=== PATIENT | female | born 1945 | race Caucasian/White ===

== ENCOUNTER → 2016-11-02 | Outpatient (CLI) | payer OTHER, BC ==
[~2016-11-02] MED LIST: APR50 PO; ASPEC81 PO; ATOR-26 PO; Amoxicillin/Clavulanate Potas PO; CHOL100010 PO; CRG125 PO; GABA-113 PO; INSDGI SC; INSUINJ14 SC; ISOS-11 PO; LSX20 PO; NTRGSL4 SL; PLV75 PO; POTA10CA28 PO
[2016-11-02 11:06] LABS: CHOLESTEROL/HDL RATIO 2.3
[2016-11-02 12:09] LABS: ESTIMATED AVERAGE GLUCOSE 117 mg/dl; HA1C FLAG Normal (Normal)
== END | disposition home or self-care (01) ==
LOC: C.LAB1850 09:45
PROVIDERS: ATTEND Nurse Practitioner Family
DX: E11.9 Type 2 diabetes mellitus without complications (principal); E78.5 Hyperlipidemia, unspecified; I10 Essential (primary) hypertension

== ENCOUNTER → 2017-01-10 | Outpatient (CLI) | payer OTHER, BC ==
[2017-01-10 14:59] LABS: HEMATOCRIT 35.8 % (37-47); MEAN CELL VOLUME 86.9 fL (80-100); MEAN CORPUSCULAR HEMOGLOBIN 28.6 pg (25-34); MEAN PLATELET VOLUME 10.9 fL (7.4-10.4); PLATELET COUNT 237 K/uL (130-400); RED BLOOD COUNT 4.12 M/uL (4.2-5.4)
[2017-01-10 15:03] LABS: BLOOD UREA NITROGEN 34 mg/dl (7-18); BUN/CREATININE RATIO 21.2 (10-20); CALCIUM 9.7 mg/dl (8.5-10.1); CARBON DIOXIDE 26 mmol/L (21-32); CHLORIDE 107 mmol/L (98-107); GLUCOSE 142 mg/dl (70-99); POTASSIUM 3.7 mmol/L (3.5-5.1); SODIUM 142 mmol/L (136-145)
[2017-01-10 15:04] LABS: PHOSPHORUS 3.1 mg/dl (2.5-4.9)
[2017-01-10 15:07] LABS: URINE PROTIEN/CREAT RATIO 0.2 (0-0.2); URINE TOTAL PROTEIN 5.3 mg/dl (0-11.9)
[2017-01-10 15:08] LABS: URINE APPEARANCE CLEAR (CLEAR); URINE BILIRUBIN NEG (NEG); URINE COLOR YELLOW; URINE NITRITE NEG (NEG); URINE PH 5.5 (4.5-7.5); UROBILINOGEN NEG (NEG)
[2017-01-10 15:23] LABS: MANUAL MICROSCOPIC REQUIRED? NO; REVIEW REQ? NO
== END | disposition home or self-care (01) ==
LOC: C.LAB1850 13:05
PROVIDERS: ATTEND Internal Medicine Nephrology
DX: I12.9 Hypertensive chronic kidney disease with stage 1 through stage 4 chronic kidney disease, or unspecified chronic kidney disease (principal); N18.3 Chronic kidney disease, stage 3 (moderate); D64.9 Anemia, unspecified; E55.9 Vitamin D deficiency, unspecified; R60.9 Edema, unspecified

== ENCOUNTER → 2017-04-11 | Outpatient (CLI) | payer OTHER, BC ==
[2017-04-11 13:03] LABS: HEMATOCRIT 35.3 % (37-47); MEAN CORPUSCULAR HEMOGLOBIN 28.2 pg (25-34); MEAN PLATELET VOLUME 10.6 fL (7.4-10.4); PLATELET COUNT 304 K/uL (130-400); RED BLOOD COUNT 4.01 M/uL (4.2-5.4); WHITE BLOOD COUNT 8.71 K/uL (4.8-10.8)
[2017-04-11 13:19] LABS: ESTIMATED AVERAGE GLUCOSE 128 mg/dl; HA1C FLAG Normal (Normal)
[2017-04-11 13:32] LABS: BLOOD UREA NITROGEN 39 mg/dl (7-18); BUN/CREATININE RATIO 25.9 (10-20); CALCIUM 10.2 mg/dl (8.5-10.1); CARBON DIOXIDE 25 mmol/L (21-32); CHLORIDE 107 mmol/L (98-107); GLUCOSE 123 mg/dl (70-99); PHOSPHORUS 3.2 mg/dl (2.5-4.9); POTASSIUM 4.4 mmol/L (3.5-5.1); SODIUM 141 mmol/L (136-145)
== END | disposition home or self-care (01) ==
LOC: C.LAB1850 11:53
PROVIDERS: ATTEND Internal Medicine Nephrology
DX: E11.49 Type 2 diabetes mellitus with other diabetic neurological complication (principal); I12.9 Hypertensive chronic kidney disease with stage 1 through stage 4 chronic kidney disease, or unspecified chronic kidney disease; N18.3 Chronic kidney disease, stage 3 (moderate); D64.9 Anemia, unspecified; E55.9 Vitamin D deficiency, unspecified; R60.9 Edema, unspecified

== ENCOUNTER → 2017-10-12 | Outpatient (CLI) | payer OTHER, BC ==
[2017-10-12 13:27] LABS: HEMATOCRIT 32.8 % (37-47); HEMOGLOBIN 10.5 g/dL (12.0-16.0); MEAN CELL VOLUME 89.1 fL (80-100); MEAN CORPUSCULAR HEMOGLOBIN 28.5 pg (25-34); MEAN PLATELET VOLUME 11.1 fL (7.4-10.4); PLATELET COUNT 239 K/uL (130-400); RED CELL DISTRIBUTION WIDTH CV 15.4 % (11.5-14.5); RED CELL DISTRIBUTION WIDTH SD 50.3 fL (36.4-46.3); WHITE BLOOD COUNT 7.67 K/uL (4.8-10.8)
[2017-10-12 14:29] LABS: ALBUMIN 3.1 gm/dl (3.4-5.0); BLOOD UREA NITROGEN 31 mg/dl (7-18); CALCIUM 9.5 mg/dl (8.5-10.1); CARBON DIOXIDE 27 mmol/L (21-32); CREATININE 1.52 mg/dl (0.60-1.20); GLUCOSE 124 mg/dl (70-99); PHOSPHORUS 2.8 mg/dl (2.5-4.9); POTASSIUM 4.3 mmol/L (3.5-5.1); SODIUM 142 mmol/L (136-145)
== END | disposition home or self-care (01) ==
LOC: C.LAB 12:09
PROVIDERS: ATTEND Internal Medicine Nephrology
DX: E21.3 Hyperparathyroidism, unspecified (principal); N18.3 Chronic kidney disease, stage 3 (moderate); D64.9 Anemia, unspecified; R60.9 Edema, unspecified; E55.9 Vitamin D deficiency, unspecified

== ENCOUNTER 2017-11-24 02:39 | Inpatient (IN) | payer OTHER, BC ==
[2017-11-24] VITALS (30 sets, daily range): BP systolic 127–180; BP diastolic 46–85; PULSE 56–75; TEMP 36.5–36.7; O2SAT 91–100; Ht 157.5 cm; Wt 107.2 kg
[~2017-11-24] VITALS: Ht 157.5 cm; Wt 107.2 kg
[2017-11-24] MEDS ORDERED: SODIUM CHLORIDE 0.9% 1000ML 1,000 ML IV SCH ×2 (05:15→09:00)
[2017-11-24] MEDS ORDERED: NITROGLYCERIN 0.4 MG SL PER TAB CHARGE SL PRN (05:15)
[2017-11-24] MEDS ORDERED: METOPROLOL TARTRATE 25 MG TAB PO ONE (05:30)
[2017-11-24] MEDS ORDERED: NITROGLYCERIN/D5W 100 MCG/ML 250 ML IV PRN (05:30)
--- NOTE | 2017-11-24 06:01 | History and Physical ---
History & Physical Date & Time of Service: Nov 24, 2017 at 05:42 Chief Complaint: Ms,Chest Pain,Unstable Angina Primary Care Physician: No Doctor, Assigned History of Present Illness Source: patient, partner Patient is a 72 year old female with a past medical history of MS (primary progressive), CO in 2013 with stenting, HTN, HLD, DM on insulin, stroke, and CKD stage 3 that presents as a direct from [place] with chest pain. The chest pain began at approximately 1 am this evening when the patient was awaiting discharge from the ED. The patient was initially seen for abdominal pain, nausea , and vomiting that started Sunday afternoon. The patient was evaluated in the ED and was being prepared for discharge home with antibiotics for suspected diverticulitis when she began to suddenly complain of chest pain. The discomfort was over her left scapula, radiating across her chest, pressure like discomfort, that progressed to radiate to her back. The patient states that this pain was similar but worse than her previous heart attack. The pain subsequently resolved after 2 nitro tabs and nitro paste. The patient was initially reported as Q waves in v1-v4 and T wave inversions in the inferior leads. The patient was placed on a heparin drip, given 4 doses of aspirin, nitro paste, and transported to [facility]. Upon arrival to the ICU the EKG from [place] appeared to have ST Elevations in the anteroseptal leads. The patient at this time denies any chest pain, shortness of breath, abdominal pain, fevers, chills, back pain, or any other acute complaints at this time. Family History Noncontributory Social History Smoking Status: Never Smoker Smokeless Tobacco Use: No Alcohol Use: none Drug Use: none Marital Status: Housing status: lives with family Occupational Status: disabled Immunizations History of Influenza Vaccine: Unknown History of Tetanus Vaccine?: Unknown History of Pneumococcal: Unknown Multi-Drug Resistant Organisms History of MDRO: No Allergies Coded Allergies: No Known Allergies (Unverified , 12/14/11) Home Medications Scheduled Aspirin (Aspir-Low), 81 MG PO QAM Atorvastatin (Lipitor), 80 MG PO DAILY Carvedilol (Coreg *), 12.5 MG PO BID Cholecalciferol (Vitamin D), 2,000 INTER.UNIT PO HS Clopidogrel Bisulfate (Clopidogrel), 75 MG PO QAM Furosemide (Furosemide), 20 MG PO QAM Gabapentin (Neurontin), 600 MG PO TID Hydralazine HCl (Hydralazine HCl), 50 MG PO TID Insulin Aspart Penfill (Novolog Penfill), 0 SC TID UD Insulin Glargine (Lantus), 25 UNITS SC QPM Isosorbide Mononitrate (Isosorbide Mononitrate ER), 30 MG PO QAM Potassium Chloride (Micro-K Ext Rel), 10 MEQ PO DAILY [Amoxicillin/Clavulanate Potas], 500 MG PO BIDM Scheduled PRN Nitroglycerin (Nitrostat), 0.4 MG SL UD PRN for Chest Pain Review of Systems Constitutional: No fever, No chills, No fatigue Respiratory: No cough, No shortness of breath Cardiovascular: No chest pain, No palpitations Abdomen: No pain, No nausea, No vomiting, No diarrhea, No constipation Genitourinary - Female: No dysuria Endocrine: No fatigue Physical Exam General Appearance: WD/WN, no apparent distress, + obese Head: normocephalic, atraumatic Neck: supple, no carotid bruits Respiratory/Chest: chest non-tender, lungs clear, normal breath sounds Cardiovascular: regular rate, rhythm, no edema, no gallop Abdomen/GI: normal bowel sounds, non tender, soft Neurologic/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 Bhakta and Heart Alert Called - Troponin 12.4 - Heparin Drip - Metoprolol 25mg PO - Normal Saline 100 mls/hr - Received 325mg Aspirin PO at [place] --> Resume home Aspirin 325mg PO QAM - Chest X-Ray - Continue home Atorvastatin 80mg - Continue home Carvedilol 12.5 mg QAM Diverticulitis - CT Abdomen: Mild inflammatory change of right sigmoid colon, may represent diverticulosis - Received dose of Cipro in [place] - Begin course of Cipro and Flagyl for presumed diverticulitis - No abdominal pain at this time Urinary Tract Infection - UA from [place]: 1+ Leuk Est, Trace Blood, Moderate WBC - Unclear if Urine Culture ordered - Repeat UA and Urine Culture (already received dose of Cipro at [place]) - Cipro in conjunction with Diverticulosis treatment Hypertension - Resume home Hydralazine and Isosorbide Mononitrate Diabetes Mellitus - ISS + AC/HS Glucose checks - NPO at this time - Resume home Lantus 28 units QPM when resuming diet Multiple Sclerosis - Resume home Gabapentin 600mg TID Urinary Retention - Resume home Flomax - Pierre cath DVT - Heparin Drip Code Status - Full Resuscitation Attending addendum: I have physically seen this patient, have supervised the medical residents activities, and agree with the H&P unless as otherwise noted. Assessment and Plan: NSTEMI/heart alert-- Patient was initially accepted in transfer from [facility] as a non-STEMI with a normal troponin and EKG description suggesting ischemia. Recommendation at that time was to start heparin drip, place the patient on Nitropaste and transfer the patient urgently to [facility]. Upon arrival, review of EKGs revealed a STEMI in leads II, III and aVF, with some improvement on new EKG performed here. Case was discussed with drafter directional survey Dr. Bhkata, additional laboratories were performed, and heart alert was called. Additional management as per Dr. Bhakta, and the compressor mechanic/ICU team Level of Care Critical Care Advanced Directives Existing Advance Directive: No Existing Living Will: No Existing Power of Document Specialist: No Resuscitation Status FULL RESUSCITATION VTE Prophylaxis VTE Risk Assessment Done? Y/N: Yes Risk Level: Moderate Given or contraindicated: Unfractionated heparin SQ Social Service Consult None Apply Resident Tracking Resident Involvement: Resident Care Provided Care Provided: Adult Hospital Medicine
[2017-11-24] MEDS ORDERED: ICU PROTOCOL FOR HYPERGLYCEMIA PRN ×2 (06:15→06:30)
[2017-11-24] MEDS ORDERED: HEPARIN 25,000 UNIT/500ML D5W 500 ML IV PRN (06:15)
[2017-11-24] MEDS ORDERED: ACETAMINOPHEN 325 MG TAB PO PRN (06:15)
[2017-11-24 06:19] LABS: BASO % 0.5 %; BASO ABS # 0.05 K/uL (0-0.2); EOS % 0.8 %; EOS ABS # 0.08 K/uL (0-0.5); HEMATOCRIT 35.9 % (37-47); HEMOGLOBIN 11.7 g/dL (12.0-16.0); IG# 0.03 K/uL (0.00-0.02); LYMPH % 15.5 %; LYMPH ABS # 1.55 K/uL (1.2-3.4); MEAN CELL VOLUME 86.9 fL (80-100); MEAN CORPUSCULAR HEMOGLOBIN 28.3 pg (25-34); MEAN PLATELET VOLUME 10.5 fL (7.4-10.4); MONO % 9.2 %; MONO ABS # 0.92 K/uL (0.11-0.59); NEUT % 73.7 %; NEUT ABS # 7.37 K/uL (1.4-6.5); PLATELET COUNT 240 K/uL (130-400); RED CELL DISTRIBUTION WIDTH CV 15.4 % (11.5-14.5); RED CELL DISTRIBUTION WIDTH SD 49.3 fL (36.4-46.3)
[2017-11-24 06:26] LABS: MEAN CORPUSCULAR HGB CONC 32.6 g/dl (32-36)
[2017-11-24] MEDS ORDERED: GLUCOSE 40% GEL 15 GM TUBE PO PRN (06:30)
[2017-11-24] MEDS ORDERED: ONDANSETRON INJ 2 MG/ML 2 ML VIAL IV PRN (06:30)
[2017-11-24] MEDS ORDERED: DEXTROSE 50% 50 ML SYR IV PRN (06:30)
[2017-11-24] MEDS ORDERED: MoRPHine SULFATE 2 MG/ML CARP IV PRN (06:30)
[2017-11-24] MEDS ORDERED: GLUCAGON FOR INJ 1 MG VIAL SQ PRN (06:30)
[2017-11-24] MEDS ORDERED: GLUCOSE 10 TABS/TUBE PO PRN (06:30)
[2017-11-24 06:36] LABS: INR 1.1 (0.9-1.1)
[2017-11-24 06:43] LABS: BLOOD UREA NITROGEN 38 mg/dl (7-18); CREATININE 1.52 mg/dl (0.60-1.20); GLUCOSE 179 mg/dl (70-99)
[2017-11-24 06:44] LABS: ALBUMIN 3.4 gm/dl (3.4-5.0); ALT/SGPT 27 U/L (12-78); AST/SGOT 82 U/L (15-37); CALCIUM 9.8 mg/dl (8.5-10.1); CARBON DIOXIDE 23 mmol/L (21-32); POTASSIUM 4.3 mmol/L (3.5-5.1); SODIUM 138 mmol/L (136-145)
[2017-11-24 06:49] LABS: ALKALINE PHOSPHATASE 85 U/L (45-117); TOTAL PROTEIN 7.3 gm/dl (6.4-8.2)
[2017-11-24 06:53] LABS: PTT PATIENT 52.7 SECONDS (21.0-31.0)
[2017-11-24] MEDS ORDERED: MIDAZOLAM HCL 1 MG/ML 2ML VIAL ONE (07:20)
[2017-11-24] MEDS ORDERED: FENTANYL CITRATE INJ 50 MCG/1 ML 2 ML VIAL ONE (07:20)
[2017-11-24] MEDS ORDERED: NiCARDipine HCL INJ 2.5 MG/ML 10 ML AMP ONE (07:20)
[2017-11-24] MEDS ORDERED: HEPARIN SOD (PORCINE) 1000 UNIT/ML 10 ML VIAL ONE (07:20)
--- NOTE | 2017-11-24 07:22 | Critical Care Consultation ---
Critical Care Consultation Date of Consultation: Nov 24, 2017. Attending Physician: Mateus Almeida M.D. Reason for Consultation: Patient is a 72-year-old female accepted in transfer from [place] emergency department for concerns for ST changes on EKG with a history of coronary artery disease and stenting in 2013. History of Present Illness Patient is a 72-year-old female with significant past medical history of coronary artery disease, hypertension, hyperlipidemia, chronic kidney disease, diabetes, and MS who was accepted in transfer to this facility from [place] emergency department for further evaluation and management of acute onset of LEFT-sided upper chest pain with radiation to her back with pain that responded to sublingual nitroglycerin. Yesterday afternoon, the patient was experiencing some abdominal discomfort after having a bowel movement. She received a suppository from her . Shortly after, she developed increasing abdominal pain with associated diarrhea and vomiting. Her symptoms persisted throughout the evening which prompted visit to the [facility] emergency department. While in the emergency department, her symptoms did resolve with treatment. She had a CT scan without contrast performed of her abdomen and pelvis which was concerning for sigmoid inflammation concerns for early diverticulitis. She was treated with 1 dose of Cipro orally. Around the time of discharge, approximately 12:30 AM, the patient complained of LEFT-sided upper chest pain with radiation to her scapula. During this time, she had an EKG performed. She received nitroglycerin and morphine. She received a second nitroglycerin with complete resolve of her symptoms. EKG was concerning for, what was described from the [place] emergency physician, Q's in V1 through V4 and ST/T- wave inversions in 3/aVL. She had previous PTCA with ALEXANDER to the PLB. Most recently, the patient had been on aspirin therapy alone after having been on Brilinta. Upon evaluation in the ICU, the patient is awake, alert, and oriented. She denies any chest pain currently. The patient reports that she had been feeling well up until earlier today. She describes the pain to the LEFT-sided chest more as "pressure." She does report that this pain was worse than she remembered from her previous UT. She denies any headaches, dizziness, lightheadedness, chest pain, palpitations, shortness of breath, pleuritic pain, nausea, vomiting, or abdominal discomfort. Patient lives at home with family. She denies any tobacco use or alcohol consumption. Past Medical/Surgical History Medical Problems: (1) Chest pain (2) DM (diabetes mellitus) (3) HTN (hypertension) (4) MS (multiple sclerosis) Family History noncontributory Social History Smoking Status: Never Smoker Smokeless Tobacco Use: No Alcohol Use: none Drug Use: none Marital Status: Housing Status: lives with family Occupation Status: disabled Allergies Coded Allergies: No Known Allergies (Unverified , 12/14/11) Home Medications Scheduled Aspirin (Aspir-Low), 81 MG PO QAM Atorvastatin (Lipitor), 80 MG PO DAILY Carvedilol (Coreg *), 12.5 MG PO BID Cholecalciferol (Vitamin D), 2,000 INTER.UNIT PO HS Clopidogrel Bisulfate (Clopidogrel), 75 MG PO QAM Furosemide (Furosemide), 20 MG PO QAM Gabapentin (Neurontin), 600 MG PO TID Hydralazine HCl (Hydralazine HCl), 50 MG PO TID Insulin Aspart Penfill (Novolog Penfill), 0 SC TID UD Insulin Glargine (Lantus), 25 UNITS SC QPM Isosorbide Mononitrate (Isosorbide Mononitrate ER), 30 MG PO QAM Potassium Chloride (Micro-K Ext Rel), 10 MEQ PO DAILY [Amoxicillin/Clavulanate Potas], 500 MG PO BIDM Scheduled PRN Nitroglycerin (Nitrostat), 0.4 MG SL UD PRN for Chest Pain Current Inpatient Medications Current Inpatient Medications Medications (Trade) Dose Ordered Sig/Lisa Route Start Time Stop Time Status Last Admin Dose Admin Nitroglycerin (Nitrostat Tab) 0.4 mg Q5M PRN SL 11/24/17 05:15 12/24/17 05:14 Sodium Chloride 1,000 ml @ 100 mls/hr Q10H IV 11/24/17 05:15 12/24/17 05:14 11/24/17 06:11 100 MLS/HR Nitroglycerin/ Dextrose 250 ml @ 0 mls/hr Q0M PRN IV 11/24/17 05:30 12/24/17 05:29 11/24/17 06:14 5 MLS/HR Heparin Sodium/ Dextrose 500 ml @ 26 mls/hr [id number] PRN IV 11/24/17 06:15 12/24/17 06:14 Insulin Aspart (novoLOG ASPART) SLIDING SCALE G... ACHS SC 11/24/17 06:45 12/24/17 06:44 UNV Acetaminophen (Tylenol Tab) 650 mg Q4H PRN PO 11/24/17 06:15 12/24/17 06:14 UNV Miscellaneous Information (Icu Protocol For Hyperglycemia) 1 ea PRN PRN N/A 11/24/17 06:15 11/26/17 06:14 UNV Ondansetron HCl (Zofran Inj) 4 mg Q6H PRN IV 11/24/17 06:30 12/24/17 06:29 UNV Pantoprazole Sodium 40 mg/ Syringe 10 ml @ 5 mls/min DAILY IV 11/24/17 09:00 12/24/17 08:59 UNV Morphine Sulfate (MoRPHine SULFATE INJ) 2 mg Q2H PRN IV 11/24/17 06:30 12/08/17 06:29 UNV Miscellaneous Information (Icu Protocol For Hyperglycemia) 1 ea PRN PRN N/A 11/24/17 06:30 11/26/17 06:29 UNV Review of Systems A complete 10-point Review of Systems was discussed with the patient, with pertinent positives and negatives listed in the History of Present Illness. All remaining Review of Systems questions can be considered negative unless otherwise specified. Physical Exam Date Time Temp Pulse Resp B/P (MAP) Pulse Ox O2 Delivery O2 Flow Rate FiO2 11/24/17 05:00 36.7 70 20 154/56 99 Nasal Cannula 3.0 VITAL SIGNS - Vital signs and nursing notes were reviewed. GENERAL - 72-year-old female appearing her stated age who is in no acute distress. Communicates well with provider and answers questions appropriately. HEAD - NC/AT. EYES - PERRL with EOMI bilaterally. Sclera anicteric. EARS - No deformities of external structures noted on gross examination bilaterally. NOSE - Midline and without cyanosis. No epistaxis or purulent drainage noted. Septum midline without deviation or septal hematoma noted. MOUTH/OROPHARYNX - Without perioral cyanosis. Buccal mucosa pink and moist and without leukoplakia. Tongue midline with equal elevation of palate bilaterally. No tonsillar hypertrophy, erythema, or exudates noted. NECK - Neck with FROM. Supple to palpation. LUNGS - Chest wall symmetric without accessory muscle use, intercostals retractions, or central cyanosis. Normal vesicular breath sounds CTA B/L. No wheezes, rales, or rhonchi appreciated. CARDIAC - Distant heart sounds w/ RRR with S1/S2. No murmur, rubs, or gallops appreciated. No reproducible tenderness to palpation appreciated over the anterior chest wall. ABDOMEN - Abdominal contour obese and without pulsations or visible masses. BS normoactive all four quadrants. No tenderness, palpable masses, hepatosplenomegaly, or ascites noted. EXTREMITIES - No clubbing or peripheral cyanosis. Moderate pretibial edema present bilaterally. +3/5 radial and dorsalis pedis pulses palpated throughout. LEFT sided upper/lower deficits noted on exam. NEUROLOGIC - Cranial nerves II through XII grossly intact. LEFT sided Deficits as above. PSYCH - A&Ox3 and cooperates fully with examiner. Pt is very pleasant and interacts well with examiner. Laboratory Results Last 24 Hours Test 11/24/17 05:07 11/24/17 06:09 11/24/17 06:13 Creatine Kinase MB Ratio White Blood Count 10.00 K/uL Red Blood Count 4.13 M/uL Hemoglobin 11.7 g/dL Hematocrit 35.9 % Mean Corpuscular Volume 86.9 fL Mean Corpuscular Hemoglobin 28.3 pg Mean Corpuscular Hemoglobin Concent 32.6 g/dl Platelet Count 240 K/uL Mean Platelet Volume 10.5 fL Neutrophils (%) (Auto) 73.7 % Lymphocytes (%) (Auto) 15.5 % Monocytes (%) (Auto) 9.2 % Eosinophils (%) (Auto) 0.8 % Basophils (%) (Auto) 0.5 % Neutrophils # (Auto) 7.37 K/uL Lymphocytes # (Auto) 1.55 K/uL Monocytes # (Auto) 0.92 K/uL Eosinophils # (Auto) 0.08 K/uL Basophils # (Auto) 0.05 K/uL RDW Standard Deviation 49.3 fL RDW Coefficient of Variation 15.4 % Immature Granulocyte % (Auto) 0.3 % Immature Granulocyte # (Auto) 0.03 K/uL Diagnostic Results Radiological imaging and reports were reviewed by myself. Assessment & Plan Reason Critically Ill: Patient is a 72-year-old female accepted in transfer from [place] emergency department for concerns for ST changes on EKG with a history of coronary artery disease and stenting in 2013. Neuro - * CAM ICU: NEGATIVE * MS: * No current treatment at home. * h/o CVA in 1995 and 2013. * Neuro exams. Cardiac - * Acute STEMI: * Initially with ST elevations at ~0030 while at outside facility. Responded to Nitro/morphine. Heparin gtt. Pain free on arrival * EKG at this facility: NSR 70bpm w/ slight ST elevations in III/aVL., QTc 397. * Spoke with Dr. Bhakta initially. Recommends waiting on troponin while patient is chest free. * Provided 25 mg metoprolol orally. * Started on Heparin/Nitro gtts. * Patient's troponin returned at 12.4. Spoke with Dr. Bhakta a second time. HEART ALERT called. * Will monitor the patient upon return from clinical laboratory medical director. Respiratory - * No history of pulmonary disease. * Supplemental O2 as needed. GI - * Possible early diverticulitis on CT scan with associated diarrheal stools: * Received initial dose of Cipro. * Cipro Flagyl per admitting service. * N.p.o. at this point. RENAL/LYTES - * Chronic kidney disease: * No acute electrolyte derrangement at this time. * Will monitor closely for contrast induced nephropathy s/p cath. - * Will add Pierre as patient poorly ambulates and will need so s/p cath. * Will repeat UA s/p cath. ENDO - * DM: * ISS * No h/y Thyroid Dz. HEME - * Stable H&H: * Will trend s/p Cath ID - * Early Diverticulitis: * Cipro/Flagyl * Consider stool cultures if persistent diarrhea. LINES/IV ACCESS - * PIVs intact. * Pierre Catheter. DVT PROPHYLAXIS - * Heparin gtt I have personally spent 45 minutes of critical care time in the direct management of this patient. This is a life/limb threatening event. This includes time spent evaluating patient, direct bedside care, chart review, placing orders, interpretation of diagnostic studies, discussion with consultants, patient, and family members, as well as other required patient management activities. This time is exclusive of all separately billable procedures, and teaching time and separate from and in addition to any other critical care service time. Thank you for this consultation allow us to be part of this patient's care. Please refer to my attending physician's documentation for any further recommendations. Attending addendum, The patient was seen, examined independently, assessment and plan per my colleague Peterson Manzo. The patient physical exam revealed elderly female, does not appear to be in any distress, just had PCI which showed another branch of the RCA requiring ballooning. Appreciate Dr. Bhakta input in that regard. The patient currently is on heparin drip, she was started on antiplatelet therapy, and she appeared to be chest pain-free. Her physical exam revealed S1-S2 regular rate and rhythm , lungs are clear, abdomen is benign minimal tenderness in the pelvic area, trace edema in the periphery. Her labs were reviewed which showed elevated troponin due to ST elevation UT. We'll continue to monitor the patient ICU, plan per postcardiac cath day 1. CCT including discussion with the staff was 35 minutes.
--- NOTE | 2017-11-24 07:30 | DIAGNOSTIC IMAGING REPORT ---
CHEST ONE VIEW PORTABLE CLINICAL HISTORY: Chest pain. COMPARISON STUDY: Chest radiograph April 14, 2014. FINDINGS: There is no pneumothorax or pleural effusion. There is mild cardiomegaly. There is no consolidation to suggest pneumonia. Mild interstitial thickening is noted. IMPRESSION: 1. Mild interstitial thickening which could reflect pulmonary vascular congestion/mild interstitial pulmonary edema or interstitial lung disease. 2. No consolidation identified. 3. Mild cardiomegaly. Electronically signed by: Feliciano Rowland M.D. 11/24/2017 7:29 AM Dictated Date/Time: 11/24/2017 7:27 AM
--- NOTE | 2017-11-24 07:37 | Pre Sedation Assessment ---
Pre Sedation Assessment General Date of Sedation: Nov 24, 2017. Vital Signs Past 12 Hours Date Time Temp Pulse Resp B/P (MAP) Pulse Ox O2 Delivery O2 Flow Rate FiO2 11/24/17 07:15 64 16 98 11/24/17 07:01 71 20 139/54 (82) 98 11/24/17 07:00 75 16 99 11/24/17 06:53 71 17 148/61 (90) 100 11/24/17 06:45 70 20 99 11/24/17 06:41 72 23 180/64 (102) 11/24/17 06:30 72 17 175/70 (105) 96 11/24/17 06:15 69 20 98 11/24/17 06:00 71 18 99 11/24/17 05:36 154/56 (88) 11/24/17 05:00 36.7 70 20 154/56 99 Nasal Cannula 3.0 Review Cardiovascular: regular rate, rhythm, no edema Lungs: chest non-tender, lungs clear Pre-Sedation Airway Assessment Smoking Status: Never Smoker Hx of Sleep Apnea: No Hx of difficult intubation: No Short Thick Neck: No Thyro-mental Distance: > 3 Finger Breadths Oral Cavity: WNL Mallampati Classification: Class III ASA Classification: Class IV Procedure Planning Contraindications for Sedation: None Current Medications Reviewed: Yes Notes The planned sedation has been discussed with the patient. Informed Consent was obtained. I have identified the patient, determined the appropriateness of sedation and have assessed the patient immediately prior to the procedure. All medicine(s) and interventions are by my order.
[2017-11-24] MEDS: INSULIN ASPART 100 UNITS/ML 3 ML PEN SC SCH ×4 (07:50→21:13)
[2017-11-24] MEDS ORDERED: TICAGRELOR 90 MG TAB PO ONE (08:20)
--- NOTE | 2017-11-24 08:52 | Cardiac Catheterization ---
Procedure Note Procedure Date Nov 24, 2017. Pre-Procedure Diagnosis Non STEMI AUC Score 8 Post-Procedure Diagnosis Severe CAD, Successful PCI, Elevated Intracardiac Pressures Procedure(s) Performed Coronary Angiography, Left Heart Cath, PTCA Parts Identifier anastacia Machine Clerical Verifier(s) jovan Estimated Blood Loss 20 Medication(s) Fentanyl, Heparin, Nicardipine, Nitroglycerin, Versed, Lidocaine 1% Ticagrelor Summary of Findings Indication: High-risk NSTEMI 72 F h/o prior NV 2013 treated with PCI and ALEXANDER (2.25 x 15 Xience) to distal R- PLB. Transferred from [facility] after presenting with abdominal pain, subsequent chest pain with transient inferior ST elevations and troponin on arrival of 12. Access: 6Fr Right ulnar artery - ultrasound guided access Catheters: [place]; JR4 guide Findings: LM - Luminal irregularities LAD - Moderate caliber, 20-30% mid segment disease, distal luminal irregularities as tapers to apex Circumflex - Small caliber vessel, 40% mid segment focal disease; distal vessel very small with diffuse disease. RCA - Large, dominant vessel with minimal luminal irregularities. Large R-PLB with widely patent distal stent. Moderate caliber right acute marginal branch with 100% acute distal occlusion. LVEDP - 19 -- PCI -- Antithrombotic therapy: Heparin, Ticagrelor Procedure: RCA cannulated with JR4 guide BMW wire passed across lesion into distal acute marginal Occlusion ballooned with 2.0 compliant balloon with re-established flow. IC vasodilators administered Post procedure SHLAINI 2-3 flow in small distal vessel. No apparent coronary complications. Patient chest pain free and hemodynamically/electrically stable. Arterial Closure: TR Band Summary: 1. Acutely occluded distal right acute marginal branch 2. Mild non-obstructive residual coronary artery disease - Widely patent R-PLB distal stent 3. Mildly elevated intracardiac filling pressure 4. Successful PTCA of distal right acute marginal branch Recommendations: Return to ICU for continued monitoring Patient with minimal disease throughout RCA and is now post 2 distal branch vessel acute occlusions ( and 2013). Concern for possible coronary embolism. Loaded with ticagrelor 180mg in cath lab nurse Continue DAPT at least for 1 year for NV Trend troponins until peak Check Echo, telemetry and consider additional outpatient ambulatory monitoring to evaluate for AF Uptitrate beta-radha/PAT as BP allows High-dose statin Consult cardiac Rehab Hemodynamics Rest Ao: 132/45/80 Final Ao: 140/54/87 LV: 152/19 Recommendations PCI without planned CABG Specimens None Radiation Exposure (mGy) 2158 Contrast (mls) 110 Visi Fluids (cc crystalloids) 100 Drains None Anesthesia Moderate Procedural Complication(s) None Disposition ICU ACC Data Cardiac Status Clinical evaluation leading to the procedure CAD Presntation: Non STEMI Anginal Classification: CCS IV Heart Failure: No, NYHA Class: CCS I Cardiogenic Shock w/in 24Hrs: No Cardiac Arrest w/in 24Hrs: No Imaging studies past 6 months: No Stress studies past 6 months: No Closure Device Percutaneous Entry Location: Ulnar Closure Device: Radial Band Recommendations: PCI without planned CABG PCI Indication: PCI for high risk Non-STEMI Lesion Segment Name: Distal right acute marginal Culprit Artery: Yes Stenosis Prior to Rx (%): 100 Chronic Total Occlusion: No IVUS: No FFR: No Pre-Procedure SHALINI Flow: 0 Previously Treated Lesion: No Lesion Complexity: Non-High/Non-C Lesion Length (mm): 10 Thrombus Present: Yes Bifurcation Lesion: No Guidewire Across Lesion: Yes Guidewire: Stenosis Post-Procedure (%): 10 Post-Procedure SHALINI Flow: 3 Device(s) Deployed: No Intraprocedure Events Significant Dissection: No Perforation: No
[2017-11-24] MEDS ORDERED: ISOSORBIDE MONONITRATE 20 MG TAB PO SCH (09:00)
--- NOTE | 2017-11-24 09:54 | Family Medicine Progress Note ---
Progress Note Date of Service Nov 24, 2017. Subjective Pt evaluation today including: conversation w/ patient, physical exam, chart review, lab review, review of studies, review of inpatient medication list Pain: Patient denies pain at this time Voiding: no voiding problems Patient had recently returned from cardiac cath at time of our visit. She denies chest pain or abdominal pain at this time Constitutional: + fatigue Cardiovascular: + edema, No chest pain Abdomen: No pain Neurologic: + problem reported (10 yr hx of worsening primary progressive MS , WC bound) All Other Systems: Reviewed and Negative Medications Current Inpatient Medications Medications (Trade) Dose Ordered Sig/Lisa Route Start Time Stop Time Status Last Admin Dose Admin Nitroglycerin (Nitrostat Tab) 0.4 mg Q5M PRN SL 11/24/17 05:15 12/24/17 05:14 Heparin Sodium/ Dextrose 500 ml @ 26 mls/hr [id number] PRN IV 11/24/17 06:15 12/24/17 06:14 11/24/17 13:58 26 MLS/HR Insulin Aspart (novoLOG ASPART) SLIDING SCALE G... ACHS SC 11/24/17 06:45 12/24/17 06:44 11/24/17 21:13 2 UNITS Acetaminophen (Tylenol Tab) 650 mg Q4H PRN PO 11/24/17 06:15 12/24/17 06:14 Miscellaneous Information (Icu Protocol For Hyperglycemia) 1 ea PRN PRN N/A 11/24/17 06:15 11/26/17 06:14 Ondansetron HCl (Zofran Inj) 4 mg Q6H PRN IV 11/24/17 06:30 12/24/17 06:29 Pantoprazole Sodium 40 mg/ Syringe 10 ml @ 5 mls/min DAILY IV 11/24/17 09:00 12/24/17 08:59 11/24/17 10:31 5 MLS/MIN Morphine Sulfate (MoRPHine SULFATE INJ) 2 mg Q2H PRN IV 11/24/17 06:30 12/08/17 06:29 Glucose (Glucose 40% Gel) 15-30 GRAMS 15 GRAMS... UD PRN PO 11/24/17 06:30 12/24/17 06:29 Glucose (Glucose Chew Tab) 4-8 Tablets 4 Tabl... UD PRN PO 11/24/17 06:30 12/24/17 06:29 Dextrose (Dextrose 50% 50ML Syringe) 25-50ML OF 50% DW IV FOR... UD PRN IV 11/24/17 06:30 12/24/17 06:29 Glucagon (Glucagon Inj) 1 mg UD PRN SQ 11/24/17 06:30 12/24/17 06:29 Atorvastatin Calcium (Lipitor Tab) 80 mg QAM PO 11/24/17 09:00 12/24/17 08:59 11/24/17 10:31 80 MG Carvedilol (Coreg Tab) 12.5 mg BID PO 11/24/17 09:00 12/24/17 08:59 11/24/17 21:10 12.5 MG Tamsulosin HCl (Flomax Cap) 0.4 mg QAM PO 11/24/17 09:00 12/24/17 08:59 11/24/17 10:31 0.4 MG Furosemide (Lasix Tab) 40 mg QAM PO 11/24/17 09:00 12/24/17 08:59 11/24/17 10:31 40 MG Gabapentin (Neurontin Tab) 600 mg BID PO 11/24/17 09:00 12/24/17 08:59 11/24/17 21:09 600 MG Hydralazine HCl (Apresoline Tab) 50 mg TID PO 11/24/17 09:00 12/24/17 08:59 11/24/17 21:08 50 MG Potassium Chloride (Klor-Con M10) 10 meq QAM PO 11/24/17 09:00 12/24/17 08:59 11/24/17 10:32 10 MEQ Isosorbide Mononitrate (Imdur Ext Rel Tab) 30 mg QAM PO 11/24/17 09:00 12/24/17 08:59 11/24/17 10:31 30 MG Ticagrelor (Brilinta Tab) 90 mg BID PO 11/24/17 09:00 12/24/17 08:59 11/24/17 21:08 90 MG Aspirin (Ecotrin Tab) 81 mg QAM PO 11/24/17 09:00 12/24/17 08:59 11/24/17 10:32 81 MG Ciprofloxacin (Cipro Tab) 500 mg BID PO 11/24/17 21:00 12/04/17 20:59 11/24/17 21:09 500 MG Objective Vital Signs Date Time Temp Pulse Resp B/P (MAP) Pulse Ox O2 Delivery O2 Flow Rate FiO2 11/24/17 22:00 63 20 127/46 (73) 93 Room Air 11/24/17 20:00 36.5 66 17 157/57 (90) 94 Room Air 11/24/17 20:00 94 Room Air 11/24/17 18:23 36.7 62 16 137/48 (77) 94 Room Air 11/24/17 16:12 61 16 147/54 (85) 94 Nasal Cannula 2.0 11/24/17 16:00 Nasal Cannula 2.0 11/24/17 14:45 62 16 139/57 (84) 94 Nasal Cannula 2.0 11/24/17 14:07 64 18 161/53 (89) 95 Nasal Cannula 2.0 11/24/17 13:45 63 18 139/85 (103) 93 Nasal Cannula 2.0 11/24/17 12:45 63 14 176/66 (102) 96 Nasal Cannula 2.0 11/24/17 12:00 Nasal Cannula 2.0 11/24/17 12:00 63 16 161/72 (101) 96 Nasal Cannula 2.0 11/24/17 11:45 63 16 162/69 (100) 96 Nasal Cannula 2.0 11/24/17 10:46 56 16 154/67 (96) 96 Nasal Cannula 2.0 11/24/17 10:16 64 16 158/74 (102) 95 Nasal Cannula 2.0 11/24/17 10:00 63 16 158/68 (98) 95 Nasal Cannula 2.0 11/24/17 10:00 63 16 158/68 (98) 95 Nasal Cannula 2.0 11/24/17 09:45 63 16 160/61 (94) 94 Nasal Cannula 2.0 11/24/17 09:30 66 16 151/58 (89) 92 Nasal Cannula 2.0 11/24/17 09:15 63 16 166/55 (92) 91 Nasal Cannula 2.0 11/24/17 09:00 36.7 64 16 156/65 (95) 92 Nasal Cannula 2.0 11/24/17 08:45 36.7 66 16 152/69 (96) 98 Nasal Cannula 2.0 11/24/17 08:21 60 137/80 (99) 98 11/24/17 08:00 Nasal Cannula 2.0 11/24/17 07:15 64 16 98 11/24/17 07:01 71 20 139/54 (82) 98 11/24/17 07:00 75 16 99 11/24/17 06:53 71 17 148/61 (90) 100 11/24/17 06:45 70 20 99 11/24/17 06:41 72 23 180/64 (102) 11/24/17 06:30 72 17 175/70 (105) 96 11/24/17 06:15 69 20 98 11/24/17 06:00 71 18 99 11/24/17 05:36 154/56 (88) 11/24/17 05:00 36.7 70 20 154/56 99 Nasal Cannula 3.0 Physical Exam General Appearance: WD/WN, no apparent distress Eyes: normal inspection, PERRL, EOMI ENT: hearing grossly normal Neck: supple Respiratory/Chest: chest non-tender, lungs clear, normal breath sounds, no respiratory distress, no accessory muscle use Cardiovascular: regular rate, rhythm, no JVD, no murmur, + pertinent finding Abdomen: normal bowel sounds, non tender, soft Extremities: no pedal edema, no calf tenderness Neurologic/Psychiatric: alert, normal mood/affect, oriented x 3 Skin: warm/dry Laboratory Results Last Resulted 11/24/17 06:13 Red Blood Count 4.13, Mean Corpuscular Volume 86.9, Mean Corpuscular Hemoglobin 28.3, Mean Corpuscular Hemoglobin Concent 32.6, Mean Platelet Volume 10.5, Neutrophils (%) (Auto) 73.7, Lymphocytes (%) (Auto) 15.5, Monocytes (%) (Auto) 9.2, Eosinophils (%) (Auto) 0.8, Basophils (%) (Auto) 0.5, Neutrophils # (Auto) 7.37, Lymphocytes # (Auto) 1.55, Monocytes # (Auto) 0.92, Eosinophils # (Auto) 0.08, Basophils # (Auto) 0.05 Last Resulted 11/24/17 06:13 Past 24 Hours Test 11/24/17 05:07 11/24/17 06:13 11/24/17 15:41 2/24/18 21:05 Range/Units Creatine Kinase MB Ratio 7.8 H 6.3 H 0-3.0 Creatine Kinase MB 34.0 H 59.6 H 43.2 H 0.5-3.6 ng/ml Prothromb Time International Ratio 1.1 0.9-1.1 Prothrombin Time 11.6 9.0-12.0 SECONDS Troponin I 12.400 *H 45.400 *H 37.000 *H 0-0.045 ng/ml Total Creatine Kinase 764 H 686 H 26-192 U/L Assessment and Plan Patient is a 72 year old female with a past medical history of recent CVA (aug 2017), MS (primary progressive), IL in 2013 with stenting, HTN, HLD, DM on insulin, stroke, and CKD stage 3 that presents as a direct admit from [facility] with chest pain STEMI - EKG from [facility] showed STEMI in Anteroseptal leads, Troponin 12.4 - Discussed case with Dr. Bhakta and Heart Alert Called at 0650 11/24 1. Acutely occluded distal right acute marginal branch 2. Mild non-obstructive residual coronary artery disease - Widely patent R-PLB branch distal stent 3. Mildly elevated intracardiac filling pressure 4. Successful PTCA of distal right acute marginal branch Recommendations: Patient with minimal disease throughout RCA and is now post 2 distal branch vessel acute occlusions ( and 2013). Concern for possible coronary embolism. Loaded with ticagrelor 180mg in laboratory engineer--Continue DAPT at least for 1 year for IL Trend troponins until peak Check Echo, telemetry and consider additional outpatient ambulatory monitoring to evaluate for AF Uptitrate beta-radha/PAT as BP allows Consult cardiac Rehab - Heparin Drip - Normal Saline 100 mls/hr - Resume home Aspirin 325mg PO QAM - Continue home Atorvastatin 80mg - Continue home Carvedilol 12.5 mg QAM after 6.25mg today Diverticulitis - CT Abdomen: Mild inflammatory change of right sigmoid colon, may represent diverticulosis - Received dose of Cipro in [facility] - Begin course of Cipro 500 BID for presumed diverticulitis, day 1 - No abdominal pain at this time Urinary Tract Infection - UA from [facility]: 1+ Leuk Est, Trace Blood, Moderate WBC - Unclear if Urine Culture ordered - Repeat UA and Urine Culture (already received dose of Cipro at [facility]) - Cipro in conjunction with Diverticulosis treatment Hypertension - Resume home Hydralazine and Isosorbide Mononitrate Diabetes Mellitus - ISS + AC/HS Glucose checks - Resume home Lantus 28 units QPM when resuming diet Multiple Sclerosis - Resume home Gabapentin 600mg TID Urinary Retention - Resume home Flomax - [facility] cath DVTP: Heparin Drip Code Status; Full Resuscitation Dispo: ICU, further transfer to [facility] when stable Resident Physician Supervision Note: I interviewed and examined the patient. Discussed with Dr. Kingston and agree with findings and plan as documented in the note. Any exceptions or clarifications are listed here: None Documented By: David Bryant feeling better than earlier no abdominal pain either vitals noted nad breathing unlabored abd soft nd nt STEMI - post cath, med management recent diverticulitis - resume abx otherwise as above Resident Tracking Resident Involvement: Resident Care Provided Care Provided: Adult Hospital Medicine
[2017-11-24] MEDS: FUROSEMIDE 40 MG TAB PO SCH (10:31)
[2017-11-24] MEDS: ISOSORBIDE MONONITRATE 30 MG TABCR PO SCH (10:31)
[2017-11-24] MEDS: PANTOprazole INJ 40 MG in SYRINGE 0 ML IV SCH (10:31)
[2017-11-24] MEDS: TAMSULOSIN HCL 0.4 MG CAP PO SCH (10:31)
[2017-11-24] MEDS: ATORVASTATIN 40 MG TAB PO SCH (10:31)
[2017-11-24] MEDS: GABAPENTIN 600 MG TAB PO SCH ×2 (10:31→21:09)
[2017-11-24] MEDS: POTASSIUM CHLORIDE 10 MEQ TABCR PO SCH (10:32)
[2017-11-24] MEDS: CARVEDILOL 12.5 MG TAB PO SCH ×2 (10:32→21:10)
[2017-11-24] MEDS: ASPIRIN 81 MG ECTAB PO SCH (10:32)
[2017-11-24] MEDS: TICAGRELOR 90 MG TAB PO SCH ×2 (10:32→21:08)
[2017-11-24] MEDS ORDERED: CARVEDILOL 6.25 MG TAB PO ONE (10:45)
--- NOTE | 2017-11-24 12:36 | CARDIOLOGY CONSULTATION ---
DATE OF CONSULTATION: 11/24/2017 CONSULTATION REQUESTED BY: Peterson Manzo and Mateus Almeida MD. REASON FOR CONSULTATION: Acute coronary syndrome. HISTORY OF PRESENT ILLNESS: Mrs. Bowman is a 72-year-old woman with a history of coronary artery disease status post prior MN in 2013, treated with PCI with drug-eluting stent to a distal right PLB, who was transferred from [facility] in the setting of an acute coronary syndrome. Interventional Cardiology was consulted/heart alert activated in the setting of transient ST elevation. The patient is followed by Dr. Palomo from [facility] as an outpatient for her cardiovascular care. Last seen by him in July. Recently, the patient had been doing reasonably well. She had a questionable CVA in August, which was treated at [facility]. Details of that hospitalization and management not noted at this time. She was in her usual state until yesterday at approximately 1:00 p.m. when she started to develop abdominal pain. This was associated with nausea and vomiting, which prompted her to go to [facility] around 6:00 p.m. There, was initially evaluated and diagnosed with possible early diverticulitis. Her abdominal pain had improved and was to be discharged when developed chest pain radiating to her back. There was an initial EKG, which showed inferior ST elevations, although not thought to meet STEMI criteria at outside hospital. She was transferred overnight to the [facility] ICU for further management. Upon arrival, she was chest pain free and states that she had maybe 2 or 3 hours of chest pain in total. She was continued on heparin infusion, nitrate infusion and initial troponin came back at greater than 12. In the setting of transient ST elevations and elevated troponin, a heart alert was activated and the patient was taken emergently to cardiac catheterization lab. In the phlebotomy lab assistant, found to have mild nonobstructive disease on the left system and a dominant RCA which was large without significant disease. Her stent in her prior PLB was widely patent. She had a moderate caliber acute marginal branch, which showed a distal acute occlusion. Marginal branch was ballooned with a 2-0 balloon and flow reestablished. The patient remained chest pain free and hemodynamically and electrically stable. PAST MEDICAL HISTORY: 1. Coronary artery disease with prior MN in 2013, treated with 2.25 x 12 Resolute drug-eluting stent. 2. Prior CVA. 3. Questionable MS. 4. Stage III chronic kidney disease. 5. Type 2 diabetes, on insulin. 6. Hyperlipidemia. 7. Hypertension. 8. Morbid obesity. 9. Questionable peripheral vascular disease. 10. Mild aortic stenosis. 11. Anemia. 12. Multinodular goiter. FAMILY HISTORY: Mother had aortic valve replacement, but no history of premature coronary artery disease or any other . SOCIAL HISTORY: She is a lifelong never smoker. Denies any alcohol or illicit drugs. She lives with her . HOME MEDICATIONS: Include tamsulosin, vitamin D, atorvastatin 80, hydralazine 50 three times a day, NovoLog insulin, furosemide 40 mg daily, aspirin 81, carvedilol 25 mg b.i.d., isosorbide mononitrate 30 mg daily, Neurontin, and Lantus insulin. ALLERGIES: SHE IS ALLERGIC TO PLAVIX. REVIEW OF SYSTEMS: A 10-point review of systems completed and otherwise negative unless mentioned in the HPI. PHYSICAL EXAMINATION: VITAL SIGNS: Temperature 36.7, pulse 64, blood pressure 139/54, and she is satting 98% on room air. GENERAL: The patient appears comfortable, in no acute distress. HEENT: Sclerae are anicteric. Oropharynx is clear. Mucous membranes are moist. NECK: Supple with no lymphadenopathy. LUNGS: Clear to auscultation bilaterally. CARDIAC: She had a 2/6 systolic ejection murmur heard best at the upper sternal border. ABDOMEN: Soft, nontender. EXTREMITIES: Warm. She had diminished right radial pulses bilaterally, palpable ulnar pulse. SKIN: Shows no rashes or lesions. PSYCHIATRIC: She was alert and appropriate. LABORATORY DATA: White blood cell count 10, hemoglobin of 11.7, platelets of 240. Sodium 138, potassium of 4.3, BUN of 38, creatinine of 1.5. Initial troponin of 12.4. IMAGING STUDIES: Chest x-ray showed no acute cardiopulmonary process. IMPRESSION AND PLAN: 1. Acute coronary syndrome. 2. Occluded acute marginal branch, status post percutaneous transluminal coronary angioplasty. 3. Mild nonobstructive residual coronary disease. 4. Prior cerebrovascular accident. 5. Chronic kidney disease. 6. Hypertension. 7. Dyslipidemia. 8. Mild aortic stenosis. 9. Questionable diverticulitis. Mrs. Bowman is here after developed chest pain at [facility] and was found to have dynamic EKG changes and an elevated troponin. Coronary angiography revealed an occluded distal right acute marginal branch, which was treated with angioplasty. Interestingly, the patient now has had 2 MIs both with distal acute occlusions of branches of her RCA. She has minimal disease on review of angiograms from both catheterizations raising concern for possible coronary embolus. Going forward, I recommend return to ICU for continued monitor. She was loaded with ticagrelor in the phlebotomy lab assistant. The patient had previously been on until stopped back in July. Recommend trending troponins until peak. Recommend echocardiogram with DEFINITY contrast to evaluate for sources of potential emboli. Long-term, we may need additional ambulatory monitoring to evaluate for possible atrial fibrillation. We will continue on her ASCVD secondary prevention meds including carvedilol and high intensity statin. Would continue heparin infusion for 24 hours once TR band is removed. Thank you for allowing us to participate in the care of this patient. MEÑO
[2017-11-24] MEDS ORDERED: NURSING VERBAL MED ORDER ONE (13:15)
[2017-11-24 16:45] LABS: CKMB 59.6 ng/ml (0.5-3.6)
--- NOTE | 2017-11-24 17:20 | ECHOCARDIOGRAM REPORT ---
*NOTICE TO RECEIVING CONSTITUTION PARTY AGENCY This information is strictly Confidential and protected under [place] law. [place] law prohibits you from making any further disclosure of this information unless further disclosure is expressly permitted by the written consent of the person to whom it pertains or is authorized by law. A general authorization for the release of medical or other information is not sufficient for this purpose. Hospital accepts no responsibility if the information is made available to any other person, INCLUDING THE PATIENT. Interpretation Summary * Name: ADELAIDA GRIMES Study Date: 11/24/2017 10:12 AM BP: 137/80 mmHg * Patient Location: .MSICU\S\E106\S\1 HR: 63 * : 1945 (M/d/yyy) Gender: Female Height: 62 in * Age: 72 yrs Ethnicity: CA Weight: 239 lb * Ordering Physician: Sergey Bhakta * Referring Physician: UNKNOWN * Performed By: Freddie Yu RDCS * * Reason For Study: AMI * BSA: 2.1 m2 * -- Conclusions -- * 1. Normal left ventricular size and systolic function. EF 55-60%. Distal inferolateral wall may have a small area of severe hypokinesis. Otherwise, no definite wall motion abnormalities visualized. No left ventricular hypertrophy. Type 2 diastolic dysfunction. No apical thrombus visualized. * 2. Moderate aortic stenosis based on transvalvular velocity and gradient. (Taking into account dimensionless index and valve area, aortic stenosis may be moderate to severe.) * 3. Mild aortic regurgitation. * 4. There is mild mitral regurgitation. There is moderate mitral annular calcification. * 5. Technically difficult study, enhanced with IV Definity. * 6. Compared to prior study on 04/08/2014, aortic transvalvular velocities and gradients are similar. Procedure Details * A complete two-dimensional transthoracic echocardiogram was performed (2D, M-mode, Doppler and color flow Doppler). * The study was technically difficult, but visualization was adequate with the administration of Definity ultrasound contrast. * There were technical limitations due to patient'spoor positioning * A contrast injection of Definity was performed to improve assessment of LV function. * Contrast was injected into an intravenous site in the left arm. * One vial of Definity ultrasound contrast was diluted in normal saline to a total volume of 10 ml. A total of '3' ml of solution was administered during imaging. * Lot # [id number] of Definity utilized for procedure. * Expiration date . * The attending nurse who injected the contrast agent was GUILLAUME Maki. * A saline contrast injection was performed to assess for cardiac shunting. * The injection was performed through an intravenous line in the left arm. * The attending nurse who injected the saline contrast was GUILLAUME Maki. * A total of 10 cc of agitated saline was given. Left Ventricle * Normal left ventricular size and systolic function. EF 55-60%. Distal inferolateral wall may have a small area of severe hypokinesis. Otherwise, no definite wall motion abnormalities visualized. No left ventricular hypertrophy. Type 2 diastolic dysfunction. Right Ventricle * The right ventricle is normal in size and function. * The right ventricular systolic function is normal as assessed by tricuspid annular plane systolic excursion (TAPSE) (normal >1.5 cm). Atria * Borderline left atrial enlargement. * Right atrial size is normal. * No obvious ASD or PFO. No visualized right to left inter atrial shunt following agitated saline injection. Mitral Valve * There is moderate mitral annular calcification. * There is no mitral valve stenosis. * There is mild mitral regurgitation. Tricuspid Valve * The tricuspid valve is not well visualized. * There is no tricuspid stenosis. * Significant tricuspid regurgitation is absent. Aortic Valve * The aortic valve is not well visualized. * Moderate aortic stenosis based on transvalvular velocity and gradient. (Taking into account dimensionless index and valve area, aortic stenosis may be moderate to severe.) * Dimensionless index 0.22. * Mild aortic regurgitation. Pulmonic Valve * The pulmonic valve is not well visualized. Great Vessels * The aortic root is normal size. * Ascending aorta of normal dimension Pericardium/Pleural * There is no pericardial effusion. Great Vessels * Top normal IVC size with reduced inspiratory collapse. MMode 2D Measurements and Calculations EPSS 0.82 cm Ao root diam 3.2 cm Ao root area 8.2 cm\S\2 ACS 1.0 cm LA dimension 3.9 cm asc Aorta Diam 2.9 cm LA/Ao 1.2 LVOT diam 2.3 cm LVOT area 4.1 cm\S\2 LVAd ap4 29.3 cm\S\2 LVLd ap4 7.4 cm EDV(MOD-sp4) 90.7 ml EDV(sp4-el) 98.1 ml LVAs ap4 18.4 cm\S\2 LVLs ap4 6.8 cm ESV(MOD-sp4) 39.8 ml ESV(sp4-el) 42.1 ml EF(MOD-sp4) 56.1 % EF(sp4-el) 57.1 % LVAd ap2 35.8 cm\S\2 LVLd ap2 9.3 cm EDV(MOD-sp2) 111.4 ml EDV(sp2-el) 116.8 ml LVAs ap2 21.2 cm\S\2 LVLs ap2 7.6 cm ESV(MOD-sp2) 48.1 ml ESV(sp2-el) 50.1 ml EF(MOD-sp2) 56.8 % EF(sp2-el) 57.1 % LVLd %diff 20.1 % EDV(MOD-bp) 111.6 ml LVLs %diff 10.6 % ESV(MOD-bp) 45.6 ml EF(MOD-bp) 59.1 % SV(MOD-sp4) 50.9 ml SI(MOD-sp4) 24.7 ml/m\S\2 SV(MOD-sp2) 63.2 ml SI(MOD-sp2) 30.7 ml/m\S\2 SV(MOD-bp) 66.0 ml SI(MOD-bp) 32.0 ml/m\S\2 SV(sp4-el) 56.1 ml SI(sp4-el) 27.2 ml/m\S\2 SV(sp2-el) 66.7 ml SI(sp2-el) 32.4 ml/m\S\2 Doppler Measurements and Calculations MV E max melyssa 126.2 cm/sec MV A max melyssa 60.3 cm/sec MV E/A 2.1 MV V2 max 139.8 cm/sec MV max PG 7.8 mmHg MV V2 mean 62.5 cm/sec MV mean PG 1.9 mmHg MV V2 VTI 32.1 cm MVA(VTI) 2.6 cm\S\2 MV dec time 0.14 sec Ao V2 max 317.6 cm/sec Ao max PG 40.5 mmHg Ao max PG (full) 38.6 mmHg Ao V2 mean 222.3 cm/sec Ao mean PG 22.6 mmHg Ao mean PG (full) 21.4 mmHg Ao V2 VTI 80.9 cm LUIS(I,A) 1.0 cm\S\2 LUIS(I,D) 1.0 cm\S\2 LUIS(V,A) 0.88 cm\S\2 LUIS(V,D) 0.88 cm\S\2 AI max melyssa 381.8 cm/sec AI max PG 58.3 mmHg AI dec slope 191.9 cm/sec\S\2 AI P1/2t 582.6 msec LV V1 max PG 1.9 mmHg LV V1 mean PG 1.2 mmHg LV V1 max 68.6 cm/sec LV V1 mean 50.3 cm/sec LV V1 VTI 20.7 cm SV(Ao) 666.3 ml SI(Ao) 323.1 ml/m\S\2 SV(LVOT) 84.9 ml SI(LVOT) 41.2 ml/m\S\2 PA V2 max 81.1 cm/sec PA max PG 2.6 mmHg PA acc slope 479.9 cm/sec\S\2 PA acc time 0.12 sec RAP systole 8.0 mmHg PA pr(Accel) 26.9 mmHg
[2017-11-24] MEDS: CIPROFLOXACIN 500 MG TAB PO SCH (21:09)
[2017-11-24 21:36] LABS: PTT PATIENT 43.1 SECONDS (21.0-31.0)
[2017-11-24 21:52] LABS: CKMB 43.2 ng/ml (0.5-3.6)
[2017-11-24] MEDS ORDERED: HEPARIN IV BOLUS 3,000 UNIT in SYRINGE 0 ML IV ONE (22:15)
[2017-11-25] VITALS (12 sets, daily range): BP systolic 121–165; BP diastolic 46–66; PULSE 59–83; TEMP 36.9–37.2; O2SAT 64–95
[2017-11-25 05:13] LABS: BASO % 0.3 %; BASO ABS # 0.03 K/uL (0-0.2); EOS % 1.7 %; HEMATOCRIT 30.9 % (37-47); HEMOGLOBIN 10.2 g/dL (12.0-16.0); IG# 0.04 K/uL (0.00-0.02); LYMPH % 16.2 %; MEAN CELL VOLUME 85.8 fL (80-100); MEAN CORPUSCULAR HEMOGLOBIN 28.3 pg (25-34); MEAN PLATELET VOLUME 10.2 fL (7.4-10.4); MONO % 8.9 %; MONO ABS # 1.05 K/uL (0.11-0.59); NEUT % 72.6 %; NEUT ABS # 8.53 K/uL (1.4-6.5); PLATELET COUNT 207 K/uL (130-400); RED CELL DISTRIBUTION WIDTH CV 15.4 % (11.5-14.5); RED CELL DISTRIBUTION WIDTH SD 48.1 fL (36.4-46.3); WHITE BLOOD COUNT 11.75 K/uL (4.8-10.8)
[2017-11-25 05:41] LABS: INR 1.2 (0.9-1.1)
[2017-11-25 05:47] LABS: ALBUMIN 2.9 gm/dl (3.4-5.0); CALCIUM 9.3 mg/dl (8.5-10.1); CREATININE 1.54 mg/dl (0.60-1.20); POTASSIUM 3.6 mmol/L (3.5-5.1); TOTAL PROTEIN 6.3 gm/dl (6.4-8.2)
[2017-11-25 05:50] LABS: PTT PATIENT 127.3 SECONDS (21.0-31.0)
--- NOTE | 2017-11-25 07:22 | DIAGNOSTIC IMAGING REPORT ---
CHEST ONE VIEW PORTABLE CLINICAL HISTORY: Myocardial infarction COMPARISON STUDY: January 22, 2018 FINDINGS: The heart remains enlarged. There is stable mild interstitial thickening/edema. There is no focal pulmonary consolidation. There are no pleural effusions.[ IMPRESSION: Stable cardiomegaly and mild interstitial thickening/edema. No evidence of focal pulmonary consolidation Electronically signed by: Gino Simms M.D. 11/25/2017 7:21 AM Dictated Date/Time: 11/25/2017 7:20 AM
[2017-11-25] MEDS: ATORVASTATIN 40 MG TAB PO SCH (07:34)
[2017-11-25] MEDS: CARVEDILOL 12.5 MG TAB PO SCH (07:34)
[2017-11-25] MEDS: FUROSEMIDE 40 MG TAB PO SCH (07:34)
[2017-11-25] MEDS: GABAPENTIN 600 MG TAB PO SCH ×2 (07:34→20:42)
[2017-11-25] MEDS: ISOSORBIDE MONONITRATE 30 MG TABCR PO SCH (07:34)
[2017-11-25] MEDS: POTASSIUM CHLORIDE 10 MEQ TABCR PO SCH (07:35)
[2017-11-25] MEDS: TICAGRELOR 90 MG TAB PO SCH ×2 (07:35→20:42)
[2017-11-25] MEDS: TAMSULOSIN HCL 0.4 MG CAP PO SCH (07:35)
[2017-11-25] MEDS: ASPIRIN 81 MG ECTAB PO SCH (07:35)
[2017-11-25] MEDS: CIPROFLOXACIN 500 MG TAB PO SCH ×2 (07:35→20:42)
[2017-11-25] MEDS: INSULIN ASPART 100 UNITS/ML 3 ML PEN SC SCH ×4 (07:38→20:52)
[2017-11-25] MEDS: PANTOprazole INJ 40 MG in SYRINGE 0 ML IV SCH (07:40)
[2017-11-25] MEDS ORDERED: ASPIRIN 325 MG ECTAB PO SCH (09:00)
--- NOTE | 2017-11-25 10:25 | Family Medicine Progress Note ---
Progress Note Date of Service Nov 25, 2017. Subjective Pt evaluation today including: conversation w/ patient, conversation w/ family , physical exam, chart review, lab review, review of inpatient medication list Pain: Patient denies pain PO Intake: Tolerating well Voiding: no voiding problems Patient feels well today, no chest pain, no abdominal pain. States she is tired after her long day yesterday Constitutional: + fatigue Respiratory: No cough, No sputum, No wheezing, No shortness of breath, No dyspnea on exertion, No dyspnea at rest, No hemoptysis, No problem reported Cardiovascular: + edema, No chest pain, No orthopnea, No PND, No claudication, No palpitations, No problem reported Abdomen: No pain, No nausea, No vomiting, No diarrhea, No constipation, No GI bleeding, No problem reported Neurologic: + problem reported (wheelchair bound 2/2 multiple sclerosis) All Other Systems: Reviewed and Negative Medications Current Inpatient Medications Medications (Trade) Dose Ordered Sig/Lisa Route Start Time Stop Time Status Last Admin Dose Admin Nitroglycerin (Nitrostat Tab) 0.4 mg Q5M PRN SL 11/24/17 05:15 12/24/17 05:14 Insulin Aspart (novoLOG ASPART) SLIDING SCALE G... ACHS SC 11/24/17 06:45 12/24/17 06:44 11/25/17 20:52 2 UNITS Acetaminophen (Tylenol Tab) 650 mg Q4H PRN PO 11/24/17 06:15 12/24/17 06:14 Miscellaneous Information ([facility] Protocol For Hyperglycemia) 1 ea PRN PRN N/A 11/24/17 06:15 11/26/17 06:14 Ondansetron HCl (Zofran Inj) 4 mg Q6H PRN IV 11/24/17 06:30 12/24/17 06:29 Pantoprazole Sodium 40 mg/ Syringe 10 ml @ 5 mls/min DAILY IV 11/24/17 09:00 12/24/17 08:59 11/25/17 07:40 5 MLS/MIN Morphine Sulfate (MoRPHine SULFATE INJ) 2 mg Q2H PRN IV 11/24/17 06:30 12/08/17 06:29 Glucose (Glucose 40% Gel) 15-30 GRAMS 15 GRAMS... UD PRN PO 11/24/17 06:30 12/24/17 06:29 Glucose (Glucose Chew Tab) 4-8 Tablets 4 Tabl... UD PRN PO 11/24/17 06:30 12/24/17 06:29 Dextrose (Dextrose 50% 50ML Syringe) 25-50ML OF 50% DW IV FOR... UD PRN IV 11/24/17 06:30 12/24/17 06:29 Glucagon (Glucagon Inj) 1 mg UD PRN SQ 11/24/17 06:30 12/24/17 06:29 Atorvastatin Calcium (Lipitor Tab) 80 mg QAM PO 11/24/17 09:00 12/24/17 08:59 11/25/17 07:34 80 MG Tamsulosin HCl (Flomax Cap) 0.4 mg QAM PO 11/24/17 09:00 12/24/17 08:59 11/25/17 07:35 0.4 MG Furosemide (Lasix Tab) 40 mg QAM PO 11/24/17 09:00 12/24/17 08:59 11/25/17 07:34 40 MG Gabapentin (Neurontin Tab) 600 mg BID PO 11/24/17 09:00 12/24/17 08:59 11/25/17 20:42 600 MG Hydralazine HCl (Apresoline Tab) 50 mg TID PO 11/24/17 09:00 12/24/17 08:59 11/25/17 20:43 50 MG Potassium Chloride (Klor-Con M10) 10 meq QAM PO 11/24/17 09:00 12/24/17 08:59 11/25/17 07:35 10 MEQ Isosorbide Mononitrate (Imdur Ext Rel Tab) 30 mg QAM PO 11/24/17 09:00 12/24/17 08:59 11/25/17 07:34 30 MG Ticagrelor (Brilinta Tab) 90 mg BID PO 11/24/17 09:00 12/24/17 08:59 11/25/17 20:42 90 MG Aspirin (Ecotrin Tab) 81 mg QAM PO 11/24/17 09:00 12/24/17 08:59 11/25/17 07:35 81 MG Ciprofloxacin (Cipro Tab) 500 mg BID PO 11/24/17 21:00 12/04/17 20:59 11/25/17 20:42 500 MG Insulin Glargine (Lantus Solostar Pen) 25 units QPM SC 11/25/17 21:00 12/25/17 20:59 11/25/17 20:53 25 UNITS Lisinopril (Zestril Tab) 2.5 mg QAM PO 11/26/17 09:00 12/26/17 08:59 Metronidazole (Flagyl Tab) 500 mg Q8H PO 11/25/17 12:00 12/05/17 09:59 11/25/17 20:43 500 MG Carvedilol (Coreg Tab) 18.75 mg BID PO 11/25/17 21:00 12/24/17 08:59 11/25/17 20:43 18.75 MG Objective Vital Signs Date Time Temp Pulse Resp B/P (MAP) Pulse Ox O2 Delivery O2 Flow Rate FiO2 11/25/17 20:40 64 140/62 (88) 11/25/17 18:44 37.2 59 20 124/47 (72) 95 Room Air 11/25/17 16:00 Room Air 11/25/17 15:01 37.0 63 22 121/59 (79) 94 Room Air 11/25/17 12:00 36.9 60 20 124/66 (85) 95 11/25/17 11:42 37.2 83 16 64 11/25/17 08:00 Room Air 11/25/17 08:00 83 16 161/60 (93) 64 Room Air 11/25/17 06:00 69 15 165/64 (97) 93 Room Air 11/25/17 04:00 92 Room Air 11/25/17 04:00 37.2 68 22 145/57 (86) 93 Room Air 11/25/17 02:00 60 20 125/46 (72) 91 Room Air 11/25/17 00:01 37.2 66 21 139/49 (79) 92 Room Air 11/24/17 23:59 92 Room Air 11/24/17 22:00 63 20 127/46 (73) 93 Room Air Physical Exam General Appearance: WD/WN, no apparent distress Eyes: normal inspection, PERRL, EOMI, sclerae normal ENT: hearing grossly normal, pharynx normal Neck: supple, no JVD, no carotid bruits, trachea midline Respiratory/Chest: chest non-tender, lungs clear, normal breath sounds, no respiratory distress, no accessory muscle use Cardiovascular: regular rate, rhythm, no gallop, no JVD, no murmur Abdomen: normal bowel sounds, non tender, soft, no organomegaly, no pulsatile mass Extremities: no calf tenderness, + swelling Neurologic/Psychiatric: alert, normal mood/affect, oriented x 3 Skin: normal color, warm/dry Laboratory Results Last Resulted 11/25/17 04:55 Red Blood Count 3.60, Mean Corpuscular Volume 85.8, Mean Corpuscular Hemoglobin 28.3, Mean Corpuscular Hemoglobin Concent 33.0, Mean Platelet Volume 10.2, Neutrophils (%) (Auto) 72.6, Lymphocytes (%) (Auto) 16.2, Monocytes (%) (Auto) 8.9, Eosinophils (%) (Auto) 1.7, Basophils (%) (Auto) 0.3, Neutrophils # (Auto) 8.53, Lymphocytes # (Auto) 1.90, Monocytes # (Auto) 1.05, Eosinophils # (Auto) 0.20, Basophils # (Auto) 0.03 Last Resulted 11/25/17 04:55 Past 24 Hours Test 11/25/17 04:55 Range/Units Prothromb Time International Ratio 1.2 H 0.9-1.1 Prothrombin Time 12.5 H 9.0-12.0 SECONDS Assessment and Plan Patient is a 72 year old female with a past medical history of recent CVA (aug 2017), MS (primary progressive), GA in 2013 with stenting, HTN, HLD, DM on insulin, stroke, and CKD stage 3 that presents as a direct admit from [facility] with chest pain STEMI - EKG from [facility] showed STEMI in Anteroseptal leads, Troponin 12.4 - Discussed case with Dr. Bhakta and Heart Alert Called at 0650 11/24 1. Acutely occluded distal right acute marginal branch 2. Mild non-obstructive residual coronary artery disease - Widely patent R-PLB branch distal stent 3. Mildly elevated intracardiac filling pressure 4. Successful PTCA of distal right acute marginal branch Recommendations: Patient with minimal disease throughout RCA and is now post 2 distal branch vessel acute occlusions ( and 2013). Concern for possible coronary embolism. Loaded with ticagrelor 180mg in lab head--Continue DAPT at least for 1 year for GA Trend troponins until peak Check Echo, telemetry and consider additional outpatient ambulatory monitoring to evaluate for AF Uptitrate beta-radha/PAT as BP allows Consult cardiac Rehab - Heparin Drip discontinued - Normal Saline 100 mls/hr - Resume home Aspirin 325mg PO QAM - Continue home Atorvastatin 80mg - Continue home Carvedilol 12.5 mg QAM - Start on lisinopril 2.5; monitor BMP (recheck BMP in one week after discharge) Diverticulitis - CT Abdomen: Mild inflammatory change of right sigmoid colon, may represent diverticulosis - Received dose of Cipro in [facility] - Begin course of Cipro 500 BID for presumed diverticulitis, day 2 - No abdominal pain at this time Urinary Tract Infection - UA from [facility]: 1+ Leuk Est, Trace Blood, Moderate WBC - Unclear if Urine Culture ordered - Repeat UA and Urine Culture (already received dose of Cipro at [facility]) - Cipro in conjunction with Diverticulosis treatment CKD III -BMP has been stable, at her baseline -Patient reports she was put on lasix "for her kidneys" and has never been told she has heart failure. -Would suggest trying to slowly wean lasix after totally stable post GA. Edema likely related to venous stasis. Hypertension - Resume home Hydralazine and Isosorbide Mononitrate Diabetes Mellitus - ISS + AC/HS Glucose checks - Resume home Lantus Multiple Sclerosis - Resume home Gabapentin 600mg TID Urinary Retention - Resume home Flomax - Pierre cath DVTP: Heparin Drip Code Status; Full Resuscitation Dispo: ICU, further transfer to [facility] when stable Resident Physician Supervision Note: I interviewed and examined the patient. Discussed with Dr. Kingston and agree with findings and plan as documented in the note. Any exceptions or clarifications are listed here: None Documented By: David Bryant feeling better no new complaints no chest pain vitals noted nad breathing unlabored no pallor or icterus STEMI / CKD / peripheral edema -continue med management, post cath day 1. appreciate cardiology input -discussed careful initiation of ACEi for afterload reduction and risks/ benefits particularly as it pertains to renal function - she understands rationale and agrees with trial - BMP tomorrow - if tolerating well, BMP by the end of the week if discharged tomorrow -discussed she doesnt' show a chronic hx c/w CHF - peripheral edema may all be venous stasis. right now would not be the right time, but after totally stable post GA would strongly consider slowly weaning lasix with close clinical f/u and close f/u of BMP Resident Tracking Resident Involvement: Resident Care Provided Care Provided: Adult Hospital Medicine
[2017-11-25] MEDS ORDERED: LISINOPRIL 2.5 MG TAB PO ONE (10:30)
[2017-11-25] MEDS ORDERED: INSULIN GLARGINE SOLOSTAR 100 UNITS/ML 3 ML PEN SC ONE (10:30)
[2017-11-25] MEDS: METRONIDAZOLE 500 MG TAB PO SCH ×2 (11:19→20:43)
[2017-11-25] MEDS ORDERED: NURSING VERBAL MED ORDER ONE (11:30)
--- NOTE | 2017-11-25 11:38 | CARDIOLOGY PROGRESS NOTE ---
DATE: 11/25/2017 TIME: 10:44 a.m. SUBJECTIVE: She denies chest pain, shortness of breath, syncope, near syncope, or palpitations. She denies bleeding. Her right ulnar artery cath site has not caused any issues for her. She states that she has chronic lower extremity lymphedema and it is unchanged. OBJECTIVE: VITAL SIGNS: Temperature 37.2 degrees, heart rate 83 beats per minute, but mostly otherwise in the 60s, respiratory rate is 16, and blood pressure 161/60 mmHg and she has mostly been hypertensive throughout her hospital stay. Oxygen saturation 93% on room air. I's and O's positive 268 mL. Weight 107.2 kg. GENERAL: No acute distress. She is alert. NECK: Thick. CARDIAC EXAM: No ventricular heave. Regular. 2/6 mid peaking systolic ejection murmur best heard at the right upper sternal border. No rubs or gallops. LUNGS: Clear to auscultation bilaterally without wheezes, rales, or rhonchi, but otherwise decreased breath sounds. ABDOMEN: Obese, soft, nontender, and nondistended. Normoactive bowel sounds. EXTREMITIES: There is bilateral lower extremity lymphedema with trace to 1+ pitting edema. No cyanosis. Her right ulnar artery cath site is clean, dry and intact without erythema or discharge. There is a 2+ ulnar pulse. PSYCHIATRIC: Affect appears appropriate. MEDICATIONS: Include aspirin 81 mg daily, ticagrelor 90 mg p.o. b.i.d., atorvastatin 80 mg daily, carvedilol has been increased this morning to 18.75 mg p.o. b.i.d., lisinopril 2.5 mg daily initiated today, isosorbide mononitrate 30 mg daily, Lantus 25 units subQ q.p.m., hydralazine 50 mg p.o. t.i.d., heparin drip as per protocol, Flagyl 500 mg p.o. q. 8 hours, Protonix 40 mg IV daily, and potassium chloride 10 mEq daily. LABORATORY DATA: White blood cell count is 11.75, hemoglobin 10.2, and platelets 207. Sodium 137, potassium 3.6, BUN 35, and creatinine 1.54. Peak troponin was 45.4. Albumin 2.9. PTT 127.3. Echocardiogram performed yesterday reviewed: Normal LV size and systolic function. EF 55%-60%. Distal inferolateral wall appears to have a small area of severe hypokinesis, otherwise no definite wall motion abnormalities. Type 2 diastolic dysfunction. No apical thrombus visualized. Moderate aortic stenosis with mild regurgitation. Mild MR. Chest x-ray, mild interstitial thickening as per radiology. Chest x-ray image personally reviewed. No infiltrate noted. Cardiac catheterization performed yesterday by Dr. Bhakta: Mid LAD 20%-30%. Mid circumflex 40%. Large RCA PL branch with widely patent distal stent. Moderate caliber right acute marginal branch with 100% acute distal occlusion, status post balloon angioplasty. LVEDP 19. ECG this morning personally reviewed. Sinus rhythm at 74 beats per minute. Inferior infarct. Lateral ST/T wave abnormality. IMPRESSION: 1. Acute myocardial infarction: She had mild ST elevations upon presentation with occluded distal acute marginal branch. She has undergone balloon angioplasty by Dr. Bhakta on 11/24/2017. No further angina. Continue dual antiplatelet therapy for at least a year. Continue aspirin 81 mg daily indefinitely. Continue high intensity statin therapy and beta radha. Dr. Bhakta has raised concern that she has had 2 distal acute occlusions of the RCA branches and there is concern for possible coronary emboli as a cause. He has recommended continuous telemetry for now and heparin drip to be discontinued after 24 hours, which will be later this afternoon. Further evaluation will be left to her primary keyboard instrument tuner, Dr. Palomo when he returns tomorrow. 2. Aortic stenosis: Appears moderate on echocardiogram. This can be followed as an outpatient. 3. Hypertension: She remains hypertensive. Primary service has increased the carvedilol and also started low dose lisinopril. Further adjustments can be made as appropriate. 4. Chronic kidney disease: Creatinine is at her baseline. 5. Edema: She has chronic lymphedema. Her LVEDP was elevated. She was given Lasix this morning p.o. If she does not have a net negative fluid balance, would recommend redosing Lasix later this afternoon or give intravenous Lasix tomorrow if appropriate at that time. 6. Disposition: Dr. Palomo, her primary keyboard instrument tuner, will be available tomorrow to resume her cardiology care. It is okay for her to be transferred from the ICU to telemetry. Heparin drip can be discontinued later this afternoon and this was discussed with nursing staff. As per Dr. Bhakta' order, can to be discontinued 24 hours after reinitiation. The patient's care has been discussed with Dr. Kim. Sincerely,
--- NOTE | 2017-11-25 11:53 | Critical Care Progress Note ---
Critical Care Progress Note Date of Service Nov 25, 2017. Attending Dr. Kim Subjective The patient is stable, asymptomatic overnight, no events occurred. No chest pain was reported. No EKG changes. Objective Physical exam on 11/25/2017, the patient is laying in bed, denies any pain, even the abdominal pain has subsided, no nausea or vomiting, no chest pain and no new syncopal episode. Assessment & Plan #1 ST elevation LA. Resolved. #2 hypertension. #3 history of MS. #4 history of diverticulitis, resolved. Plan: #1 continue with her current regimen including antiplatelets and heparin until stated otherwise by Dr. Bhakta. Appreciate his input. #2 patient is asymptomatic and tolerating oral intake. #3 patient can be transferred to telemetry floor. #4 no further recommendations from critical care standpoint, will follow as needed. Thank you Data Medications: Current Inpatient Medications Medications (Trade) Dose Ordered Sig/Lisa Route Start Time Stop Time Status Last Admin Dose Admin Nitroglycerin (Nitrostat Tab) 0.4 mg Q5M PRN SL 11/24/17 05:15 12/24/17 05:14 Heparin Sodium/ Dextrose 500 ml @ 25 mls/hr Q20H PRN IV 11/24/17 06:15 11/25/17 14:00 11/24/17 13:58 26 MLS/HR Insulin Aspart (novoLOG ASPART) SLIDING SCALE G... ACHS SC 11/24/17 06:45 12/24/17 06:44 11/25/17 07:38 5 UNITS Acetaminophen (Tylenol Tab) 650 mg Q4H PRN PO 11/24/17 06:15 12/24/17 06:14 Miscellaneous Information (Icu Protocol For Hyperglycemia) 1 ea PRN PRN N/A 11/24/17 06:15 11/26/17 06:14 Ondansetron HCl (Zofran Inj) 4 mg Q6H PRN IV 11/24/17 06:30 12/24/17 06:29 Pantoprazole Sodium 40 mg/ Syringe 10 ml @ 5 mls/min DAILY IV 11/24/17 09:00 12/24/17 08:59 11/25/17 07:40 5 MLS/MIN Morphine Sulfate (MoRPHine SULFATE INJ) 2 mg Q2H PRN IV 11/24/17 06:30 3/10/18 06:29 Glucose (Glucose 40% Gel) 15-30 GRAMS 15 GRAMS... UD PRN PO 11/24/17 06:30 12/24/17 06:29 Glucose (Glucose Chew Tab) 4-8 Tablets 4 Tabl... UD PRN PO 11/24/17 06:30 12/24/17 06:29 Dextrose (Dextrose 50% 50ML Syringe) 25-50ML OF 50% DW IV FOR... UD PRN IV 11/24/17 06:30 12/24/17 06:29 Glucagon (Glucagon Inj) 1 mg UD PRN SQ 11/24/17 06:30 12/24/17 06:29 Atorvastatin Calcium (Lipitor Tab) 80 mg QAM PO 11/24/17 09:00 12/24/17 08:59 11/25/17 07:34 80 MG Tamsulosin HCl (Flomax Cap) 0.4 mg QAM PO 11/24/17 09:00 12/24/17 08:59 11/25/17 07:35 0.4 MG Furosemide (Lasix Tab) 40 mg QAM PO 11/24/17 09:00 12/24/17 08:59 11/25/17 07:34 40 MG Gabapentin (Neurontin Tab) 600 mg BID PO 11/24/17 09:00 12/24/17 08:59 11/25/17 07:34 600 MG Hydralazine HCl (Apresoline Tab) 50 mg TID PO 11/24/17 09:00 12/24/17 08:59 11/25/17 07:35 50 MG Potassium Chloride (Klor-Con M10) 10 meq QAM PO 11/24/17 09:00 12/24/17 08:59 11/25/17 07:35 10 MEQ Isosorbide Mononitrate (Imdur Ext Rel Tab) 30 mg QAM PO 11/24/17 09:00 12/24/17 08:59 11/25/17 07:34 30 MG Ticagrelor (Brilinta Tab) 90 mg BID PO 11/24/17 09:00 12/24/17 08:59 11/25/17 07:35 90 MG Aspirin (Ecotrin Tab) 81 mg QAM PO 11/24/17 09:00 12/24/17 08:59 11/25/17 07:35 81 MG Ciprofloxacin (Cipro Tab) 500 mg BID PO 11/24/17 21:00 12/04/17 20:59 11/25/17 07:35 500 MG Insulin Glargine (Lantus Solostar Pen) 25 units QPM SC 11/25/17 21:00 12/25/17 20:59 Lisinopril (Zestril Tab) 2.5 mg QAM PO 11/26/17 09:00 12/26/17 08:59 Metronidazole (Flagyl Tab) 500 mg Q8H PO 11/25/17 12:00 12/05/17 09:59 11/25/17 11:19 500 MG Carvedilol (Coreg Tab) 18.75 mg BID PO 11/25/17 21:00 12/24/17 08:59 Miscellaneous (Stop Order) 1 ea 1400 ONCE N/A 11/25/17 14:00 11/25/17 14:01 Vital Signs: Date Time Temp Pulse Resp B/P (MAP) Pulse Ox O2 Delivery O2 Flow Rate FiO2 11/25/17 11:42 37.2 83 16 64 11/25/17 08:00 Room Air 11/25/17 08:00 83 16 161/60 (93) 64 Room Air 11/25/17 06:00 69 15 165/64 (97) 93 Room Air 11/25/17 04:00 92 Room Air 11/25/17 04:00 37.2 68 22 145/57 (86) 93 Room Air 11/25/17 02:00 60 20 125/46 (72) 91 Room Air 11/25/17 00:01 37.2 66 21 139/49 (79) 92 Room Air 11/24/17 23:59 92 Room Air 11/24/17 22:00 63 20 127/46 (73) 93 Room Air 11/24/17 20:00 36.5 66 17 157/57 (90) 94 Room Air 11/24/17 20:00 94 Room Air 11/24/17 18:23 36.7 62 16 137/48 (77) 94 Room Air 11/24/17 16:12 61 16 147/54 (85) 94 Nasal Cannula 2.0 11/24/17 16:00 Nasal Cannula 2.0 11/24/17 14:45 62 16 139/57 (84) 94 Nasal Cannula 2.0 11/24/17 14:07 64 18 161/53 (89) 95 Nasal Cannula 2.0 11/24/17 13:45 63 18 139/85 (103) 93 Nasal Cannula 2.0 11/24/17 12:45 63 14 176/66 (102) 96 Nasal Cannula 2.0 11/24/17 12:00 Nasal Cannula 2.0 11/24/17 12:00 63 16 161/72 (101) 96 Nasal Cannula 2.0 Laboratory Results: Last 24 Hours Test 11/24/17 15:25 11/24/17 15:41 11/24/17 20:57 11/24/17 21:05 Bedside Glucose 193 mg/dl 194 mg/dl Total Creatine Kinase 764 U/L 686 U/L Creatine Kinase MB 59.6 ng/ml 43.2 ng/ml Creatine Kinase MB Ratio 7.8 6.3 Troponin I 45.400 ng/ml 37.000 ng/ml Activated Partial Thromboplast Time 43.1 SECONDS Partial Thromboplastin Ratio 1.7 Test 11/25/17 04:55 11/25/17 07:17 11/25/17 11:15 White Blood Count 11.75 K/uL Red Blood Count 3.60 M/uL Hemoglobin 10.2 g/dL Hematocrit 30.9 % Mean Corpuscular Volume 85.8 fL Mean Corpuscular Hemoglobin 28.3 pg Mean Corpuscular Hemoglobin Concent 33.0 g/dl Platelet Count 207 K/uL Mean Platelet Volume 10.2 fL Neutrophils (%) (Auto) 72.6 % Lymphocytes (%) (Auto) 16.2 % Monocytes (%) (Auto) 8.9 % Eosinophils (%) (Auto) 1.7 % Basophils (%) (Auto) 0.3 % Neutrophils # (Auto) 8.53 K/uL Lymphocytes # (Auto) 1.90 K/uL Monocytes # (Auto) 1.05 K/uL Eosinophils # (Auto) 0.20 K/uL Basophils # (Auto) 0.03 K/uL RDW Standard Deviation 48.1 fL RDW Coefficient of Variation 15.4 % Immature Granulocyte % (Auto) 0.3 % Immature Granulocyte # (Auto) 0.04 K/uL Prothrombin Time 12.5 SECONDS Prothromb Time International Ratio 1.2 Activated Partial Thromboplast Time 127.3 SECONDS Partial Thromboplastin Ratio 4.9 Sodium Level 137 mmol/L Potassium Level 3.6 mmol/L Chloride Level 105 mmol/L Carbon Dioxide Level 24 mmol/L Anion Gap 8.0 mmol/L Blood Urea Nitrogen 35 mg/dl Creatinine 1.54 mg/dl Est Creatinine Clear Calc Drug Dose 38.9 ml/min Estimated GFR () 38.9 Estimated GFR (Non- 33.6 BUN/Creatinine Ratio 22.9 Random Glucose 173 mg/dl Calcium Level 9.3 mg/dl Total Bilirubin 1.2 mg/dl Direct Bilirubin 0.2 mg/dl Aspartate Amino Transf (AST/SGOT) 100 U/L Alanine Aminotransferase (ALT/SGPT) 25 U/L Alkaline Phosphatase 71 U/L Total Protein 6.3 gm/dl Albumin 2.9 gm/dl Bedside Glucose 171 mg/dl 216 mg/dl
[2017-11-25 13:58] LABS: PTT PATIENT 63.4 SECONDS (21.0-31.0)
[2017-11-25] MEDS ORDERED: [UNRECOGNIZED DRUG - REMARK] ONE (14:00)
[2017-11-25] MEDS: CARVEDILOL 6.25 MG TAB PO SCH (20:43)
[2017-11-25] MEDS ORDERED: INSULIN GLARGINE SOLOSTAR 100 UNITS/ML 3 ML PEN SC SCH (21:00)
[2017-11-26] VITALS (8 sets, daily range): BP systolic 108–140; BP diastolic 49–57; PULSE 58–65; TEMP 37.2; O2SAT 94–96
[2017-11-26] MEDS: METRONIDAZOLE 500 MG TAB PO SCH ×2 (03:54→12:00)
[2017-11-26 06:43] LABS: BASO % 0.3 %; BASO ABS # 0.03 K/uL (0-0.2); EOS % 2.8 %; EOS ABS # 0.31 K/uL (0-0.5); HEMATOCRIT 31.2 % (37-47); HEMOGLOBIN 10.1 g/dL (12.0-16.0); IG# 0.02 K/uL (0.00-0.02); LYMPH % 13.7 %; MEAN CELL VOLUME 86.9 fL (80-100); MEAN CORPUSCULAR HEMOGLOBIN 28.1 pg (25-34); MEAN CORPUSCULAR HGB CONC 32.4 g/dl (32-36); MEAN PLATELET VOLUME 10.4 fL (7.4-10.4); MONO % 9.4 %; MONO ABS # 1.03 K/uL (0.11-0.59); NEUT % 73.6 %; NEUT ABS # 8.04 K/uL (1.4-6.5); PLATELET COUNT 199 K/uL (130-400); RED CELL DISTRIBUTION WIDTH CV 15.4 % (11.5-14.5); RED CELL DISTRIBUTION WIDTH SD 49.8 fL (36.4-46.3); WHITE BLOOD COUNT 10.93 K/uL (4.8-10.8)
[2017-11-26 07:05] LABS: INR 1.1 (0.9-1.1); PTT PATIENT 24.7 SECONDS (21.0-31.0)
[2017-11-26 07:19] LABS: ALBUMIN 2.7 gm/dl (3.4-5.0); CALCIUM 9.1 mg/dl (8.5-10.1); CREATININE 1.68 mg/dl (0.60-1.20); POTASSIUM 3.3 mmol/L (3.5-5.1)
--- NOTE | 2017-11-26 07:19 | DIAGNOSTIC IMAGING REPORT ---
CHEST ONE VIEW PORTABLE CLINICAL HISTORY: 72 years-old Female presenting with mi. TECHNIQUE: Portable upright AP view of the chest was obtained. COMPARISON: 11/25/2017. FINDINGS: Atherosclerosis of aortic arch. Cardiac silhouette enlarged. Mildly low lung volumes. Slight decrease in pulmonary vascular prominence. No new focal infiltrate. No large effusion or pneumothorax. Osseous structures normal. Upper abdomen normal. IMPRESSION: 1. Cardiomegaly with slight decreased pulmonary vascular prominence suggesting decreased volume overload. No jesus manuel pulmonary edema. 2. Mildly low lung volumes, unchanged. Electronically signed by: Dung Alcantara M.D. 11/26/2017 7:17 AM Dictated Date/Time: 11/26/2017 7:16 AM
[2017-11-26] MEDS ORDERED: NURSING VERBAL MED ORDER ONE (07:45)
[2017-11-26] MEDS: PANTOprazole INJ 40 MG in SYRINGE 0 ML IV SCH (07:59)
[2017-11-26] MEDS: CARVEDILOL 6.25 MG TAB PO SCH (07:59)
[2017-11-26] MEDS: ATORVASTATIN 40 MG TAB PO SCH (08:00)
[2017-11-26] MEDS ORDERED: DOCUSATE SODIUM 100 MG CAP PO ONE (08:00)
[2017-11-26] MEDS: ISOSORBIDE MONONITRATE 30 MG TABCR PO SCH (08:01)
[2017-11-26] MEDS: TAMSULOSIN HCL 0.4 MG CAP PO SCH (08:03)
[2017-11-26] MEDS: GABAPENTIN 600 MG TAB PO SCH (08:03)
[2017-11-26] MEDS: FUROSEMIDE 40 MG TAB PO SCH (08:04)
[2017-11-26] MEDS: POTASSIUM CHLORIDE 10 MEQ TABCR PO SCH (08:05)
[2017-11-26] MEDS: CIPROFLOXACIN 500 MG TAB PO SCH (08:05)
[2017-11-26] MEDS: ASPIRIN 81 MG ECTAB PO SCH (08:05)
[2017-11-26] MEDS: TICAGRELOR 90 MG TAB PO SCH (08:06)
[2017-11-26] MEDS: INSULIN ASPART 100 UNITS/ML 3 ML PEN SC SCH ×2 (08:10→11:00)
[2017-11-26] MEDS ORDERED: LISINOPRIL 2.5 MG TAB PO SCH (09:00)
[2017-11-26] MEDS ORDERED: POTASSIUM CHLORIDE 20 MEQ TABCR PO STA (10:19)
[2017-11-26] MEDS ORDERED: BRL90 PO (10:38)
[2017-11-26] MEDS ORDERED: LSN25 PO (10:38)
[2017-11-26] MEDS ORDERED: CPR500 PO (10:38)
[2017-11-26] MEDS ORDERED: FLM4 PO (10:57)
--- NOTE | 2017-11-26 13:07 | Discharge Instructions ---
Discharge Instructions Date of Service Nov 26, 2017. Admission Reason for Admission: Ms,Chest Pain,Unstable Angina Discharge Discharge Diagnosis / Problem: STEMI Discharge Goals Goal(s): Increase independence, Improve disease control, Diagnostic testing, Therapeutic intervention Activity Recommendations Activity Limitations: as noted below Lifting Limitations: gradually increase as tolerated Exercise/Sports Limitations: gradually increase as tolerated May Resume Sexual Activity: after follow-up appointment Shower/Bathe: no limitations . Instructions / Follow-Up Instructions / Follow-Up You were admitted and treated for a heart attack. You were treated with cardiac stents in your vessels in order to keep them open and able to continue blood flow to your heart muscles. You are to continue the Brillinta medication for a full year. This is very important in order to prevent complications from a heart attack, and to protect your heart from further damage. Continue baby aspirin daily indefinitely. Continue your other medications as directed. We have stopped your plavix since your are allergic to that medication. Follow up with your primary care physician this week. Follow up with your heart doctor, Dr. Palomo, as scheduled in about 1-2 weeks. Please complete blood work as scheduled to check your kidney function this Sunday11/30/17. A blue script has been provided for this purpose. Please finish your antibiotic as prescribed - this was for your diverticulitis flare. Also, please remember: Call 911, immediately, if you experience any of the following: Warning Signs and Symptoms of a Heart Attack: * Chest pain that is not relieved by medication * Shortness of breath Otherwise, call your doctor immediately if you have: * Lightheadedness, dizziness, or fainting * Feeling of irregular heartbeat or fast pulse Home Care: * Take your medications exactly as directed. Don't skip doses. * Remember that recovery after a heart attack takes time. Plan to rest for at lease 4-8 weeks while you recover. Then return to normal activity when your doctor says it's okay. * Ask your doctor about joining a heart rehabilitation program. * Tell your doctor if you are feeling depressed. Feelings of sadness are common after a heart attack, but it is important that you speak to someone if you are feeling overwhelmed by these feelings. * If you are having chest pain, call 911 for an ambulance. Do NOT drive yourself to the hospital. * Ask your family members to learn CPR. * Learn to take your own blood pressure and pulse. Keep a record of your results. Ask your doctor when you should seek emergency medical attention. He or she will tell you which blood pressure reading is dangerous. Lifestyle Changes: * Maintain a healthy weight. Get help to lose any extra pounds. * Cut back on salt. 1. Limit canned, dried, packaged, and fast foods. 2. Don't add salt to your food. 3. Season foods with herbs instead of salt when you cook. * Break the smoking habit. Enroll in a stop-smoking program to improve your chances of success. * Limit fatty foods. * Check your lipid levels regularly. (Your doctor can show you how to do this. ) * Build up your activity according to your doctor's recommendation. * Ask your doctor when it's okay to resume sexual activity. * Tell your doctor about any erectile dysfunction (ED) medication you are taking. Some ED medications are not safe if you take certain heart medications. * Try to manage stress. Follow Up: It is important for you to keep your follow up appointments with your medical provider. Current Hospital Diet Patient's current hospital diet: AHA Diet (Heart Healthy), Diabetes Type 2 Diet Discharge Diet Recommended Diet: AHA Diet (Heart Healthy), Diabetes Type 2 Diet Fluid Restriction: None Procedures Procedures Performed: Cardiac catheterization performed by Dr. Bhakta: Mid LAD 20%-30%. Mid circumflex 40%. Large RCA PL branch with widely patent distal stent. Moderate caliber right acute marginal branch with 100% acute distal occlusion, status post balloon angioplasty. LVEDP 19. Pending Studies Studies pending at discharge: no Medical Emergencies . Who to Call and When: Medical Emergencies: If at any time you feel your situation is an emergency, please call 911 immediately. . Non-Emergent Contact Non-Emergency issues call your: Primary Care Provider . . "Provider Documentation" section prepared by Kary Paredes. . VTE Core Measure Inpt VTE Proph given/why not?: Unfractionated heparin SQ
--- NOTE | 2017-11-26 14:33 | Cardiology Follow-Up ---
Subjective Date of Service: Nov 26, 2017. Pt evaluation today including: conversation w/ patient, conversation w/ family , physical exam, chart review, lab review, review of studies, review of inpatient medication list, conversation w/ attending History of Present Illness This morning the patient claims to be feeling well. She denies any recurrent symptoms of chest discomfort. She states that her breathing is normal. She is not having pain at any other sites. She is anxious to to be discharged. Social History Smoking Status: Never Smoker History of Alcohol Use: No Review of Systems Respiratory: No cough, No sputum, No wheezing, No shortness of breath, No dyspnea on exertion, No dyspnea at rest, No hemoptysis, No problem reported Cardiac: + edema, No chest pain, No orthopnea, No PND, No claudication, No palpitations, No problem reported Objective Vital Signs Past 12 Hours Date Time Temp Pulse Resp B/P (MAP) Pulse Ox O2 Delivery O2 Flow Rate FiO2 11/26/17 14:09 123/49 (73) 11/26/17 12:18 37.2 58 20 128/52 (77) 96 Room Air 11/26/17 12:00 95 Room Air 11/26/17 08:01 37.2 65 16 140/50 (80) 94 Room Air 11/26/17 08:00 94 Room Air 11/26/17 04:00 37.2 94 108/57 (74) 94 Room Air 11/26/17 04:00 94 Room Air Last Recorded Weight-Kilograms: 107.200 Intake & Output 8-Hour Column 11/26/17 11/27/17 11/27/17 16:00 00:00 08:00 Intake Total 400 ml Output Total 400 ml Balance 0 ml 24-Hour Column 11/27/17 08:00 Intake Total 400 ml Output Total 400 ml Balance 0 ml Physical Exam She is alert and oriented x3. Mood affect appear normal. She answered all questions appropriately. HEENT: Sclerae are anicteric. Pupils are equal and reactive to light and accommodation. Extraocular movements were intact. Neuro: Cranial nerves intact Lungs: Lungs are clear to auscultation bilaterally. There are no rales wheezes or rhonchi. She has normal respiratory effort without use of accessory muscles. There is normal pulmonary excursion. Cardiac: The rhythm was regular. S1 and S2 were normal. Crescendo systolic murmur. The PMI was not markedly displaced on palpation. Data Laboratory Results: Last 24 Hours Test 11/25/17 15:46 11/25/17 20:11 11/26/17 00:54 11/26/17 06:23 Bedside Glucose 193 mg/dl 182 mg/dl 151 mg/dl White Blood Count 10.93 K/uL Red Blood Count 3.59 M/uL Hemoglobin 10.1 g/dL Hematocrit 31.2 % Mean Corpuscular Volume 86.9 fL Mean Corpuscular Hemoglobin 28.1 pg Mean Corpuscular Hemoglobin Concent 32.4 g/dl Platelet Count 199 K/uL Mean Platelet Volume 10.4 fL Neutrophils (%) (Auto) 73.6 % Lymphocytes (%) (Auto) 13.7 % Monocytes (%) (Auto) 9.4 % Eosinophils (%) (Auto) 2.8 % Basophils (%) (Auto) 0.3 % Neutrophils # (Auto) 8.04 K/uL Lymphocytes # (Auto) 1.50 K/uL Monocytes # (Auto) 1.03 K/uL Eosinophils # (Auto) 0.31 K/uL Basophils # (Auto) 0.03 K/uL RDW Standard Deviation 49.8 fL RDW Coefficient of Variation 15.4 % Immature Granulocyte % (Auto) 0.2 % Immature Granulocyte # (Auto) 0.02 K/uL Prothrombin Time 11.9 SECONDS Prothromb Time International Ratio 1.1 Activated Partial Thromboplast Time 24.7 SECONDS Partial Thromboplastin Ratio 1.0 Sodium Level 140 mmol/L Potassium Level 3.3 mmol/L Chloride Level 104 mmol/L Carbon Dioxide Level 30 mmol/L Anion Gap 6.0 mmol/L Blood Urea Nitrogen 31 mg/dl Creatinine 1.68 mg/dl Est Creatinine Clear Calc Drug Dose 35.4 ml/min Estimated GFR () 35.1 Estimated GFR (Non- 30.2 BUN/Creatinine Ratio 18.3 Random Glucose 97 mg/dl Calcium Level 9.1 mg/dl Total Bilirubin 0.9 mg/dl Direct Bilirubin 0.2 mg/dl Aspartate Amino Transf (AST/SGOT) 50 U/L Alanine Aminotransferase (ALT/SGPT) 21 U/L Alkaline Phosphatase 67 U/L Total Protein 6.0 gm/dl Albumin 2.7 gm/dl Test 11/26/17 06:56 11/26/17 10:51 Bedside Glucose 103 mg/dl 97 mg/dl Telemetry reviewed: Normal sinus rhythm. No atrial fibrillation or other arrhythmia Assessment and Plan 1. Inferior myocardial infarction: Patient be doing quite well without recurrent symptoms angina or chest pain. She has no symptoms consistent with heart failure. Examination is unremarkable. No arrhythmias identified. Patient will be continued on dual anti-platelet therapy with low-dose aspirin and Brilinta 90 mg twice daily. It is unclear if she had an embolic phenomenon resulting in her recent infarct. We can continue to monitor her as an outpatient in this can be addressed in that setting. 2. Aortic stenosis: Moderate. Will follow over time 3. Edema: Most likely lymphedema. Possibly an element of venous insufficiency. Patient can be maintained on her current dose of diuretic and we can reassess this in the outpatient setting.
--- NOTE | 2017-11-26 22:18 | Discharge Summary ---
Discharge Summary Date of Service Nov 26, 2017. Discharge Summary Admission Date: Nov 24, 2017 at 05:12 Discharge Date: Nov 26, 2017 Discharge Disposition: Home Principal Diagnosis: STEMI Problems/Secondary Diagnoses: (1) DM (diabetes mellitus) Status: Chronic (2) HTN (hypertension) Status: Chronic (3) MS (multiple sclerosis) Status: Chronic Immunizations: Have You Had Influenza Vaccine: Unknown History of Tetanus Vaccine?: Unknown History of Pneumococcal: Unknown Procedures: Indication: High-risk NSTEMI 72 F h/o prior MT 2013 treated with PCI and ALEXANDER (2.25 x 15 Xience) to distal R- PLB. Transferred from [facility] after presenting with abdominal pain, subsequent chest pain with transient inferior ST elevations and troponin on arrival of 12. Access: 6Fr Right ulnar artery - ultrasound guided access Catheters: [place]; JR4 guide Findings: LM - Luminal irregularities LAD - Moderate caliber, 20-30% mid segment disease, distal luminal irregularities as tapers to apex Circumflex - Small caliber vessel, 40% mid segment focal disease; distal vessel very small with diffuse disease. RCA - Large, dominant vessel with minimal luminal irregularities. Large R-PLB with widely patent distal stent. Moderate caliber right acute marginal branch with 100% acute distal occlusion. LVEDP - 19 -- PCI -- Antithrombotic therapy: Heparin, Ticagrelor Procedure: RCA cannulated with JR4 guide BMW wire passed across lesion into distal acute marginal Occlusion ballooned with 2.0 compliant balloon with re-established flow. IC vasodilators administered Post procedure SHALINI 2-3 flow in small distal vessel. No apparent coronary complications. Patient chest pain free and hemodynamically/electrically stable. Arterial Closure: TR Band Summary: 1. Acutely occluded distal right acute marginal branch 2. Mild non-obstructive residual coronary artery disease - Widely patent R-PLB distal stent 3. Mildly elevated intracardiac filling pressure 4. Successful PTCA of distal right acute marginal branch Recommendations: Return to ICU for continued monitoring Patient with minimal disease throughout RCA and is now post 2 distal branch vessel acute occlusions ( and 2013). Concern for possible coronary embolism. 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 Continue DAPT at least for 1 year for MT Trend troponins until peak Check Echo, telemetry and consider additional outpatient ambulatory monitoring to evaluate for AF Uptitrate beta-radha/PAT as BP allows High-dose statin Consult cardiac Rehab Medication Reconciliation New Medications: Ciprofloxacin (Ciprofloxacin HCl) 500 Mg Tab 500 MG PO BID for 2 Days, #4 TAB Lisinopril (Lisinopril) 2.5 Mg Tab 2.5 MG PO QAM for 30 Days, #30 TAB Tamsulosin HCl (Tamsulosin HCl) 0.4 Mg Cap 0.4 MG PO QAM for 30 Days, #30 CAP Ticagrelor (Brilinta) 90 Mg Tab 90 MG PO BID for 30 Days, #60 TAB Continued Medications: Aspirin (Aspir-Low) 81 Mg Ectab 81 MG PO QAM for 365 Days in addition to aggrenox Atorvastatin (Lipitor) 80 Mg Tab 80 MG PO DAILY, #30 Carvedilol (Coreg *) 12.5 Mg Tab 12.5 MG PO BID, 0 Refills Cholecalciferol (Vitamin D) 1,000 Inter.unit Tab 2000 INTER.UNIT PO HS, 0 Refills Furosemide (Furosemide) 20 Mg Tab 20 MG PO QAM for 30 Days, TAB 3 Refills Gabapentin (Neurontin) 300 Mg Cap 600 MG PO TID, 0 Refills Hydralazine HCl (Hydralazine HCl) 50 Mg Tab 50 MG PO TID for 30 Days, TAB 3 Refills Insulin Aspart Penfill (Novolog Penfill) Inj 0 SC TID UD, BTL TOTAL OF 50-55 UNITS DAILY, per sliding scale and carb count. Insulin Glargine (Lantus) Vial 25 UNITS SC QPM, VIAL Isosorbide Mononitrate (Isosorbide Mononitrate ER) 30 Mg Tabcr 30 MG PO QAM for 30 Days, 3 Refills Nitroglycerin (Nitrostat) 0.4 Mg/1 Tab Subl 0.4 MG SL UD PRN for Chest Pain, #25 4 Refills Potassium Chloride (Micro-K Ext Rel) 10 Meq Capcr 10 MEQ PO DAILY, 0 Refills Discontinued Medications: Clopidogrel Bisulfate (Clopidogrel) 75 Mg Tab 75 MG PO QAM for 90 Days, TAB 4 Refills [Amoxicillin/Clavulanate Potas] () 500 MG TAB 500 MG PO BIDM for 5 Days, TAB Discharge Exam Subjective Pt sitting up comfortably in bed on morning of discharge, salvador shows clear yellow urine. Eating and drinking well, voiding well, denies any chest pain, shortness of breath, headaches or abdominal pain or diarrhea. ROS See HPI for pertinent positives and negatives. PE Afebrile, vital signs stable GENERAL: Awake, alert, well-appearing, in no distress HENT: Normocephalic, atraumatic. EYES: Normal conjunctiva. Sclera non-icteric. RESPIRATORY: Clear to auscultation. CARDIAC: Regular rate, normal rhythm. +Systolic murmur. Extremities warm and well perfused. Pulses equal. ABDOMEN: Soft, non-distended. No tenderness to palpation. No rebound or guarding. No masses. LOWER EXTREMITIES: Calves are equal size bilaterally and non-tender. 3+ edema. No discoloration. NEURO: No motor deficits noted. SKIN: No rash or jaundice noted. Hospital Course Patient is a 72 year old female with a past medical history of recent CVA (Aug 2017), MS (primary progressive), MT in 2013 with stenting, HTN, HLD, DM on insulin, stroke, and CKD stage 3, who presented as a direct admit from [place] with diverticulitis and chest pain. STEMI - EKG from [place] showed STEMI in Anteroseptal leads, Troponin 12.4 - Discussed case with Dr. Bhakta and Heart Alert Called at 0650 11/24 1. Acutely occluded distal right acute marginal branch 2. Mild non-obstructive residual coronary artery disease - Widely patent R-PLB branch distal stent 3. Mildly elevated intracardiac filling pressure 4. Successful PTCA of distal right acute marginal branch Recommendations: Patient with minimal disease throughout RCA and is now post 2 distal branch vessel acute occlusions ( and 2013). Concern for possible coronary embolism. 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--Continue DAPT at least for 1 year for MT Trend troponins until peak Check Echo, telemetry and consider additional outpatient ambulatory monitoring to evaluate for AF Up titrate beta-radha/PAT as BP allows Consult cardiac Rehab - Heparin Drip discontinued - Normal Saline 100 mls/hr - Resume home Aspirin 325mg PO QAM - Continue home Atorvastatin 80mg - Continue home Carvedilol 12.5 mg QAM - Start on lisinopril 2.5 mg daily; monitor BMP (recheck BMP in one week after discharge) Diverticulitis - CT Abdomen: Mild inflammatory change of right sigmoid colon, may represent diverticulosis - Received dose of Cipro in [place] - Begin course of Cipro 500 BID for presumed diverticulitis, continue on discharge as above. - No abdominal pain on day of discharge. CKD III - BMP has been stable, at her baseline - Patient reports she was put on lasix "for her kidneys" and has never been told she has heart failure. - Would suggest trying to slowly wean lasix after totally stable post MT. Edema likely related to venous stasis. Hypertension - Resume home Hydralazine and Isosorbide Mononitrate - careful initiation of ACEi for afterload reduction and risks/benefits particularly as it pertains to renal function - she understands rationale and agrees with trial. Diabetes Mellitus - Sugars well controlled on day of discharge (90s) - Continue home Novolog, and Lantus Multiple Sclerosis - Continue home Gabapentin 600mg TID Urinary Retention - Able to urinate on day of discharge after salvador catheter removed. - Continue home Flomax DVTP: given Heparin Drip Code Status: Full Resuscitation, per patient. Thank you for allowing us to participate in your care. Resident Physician Supervision Note: I was present with the resident physician during the history and exam. I discussed the case with the resident and agree with the findings and plan as documented in the note. I also discussed the case with security consultant. Documented By: Bradley Cerda Total Time Spent: Greater than 30 minutes This includes examination of the patient, discharge planning, medication reconciliation, and communication with other providers. Discharge Instructions Please refer to the electronic Patient Visit Report (Discharge Instructions) for additional information. Additional Copies To Sergey Palomo MD; Francois Nova II MD
== END 2017-11-26 16:11 | disposition home health service (06) | DRG 251 ==
LOC: C.MSICU 05:12 → C.2E 11-25 09:53 → ENRESERV 11-25 11:05
PROVIDERS: ADMIT Hospitalist; ATTEND Family Medicine
PROC: B2100ZZ Fluoroscopy of Single Coronary Artery using High Osmolar Contrast (ICD-10-PCS; principal; 2017-11-24 07:26)
PROC: 02703ZZ Dilation of Coronary Artery, One Artery, Percutaneous Approach (ICD-10-PCS; principal; 2017-11-24 07:26)
PROC: 4A023N7 Measurement of Cardiac Sampling and Pressure, Left Heart, Percutaneous Approach (ICD-10-PCS; principal; 2017-11-24 07:26)
DX: I21.3 ST elevation (STEMI) myocardial infarction of unspecified site (principal); K57.92 Diverticulitis of intestine, part unspecified, without perforation or abscess without bleeding; N39.0 Urinary tract infection, site not specified; Z68.41 Body mass index [BMI] 40.0-44.9, adult; G35 Multiple sclerosis; I25.2 Old myocardial infarction; Z95.5 Presence of coronary angioplasty implant and graft; I10 Essential (primary) hypertension; E78.5 Hyperlipidemia, unspecified; Z86.73 Personal history of transient ischemic attack (TIA), and cerebral infarction without residual deficits; N18.3 Chronic kidney disease, stage 3 (moderate); E11.22 Type 2 diabetes mellitus with diabetic chronic kidney disease; Z79.82 Long term (current) use of aspirin; Z79.4 Long term (current) use of insulin; R33.9 Retention of urine, unspecified; E66.01 Morbid (severe) obesity due to excess calories

== ENCOUNTER 2018-04-23 21:47 | Inpatient (IN) | payer OTHER, BC ==
[~2018-04-23] VITALS: Ht 154.9 cm; Wt 105.7 kg
[~2018-04-23 21:47] MED LIST changes: -APR50 PO; -ASPEC81 PO; +ASPI1TAB48 PO; -Amoxicillin/Clavulanate Potas PO; +BRL90 PO; -CHOL100010 PO; +CYAN30003 SQ; +CZR25 PO; +ERGO1TAB10 PO; +FRS/40 PO; +HYDR-4717 PO; -ISOS-11 PO; +ISOS30TA3 PO; -LSX20 PO; +LVQ750 PO; +NTRGSL/4 UT; -NTRGSL4 SL; -PLV75 PO; +TAMS0.4C38 PO
--- NOTE | 2018-04-23 21:56 | EMERGENCY ROOM VISIT NOTE ---
History Report prepared by Francis: Pierce Olivo Under the Supervision of: Dr. Tato Jackson D.O. First contact with patient: 21:50 Stated Complaint: AMS, FEVER History of Present Illness The patient is a 73 year old female who presents to the Emergency Room with complaints of constant AMS beginning today. Per , the patient has a history of MS, hypertension, and diabetes. He states that the patient has been fairly unresponsive today and has been sleeping for a majority of the day. He notes that the patient has been alert enough today to refuse to come to the emergency department. He reports that the patient also has a fever and has urinary incontinence. He states that the patient's urinary incontinence is due to her MS. He notes that the patient did not drink much today. The patient denies any nausea, vomiting, diarrhea, and cough. She reports that she cannot move her legs or left arm because of her MS. The patient states that she also has a history of pneumonia and a heart attack in 2013. She notes that she takes a baby aspirin daily. Source of History: patient Onset: today Position: head Quality: other (AMS) Timing: constant Associated Symptoms: + fevers, No cough, No nausea, No vomiting, No diarrhea Note: Per , the patient has been fairly unresponsive today and has urinary incontinence. Review of Systems See HPI for pertinent positives and negatives. A total of ten systems were reviewed and were otherwise negative. Past Medical & Surgical Medical Problems: (1) EMMETT (acute kidney injury) (2) DM (diabetes mellitus) (3) Elevated serum creatinine (4) Elevated troponin (5) Heart attack (6) History of CVA (cerebrovascular accident) (7) HTN (hypertension) (8) Lethargy (9) MS (multiple sclerosis) (10) Pneumonia (11) URI (upper respiratory infection) Family History Cancer Diabetes mellitus Heart disease Hypertension Social History Smoking Status: Never Smoker Alcohol Use: none Drug Use: none Marital Status: Housing Status: lives with family Occupation Status: disabled Current/Historical Medications Scheduled Aspirin (Aspirin Low Dose), 81 MG PO QAM Atorvastatin (Lipitor), 80 MG PO QPM Carvedilol (Carvedilol), 25 MG PO AMHS Cyanocobalamin (Cyanocobalamin), 1,000 MCG INJ MONTHLY Ergocalciferol (Vitamin D2), 12.5 MG PO MONTHLY Furosemide (Lasix), 80 MG PO QAM Gabapentin (Gabapentin), 600 MG PO TID Hydralazine Hcl (Apresoline), 50 MG PO TID Insulin Aspart (Novolog), Unknown Dose SC TIDM Insulin Glargine (Lantus), 28 UNITS SC HS Isosorbide Mononitrate Ext Rel (Imdur Ext Rel), 30 MG PO QAM Potassium Chloride (Micro-K Ext Rel), 10 MEQ PO QAM Tamsulosin Hcl (Flomax), 0.4 MG PO QAM Ticagrelor (Brilinta), 90 MG PO AMHS Scheduled PRN Nitroglycerin (Nitrostat), 0.4 MG UT PRN PRN for CHEST PAIN Allergies Coded Allergies: Clopidogrel (Verified Allergy, Intermediate, RASH, 04/24/18) Sulfa Antibiotics (Verified Allergy, Intermediate, RASH, 04/24/18) Physical Exam Vital Signs Date Time Temp Pulse Resp B/P (MAP) Pulse Ox O2 Delivery O2 Flow Rate FiO2 04/24/18 01:33 75 18 110/43 100 Room Air 2.0 04/24/18 00:09 37.5 75 14 105/55 93 Room Air 04/23/18 22:12 38.2 87 16 173/73 94 Room Air 04/23/18 22:12 94 Room Air 04/23/18 22:04 86 Physical Exam GENERAL: Awake, alert, fatigued, uncomfortable, and ill appearing, in no distress HENT: Normocephalic, atraumatic. Oropharynx unremarkable. Mucous membranes are dry. EYES: Normal conjunctiva. Sclera non-icteric. NECK: Supple. No nuchal rigidity. FROM. No JVD. RESPIRATORY: Diminished breath sounds at bases with scant isolated wheezes. CARDIAC: Regular rate, normal rhythm. Extremities warm and well perfused. Pulses equal. ABDOMEN: Soft, non-distended. No tenderness to palpation. No rebound or guarding. No masses. RECTAL: Deferred. MUSCULOSKELETAL: Chest examination reveals no tenderness. The back is symmetrical on inspection without obvious abnormality. There is no CVA tenderness to palpation. No joint edema. UPPER EXTREMITIES: Left upper extremity paralysis at baseline. RUQ with 4/5 strength at patient's baseline. LOWER EXTREMITIES: Calves are equal size bilaterally and non-tender. 1+ BLE edema. No discoloration. Bilateral lower extremity paralysis at baseline. NEURO: Normal sensorium. No sensory or motor deficits noted. SKIN: No rash or jaundice noted. Medical Decision & Procedures ER Provider Diagnostic Interpretation: Radiology results as stated below per my review and interpretation: CHEST X-RAY: Right middle lobe opacities. Cardiomegaly. Laboratory Results Test 04/23/18 22:36 04/23/18 22:38 04/23/18 23:55 Red Blood Cell Morphology Unremarkable Prothrombin Time 10.9 SECONDS (9.0-12.0) Prothromb Time International Ratio 1.0 (0.9-1.1) Magnesium Level 2.3 mg/dl (1.8-2.4) Total Bilirubin 1.1 mg/dl (0.2-1) Direct Bilirubin 0.2 mg/dl (0-0.2) Aspartate Amino Transf (AST/SGOT) 18 U/L (15-37) Alanine Aminotransferase (ALT/SGPT) 21 U/L (12-78) Alkaline Phosphatase 84 U/L (45-117) Pro-B-Type Natriuretic Peptide 3345 pg/ml (0-900) Total Protein 7.6 gm/dl (6.4-8.2) Albumin 3.4 gm/dl (3.4-5.0) Lipase 148 U/L (73-393) Venous Blood pH 7.41 (7.36-7.41) Venous Blood Partial Pressure CO2 48 mmHg (38.0-50.0) Venous Blood Partial Pressure O2 29 mmHg Venous Blood HCO3 30 mmol/L Venous Blood Oxygen Saturation < 60.0 % Venous Blood Base Excess 4.2 mEq/L Urine Color YELLOW Urine Appearance CLOUDY (CLEAR) Urine pH 5.0 (4.5-7.5) Urine Specific [place] 1.015 (1.000-1.030) Urine Protein NEG (NEG) Urine Glucose (UA) NEG (NEG) Urine Ketones NEG (NEG) Urine Occult Blood NEG (NEG) Urine Nitrite POS (NEG) Urine Bilirubin NEG (NEG) Urine Urobilinogen NEG (NEG) Urine Leukocyte Esterase LARGE (NEG) Urine WBC (Auto) >30 /hpf (0-5) Urine RBC (Auto) 0-4 /hpf (0-4) Urine Hyaline Casts (Auto) 0 /lpf (0-5) Urine Epithelial Cells (Auto) 0-5 /lpf (0-5) Urine Bacteria (Auto) 1+ (NEG) Laboratory results reviewed by me Medications Administered Medications (Trade) Dose Ordered Sig/Lisa Route Start Time Stop Time Status Last Admin Dose Admin Acetaminophen 100 ml @ 400 mls/hr NOW STAT IV 04/23/18 22:42 04/23/18 22:56 DC 04/23/18 23:12 400 MLS/HR Piperacillin Sod/ Tazobactam Sod (Zosyn Iv) 4.5 gm NOW STAT IV 04/23/18 23:20 04/23/18 23:22 DC 04/23/18 23:40 4.5 GM Vancomycin HCl 2000 mg/Sodium Chloride 540 ml @ 200 mls/hr ONE STAT IV 04/23/18 23:20 04/24/18 02:01 DC 04/24/18 00:37 200 MLS/HR Sodium Chloride 500 ml @ 999 mls/hr Q31M STAT IV 04/24/18 00:21 04/24/18 00:51 DC 04/24/18 00:34 999 MLS/HR Sodium Chloride 1,000 ml @ 80 mls/hr [id number] IV 04/24/18 01:15 05/24/18 01:14 04/24/18 14:21 80 MLS/HR ECG Per My Interpretation Indication: altered mental status Rate (beats per minute): 88 Rhythm: normal sinus Findings: no acute ischemic change, other (left axis deviation) ED Course 0: The patient was evaluated in room A12. A complete history and physical exam was performed. 0051: Upon reexamination, the patient was stable. I discussed the test results and treatment plan with him. Discussed the patient's case with Dr. Almeida - Hospitalist, [facility]. The patient will be evaluated for further management. Medical Decision I reviewed the patient's past medical history, medications, and the nursing notes as described above. Differential diagnosis: Etiologies such as viral syndrome, otitis, pharyngitis, pneumonia, influenza, meningitis, urinary tract infection, sepsis, bacteremia, as well as others were entertained. The patient is a 73-year-old woman with a past medical history of multiple sclerosis with baseline paresis of left upper extremity and bilateral lower extremities who presents emergency department with generalized weakness and drowsiness over the past several days per hpi. On arrival the patient is uncomfortable and ill-appearing but no acute distress, febrile to 38.2 vital signs otherwise stable. Labs notable for leukocytosis to 25. Lactate 2.1. Otherwise, creatinine 2 and troponin 0.06 which are consistent with the patient 's baseline. BNP improved from previous in setting of h/o diastolic heart failure. Straight cath clean-catch urine with positive nitrites and large leuk esterase with > 30 WBCs and 1+ bacteria consistent with urinary infection. Chest x-ray with right middle lobe opacities suspicious for pneumonia. The patient's presentation and workup is concerning for sepsis so patient was treated empirically with vancomycin and Zosyn. Upon reevaluation patient is feeling improved and more alert. Case was discussed with Dr. Almeida [facility] hospitalist, who will evaluate the patient for admission. Medication Reconcilliation Current Medication List: was personally reviewed by me Blood Pressure Screening Patient's blood pressure: Normal blood pressure Blood pressure disposition: Did not require urgent referral Consults Time Called: 0037 Consulting Physician: Dr. Almeida - Zeke [facility] Returned Call: 0051 I discussed the patient with Dr. Almeida. He will evaluate the patient for further treatment. Impression Primary Impression: Sepsis Additional Impressions: Pneumonia UTI (urinary tract infection) Critical Care I have personally spent greater than 35 minutes of critical care time in the direct management of this patient. This includes bedside care, interpretation of diagnostic studies, and testing, discussion with consultants, patient, and family members, and other required patient management activities. This 35 minutes is in excess of all separately billable procedures. Scribe Attestation The scribe's documentation has been prepared under my direction and personally reviewed by me in its entirety. I confirm that the note above accurately reflects all work, treatment, procedures, and medical decision making performed by me. Departure Information Dispostion Being Evaluated By Hospitalist Referrals Francois Nova II MD (PCP) Problem Qualifiers
[2018-04-23] MEDS ORDERED: ACETAMINOPHEN IV 100 ML IV STA (22:42)
[2018-04-23 22:54] LABS: HEMATOCRIT 33.9 % (37-47); HEMOGLOBIN 10.8 g/dL (12.0-16.0); MEAN CELL VOLUME 88.7 fL (80-100); MEAN CORPUSCULAR HEMOGLOBIN 28.3 pg (25-34); MEAN CORPUSCULAR HGB CONC 31.9 g/dl (32-36); MEAN PLATELET VOLUME 10.9 fL (7.4-10.4); PLATELET COUNT 269 K/uL (130-400); RED CELL DISTRIBUTION WIDTH SD 51.4 fL (36.4-46.3); WHITE BLOOD COUNT 25.08 K/uL (4.8-10.8)
[2018-04-23] MEDS ORDERED: PIPERACILLIN/TAZOBACTAM 4.5 GM/100ML D5W IV STA (23:20)
[2018-04-23] MEDS ORDERED: VANCOMYCIN IV 2,000 MG in SODIUM CHLORIDE 0.9% 500ML 500 ML IV STA (23:20)
[2018-04-23 23:26] LABS: ALBUMIN 3.4 gm/dl (3.4-5.0); CALCIUM 10.1 mg/dl (8.5-10.1); CREATININE 2.04 mg/dl (0.60-1.20); POTASSIUM 3.7 mmol/L (3.5-5.1); TOTAL PROTEIN 7.6 gm/dl (6.4-8.2)
[2018-04-23] MEDS ORDERED: VANCOMYCIN CONSULT ACTIVE PRN (23:30)
[2018-04-23 23:34] LABS: BASO % 0.1 %; BASO ABS # 0.02 K/uL (0-0.2); EOS ABS # 0.01 K/uL (0-0.5); IG# 0.11 K/uL (0.00-0.02); LYMPH % 1.9 %; LYMPH ABS # 0.47 K/uL (1.2-3.4); MONO % 2.8 %; MONO ABS # 0.71 K/uL (0.11-0.59); NEUT % 94.8 %; NEUT ABS # 23.76 K/uL (1.4-6.5)
[2018-04-24] VITALS (9 sets, daily range): BP systolic 113–148; BP diastolic 56–67; PULSE 65–78; TEMP 36.4–37.6; O2SAT 92–100; Ht 154.9 cm; Wt 105.7 kg
[2018-04-24] MEDS ORDERED: SODIUM CHLORIDE 0.9% 500ML 500 ML IV STA (00:21)
[2018-04-24] MEDS ORDERED: NVLG SC (00:35)
[2018-04-24] MEDS ORDERED: FRS/80 PO (00:35)
[2018-04-24] MEDS ORDERED: CRG25 PO (00:35)
[2018-04-24] MEDS ORDERED: NRN600 PO (00:35)
[2018-04-24] MEDS ORDERED: INSDGI SC (00:35)
[2018-04-24] MEDS ORDERED: CYNI1000 INJ (00:35)
[2018-04-24] MEDS ORDERED: TICA1TAB PO (00:37)
--- NOTE | 2018-04-24 01:13 | History and Physical ---
History & Physical Date & Time of Service: Apr 24, 2018 at 01:12 Chief Complaint: Ams, Fever Primary Care Physician: No Doctor, Assigned History of Present Illness Source: patient, family, hospital records 73F with a past medical history of CVA (Aug 2017), MS (primary progressive), MA ( 2013 ,2017), HTN, HLD, DM on insulin and CKD stage 3 presenting with worsening lethargy, weakness.Per family, around 5 pm, patient became more lethargic, week, not as responsive. She also reports chills, bilateral leg restlessness. She also reports nausea without vomiting. She denies diarrhea. She normally ambulates with power chair. Due to MS, she has minimal strength on left arm and bilateral legs. In the ED, she was found to be febrile at 38.2 maintaining saturation on rm air 93-94%. She had a leukocytosis at 25.08, mild anemia 10.8/33.9, Acute on Chronic Kidney injury with Cr 2.04 baseline 1.5-1.8., UA positive for UTI, possible PNA. She received Vanc, Zosyn, 500 cc bolus NS Past Medical/Surgical History Medical Problems: (1) Acute myocardial infarction (2) Acute renal insufficiency (3) EMMETT (acute kidney injury) (4) Chest pain (5) Diverticulitis (6) DM (diabetes mellitus) (7) Elevated serum creatinine (8) Elevated troponin (9) Heart attack (10) History of CVA (cerebrovascular accident) (11) HTN (hypertension) (12) Hypoglycemia (13) MS (multiple sclerosis) (14) Pneumonia (15) URI (upper respiratory infection) Family History Cancer Diabetes mellitus Heart disease Hypertension Social History Smoking Status: Never Smoker Smokeless Tobacco Use: No Alcohol Use: none Drug Use: none Marital Status: Housing status: lives with family Occupational Status: disabled Immunizations History of Influenza Vaccine: Unknown History of Tetanus Vaccine?: Unknown History of Pneumococcal: Unknown History of Hepatitis B Vaccine: Unknown Allergies Coded Allergies: Clopidogrel (Verified Allergy, Intermediate, RASH, 04/24/18) Sulfa Antibiotics (Verified Allergy, Intermediate, RASH, 04/24/18) Home Medications Scheduled Aspirin (Aspirin Low Dose), 81 MG PO QAM Atorvastatin (Lipitor), 80 MG PO QPM Carvedilol (Carvedilol), 25 MG PO AMHS Cefdinir (Omnicef), 300 MG PO DAILY Cyanocobalamin (Cyanocobalamin), 1,000 MCG INJ MONTHLY Ergocalciferol (Vitamin D2), 12.5 MG PO MONTHLY Furosemide (Lasix), 80 MG PO QAM Gabapentin (Neurontin), 3 TAB PO TID Hydralazine Hcl (Apresoline), 50 MG PO TID Insulin Aspart (Novolog), Unknown Dose SC TIDM Insulin Glargine (Lantus), 28 UNITS SC HS Isosorbide Mononitrate Ext Rel (Imdur Ext Rel), 30 MG PO QAM Potassium Chloride (Micro-K Ext Rel), 10 MEQ PO QAM Tamsulosin Hcl (Flomax), 0.4 MG PO QAM Ticagrelor (Brilinta), 90 MG PO AMHS Scheduled PRN Nitroglycerin (Nitrostat), 0.4 MG UT PRN PRN for CHEST PAIN Review of Systems Constitutional: + fever, + chills, + weakness, + fatigue Respiratory: No cough, No sputum, No shortness of breath Cardiovascular: No chest pain, No edema, No palpitations Abdomen: + vomiting, No pain, No nausea, No diarrhea Genitourinary - Female: No dysuria, No urinary frequency, No urinary urgency Neurologic: + paralysis (at baseline ( due to MS)), + weakness, No numbness/ tingling Integumentary: No rash, No itch Physical Exam Vital Signs Date Time Temp Pulse Resp B/P (MAP) Pulse Ox O2 Delivery O2 Flow Rate FiO2 04/24/18 00:09 37.5 75 14 105/55 93 Room Air 04/23/18 22:12 38.2 87 16 173/73 94 Room Air 04/23/18 22:12 94 Room Air 04/23/18 22:04 86 GENERAL: alert, obese, no distress, non-toxic EYE EXAM: normal conjunctiva, PERRL and EOM's grossly intact OROPHARYNX: no exudate, no erythema, lips, buccal mucosa, and tongue normal and mucous membranes are moist NECK: supple, no adenopathy, LUNGS: Clear to auscultation. Normal chest wall mechanics HEART:Systolic murmur, S1 normal and S2 normal ABDOMEN: abdomen soft, non-tender, normo-active bowel sounds, no masses, no rebound or guarding. BACK: Back is symmetrical on inspection and there is no deformity SKIN: no rashes and no bruising UPPER EXTREMITIES: upper extremities are grossly normal. LOWER EXTREMITIES: No pitting edema. NEURO EXAM: AOx3, cranial nerves II-XII ntact, normal speech, Left arm 2/5 strength, sensation intact, Rigth arm 4/5 strength, sensation intact, ( at baseline) Braxton LE paralysis at baseline Diagnostics Laboratory Results Results Past 24 Hours Test 04/23/18 22:36 04/23/18 22:38 04/23/18 23:55 Range/Units White Blood Count 25.08 4.8-10.8 K/uL Red Blood Count 3.82 4.2-5.4 M/uL Hemoglobin 10.8 12.0-16.0 g/dL Hematocrit 33.9 37-47 % Mean Corpuscular Volume 88.7 80-100 fL Mean Corpuscular Hemoglobin 28.3 25-34 pg Mean Corpuscular Hemoglobin Concent 31.9 32-36 g/dl Platelet Count 269 130-400 K/uL Mean Platelet Volume 10.9 7.4-10.4 fL Neutrophils (%) (Auto) 94.8 % Lymphocytes (%) (Auto) 1.9 % Monocytes (%) (Auto) 2.8 % Eosinophils (%) (Auto) 0.0 % Basophils (%) (Auto) 0.1 % Neutrophils # (Auto) 23.76 1.4-6.5 K/uL Lymphocytes # (Auto) 0.47 1.2-3.4 K/uL Monocytes # (Auto) 0.71 0.11-0.59 K/uL Eosinophils # (Auto) 0.01 0-0.5 K/uL Basophils # (Auto) 0.02 0-0.2 K/uL RDW Standard Deviation 51.4 36.4-46.3 fL RDW Coefficient of Variation 16.0 11.5-14.5 % Immature Granulocyte % (Auto) 0.4 % Immature Granulocyte # (Auto) 0.11 0.00-0.02 K/uL Red Blood Cell Morphology Unremarkable Prothrombin Time 10.9 9.0-12.0 SECONDS Prothromb Time International Ratio 1.0 0.9-1.1 Sodium Level 138 136-145 mmol/L Potassium Level 3.7 3.5-5.1 mmol/L Chloride Level 101 98-107 mmol/L Carbon Dioxide Level 28 21-32 mmol/L Anion Gap 9.0 3-11 mmol/L Blood Urea Nitrogen 44 7-18 mg/dl Creatinine 2.04 0.60-1.20 mg/dl Est Creatinine Clear Calc Drug Dose 29.1 ml/min Estimated GFR () 27.5 Estimated GFR (Non- 23.8 BUN/Creatinine Ratio 21.4 10-20 Random Glucose 158 70-99 mg/dl Lactic Acid Level 2.1 0.4-2.0 mmol/L Calcium Level 10.1 8.5-10.1 mg/dl Magnesium Level 2.3 1.8-2.4 mg/dl Total Bilirubin 1.1 0.2-1 mg/dl Direct Bilirubin 0.2 0-0.2 mg/dl Aspartate Amino Transf (AST/SGOT) 18 15-37 U/L Alanine Aminotransferase (ALT/SGPT) 21 12-78 U/L Alkaline Phosphatase 84 45-117 U/L Troponin I 0.062 0-0.045 ng/ml Pro-B-Type Natriuretic Peptide 3345 0-900 pg/ml Total Protein 7.6 6.4-8.2 gm/dl Albumin 3.4 3.4-5.0 gm/dl Lipase 148 73-393 U/L Venous Blood pH 7.41 7.36-7.41 Venous Blood Partial Pressure CO2 48 38.0-50.0 mmHg Venous Blood Partial Pressure O2 29 mmHg Venous Blood HCO3 30 mmol/L Venous Blood Oxygen Saturation < 60.0 % Venous Blood Base Excess 4.2 mEq/L Urine Color YELLOW Urine Appearance CLOUDY CLEAR Urine pH 5.0 4.5-7.5 Urine Specific [place] 1.015 1.000-1.030 Urine Protein NEG NEG Urine Glucose (UA) NEG NEG Urine Ketones NEG NEG Urine Occult Blood NEG NEG Urine Nitrite POS NEG Urine Bilirubin NEG NEG Urine Urobilinogen NEG NEG Urine Leukocyte Esterase LARGE NEG Urine WBC (Auto) >30 0-5 /hpf Urine RBC (Auto) 0-4 0-4 /hpf Urine Hyaline Casts (Auto) 0 0-5 /lpf Urine Epithelial Cells (Auto) 0-5 0-5 /lpf Urine Bacteria (Auto) 1+ NEG Microbiology Results 04/23/18 Blood Culture, Received Pending 04/23/18 Blood Culture, Received Pending 04/23/18 Urine Culture, Received Pending EKG NSR no acute ischemic changes Impression Assessment and Plan 73F with a past medical history of CVA (Aug 2017), MS (primary progressive), MA ( 2013 ,2017), HTN, HLD, DM on insulin and CKD stage 3 presenting with worsening lethargy, dec responsiveness found to have fever, leukocytosis in the setting of UTI. Fatigue, Lethargy Fever - likely secondary to UTI, dehydration also possible given elevated Cr from baseline - IV NS at 80mls/hr, Hold Lasix - Given Vancomycin Zosyn in ED for presumptive Pneumonia in addition to UTI -Switch to Ceftriaxone daily for UTI, F/u Cxr report Elevated Troponin - possibly secondary to CKD - appears to be chronically elevated - denies cardiac symptoms, no acute ischemic EKG changes - F/u Repeat Troponin Acute on CKD - Cr 2.04 Baseline 1.5-1.8 - Possible dehydration component - Gentle IV hydration at 80mls/hr - Recheck BMP in am MS - appears stable, not evidence of flare up - Braxton LE , RUE paralysis at baseline, remains unchanged - not on chronic medication at present - Continue to monitor CVA, CAD s/p PCI stent - asx - continue Coreg Brilinta, ASA, Lipitor HTN - continue Coreg , Tamsulosin, Held Furosemide HLD - Continue to Lipitor DM - ISS, BSG AC HS - Follow daily BMP Neuropathy - Continue Gabapentin DVT PPX: Hep Sq q8h Code status: FULL resuscitation Disposition: Admit to Tele Attending addendum: I have physically seen this patient, have supervised the medical residents activities, and agree with the H&P unless as otherwise noted. Assessment and Plan: UTI/AK I on CKD/dehydration/early sepsis with fatigue and lethargy-- One-time dose of vancomycin and Zosyn given in ED. Admit on ceftriaxone 1 g IV daily. Follow urine culture and sensitivity. NSS at 80 mils per hour. Hold furosemide. Serial BMP and magnesium levels. CAD/history of coronary stent/hypertension/chronically elevated troponin-- The patient will be admitted to telemetry for serial cardiac enzymes, serial EKG's, and cardiac rhythm monitoring. Continue Coreg, Brilinta, aspirin and isosorbide mononitrate. Diabetes mellitus-- Continue Lantus [address] on Accu-Cheks before meals and at bedtime with NovoLog coverage per scale. Check hemoglobin A1c. Remainder of orders and notations as above. Advanced Directives Existing Advance Directive: No Existing Living Will: No Existing Power of Cloth Spreader: No Resuscitation Status VTE Prophylaxis Will order VTE Prophylaxis: Yes Note Total Time: Critical Care 30 - 74 minutes Resident Tracking Resident Involvement: Resident Care Provided Care Provided: Adult Hospital Medicine
[2018-04-24] MEDS ORDERED: ALUMINUM/MAGNESIUM/SIMETH (MAALOX MAX) 30 ML UDC PO PRN (01:15)
[2018-04-24] MEDS ORDERED: ONDANSETRON INJ 2 MG/ML 2 ML VIAL IV PRN (01:15)
[2018-04-24] MEDS ORDERED: MoRPHine SULFATE 2 MG/ML CARP IV PRN (01:15)
[2018-04-24] MEDS ORDERED: GLUCOSE 10 TABS/TUBE PO PRN (01:15)
[2018-04-24] MEDS ORDERED: MAGNESIUM HYDROXIDE SUSP 30 ML UDC PO PRN (01:15)
[2018-04-24] MEDS ORDERED: CARBOHYDRATES FOR HYPOGLYCEMIA PO PRN (01:15)
[2018-04-24] MEDS ORDERED: GLUCOSE 40% GEL 15 GM TUBE PO PRN (01:15)
[2018-04-24] MEDS ORDERED: NITROGLYCERIN 0.4 MG SL PER TAB CHARGE SL PRN (01:15)
[2018-04-24] MEDS ORDERED: ACETAMINOPHEN 325 MG TAB PO PRN (01:15)
[2018-04-24] MEDS ORDERED: POLYETHYLENE (MIRALAX) 17 GM PACK PO PRN (01:15)
[2018-04-24] MEDS ORDERED: DEXTROSE 50% 50 ML SYR IV PRN (01:15)
[2018-04-24] MEDS ORDERED: GLUCAGON FOR INJ 1 MG VIAL SQ PRN (01:15)
[2018-04-24] MEDS: SODIUM CHLORIDE 0.9% 1000ML 1,000 ML IV SCH ×2 (02:45→14:21)
[2018-04-24] MEDS: NITROGLYCERIN 2% OINTMENT 30GM TUBE EXT SCH ×3 (04:07→16:53)
[2018-04-24] MEDS: CEFTRIAXONE SOD INJ 1 GM in DEXTROSE 5% ADD-VANTAGE 50ML 50 ML IV SCH (04:07)
[2018-04-24] MEDS: HEPARIN SOD 5000 UNIT/0.5 ML CARP SQ SCH ×3 (05:35→22:01)
--- NOTE | 2018-04-24 07:02 | DIAGNOSTIC IMAGING REPORT ---
CHEST ONE VIEW PORTABLE CLINICAL HISTORY: Fever. Sepsis. COMPARISON STUDY: Chest radiograph March 01, 2018. FINDINGS: The patient is rotated. There is no pneumothorax or pleural effusion. No consolidation is identified. Pulmonary vascular congestion is noted without overt pulmonary edema. Moderate cardiomegaly is unchanged. IMPRESSION: 1. Moderate cardiomegaly with pulmonary vascular congestion. No overt pulmonary edema. 2. Rotated study. 3. No lobar consolidation. Electronically signed by: Feliciano Rowland M.D. 04/24/2018 7:00 AM Dictated Date/Time: 04/24/2018 6:59 AM
[2018-04-24] MEDS: GABAPENTIN 600 MG TAB PO SCH ×3 (08:06→21:51)
[2018-04-24] MEDS: TICAGRELOR 90 MG TAB PO SCH ×2 (08:06→21:51)
[2018-04-24] MEDS: ASPIRIN 81 MG ECTAB PO SCH (08:06)
[2018-04-24 08:07] LABS: BASO % 0.1 %; BASO ABS # 0.03 K/uL (0-0.2); EOS ABS # 0.01 K/uL (0-0.5); HEMATOCRIT 27.7 % (37-47); HEMOGLOBIN 9.1 g/dL (12.0-16.0); LYMPH % 3.4 %; LYMPH ABS # 0.72 K/uL (1.2-3.4); MEAN CELL VOLUME 88.5 fL (80-100); MEAN CORPUSCULAR HEMOGLOBIN 29.1 pg (25-34); MEAN CORPUSCULAR HGB CONC 32.9 g/dl (32-36); MEAN PLATELET VOLUME 10.5 fL (7.4-10.4); MONO % 4.3 %; NEUT % 91.7 %; NEUT ABS # 19.24 K/uL (1.4-6.5); NUCLEATED RED BLOOD CELL ABS 0.02 K/uL (0-0); PLATELET COUNT 200 K/uL (130-400); RED CELL DISTRIBUTION WIDTH SD 51.7 fL (36.4-46.3)
[2018-04-24] MEDS: ISOSORBIDE MONONITRATE 30 MG TABCR PO SCH (08:07)
[2018-04-24] MEDS: TAMSULOSIN HCL 0.4 MG CAP PO SCH (08:07)
[2018-04-24] MEDS: CARVEDILOL 25 MG TAB PO SCH ×2 (08:07→21:53)
[2018-04-24] MEDS: INSULIN ASPART 100 UNITS/ML 3 ML PEN SC SCH ×4 (08:22→21:00)
[2018-04-24] MEDS: INSULIN GLARGINE SOLOSTAR 100 UNITS/ML 3 ML PEN SC SCH ×2 (08:23→21:59)
[2018-04-24 08:46] LABS: CALCIUM 8.9 mg/dl (8.5-10.1); CREATININE 1.92 mg/dl (0.60-1.20); POTASSIUM 3.7 mmol/L (3.5-5.1)
--- NOTE | 2018-04-24 13:50 | Family Medicine Progress Note ---
Progress Note Date of Service Apr 24, 2018. Subjective CORI overnight Mentally back to baseline today as evidenced by exam, pt's and son at bedside corroborate. Tolerating PO ROS See HPI for pertinent positives and negatives. Otherwise denies new headache, vision change, chest pain, dyspnea, abdominal pain, loose or bloody stools, dysuria, or numbness tingling in extremities. Medications Current Inpatient Medications Medications (Trade) Dose Ordered Sig/Lisa Route Start Time Stop Time Status Last Admin Dose Admin Heparin Sodium (Porcine) (Heparin Sq 5000 Unit/0.5ml) 5,000 unit Q8 SQ 04/24/18 06:00 05/24/18 05:59 04/24/18 05:35 5,000 UNIT Acetaminophen (Tylenol Tab) 650 mg Q4H PRN PO 04/24/18 01:15 05/24/18 01:14 Al Hydrox/Mg Hydrox/Simethicone (Maalox Max Susp) 15 ml Q4H PRN PO 04/24/18 01:15 05/24/18 01:14 Magnesium Hydroxide (Milk Of Magnesia Susp) 30 ml Q12H PRN PO 04/24/18 01:15 05/24/18 01:14 Ondansetron HCl (Zofran Inj) 4 mg Q6H PRN IV 04/24/18 01:15 05/24/18 01:14 Nitroglycerin (Nitrostat Tab) 0.4 mg UD PRN SL 04/24/18 01:15 05/24/18 01:14 Nitroglycerin (Nitroglycerin 2% Oint) 1 inch Q6H EXT 04/24/18 04:00 05/24/18 03:59 04/24/18 12:27 1 INCH Morphine Sulfate (MoRPHine SULFATE INJ) 2 mg Q30M PRN IV 04/24/18 01:15 05/08/18 01:14 Polyethylene (Miralax Powder Packet) 17 gm DAILY PRN PO 04/24/18 01:15 05/24/18 01:14 Insulin Glargine (Lantus Solostar Pen) 20 units Q12 SC 04/24/18 09:00 05/24/18 08:59 04/24/18 08:23 20 UNITS Insulin Aspart (novoLOG ASPART) SLIDING SCALE If C... ACHS SC 04/24/18 07:00 8/24/18 06:59 04/24/18 12:26 4 UNITS Glucose (Glucose 40% Gel) 15-30 GRAMS 15 GRAMS... UD PRN PO 04/24/18 01:15 05/24/18 01:14 Glucose (Glucose Chew Tab) 4-8 Tablets 4 Tabl... UD PRN PO 04/24/18 01:15 05/24/18 01:14 Dextrose (Dextrose 50% 50ML Syringe) 25-50ML 25ML FOR ... UD PRN IV 04/24/18 01:15 05/24/18 01:14 Glucagon (Glucagon Inj) 1 mg UD PRN SQ 04/24/18 01:15 05/24/18 01:14 Carbohydrates (Carbohydrates For Hypoglycemia) 15-30 GRAMS 15 grams if BSG 54-69... UD PRN PO 04/24/18 01:15 05/24/18 01:14 Sodium Chloride 1,000 ml @ 80 mls/hr [id number] IV 04/24/18 01:15 05/24/18 01:14 04/24/18 02:45 80 MLS/HR Ceftriaxone Sodium 1 gm/ Dextrose 50 ml @ 100 mls/hr Q24H IV 04/24/18 03:00 04/29/18 02:59 04/24/18 04:07 100 MLS/HR Aspirin (Ecotrin Tab) 81 mg QAM PO 04/24/18 09:00 05/24/18 08:59 04/24/18 08:06 81 MG Atorvastatin Calcium (Lipitor Tab) 80 mg QPM PO 04/24/18 21:00 05/24/18 20:59 Carvedilol (Coreg Tab) 25 mg AMHS PO 04/24/18 09:00 05/24/18 08:59 04/24/18 08:07 25 MG Gabapentin (Neurontin Tab) 600 mg TID PO 04/24/18 09:00 05/24/18 08:59 04/24/18 08:06 600 MG Hydralazine HCl (Apresoline Tab) 50 mg TID PO 04/24/18 09:00 05/24/18 08:59 04/24/18 08:07 50 MG Isosorbide Mononitrate (Imdur Ext Rel Tab) 30 mg QAM PO 04/24/18 09:00 05/24/18 08:59 04/24/18 08:07 30 MG Tamsulosin HCl (Flomax Cap) 0.4 mg QAM PO 04/24/18 09:00 05/24/18 08:59 04/24/18 08:07 0.4 MG Ticagrelor (Brilinta Tab) 90 mg AMHS PO 04/24/18 09:00 05/24/18 08:59 04/24/18 08:06 90 MG Objective Vital Signs Date Time Temp Pulse Resp B/P (MAP) Pulse Ox O2 Delivery O2 Flow Rate FiO2 04/24/18 11:58 36.8 65 20 131/63 (85) 92 04/24/18 08:00 Nasal Cannula 2.0 04/24/18 07:11 37.6 68 18 134/63 (86) 97 Nasal Cannula 2.0 04/24/18 04:00 Nasal Cannula 2.0 04/24/18 03:34 36.8 78 18 148/65 (92) 100 Nasal Cannula 2.0 04/24/18 02:28 37.2 75 16 120/67 (84) 99 Nasal Cannula 2.0 04/24/18 02:10 98 Nasal Cannula 2.0 04/24/18 01:33 75 18 110/43 100 Room Air 2.0 04/24/18 00:09 37.5 75 14 105/55 93 Room Air 04/23/18 22:12 38.2 87 16 173/73 94 Room Air 04/23/18 22:12 94 Room Air 04/23/18 22:04 86 Physical Exam Notes: GENERAL: Awake, alert, in no distress, obese. Pierre to gravity draining clear yellow urine HENT: Normocephalic, atraumatic. EYES: Normal conjunctiva. Sclera non-icteric. EOMI NECK: Supple. Full range of motion. no JVD RESPIRATORY: Clear to auscultation. CARDIAC: Regular rate, normal rhythm. Extremities warm and well perfused. Pulses equal. ABDOMEN: Soft, non-distended. No tenderness to palpation. No rebound or guarding. No masses. LOWER EXTREMITIES: Calves are equal size bilaterally and non-tender. 1+ edema. No discoloration. NEURO: + complete motor deficit in lower ext b/l and left upper extremity which is baseline for her. Sensation in tact. CN II-XII in tact. SKIN: No rash or jaundice noted. Laboratory Results 04/24/18 07:57 Red Blood Count 3.13, Mean Corpuscular Volume 88.5, Mean Corpuscular Hemoglobin 29.1, Mean Corpuscular Hemoglobin Concent 32.9, Mean Platelet Volume 10.5, Neutrophils (%) (Auto) 91.7, Lymphocytes (%) (Auto) 3.4, Monocytes (%) (Auto) 4.3, Eosinophils (%) (Auto) 0.0, Basophils (%) (Auto) 0.1, Neutrophils # (Auto) 19.24, Lymphocytes # (Auto) 0.72, Monocytes # (Auto) 0.90, Eosinophils # (Auto) 0.01, Basophils # (Auto) 0.03 04/24/18 07:57 Test 04/23/18 22:36 04/23/18 22:38 04/23/18 23:55 04/24/18 07:57 Red Blood Cell Morphology Unremarkable Prothrombin Time 10.9 SECONDS (9.0-12.0) Prothromb Time International Ratio 1.0 (0.9-1.1) Magnesium Level 2.3 mg/dl (1.8-2.4) Total Bilirubin 1.1 mg/dl (0.2-1) Direct Bilirubin 0.2 mg/dl (0-0.2) Aspartate Amino Transf (AST/SGOT) 18 U/L (15-37) Alanine Aminotransferase (ALT/SGPT) 21 U/L (12-78) Alkaline Phosphatase 84 U/L (45-117) Pro-B-Type Natriuretic Peptide 3345 pg/ml (0-900) Total Protein 7.6 gm/dl (6.4-8.2) Albumin 3.4 gm/dl (3.4-5.0) Lipase 148 U/L (73-393) Venous Blood pH 7.41 (7.36-7.41) Venous Blood Partial Pressure CO2 48 mmHg (38.0-50.0) Venous Blood Partial Pressure O2 29 mmHg Venous Blood HCO3 30 mmol/L Venous Blood Oxygen Saturation < 60.0 % Venous Blood Base Excess 4.2 mEq/L Urine Color YELLOW Urine Appearance CLOUDY (CLEAR) Urine pH 5.0 (4.5-7.5) Urine Specific [place] 1.015 (1.000-1.030) Urine Protein NEG (NEG) Urine Glucose (UA) NEG (NEG) Urine Ketones NEG (NEG) Urine Occult Blood NEG (NEG) Urine Nitrite POS (NEG) Urine Bilirubin NEG (NEG) Urine Urobilinogen NEG (NEG) Urine Leukocyte Esterase LARGE (NEG) Urine WBC (Auto) >30 /hpf (0-5) Urine RBC (Auto) 0-4 /hpf (0-4) Urine Hyaline Casts (Auto) 0 /lpf (0-5) Urine Epithelial Cells (Auto) 0-5 /lpf (0-5) Urine Bacteria (Auto) 1+ (NEG) White Blood Count 21.00 K/uL (4.8-10.8) Red Blood Count 3.13 M/uL (4.2-5.4) Hemoglobin 9.1 g/dL (12.0-16.0) Hematocrit 27.7 % (37-47) Mean Corpuscular Volume 88.5 fL (80-100) Mean Corpuscular Hemoglobin 29.1 pg (25-34) Mean Corpuscular Hemoglobin Concent 32.9 g/dl (32-36) Platelet Count 200 K/uL (130-400) Mean Platelet Volume 10.5 fL (7.4-10.4) Neutrophils (%) (Auto) 91.7 % Lymphocytes (%) (Auto) 3.4 % Monocytes (%) (Auto) 4.3 % Eosinophils (%) (Auto) 0.0 % Basophils (%) (Auto) 0.1 % Neutrophils # (Auto) 19.24 K/uL (1.4-6.5) Lymphocytes # (Auto) 0.72 K/uL (1.2-3.4) Monocytes # (Auto) 0.90 K/uL (0.11-0.59) Eosinophils # (Auto) 0.01 K/uL (0-0.5) Basophils # (Auto) 0.03 K/uL (0-0.2) RDW Standard Deviation 51.7 fL (36.4-46.3) RDW Coefficient of Variation 16.0 % (11.5-14.5) Immature Granulocyte % (Auto) 0.5 % Immature Granulocyte # (Auto) 0.10 K/uL (0.00-0.02) Nucleated RBC Absolute Count (auto) 0.02 K/uL (0-0) Nucleated Red Blood Cells % 0.1 % Anion Gap 9.0 mmol/L (3-11) Est Creatinine Clear Calc Drug Dose 29.4 ml/min Estimated GFR () 29.6 Estimated GFR (Non- 25.6 BUN/Creatinine Ratio 23.8 (10-20) Calcium Level 8.9 mg/dl (8.5-10.1) Troponin I 0.093 ng/ml (0-0.045) Test 04/24/18 07:58 04/24/18 11:24 Lactic Acid Level 1.5 mmol/L (0.4-2.0) Bedside Glucose 205 mg/dl (70-90) Assessment and Plan 73F admitted with altered mental status found to have fever, leukocytosis in the setting of UTI. PMHx of CVA (Aug 2017), MS (primary progressive), ID ( 2013 ,2017), HTN, HLD, DM on insulin and CKD stage 3 Acute Metabolic encephalopathy likely 2/2 infectious cause/metabolic - WBC on admission 25 - likely secondary to UTI, dehydration also possible given elevated Cr from baseline - IV NS at 80mls/hr, Hold Lasix - continue Ceftriaxone 1 gm q24h Acute on CKD - Cr 2.04 Baseline 1.5-1.8 - Possible dehydration component - continue Gentle IV hydration at 80mls/hr - follow BMP MS / Neuropathy - stable - Continue Gabapentin 600 TID CVA, CAD s/p PCI stent /HLD /HTN - asx - continue Coreg 25 qam, Ticagrelor 90mg am, ASA81, Lipitor 80 qpm - Tamsulosin 0.4 qam, Held Furosemide Elevated troponin - denies ischemic symptoms, EKG and hemodynamics stable - follow clinically, continue cardiac meds as above DM - ISS, BSG AC HS DVT PPX: Hep Sq q8h Code status: FULL resuscitation Disposition: Admit to Tele Resident Physician Supervision Note: I interviewed and examined the patient. Discussed with Dr. Paredes and agree with findings and plan as documented in the note. Any exceptions or clarifications are listed here: None Documented By: David Bryant sleeping but ntoes she's feeling better just very sleepy updated on working dx's and plans vitals noted nad breathing unlabored no focal neuro deficits AMS - likely metabolic encephalopathy from septic presentation most likely secondary to UTI -continue empiric abx, follow cultures, supportive care. appears improving Continued [facility] stay due to: multiple IV medications needed Resident Tracking Resident Involvement: Resident Care Provided Care Provided: Adult Hospital Medicine
[2018-04-24] MEDS ORDERED: ATORVASTATIN 40 MG TAB PO SCH (21:00)
[2018-04-25] MEDS: SODIUM CHLORIDE 0.9% 1000ML 1,000 ML IV SCH (02:18)
[2018-04-25] MEDS: CEFTRIAXONE SOD INJ 1 GM in DEXTROSE 5% ADD-VANTAGE 50ML 50 ML IV SCH (03:03)
[2018-04-25 03:22] VITALS: BP 139/63; PULSE 70; TEMP 37; O2SAT 94
[2018-04-25] MEDS: HEPARIN SOD 5000 UNIT/0.5 ML CARP SQ SCH (06:15)
[2018-04-25 07:38] LABS: BASO % 0.1 %; BASO ABS # 0.02 K/uL (0-0.2); EOS % 0.6 %; EOS ABS # 0.09 K/uL (0-0.5); HEMATOCRIT 27.7 % (37-47); HEMOGLOBIN 8.9 g/dL (12.0-16.0); IG# 0.04 K/uL (0.00-0.02); LYMPH % 6.7 %; LYMPH ABS # 0.97 K/uL (1.2-3.4); MEAN CELL VOLUME 90.2 fL (80-100); MEAN CORPUSCULAR HGB CONC 32.1 g/dl (32-36); MEAN PLATELET VOLUME 10.9 fL (7.4-10.4); MONO % 5.3 %; MONO ABS # 0.77 K/uL (0.11-0.59); NEUT ABS # 12.63 K/uL (1.4-6.5); PLATELET COUNT 196 K/uL (130-400); RED CELL DISTRIBUTION WIDTH CV 16.4 % (11.5-14.5); RED CELL DISTRIBUTION WIDTH SD 53.7 fL (36.4-46.3); WHITE BLOOD COUNT 14.52 K/uL (4.8-10.8)
[2018-04-25 07:56] VITALS: BP 140/67; PULSE 76; TEMP 37; O2SAT 95
[2018-04-25 08:21] LABS: CALCIUM 9.1 mg/dl (8.5-10.1); CREATININE 1.76 mg/dl (0.60-1.20); POTASSIUM 3.6 mmol/L (3.5-5.1)
--- NOTE | 2018-04-25 08:22 | Clinical Documentation Query ---
CLINICAL DOCUMENTATION QUERY 73-y/o female who presents with metabolic encephalopathy in setting of likely UTI. H&P and daily progress notes state "Acute on CKD." This terminology does not code to mean EMMETT on CKD. Query #1/2 In your clinical opinion is this patient being managed for: (x ) EMMETT on CKD stage III ( ) Not Agree ( ) Other explanation of clinical findings (No explanation is considered a No Response) ( ) Unable to determine ( ) Need to Discuss (Phone CDS or qliq) (No discussion is considered a No Response) The medical record reflects the following clinical findings, treatment, and risk factors. Clinical Indicators: Review of cumulative labs show Creatinine baseline 1.5-1.7 with GFR average of approximately 30. On presentation [id number], Creatinine 2.04, GFR 23.8. Treatment: IVF's, daily PRP's Risk Factors: Age, CKD, infection, home diuretic therapy. Query #2/2 In your clinical opinion is this patient being managed for: ( x ) Possible Sepsis in setting of UTI m/b fever, leukocytosis, +lactic acid, and AMS ( ) Not Agree ( ) Other explanation of clinical findings (No explanation is considered a No Response) ( ) Unable to determine ( ) Need to Discuss (Phone CDS or qliq) (No discussion is considered a No Response) The medical record reflects the following clinical findings, treatment, and risk factors. Clinical Indicators: Fever 38.2, Leukocytosis 25.08, Lactic acid 2.1, +Troponin's 0.062, 0.093, and AMS. Treatment: IVF bolus, telemetry, IV APAP, IV Vancomycin, IV Ceftriaxone, Risk Factors: Age, UTI, Please clarify and document your clinical opinion in the progress notes and discharge summary. Terms such as "probable", "suspected", "likely", "questionable", "possible", or "still to be ruled out" are acceptable. IF IN AGREEMENT, YOU MUST DOCUMENT ABOVE DIAGNOSTIC STATEMENT IN DAILY PROGRESS NOTES AND DISCHARGE SUMMARY. This document is not part of the patient's record. Thank You, Fam Warner, RN [phone] & via [email or web address]
[2018-04-25] MEDS: CARVEDILOL 25 MG TAB PO SCH (08:24)
[2018-04-25] MEDS: TICAGRELOR 90 MG TAB PO SCH (08:25)
[2018-04-25] MEDS: TAMSULOSIN HCL 0.4 MG CAP PO SCH (08:25)
[2018-04-25] MEDS: ASPIRIN 81 MG ECTAB PO SCH (08:26)
[2018-04-25] MEDS: ISOSORBIDE MONONITRATE 30 MG TABCR PO SCH (08:26)
[2018-04-25] MEDS: GABAPENTIN 600 MG TAB PO SCH (08:26)
[2018-04-25] MEDS: INSULIN ASPART 100 UNITS/ML 3 ML PEN SC SCH ×2 (08:27→12:08)
[2018-04-25] MEDS: INSULIN GLARGINE SOLOSTAR 100 UNITS/ML 3 ML PEN SC SCH (08:28)
[2018-04-25 08:30] VITALS: O2SAT 96
[2018-04-25] MEDS ORDERED: TAMS0.4C38 PO (12:06)
[2018-04-25] MEDS ORDERED: CEFD1CAP14 PO (12:06)
--- NOTE | 2018-04-25 12:06 | Discharge Instructions ---
Discharge Instructions Date of Service Apr 25, 2018. Admission Reason for Admission: Lethargy,Uti (Urinary Tract Infection) Discharge Discharge Diagnosis / Problem: Urinary tract infection, altered mental status Discharge Goals Goal(s): Decrease discomfort, Improve disease control, Learn about illness, Diagnostic testing, Therapeutic intervention Activity Recommendations Activity Limitations: per Instructions/Follow-up section . Instructions / Follow-Up Instructions / Follow-Up You were admitted due to altered mental status and urinary tract infection. With the administration of fluids and antibiotics you are back to your mental baseline. For your urinary tract infection please finish the antibiotics as written. Cefdinir 300 mg once a day. Take for a total of 5 days. We also discussed increased pain in your lower extremities. This may be due to your multiple sclerosis and neuropathy. In order to help with this we discussed increasing your gabapentin prescription. Right now you are currently on 600 mg 3 times a day. You can increase this to 900 mg 3 times a day. I have written a prescription for this and sent it to your pharmacy. We can discuss this further at your follow-up appointment with me in the clinic. I have also refilled your prescription for your Flomax and sent that to your pharmacy. Otherwise I have made no other changes to your chronic medications. Please continue those. I look forward to seeing you in the office. Please make sure this appointment is within 1-2 weeks from your discharge date thank you. Be well Kary Paredes MD Current Hospital Diet Patient's current hospital diet: Diabetes Type 2 Diet Discharge Diet Recommended Diet: Diabetes Type 2 Diet Pending Studies Studies pending at discharge: no Laboratory Results Hemoglobin A1c Test 02/26/18 07:04 Range/Units Estimated Average Glucose 134 mg/dl Hemoglobin A1c 6.3 H 4.5-5.6 % Medical Emergencies . Who to Call and When: Medical Emergencies: If at any time you feel your situation is an emergency, please call 911 immediately. . Non-Emergent Contact Non-Emergency issues call your: Primary Care Provider Call Non-Emergent contact if: you have a fever, temperature is above 101.5, your pain is concerning you, you have any medication questions . . "Provider Documentation" section prepared by Kary Paredes. .
[2018-04-25 12:12] VITALS: BP 139/72; PULSE 77; TEMP 36.9; O2SAT 94
[2018-04-25 12:52] VITALS: BP 139/72; PULSE 77; TEMP 36.9; O2SAT 94
[2018-04-25] MEDS ORDERED: GABA-113 PO (13:15)
--- NOTE | 2018-04-25 13:44 | Discharge Summary ---
Discharge Summary Date of Service Apr 25, 2018. Discharge Summary Admission Date: Apr 24, 2018 at 01:39 Discharge Date: Apr 25, 2018 Discharge Disposition: Home Principal Diagnosis: Urinary tract infection, altered mental status Problems/Secondary Diagnoses: PMHx of CVA (Aug 2017), MS (primary progressive), AL ( 2013), HTN, HLD, DM on insulin and CKD stage 3 Immunizations: Have You Had Influenza Vaccine: Unknown History of Tetanus Vaccine?: Unknown History of Pneumococcal: Unknown History of Hepatitis B Vaccine: Unknown Medication Reconciliation New Medications: Cefdinir (Omnicef) 300 Mg Cap 300 MG PO DAILY for 5 Days, #5 CAP Gabapentin (Neurontin) 300 Mg Cap 3 TAB PO TID for 30 Days, #270 CAP Continued Medications: Aspirin (Aspirin Low Dose) 81 Mg Tab 81 MG PO QAM Atorvastatin (Lipitor) 80 Mg Tab 80 MG PO QPM, #30 Carvedilol (Carvedilol) 25 Mg Tab 25 MG PO AMHS Cyanocobalamin (Cyanocobalamin) 1,000 Mcg/Ml Inj 1000 MCG INJ MONTHLY Ergocalciferol (Vitamin D2) Unknown Strength Tab 12.5 MG PO MONTHLY Furosemide (Lasix) 80 Mg Tab 80 MG PO QAM, TAB Hydralazine Hcl (Apresoline) 50 Mg Tab 50 MG PO TID, TAB Insulin Aspart (Novolog) 100 Units/Ml Inj Unknown Dose SC TIDM TOTAL 50-55 UNITS, SLIDING SCALE. Insulin Glargine (Lantus) 100 Unit/Ml Inj 28 UNITS SC HS, VIAL Isosorbide Mononitrate Ext Rel (Imdur Ext Rel) 30 Mg Ertab 30 MG PO QAM, TAB Nitroglycerin (Nitrostat) 0.4 Mg Tab 0.4 MG UT PRN PRN for CHEST PAIN, BTL Potassium Chloride (Micro-K Ext Rel) 10 Meq Capcr 10 MEQ PO QAM, 0 Refills Tamsulosin Hcl (Flomax) 0.4 Mg Cap 0.4 MG PO QAM for 30 Days, #30 CAP (This prescription has been renewed) Ticagrelor (Brilinta) 90 Mg Tab 90 MG PO AMHS Discontinued Medications: Gabapentin (Gabapentin) 600 Mg Tab 600 MG PO TID Discharge Exam Patient is still at mental baseline on day of discharge. Tolerating p.o. Does complain of some lower extremity pain particularly in the right lower extremity. Especially when she is touched. .ROS See HPI for pertinent positives and negatives. Otherwise denies new headache, vision change, chest pain, dyspnea, abdominal pain, loose or bloody stools, dysuria. GENERAL: Awake, alert, in no distress, obese. HENT: Normocephalic, atraumatic. EYES: Normal conjunctiva. Sclera non-icteric. EOMI NECK: Supple. Full range of motion. no JVD RESPIRATORY: Clear to auscultation. CARDIAC: Regular rate, normal rhythm. Extremities warm and well perfused. Pulses equal. ABDOMEN: Soft, non-distended. No tenderness to palpation. No rebound or guarding. No masses. LOWER EXTREMITIES: Calves are equal size bilaterally and mildly tender in right lower leg. 1+ edema. No discoloration. NEURO: + complete motor deficit in lower ext b/l and left upper extremity which is baseline for her. Sensation in tact. CN II-XII in tact. SKIN: No rash or jaundice noted. Hospital Course Ms. Bowman is a 73-year-old female with aPMHx of CVA (Aug 2017), MS ( primary progressive), AL ( 2013 ,2017), HTN, HLD, DM on insulin and CKD stage 3 , who was admitted due to altered mental status and was found to have an elevated white count of 25. Her urinalysis also was consistent with a UTI and was found to grow gram-negative bacilli. She was treated with IV antibiotics ceftriaxone, given gentle maintenance fluids, and Lasix were held. Her mental status improved overnight, according to her and to her son she was at mental baseline the morning after admission. She was sent home on cefdinir 300 mg caps to be taken daily for 5 more days. She also complains of lower extremity pain particularly in the right lower extremity. Report pain is there when she is touched but it is not there when she is at rest. Lumbar spine x-rays showed no fracture or subluxation. Mild degenerative disc disease at L1-L2 and L3-L4. Mild facet degenerative changes within the lower lumbar spine. Discussed with patient, no intervention planned at this time. Discussed increasing gabapentin as above. Recommendations: -Repeat BMP in 1-2 weeks from day of discharge. Repeat CBC with auto differential. White count on day of discharge 14.5. Down from 20. Creatinine on day of discharge 1.7 down from 2.04. -Follow-up lumbar spine x-rays. -Follow-up increasing gabapentin from 600 3 times daily to 900 3 times daily. Patient was complaining of pain in lower legs when touched. But not at rest. Resident Physician Supervision Note: I interviewed and examined the patient. Discussed with Dr. Paredes and agree with findings and plan as documented in the note. Any exceptions or clarifications are listed here: None Documented By: David Bryant overall feeling better and wants to go home - discussed urine culture not yet final but hihgly likely PO cephalosporin should work given improvement on rocephin, discussed can alter abx after discharge if need be - she is OK w this uncertainty also notes ~last week or so pain only RLE below the knee only when touched - but new. notes that a weke or so ago she had buttock/hip pain when she was upright but this went away and she has no pain otherwise in the region vitals noted nad breathing unlabored hyperesthesia circumferentially RLE only below the knee AMS - likely metabolic encephalopathy from septic presentation most likely secondary to UTI -continue empiric abx, improving and stable for home UTI w sepsis on admission -clinically appearing c/w sepsis given AMS, leukocytosis, etc -stable for home as above paresthesiae -diffuse but only below knee - does not follow dermatome -xrays Lspine for possible ?could DJD/DDD be culprit - but seems more likely MS related -discussed options - for now increase gabapentin, continue outpt f/u Total Time Spent: Less than 30 minutes This includes examination of the patient, discharge planning, medication reconciliation, and communication with other providers. Discharge Instructions Please refer to the electronic Patient Visit Report (Discharge Instructions) for additional information. Additional Copies To Kary Paredes M.D. Resident Tracking Resident Involvement: Resident Care Provided Care Provided: Adult Hospital Medicine
--- NOTE | 2018-04-25 14:53 | DIAGNOSTIC IMAGING REPORT ---
LUMBAR SPINE 2 OR 3 VIEWS CLINICAL HISTORY: right leg paresthesias COMPARISON STUDY: None. FINDINGS: AP and crosstable lateral views of the lumbar spine were submitted for review. No fracture or subluxation. The sacrum is intact. Vascular calcifications are noted. Mild degenerative disc disease at L1-L2 and L3-L4. Mild facet degenerative changes within the lower lumbar spine. IMPRESSION: Mild degenerative changes within the lumbar spine. No fracture or subluxation. Electronically signed by: Leroy Weldon M.D. 04/25/2018 2:52 PM Dictated Date/Time: 04/25/2018 2:50 PM
== END 2018-04-25 15:18 | disposition home or self-care (01) | DRG 871 ==
LOC: EDBD 21:47 → C.EDA 21:48 → C.2T 04-24 01:39 → ENRESERV 04-24 01:47
PROVIDERS: ADMIT Hospitalist; ATTEND Family Medicine
DX: A41.9 Sepsis, unspecified organism (principal); G93.41 Metabolic encephalopathy; N39.0 Urinary tract infection, site not specified; N17.9 Acute kidney failure, unspecified; I12.9 Hypertensive chronic kidney disease with stage 1 through stage 4 chronic kidney disease, or unspecified chronic kidney disease; E11.22 Type 2 diabetes mellitus with diabetic chronic kidney disease; N18.3 Chronic kidney disease, stage 3 (moderate); G35 Multiple sclerosis; E11.40 Type 2 diabetes mellitus with diabetic neuropathy, unspecified; E78.5 Hyperlipidemia, unspecified; E86.0 Dehydration; Z79.4 Long term (current) use of insulin; Z79.82 Long term (current) use of aspirin; Z79.899 Other long term (current) drug therapy

== ENCOUNTER 2018-04-26 10:04 | Inpatient (IN) | payer OTHER, BC ==
[~2018-04-26] VITALS: Ht 157.5 cm; Wt 110.2 kg
[~2018-04-26 10:04] MED LIST changes: -BRL90 PO; +CEFD1CAP14 PO; -CRG125 PO; +CRG25 PO; -CYAN30003 SQ; +CYNI1000 INJ; -CZR25 PO; -FRS/40 PO; +FRS/80 PO; -INSUINJ14 SC; -LVQ750 PO; +NVLG SC; +TICA1TAB PO
[2018-04-26] MEDS ORDERED: ALBUT/IPRATROP 3MG/0.5MG NEB 3 ML VIAL INH STA (10:29)
[2018-04-26] MEDS ORDERED: SODIUM CHLORIDE 0.9% 500ML 500 ML IV STA (10:29)
--- NOTE | 2018-04-26 10:31 | EMERGENCY ROOM VISIT NOTE ---
History Report prepared by Francis: Demian Murray Under the Supervision of: Dr. Evangelist Grewal M.D. First contact with patient: 10:17 Chief Complaint: ILLNESS Stated Complaint: FEVER,LOSE BOWELS,WEAKNESS,PAIN L SIDE HEAD History of Present Illness The patient is a 73 year old white female with a past medical history of EMMETT, DM , CVA, lethargy, MS, pneumonia, and UTI who presents to the Emergency Room with complaints of persistent weakness. The patient was admitted to the hospital on the , 3 days ago and was discharged yesterday. She was diagnosed with UTI sepsis. The patient's at bedside notes that she has been weak since she was discharged home. The patient notes that she has been intermittently short of breath at times and did have a fever of 100.3 this morning. She does complain of a headache as well. The adds that her oxygen saturation was in the high 80s this morning and that she had a "loose" bowel movement yesterday. She denies any recent falls. The patient is currently on Cefdinire for her UTI sepsis. Source of History: patient Onset: discharged yesterday Position: head Quality: ache (headache), other (weakness) Timing: other (persistent) Associated Symptoms: + SOB, + diarrhea Review of Systems See HPI for pertinent positives and negatives. A total of ten systems were reviewed and were otherwise negative. Past Medical & Surgical Medical Problems: (1) EMMETT (acute kidney injury) (2) DM (diabetes mellitus) (3) Elevated serum creatinine (4) Elevated troponin (5) Heart attack (6) History of CVA (cerebrovascular accident) (7) HTN (hypertension) (8) Lethargy (9) MS (multiple sclerosis) (10) Pneumonia (11) URI (upper respiratory infection) Family History Cancer Diabetes mellitus Heart disease Hypertension Social History Smoking Status: Never Smoker Alcohol Use: none Drug Use: none Marital Status: Housing Status: lives with family Occupation Status: disabled Current/Historical Medications Scheduled Aspirin (Aspirin Low Dose), 81 MG PO QAM Atorvastatin (Lipitor), 80 MG PO QPM Carvedilol (Carvedilol), 25 MG PO AMHS Cefdinir (Omnicef), 300 MG PO DAILY Cyanocobalamin (Cyanocobalamin), 1,000 MCG INJ MONTHLY Ergocalciferol (Vitamin D2), 12.5 MG PO MONTHLY Furosemide (Lasix), 80 MG PO QAM Gabapentin (Neurontin), 3 TAB PO TID Hydralazine Hcl (Apresoline), 50 MG PO TID Insulin Aspart (Novolog), Unknown Dose SC TIDM Insulin Glargine (Lantus), 28 UNITS SC HS Isosorbide Mononitrate Ext Rel (Imdur Ext Rel), 30 MG PO QAM Potassium Chloride (Micro-K Ext Rel), 10 MEQ PO QAM Tamsulosin Hcl (Flomax), 0.4 MG PO QAM Ticagrelor (Brilinta), 90 MG PO AMHS Scheduled PRN Nitroglycerin (Nitrostat), 0.4 MG UT PRN PRN for CHEST PAIN Allergies Coded Allergies: Clopidogrel (Verified Allergy, Intermediate, RASH, 04/26/18) Sulfa Antibiotics (Verified Allergy, Intermediate, RASH, 04/26/18) Physical Exam Vital Signs Date Time Temp Pulse Resp B/P (MAP) Pulse Ox O2 Delivery O2 Flow Rate FiO2 04/26/18 14:35 61 18 154/67 96 Nasal Cannula 2.0 04/26/18 12:48 67 18 192/71 97 Nasal Cannula 2.0 04/26/18 12:47 64 04/26/18 11:00 87 Room Air 04/26/18 11:00 98 Nasal Cannula 2.0 04/26/18 10:09 37.3 67 20 116/70 88 Room Air Physical Exam GENERAL: Awake, alert, well-appearing, NAD. Wheel chair bound. HENT: Normocephalic, atraumatic. EYES: Normal conjunctiva. Sclera non-icteric. PERRL. No anisocoria. NECK: Supple. No nuchal rigidity. FROM. RESPIRATORY: No rhonchi, wheezing, Crackles throughout CARDIAC: RRR, no MRG ABDOMEN: Soft, NTND, BS+ MSK: No chest wall TTP, no LE edema NEURO: GCS 15, CN 2-12 intact, moves all 4s on command. Wheel chair bound. Dense left hemiparesis. CN 2-12 intact. 4/5 upper and lower right sided extremities. SKIN: No rash or jaundice noted. Medical Decision & Procedures ER Provider Diagnostic Interpretation: Radiology results as stated below per my review and radiologist interpretation: CT HEAD WITHOUT CONTRAST (CT) CLINICAL HISTORY: L sided head pain, h/o MS and prior CVA w/ L hemiparesis COMPARISON STUDY: 02/26/2018 TECHNIQUE: Axial CT of the brain is performed from the vertex to the skull base. IV contrast was not administered for this examination. A dose lowering technique was utilized adhering to the principles of ALARA. CT DOSE: 638.56 mGycm FINDINGS: No intra or extra-axial mass lesions are visualized. There is no CT evidence of acute cortical infarction. There is no evidence of midline shift. There is no acute hemorrhage. No calvarial fractures are visualized. There are patchy white matter hypodensities likely on a small vessel basis. There is an old right parietal lobe infarct. There is no evidence of pathologic ventricular dilatation. There is no evidence of acute sinusitis IMPRESSION: Old right parietal lobe infarct. No acute intracranial findings. Electronically signed by: Gino Simms M.D. 04/26/2018 1:17 PM Dictated Date/Time: 04/26/2018 1:15 PM CHEST 2 VIEWS ROUTINE HISTORY: EVALUATE RESPIRATORY DISTRESS.DYSPNEA COMPARISON: Chest 04/23/2018. FINDINGS: The cardiac silhouette is moderately enlarged. No pneumothorax. Low lung volumes. Trace bilateral pleural effusions. There is progressive interstitial and vascular thickening consistent with pulmonary edema. IMPRESSION: 1. Interval progression of the moderate pulmonary edema. 2. Suspect trace bilateral pleural effusions. Electronically signed by: Leroy Weldon M.D. 04/26/2018 12:13 PM Dictated Date/Time: 04/26/2018 12:11 PM Laboratory Results 04/26/18 11:23 Red Blood Count 3.30, Mean Corpuscular Volume 89.1, Mean Corpuscular Hemoglobin 28.5, Mean Corpuscular Hemoglobin Concent 32.0, Mean Platelet Volume 10.6, Neutrophils (%) (Auto) 85.0, Lymphocytes (%) (Auto) 6.7, Monocytes (%) (Auto) 6.8, Eosinophils (%) (Auto) 1.0, Basophils (%) (Auto) 0.2, Neutrophils # (Auto) 11.81, Lymphocytes # (Auto) 0.93, Monocytes # (Auto) 0.94, Eosinophils # (Auto) 0.14, Basophils # (Auto) 0.03 04/26/18 11:23 Test 04/26/18 11:23 04/26/18 11:36 04/26/18 12:43 White Blood Count 13.89 K/uL (4.8-10.8) Red Blood Count 3.30 M/uL (4.2-5.4) Hemoglobin 9.4 g/dL (12.0-16.0) Hematocrit 29.4 % (37-47) Mean Corpuscular Volume 89.1 fL (80-100) Mean Corpuscular Hemoglobin 28.5 pg (25-34) Mean Corpuscular Hemoglobin Concent 32.0 g/dl (32-36) Platelet Count 236 K/uL (130-400) Mean Platelet Volume 10.6 fL (7.4-10.4) Neutrophils (%) (Auto) 85.0 % Lymphocytes (%) (Auto) 6.7 % Monocytes (%) (Auto) 6.8 % Eosinophils (%) (Auto) 1.0 % Basophils (%) (Auto) 0.2 % Neutrophils # (Auto) 11.81 K/uL (1.4-6.5) Lymphocytes # (Auto) 0.93 K/uL (1.2-3.4) Monocytes # (Auto) 0.94 K/uL (0.11-0.59) Eosinophils # (Auto) 0.14 K/uL (0-0.5) Basophils # (Auto) 0.03 K/uL (0-0.2) RDW Standard Deviation 51.9 fL (36.4-46.3) RDW Coefficient of Variation 15.9 % (11.5-14.5) Immature Granulocyte % (Auto) 0.3 % Immature Granulocyte # (Auto) 0.04 K/uL (0.00-0.02) Prothrombin Time 10.4 SECONDS (9.0-12.0) Prothromb Time International Ratio 1.0 (0.9-1.1) Activated Partial Thromboplast Time 25.0 SECONDS (21.0-31.0) Partial Thromboplastin Ratio 1.0 Anion Gap 6.0 mmol/L (3-11) Estimated GFR () 37.5 Estimated GFR (Non- 32.3 BUN/Creatinine Ratio 23.1 (10-20) Calcium Level 9.2 mg/dl (8.5-10.1) Magnesium Level 2.4 mg/dl (1.8-2.4) Pro-B-Type Natriuretic Peptide 38374 pg/ml (0-900) Thyroid Stimulating Hormone (TSH) 0.339 uIu/ml (0.300-4.500) Troponin I 0.085 ng/ml (0-0.045) Urine Color YELLOW Urine Appearance CLOUDY (CLEAR) Urine pH 5.0 (4.5-7.5) Urine Specific [place] 1.019 (1.000-1.030) Urine Protein 1+ (NEG) Urine Glucose (UA) NEG (NEG) Urine Ketones NEG (NEG) Urine Occult Blood NEG (NEG) Urine Nitrite NEG (NEG) Urine Bilirubin NEG (NEG) Urine Urobilinogen NEG (NEG) Urine Leukocyte Esterase TRACE (NEG) Urine WBC (Auto) 1-5 /hpf (0-5) Urine RBC (Auto) 0-4 /hpf (0-4) Urine Hyaline Casts (Auto) 1-5 /lpf (0-5) Urine Epithelial Cells (Auto) 10-20 /lpf (0-5) Urine Bacteria (Auto) NEG (NEG) Date/Time Source Procedure Growth Status 04/26/18 00:00 Stool C.difficile Toxin B Gene (PCR) - Final No C. difficile toxin B gene detected Complete Laboratory results reviewed by me Medications Administered Medications (Trade) Dose Ordered Sig/Lisa Route Start Time Stop Time Status Last Admin Dose Admin Albuterol/ Ipratropium (Duoneb) 3 ml NOW STAT INH 04/26/18 10:29 04/26/18 10:30 DC 04/26/18 11:02 3 ML Sodium Chloride 500 ml @ 500 mls/hr Q1H STAT IV 04/26/18 10:29 04/26/18 11:28 DC 04/26/18 11:03 500 MLS/HR Furosemide 80 mg/ Syringe 8 ml @ 4 mls/min ONE ONCE IV 04/26/18 13:15 04/26/18 13:16 DC 04/26/18 13:15 4 MLS/MIN Acetaminophen (Tylenol Tab) 650 mg STK-MED ONCE .ROUTE 04/26/18 14:03 04/26/18 14:04 DC 04/26/18 14:03 650 MG Acetaminophen (Tylenol Tab) 650 mg Q4H PRN PO 04/26/18 15:45 05/26/18 15:44 7/28/18 12:11 650 MG ECG Per My Interpretation Indication: weakness Rate (beats per minute): 68 Rhythm: normal sinus Findings: PAC, T-wave inversion (Lateral), other (Normal intervals, LAD) ED Course 1021: The patient was evaluated in room B2. A complete history and physical exam was performed. 1343: I discussed the case with Dr. Charlene SAUCEDO Hospitalist. She will evaluate the patient for further treatment. Medical Decision The patient is a 73 year old white female with a past medical history of EMMETT, DM , CVA, lethargy, MS, pneumonia, and UTI who presents to the Emergency Room with complaints of persistent weakness. The patient was admitted to the hospital on the , 3 days ago and was discharged yesterday. Nursing notes reviewed. Ancillary studies and prior records reviewed. Differential diagnosis: Etiologies such as metabolic, infection, hypo/hyperglycemia, electrolyte abnormalities, cardiac sources, intracerebral event, toxicologic, neurologic, as well as others were entertained. Patient was seen and evaluated the bedside. There was concern of some generalized weakness as well as some difficulty with breathing. On exam the patient is a crackles. The patient is fairly sedentary at baseline. Patient was recently admitted and discharged for UTI related sepsis and altered mental status. Patient did blood work completed, EKG, troponin, chest x-ray. The patient did have an oxygen saturation of 80% in triage. The patient was given a breathing treatment. Patient is EKG and troponin do show chronic elevations in her troponin but no changes in her EKG. Less likely ACS. Patient's BNP is elevated with a chest x- ray does show some volume overload. The patient had not taken her morning medications these were given to help with her hypertension. The patient was given an IV dose of Lasix 80 mg. Given that the patient is requiring supplemental oxygen and it was as low as 86% I believe she would benefit from further evaluation, treatment, diuresis. I did speak with the on-call hospitalist who agreed to further evaluate and treat the patient. Medication Reconcilliation Current Medication List: was personally reviewed by me Blood Pressure Screening Patient's blood pressure: Normal blood pressure Consults Time Called: 1340 Consulting Physician: Dr. Charlene SAUCEDO Hospitalist Returned Call: 1343 I discussed the case with Dr. Charlene SAUCEDO Hospitalist. She will evaluate the patient for further treatment. Impression Primary Impression: CHF exacerbation Additional Impressions: Volume overload Acute respiratory failure with hypoxia Scribe Attestation The scribe's documentation has been prepared under my direction and personally reviewed by me in its entirety. I confirm that the note above accurately reflects all work, treatment, procedures, and medical decision making performed by me. Departure Information Dispostion Being Evaluated By Hospitalist Referrals No Doctor, Assigned (PCP) Patient Instructions My [facility] Problem Qualifiers Primary Impression: CHF exacerbation Heart failure type: unspecified Qualified Codes: I50.9 - Heart failure, unspecified Additional Impressions: Volume overload Hypervolemia type: unspecified Qualified Codes: E87.70 - Fluid overload, unspecified
[2018-04-26 11:39] LABS: BASO % 0.2 %; BASO ABS # 0.03 K/uL (0-0.2); EOS ABS # 0.14 K/uL (0-0.5); HEMATOCRIT 29.4 % (37-47); HEMOGLOBIN 9.4 g/dL (12.0-16.0); IG# 0.04 K/uL (0.00-0.02); LYMPH % 6.7 %; LYMPH ABS # 0.93 K/uL (1.2-3.4); MEAN CELL VOLUME 89.1 fL (80-100); MEAN CORPUSCULAR HEMOGLOBIN 28.5 pg (25-34); MEAN PLATELET VOLUME 10.6 fL (7.4-10.4); MONO % 6.8 %; MONO ABS # 0.94 K/uL (0.11-0.59); NEUT ABS # 11.81 K/uL (1.4-6.5); PLATELET COUNT 236 K/uL (130-400); RED CELL DISTRIBUTION WIDTH CV 15.9 % (11.5-14.5); RED CELL DISTRIBUTION WIDTH SD 51.9 fL (36.4-46.3); WHITE BLOOD COUNT 13.89 K/uL (4.8-10.8)
[2018-04-26 12:05] LABS: BLOOD UREA NITROGEN 36 mg/dl (7-18); CALCIUM 9.2 mg/dl (8.5-10.1); CARBON DIOXIDE 25 mmol/L (21-32); CREATININE 1.58 mg/dl (0.60-1.20); GLUCOSE 110 mg/dl (70-99); POTASSIUM 3.4 mmol/L (3.5-5.1); SODIUM 139 mmol/L (136-145)
--- NOTE | 2018-04-26 12:15 | DIAGNOSTIC IMAGING REPORT ---
CHEST 2 VIEWS ROUTINE HISTORY: EVALUATE RESPIRATORY DISTRESS.DYSPNEA COMPARISON: Chest 04/23/2018. FINDINGS: The cardiac silhouette is moderately enlarged. No pneumothorax. Low lung volumes. Trace bilateral pleural effusions. There is progressive interstitial and vascular thickening consistent with pulmonary edema. IMPRESSION: 1. Interval progression of the moderate pulmonary edema. 2. Suspect trace bilateral pleural effusions. Electronically signed by: Leroy Weldon M.D. 04/26/2018 12:13 PM Dictated Date/Time: 04/26/2018 12:11 PM
[2018-04-26] MEDS ORDERED: FUROSEMIDE INJ 80 MG in SYRINGE 0 ML IV ONE (13:15)
--- NOTE | 2018-04-26 13:18 | DIAGNOSTIC IMAGING REPORT ---
CT HEAD WITHOUT CONTRAST (CT) CLINICAL HISTORY: L sided head pain, h/o MS and prior CVA w/ L hemiparesis COMPARISON STUDY: 02/26/2018 TECHNIQUE: Axial CT of the brain is performed from the vertex to the skull base. IV contrast was not administered for this examination. A dose lowering technique was utilized adhering to the principles of ALARA. CT DOSE: 638.56 mGycm FINDINGS: No intra or extra-axial mass lesions are visualized. There is no CT evidence of acute cortical infarction. There is no evidence of midline shift. There is no acute hemorrhage. No calvarial fractures are visualized. There are patchy white matter hypodensities likely on a small vessel basis. There is an old right parietal lobe infarct. There is no evidence of pathologic ventricular dilatation. There is no evidence of acute sinusitis IMPRESSION: Old right parietal lobe infarct. No acute intracranial findings. Electronically signed by: Gino Simms M.D. 04/26/2018 1:17 PM Dictated Date/Time: 04/26/2018 1:15 PM
[2018-04-26 13:37] VITALS: Ht 157.5 cm; Wt 110.2 kg
[2018-04-26] MEDS ORDERED: ACETAMINOPHEN 325 MG TAB ONE (14:03)
[2018-04-26] MEDS ORDERED: GLUCOSE 10 TABS/TUBE PO PRN (15:45)
[2018-04-26] MEDS ORDERED: MAGNESIUM HYDROXIDE SUSP 30 ML UDC PO PRN (15:45)
[2018-04-26] MEDS ORDERED: POLYETHYLENE (MIRALAX) 17 GM PACK PO PRN (15:45)
[2018-04-26] MEDS ORDERED: GLUCOSE 40% GEL 15 GM TUBE PO PRN (15:45)
[2018-04-26] MEDS ORDERED: ONDANSETRON INJ 2 MG/ML 2 ML VIAL IV PRN (15:45)
[2018-04-26] MEDS ORDERED: DEXTROSE 50% 50 ML SYR IV PRN (15:45)
[2018-04-26] MEDS ORDERED: CARBOHYDRATES FOR HYPOGLYCEMIA PO PRN (15:45)
[2018-04-26] MEDS ORDERED: GLUCAGON FOR INJ 1 MG VIAL SQ PRN (15:45)
[2018-04-26] MEDS ORDERED: NITROGLYCERIN 0.4 MG SL PER TAB CHARGE UT PRN (16:15)
[2018-04-26] MEDS ORDERED: ERGOCALCIFEROL PO SCH (16:15)
--- NOTE | 2018-04-26 16:20 | History and Physical ---
History & Physical Date & Time of Service: Apr 26, 2018 at 14:57 Chief Complaint: Fever,Lose Bowels,Weakness,Pain L Side Head Primary Care Physician: Francois Nova II MD History of Present Illness Mrs. Bowman is a 73-year-old female with a past medical history of CVA in August 2017, MS primary progressive, ME in 2013, 2017, hypertension, hyperlipidemia, diabetes mellitus on insulin and CKD stage III who presents today with complaints of weakness, shortness of breath, left-sided headache which is now mostly resolved, and hypoxia per patient's home pulse ox. Patient was discharged yesterday due to an admission for UTI sepsis from April 24. She reports that after discharge in the afternoon she and her returned to their home, she took her medications including her antibiotic Cefdinir, as scheduled, and then had one episode of loose nonbloody stools last night. reports that patient asked him to check her pulse ox because she felt short of breath. Usually she is in the high 90s, but last night she was in the high 80s. She went to sleep in her recliner chair as she usually does with no issues. She did urinate last night. She urinated this morning with no issues. But then because her shortness of breath persisted, and her pulse ox remained in the high 80s, called the clinic to ask what he should do. Triage nurse there recommended that they come to the ED for further management. In the emergency department she was found to be hypoxic on room air, oxygenating at 88%. She was afebrile. At around noon her blood pressure was 192/71, but she had not taken her blood pressure medicines this morning. So she was allowed to take that. She was given DuoNeb treatment and 1/2 L of normal saline. A CT of the head without contrast found no acute intracranial findings, as well as an old right parietal lobe infarct. Chest x-ray revealed increased moderate pulmonary edema when compared to the chest x-ray on the . White count is 13.8 down from 14.5 the day before. Hemoglobin and platelets are stable. BMP reveals normal sodium and potassium, creatinine 1.58 which is down from 1.76 yesterday. Troponin is 0.089 which is down from 0.093 on the . Troponins appear chronically elevated in the 0.06-0.08 range. Pro BNP 90233 which is up from 3345 3 days prior. Thyroid hormone intact. UAs of course negative. Patient's vitals remained stable and she is oxygenating at 97% on 2 L nasal cannula. Past Medical/Surgical History Medical Problems: (1) Acute myocardial infarction (2) Acute renal insufficiency (3) EMMETT (acute kidney injury) (4) Chest pain (5) Diverticulitis (6) DM (diabetes mellitus) (7) Elevated serum creatinine (8) Elevated troponin (9) Heart attack (10) History of CVA (cerebrovascular accident) (11) HTN (hypertension) (12) Hypoglycemia (13) Lethargy (14) MS (multiple sclerosis) (15) Pneumonia (16) Pneumonia (17) Sepsis (18) URI (upper respiratory infection) (19) UTI (urinary tract infection) Family History Cancer Diabetes mellitus Heart disease Hypertension Social History Smoking Status: Never Smoker Drug Use: none Marital Status: Housing status: lives with family Occupational Status: disabled Immunizations History of Influenza Vaccine: Unknown History of Tetanus Vaccine?: Unknown History of Pneumococcal: Unknown History of Hepatitis B Vaccine: Unknown Allergies Coded Allergies: Clopidogrel (Verified Allergy, Intermediate, RASH, 04/26/18) Sulfa Antibiotics (Verified Allergy, Intermediate, RASH, 04/26/18) Home Medications Scheduled Aspirin (Aspirin Low Dose), 81 MG PO QAM Atorvastatin (Lipitor), 80 MG PO QPM Carvedilol (Carvedilol), 25 MG PO AMHS Cefdinir (Omnicef), 300 MG PO DAILY Cyanocobalamin (Cyanocobalamin), 1,000 MCG INJ MONTHLY Ergocalciferol (Vitamin D2), 12.5 MG PO MONTHLY Furosemide (Lasix), 80 MG PO QAM Gabapentin (Neurontin), 3 TAB PO TID Hydralazine Hcl (Apresoline), 50 MG PO TID Insulin Aspart (Novolog), Unknown Dose SC TIDM Insulin Glargine (Lantus), 28 UNITS SC HS Isosorbide Mononitrate Ext Rel (Imdur Ext Rel), 30 MG PO QAM Potassium Chloride (Micro-K Ext Rel), 10 MEQ PO QAM Tamsulosin Hcl (Flomax), 0.4 MG PO QAM Ticagrelor (Brilinta), 90 MG PO AMHS Scheduled PRN Nitroglycerin (Nitrostat), 0.4 MG UT PRN PRN for CHEST PAIN Review of Systems ROS See HPI for pertinent positives and negatives. Otherwise denies vision change, chest pain, dyspnea, abdominal pain, loose or bloody stools, dysuria, or numbness tingling in extremities. Physical Exam Vital Signs Date Time Temp Pulse Resp B/P (MAP) Pulse Ox O2 Delivery O2 Flow Rate FiO2 04/26/18 14:35 61 18 154/67 96 Nasal Cannula 2.0 04/26/18 12:48 67 18 192/71 97 Nasal Cannula 2.0 04/26/18 12:47 64 04/26/18 11:00 87 Room Air 04/26/18 11:00 98 Nasal Cannula 2.0 04/26/18 10:09 37.3 67 20 116/70 88 Room Air GENERAL: Awake, alert, in no distress, obese. Pierre to gravity draining clear yellow urine HENT: Normocephalic, atraumatic. EYES: Normal conjunctiva. Sclera non-icteric. EOMI NECK: Supple. Full range of motion. no JVD RESPIRATORY: Clear to auscultation. Diminished at the bases. CARDIAC: Regular rate, normal rhythm. Extremities warm and well perfused. Pulses equal. ABDOMEN: Soft, non-distended. No tenderness to palpation. No rebound or guarding. No masses. LOWER EXTREMITIES: Calves are equal size bilaterally and non-tender. 2+ edema. No discoloration. NEURO: + complete motor deficit in lower ext b/l and left upper extremity which is baseline for her. Sensation in tact. CN II-XII in tact. Diagnostics Laboratory Results Results Past 24 Hours Test 04/26/18 11:23 04/26/18 12:43 Range/Units White Blood Count 13.89 4.8-10.8 K/uL Red Blood Count 3.30 4.2-5.4 M/uL Hemoglobin 9.4 12.0-16.0 g/dL Hematocrit 29.4 37-47 % Mean Corpuscular Volume 89.1 80-100 fL Mean Corpuscular Hemoglobin 28.5 25-34 pg Mean Corpuscular Hemoglobin Concent 32.0 32-36 g/dl Platelet Count 236 130-400 K/uL Mean Platelet Volume 10.6 7.4-10.4 fL Neutrophils (%) (Auto) 85.0 % Lymphocytes (%) (Auto) 6.7 % Monocytes (%) (Auto) 6.8 % Eosinophils (%) (Auto) 1.0 % Basophils (%) (Auto) 0.2 % Neutrophils # (Auto) 11.81 1.4-6.5 K/uL Lymphocytes # (Auto) 0.93 1.2-3.4 K/uL Monocytes # (Auto) 0.94 0.11-0.59 K/uL Eosinophils # (Auto) 0.14 0-0.5 K/uL Basophils # (Auto) 0.03 0-0.2 K/uL RDW Standard Deviation 51.9 36.4-46.3 fL RDW Coefficient of Variation 15.9 11.5-14.5 % Immature Granulocyte % (Auto) 0.3 % Immature Granulocyte # (Auto) 0.04 0.00-0.02 K/uL Prothrombin Time 10.4 9.0-12.0 SECONDS Prothromb Time International Ratio 1.0 0.9-1.1 Activated Partial Thromboplast Time 25.0 21.0-31.0 SECONDS Partial Thromboplastin Ratio 1.0 Sodium Level 139 136-145 mmol/L Potassium Level 3.4 3.5-5.1 mmol/L Chloride Level 108 98-107 mmol/L Carbon Dioxide Level 25 21-32 mmol/L Anion Gap 6.0 3-11 mmol/L Blood Urea Nitrogen 36 7-18 mg/dl Creatinine 1.58 0.60-1.20 mg/dl Estimated GFR () 37.5 Estimated GFR (Non- 32.3 BUN/Creatinine Ratio 23.1 10-20 Random Glucose 110 70-99 mg/dl Calcium Level 9.2 8.5-10.1 mg/dl Magnesium Level 2.4 1.8-2.4 mg/dl Troponin I 0.089 0-0.045 ng/ml Pro-B-Type Natriuretic Peptide 61054 0-900 pg/ml Thyroid Stimulating Hormone (TSH) 0.339 0.300-4.500 uIu/ml Urine Color YELLOW Urine Appearance CLOUDY CLEAR Urine pH 5.0 4.5-7.5 Urine Specific Ehrhardt 1.019 1.000-1.030 Urine Protein 1+ NEG Urine Glucose (UA) NEG NEG Urine Ketones NEG NEG Urine Occult Blood NEG NEG Urine Nitrite NEG NEG Urine Bilirubin NEG NEG Urine Urobilinogen NEG NEG Urine Leukocyte Esterase TRACE NEG Urine WBC (Auto) 1-5 0-5 /hpf Urine RBC (Auto) 0-4 0-4 /hpf Urine Hyaline Casts (Auto) 1-5 0-5 /lpf Urine Epithelial Cells (Auto) 10-20 0-5 /lpf Urine Bacteria (Auto) NEG NEG Microbiology Results 04/26/18 Urine Culture, Received Pending EKG Sinus rhythm with PACs, QTC is 421, rate is 68. Impression Assessment and Plan 73-year-old female presenting one day after discharge for sepsis and UTI, here with shortness of breath and signs of volume overload. On review of records patient's Lasix of 80 mg every morning was held for 2 days while admitted, due to elevating creatinine. Patient did not require oxygen on day of discharge. However, since home, patient has grown hypoxic and chest x-ray now reveals bilateral effusions moderate. BNP is elevated. Will admit for further management. Acute hypoxic respiratory failure in the setting of recent sepsis, 2 days of skipped Lasix with IV hydration during last admission. -Likely multifactorial. Has had element of mild pulmonary vascular congestion in the past. Most recent echo January 2018 showed type II diastolic dysfunction, ejection fraction 55%. -Will resume home Lasix dose 80 mg daily in equivalent IV form of 40 mg every morning -We will avoid hydration. -O2 per protocol -On the differential is pulmonary embolism given patient's sedentary state. However her vitals remained stable, she responds to oxygenation, and there are effusions on her chest x-ray. She was given appropriate DVT prophylaxis during her last admission. Can consider venous Doppler of lower extremities if no improvement tomorrow with Lasix. Elevated BNP -Significantly elevated from her baseline. Is followed by Dr. Morelos in the outpatient. Most recent echo was January 2018 and showed normal ejection fraction 55-60%, mild concentric LVH, grade 2 diastolic dysfunction, mild aortic regurg. -We will order echo to reassess Elevated troponins -Chronic, no symptoms of angina. -Will continue to trend. However today's value represents a downward trend from yesterday. History of urinary tract infection -Will complete course of antibiotics Cefdinir 300 mg daily for 4 days. -Pierre catheter in place Hyperlipidemia Continue Lipitor 80 mg every afternoon Hypertension/CAD Continue carvedilol 25 mg twice daily, Lasix as above, hydralazine 50 mg 3 times daily, Brilinta 90 mg twice daily, aspirin Urinary retention Continue Flomax 0.4 mg every morning Type 2 diabetes Continue Lantus 28 units subcu at bedtime ISS Neuropathy/MS Continue gabapentin 900 mg 3 times daily DVT prophylaxis: SCDs, continue baby aspirin, Brilinta. We will hold off on heparin at this point so is not to increase risk for GI bleeding. CODE STATUS: Full Dispo: telemetry Resuscitation Status VTE Prophylaxis Will order VTE Prophylaxis: Yes Reason for no VTE drug order: Treatment not indicated Additional Copies To Kary Paredes M.D. Resident Tracking Resident Involvement: Resident Care Provided Care Provided: Adult Hospital Medicine Reviewed: Pt Seen/Exam by Me History Pt is no longer SOB, but she is on O2 via NC which she does not use at baseline. She states she started to have diarrhea last night which she thinks is due to abx use. No abd pain, n/v. She did eat dinner last night without issue, but has not had anything today. Denies chest pain. States she has LE swelling at baseline and it is at her usual. Agree with HPI/ROS as noted by resident. General Appearance: no apparent distress, obese Eye Exam: bilateral eye normal inspection, bilateral eye other (sclera nml) Respiratory: normal breath sounds, no respiratory distress (on lateral exam, limited due to MS) Cardiovascular: normal peripheral pulses, regular rate, rhythm Gastrointestinal: non tender, soft Extremities: non-tender, pedal edema (chronic and at baseline) Neurologic/Psychiatric: alert, normal mood/affect, oriented x 3 Skin Characteristics: normal color, warm/dry Assessment/Plan Agree with plan as outlined above Acute CHF exacerbation in the setting of acute illness and hospitalization with gentle IVF due to infection BNP elevated CXR noted ECHO pending Limited mobility status at baseline due to MS, neg for hypoTN or tachycardia making DVT/PE unlikely If VS change or if RV strain noted on ECHO, may need to pursue workup for PE Unable to obtain CTA due to renal function t/c LE US vs VQ scan Elevated trop, noted at baseline Elevated cr, noted at baseline Add probiotics for diarrhea and abx use
[2018-04-26] MEDS: ACETAMINOPHEN 325 MG TAB PO PRN (19:26)
[2018-04-26 19:41] VITALS: BP 136/73; PULSE 72; TEMP 36.8; O2SAT 97
[2018-04-26] MEDS ORDERED: NURSING VERBAL MED ORDER ONE (19:45)
[2018-04-26] MEDS ORDERED: MICONAZOLE NITRATE POWDER 43 GM EXT PRN (19:45)
[2018-04-26] MEDS: LACTOBACILLUS ACIDOPHILUS (FLORANEX) TAB PO SCH (20:50)
[2018-04-26] MEDS: TICAGRELOR 90 MG TAB PO SCH (20:51)
[2018-04-26] MEDS: CARVEDILOL 25 MG TAB PO SCH (20:51)
[2018-04-26] MEDS: ATORVASTATIN 40 MG TAB PO SCH (20:52)
[2018-04-26] MEDS: CEFDINIR 300 MG CAP PO SCH (20:52)
[2018-04-26] MEDS: GABAPENTIN 300 MG CAP PO SCH (20:52)
[2018-04-26] MEDS: INSULIN ASPART 100 UNITS/ML 3 ML PEN SC SCH (21:00)
[2018-04-26] MEDS: INSULIN GLARGINE SOLOSTAR 100 UNITS/ML 3 ML PEN SC SCH (21:01)
[2018-04-26 21:30] VITALS: O2SAT 97
[2018-04-26] MEDS ORDERED: HEPARIN SOD 5000 UNIT/0.5 ML CARP SQ SCH (22:00)
[2018-04-27] VITALS (7 sets, daily range): BP systolic 124–154; BP diastolic 63–71; PULSE 54–65; TEMP 36.7–37; O2SAT 94–98
[2018-04-27] MEDS: LACTOBACILLUS ACIDOPHILUS (FLORANEX) TAB PO SCH ×3 (08:23→17:09)
[2018-04-27] MEDS: TAMSULOSIN HCL 0.4 MG CAP PO SCH (08:23)
[2018-04-27] MEDS: CARVEDILOL 25 MG TAB PO SCH ×2 (08:23→20:34)
[2018-04-27] MEDS: FUROSEMIDE INJ 40 MG in SYRINGE 0 ML IV SCH (08:23)
[2018-04-27] MEDS: TICAGRELOR 90 MG TAB PO SCH ×2 (08:23→20:33)
[2018-04-27] MEDS: GABAPENTIN 300 MG CAP PO SCH ×3 (08:24→20:32)
[2018-04-27] MEDS: POTASSIUM CHLORIDE 10 MEQ TABCR PO SCH (08:24)
[2018-04-27] MEDS: ISOSORBIDE MONONITRATE 30 MG TABCR PO SCH (08:24)
[2018-04-27] MEDS: CEFDINIR 300 MG CAP PO SCH (08:24)
[2018-04-27] MEDS: ASPIRIN 81 MG ECTAB PO SCH (08:24)
[2018-04-27] MEDS: INSULIN ASPART 100 UNITS/ML 3 ML PEN SC SCH ×4 (08:28→20:30)
[2018-04-27] MEDS ORDERED: NURSING DECISION MEDICATION ORDER SCH (08:45)
[2018-04-27] MEDS: ACETAMINOPHEN 325 MG TAB PO PRN (12:11)
--- NOTE | 2018-04-27 15:06 | Family Medicine Progress Note ---
Progress Note Date of Service Apr 27, 2018. Subjective Pt evaluation today including: conversation w/ patient, conversation w/ family , physical exam, chart review, lab review, review of inpatient medication list Pain: No pain reported PO Intake: Tolerating PO intake Voiding: salvador catheter in place Ms. Bowman reports an improvement in her breathing today. She denies chest pain, lightheadedness, or worsening in her chronic leg swelling. She states that she has not had any further episodes of diarrhea, nor has she had abdominal pain, nausea or vomiting. Constitutional: No fever, No chills Respiratory: No cough, No wheezing Cardiovascular: No chest pain Abdomen: No pain, No nausea, No vomiting, No diarrhea Female : No dysuria, No hematuria All Other Systems: Reviewed and Negative Medications Current Inpatient Medications Medications (Trade) Dose Ordered Sig/Lisa Route Start Time Stop Time Status Last Admin Dose Admin Acetaminophen (Tylenol Tab) 650 mg Q4H PRN PO 04/26/18 15:45 05/26/18 15:44 04/27/18 12:11 650 MG Magnesium Hydroxide (Milk Of Magnesia Susp) 30 ml Q12H PRN PO 04/26/18 15:45 05/26/18 15:44 Ondansetron HCl (Zofran Inj) 4 mg Q6H PRN IV 04/26/18 15:45 05/26/18 15:44 Polyethylene (Miralax Powder Packet) 17 gm DAILY PRN PO 04/26/18 15:45 05/26/18 15:44 Insulin Glargine (Lantus Solostar Pen) 28 units QPM SC 04/26/18 21:00 05/26/18 20:59 04/26/18 21:01 28 UNITS Insulin Aspart (novoLOG ASPART) SLIDING SCALE If C... ACHS SC 04/26/18 21:00 05/26/18 20:59 04/27/18 12:15 3 UNITS Glucose (Glucose 40% Gel) 15-30 GRAMS 15 GRAMS... UD PRN PO 04/26/18 15:45 05/26/18 15:44 Glucose (Glucose Chew Tab) 4-8 Tablets 4 Tabl... UD PRN PO 04/26/18 15:45 05/26/18 15:44 Dextrose (Dextrose 50% 50ML Syringe) 25-50ML 25ML FOR ... UD PRN IV 04/26/18 15:45 05/26/18 15:44 Glucagon (Glucagon Inj) 1 mg UD PRN SQ 04/26/18 15:45 05/26/18 15:44 Carbohydrates (Carbohydrates For Hypoglycemia) 15-30 GRAMS 15 grams if BSG 54-69... UD PRN PO 04/26/18 15:45 05/26/18 15:44 Aspirin (Ecotrin Tab) 81 mg QAM PO 04/27/18 09:00 05/27/18 08:59 04/27/18 08:24 81 MG Atorvastatin Calcium (Lipitor Tab) 80 mg QPM PO 04/26/18 21:00 05/26/18 20:59 04/26/18 20:52 80 MG Carvedilol (Coreg Tab) 25 mg AMHS PO 04/26/18 21:00 05/26/18 20:59 04/27/18 08:23 25 MG Cefdinir (Omnicef Cap) 300 mg DAILY PO 04/26/18 21:00 05/01/18 20:59 04/27/18 08:24 300 MG Gabapentin (Neurontin Cap) 900 mg TID PO 04/26/18 21:00 05/26/18 20:59 04/27/18 13:12 900 MG Hydralazine HCl (Apresoline Tab) 50 mg TID PO 04/26/18 21:00 05/26/18 20:59 04/27/18 13:12 50 MG Isosorbide Mononitrate (Imdur Ext Rel Tab) 30 mg QAM PO 04/27/18 09:00 05/27/18 08:59 04/27/18 08:24 30 MG Nitroglycerin (Nitrostat Tab) 0.4 mg UD PRN UT 04/26/18 16:15 05/26/18 16:14 Potassium Chloride (Klor-Con M10) 10 meq QAM PO 04/27/18 09:00 05/27/18 08:59 04/27/18 08:24 10 MEQ Tamsulosin HCl (Flomax Cap) 0.4 mg QAM PO 04/27/18 09:00 05/27/18 08:59 04/27/18 08:23 0.4 MG Ticagrelor (Brilinta Tab) 90 mg AMHS PO 04/26/18 21:00 05/26/18 20:59 04/27/18 08:23 90 MG Furosemide 40 mg/ Syringe 4 ml @ 4 mls/min QAM IV 04/27/18 09:00 05/27/18 08:59 04/27/18 08:23 4 MLS/MIN Lactobacillus Acidophilus (Floranex Tab) 4 tab TIDM PO 04/26/18 18:00 05/26/18 17:59 04/27/18 12:11 4 TAB Miconazole Nitrate (Desenex Powder) 1 appln PRN PRN EXT 04/26/18 19:45 05/26/18 19:44 Ergocalciferol (Vitamin D Cap) 50,000 interunit Q30D PO 05/01/18 09:00 05/31/18 08:59 Heparin Sodium (Porcine) (Heparin Sq 5000 Unit/0.5ml) 5,000 unit Q12 SQ 04/27/18 21:00 05/27/18 20:59 UNV Objective Vital Signs Date Time Temp Pulse Resp B/P (MAP) Pulse Ox O2 Delivery O2 Flow Rate FiO2 04/27/18 11:30 36.7 59 20 154/71 (98) 94 Nasal Cannula 2.0 04/27/18 08:00 Nasal Cannula 2.0 04/27/18 04:36 36.9 65 18 147/70 (95) 97 Nasal Cannula 2.0 04/27/18 02:05 37.0 62 18 147/69 (95) 97 Nasal Cannula 2.0 04/26/18 21:30 97 Nasal Cannula 3.0 04/26/18 19:41 36.8 72 20 136/73 (94) 97 Nasal Cannula 3.0 04/26/18 19:10 Nasal Cannula 3.0 04/26/18 17:01 60 22 145/68 97 Nasal Cannula 2.0 04/26/18 16:31 56 16 123/75 99 Nasal Cannula 2.0 Physical Exam General Appearance: WD/WN, no apparent distress Respiratory/Chest: lungs clear, no respiratory distress, no accessory muscle use, + decreased breath sounds (at lung bases) Cardiovascular: regular rate, rhythm, + systolic murmur Abdomen: non tender, soft Extremities: + pedal edema (2+) Laboratory Results Last 24 Hours Test 04/26/18 18:15 04/26/18 20:20 04/27/18 07:43 04/27/18 11:29 Bedside Glucose 125 mg/dl 189 mg/dl 107 mg/dl 194 mg/dl Assessment and Plan Ms. Bowman is a 73 year old female who presented one day after discharge for sepsis and UTI with shortness of breath and signs of volume overload. On review of records patient's Lasix of 80 mg every morning was held for 2 days while admitted, due to elevated creatinine. Patient did not require oxygen on day of discharge. However, since home, patient has grown hypoxic and chest x- ray now reveals bilateral effusions moderate. BNP is elevated. Acute hypoxic respiratory failure secondary to acute on chronic diastolic CHF - improving. Pt still requiring 2L of oxygen, wean as tolerated - continue 40mg IV Lasix (equivalent to home dose of 80mg PO) - negative 500mL since admission - Most recent echo January 2018 showed type II diastolic dysfunction, ejection fraction 55% - repeat ECHO Elevated troponin - Chronic, not elevated more than prior levels - no chest pain reported Diarrhea - resolved, c.diff negative - continue probiotics - may have been secondary to antibiotic use History of urinary tract infection - Complete course of antibiotics Cefdinir 300 mg daily for 4 days -> today is day 2/4 - Salvador catheter in place Hyperlipidemia - Continue Lipitor 80 mg Hypertension/CAD Continue carvedilol 25 mg twice daily, Lasix as above, hydralazine 50 mg 3 times daily, Brilinta 90 mg twice daily, aspirin Urinary retention Continue Flomax 0.4 mg every morning Type 2 diabetes - Continue Lantus 28 units subcu at bedtime - ISS - glucose between 107 and 194 today Neuropathy/MS - Continue gabapentin 900 mg 3 times daily DVT prophylaxis: SCDs, 5,000 heparin q12h CODE STATUS: Full Dispo: med/surg. Anticipate d/c once O2 weaned Resident Physician Supervision Note: I interviewed and examined the patient. Discussed with Dr. Peterson and agree with findings and plan as documented in the note. Any exceptions or clarifications are listed here: None Documented By: David Bryant feeling better breathing better updated as well vitals noted nad bases of lungs quiet no rales but admittedly difficult exam acute on chronic diastolic CHF - improving - lasix, wean O2 recent UTI / AMS / sepsis picture - improving. continue current abx otherwise as above Resident Tracking Resident Involvement: Resident Care Provided Care Provided: Adult Hospital Medicine
[2018-04-27] MEDS ORDERED: LACTOBACILLUS ACIDOPHILUS (FLORANEX) TAB PO SCH (17:00)
[2018-04-27] MEDS: INSULIN GLARGINE SOLOSTAR 100 UNITS/ML 3 ML PEN SC SCH (20:29)
[2018-04-27] MEDS: HEPARIN SOD 5000 UNIT/0.5 ML CARP SQ SCH (20:31)
[2018-04-27] MEDS: ATORVASTATIN 40 MG TAB PO SCH (20:32)
[2018-04-28 01:08] VITALS: O2SAT 97
[2018-04-28 04:34] VITALS: BP 158/61; PULSE 57; TEMP 36.8; O2SAT 97
[2018-04-28 07:15] VITALS: BP 170/69; PULSE 56; TEMP 37.1; O2SAT 99
[2018-04-28 07:41] LABS: BASO % 0.6 %; BASO ABS # 0.06 K/uL (0-0.2); EOS % 4.1 %; EOS ABS # 0.38 K/uL (0-0.5); HEMATOCRIT 27.5 % (37-47); HEMOGLOBIN 8.8 g/dL (12.0-16.0); IG# 0.06 K/uL (0.00-0.02); LYMPH % 14.7 %; LYMPH ABS # 1.38 K/uL (1.2-3.4); MEAN CELL VOLUME 89.6 fL (80-100); MEAN CORPUSCULAR HEMOGLOBIN 28.7 pg (25-34); MEAN PLATELET VOLUME 10.6 fL (7.4-10.4); MONO % 10.1 %; MONO ABS # 0.95 K/uL (0.11-0.59); NEUT % 69.9 %; NEUT ABS # 6.53 K/uL (1.4-6.5); PLATELET COUNT 252 K/uL (130-400); RED CELL DISTRIBUTION WIDTH CV 15.7 % (11.5-14.5); RED CELL DISTRIBUTION WIDTH SD 50.9 fL (36.4-46.3); WHITE BLOOD COUNT 9.36 K/uL (4.8-10.8)
[2018-04-28 08:11] LABS: CALCIUM 9.3 mg/dl (8.5-10.1); CREATININE 1.47 mg/dl (0.60-1.20); POTASSIUM 3.5 mmol/L (3.5-5.1)
[2018-04-28 08:45] VITALS: PULSE 62
[2018-04-28] MEDS: LACTOBACILLUS ACIDOPHILUS (FLORANEX) TAB PO SCH ×2 (08:48→12:00)
[2018-04-28] MEDS: FUROSEMIDE INJ 40 MG in SYRINGE 0 ML IV SCH (08:50)
[2018-04-28] MEDS: CEFDINIR 300 MG CAP PO SCH (08:51)
[2018-04-28] MEDS: POTASSIUM CHLORIDE 10 MEQ TABCR PO SCH (08:51)
[2018-04-28] MEDS: ISOSORBIDE MONONITRATE 30 MG TABCR PO SCH (08:51)
[2018-04-28] MEDS: TAMSULOSIN HCL 0.4 MG CAP PO SCH (08:51)
[2018-04-28] MEDS: CARVEDILOL 25 MG TAB PO SCH (08:51)
[2018-04-28] MEDS: GABAPENTIN 300 MG CAP PO SCH (08:51)
[2018-04-28] MEDS: ASPIRIN 81 MG ECTAB PO SCH (08:51)
[2018-04-28] MEDS: TICAGRELOR 90 MG TAB PO SCH (08:51)
[2018-04-28] MEDS: INSULIN ASPART 100 UNITS/ML 3 ML PEN SC SCH ×2 (08:53→12:04)
[2018-04-28] MEDS: HEPARIN SOD 5000 UNIT/0.5 ML CARP SQ SCH (08:54)
[2018-04-28] MEDS ORDERED: POTA-639 PO (11:18)
--- NOTE | 2018-04-28 11:23 | Discharge Instructions ---
Discharge Instructions Date of Service Apr 28, 2018. Admission Reason for Admission: Acute Respiratory Failure With Hypoxia Discharge Discharge Diagnosis / Problem: Fluid overload in lungs Discharge Goals Goal(s): Decrease discomfort, Increase independence, Improve disease control Activity Recommendations Activity Limitations: resume your previous activity . Instructions / Follow-Up Instructions / Follow-Up You were seen in [facility] for difficulty breathing. This was due to excess fluid that had built up in your lungs. We treated you with IV Lasix (the same medication as the water pill you take at home), and your breathing improved. We recommend you continue taking the Lasix as prescribed. Lasix can cause your potassium levels to decrease, so we will be discharging you home with 20 mEq of potassium to take daily (an increase from the 10 mEq dose you were on before). Please also take your cefdinir (antibiotic for your UTI) once more tomorrow, to finish your dose of antibiotics. Your hemoglobin levels were slightly lower than normal in the hospital, and we recommend you have this rechecked in the next 1-[address] Paredes can arrange this for you when you see her in clinic tomorrow. Call your Primary Care doctor if any of the following symptoms or problems start or get worse: * Shortness of breath or difficulty breathing * Wake up at night short of breath * Chest pain * Cough * Swelling of your hands, feet, or legs * More fatigued or tired with your normal activity * Palpitations - sudden fast heart beats WEIGHT * Weigh yourself every morning after using the bathroom. * Use the same scale. * Wear the same amount of clothing. * Write your weight down on a chart. * Call your Primary Care doctor if you gain more than 2-3 pounds in 1-2 days. MEDICATIONS * Use this discharge instruction sheet for medication instructions. * Take your medications at the time your doctor ordered. * Do not skip a dose of your medicines. * If you miss a dose of medicine, take it as soon as possible, but DO NOT DOUBLE A DOSE. * Read your medicine information when you get home. * Know all of the side effects of your medicine. If in doubt, ask your pharmacist * Call your Primary Care doctor's office if you have any side effects. * Be sure all of your doctors know what medicine and herbs you take (including cold, flu, and herbal medicine). Take the following with you to your follow-up doctor appointments: * Weight Chart * Medication List * List of questions Do not drink excessive alcohol, beer or wine. Current Hospital Diet Patient's current hospital diet: AHA Diet (Heart Healthy), Diabetes Type 2 Diet Discharge Diet Recommended Diet: AHA Diet (Heart Healthy), Diabetes Type 2 Diet Pending Studies Studies pending at discharge: no Laboratory Results Hemoglobin A1c Test 02/26/18 07:04 Range/Units Estimated Average Glucose 134 mg/dl Hemoglobin A1c 6.3 H 4.5-5.6 % Medical Emergencies . Who to Call and When: Call 911 or go to the Emergency Room if: * If at any time you feel your situation is an emergency * You have tightness or pain in your chest that does not go away with rest or Nitroglycerin * You are very short of breath even with rest . Non-Emergent Contact Non-Emergency issues call your: Primary Care Provider . . "Provider Documentation" section prepared by Ruthie Peterson. .
[2018-04-28 11:36] VITALS: BP 170/69; PULSE 62; TEMP 37.1; O2SAT 99
[2018-04-28 12:10] VITALS: BP 141/67; PULSE 59; TEMP 37; O2SAT 94
--- NOTE | 2018-04-28 12:41 | Discharge Summary ---
Discharge Summary Date of Service Apr 28, 2018. Discharge Summary Admission Date: Apr 26, 2018 at 16:03 Discharge Date: Apr 28, 2018 Discharge Disposition: Home Principal Diagnosis: Acute CHF Exacerbation Problems/Secondary Diagnoses: 1) UTI (undergoing treatment) 2) Chronic troponin elevation 3) Hyperlipidemia 4) Hypertension 5) CAD 6) Urinary Retention 7) Type 2 DM 8) Neuropathy 9) MS 10) CKD Immunizations: Have You Had Influenza Vaccine: Unknown History of Tetanus Vaccine?: Unknown History of Pneumococcal: Unknown History of Hepatitis B Vaccine: Unknown Procedures: CHEST 2 VIEWS ROUTINE HISTORY: EVALUATE RESPIRATORY DISTRESS.DYSPNEA COMPARISON: Chest 04/23/2018. FINDINGS: The cardiac silhouette is moderately enlarged. No pneumothorax. Low lung volumes. Trace bilateral pleural effusions. There is progressive interstitial and vascular thickening consistent with pulmonary edema. IMPRESSION: 1. Interval progression of the moderate pulmonary edema. 2. Suspect trace bilateral pleural effusions. CT HEAD WITHOUT CONTRAST (CT) CLINICAL HISTORY: L sided head pain, h/o MS and prior CVA w/ L hemiparesis COMPARISON STUDY: 02/26/2018 TECHNIQUE: Axial CT of the brain is performed from the vertex to the skull base. IV contrast was not administered for this examination. A dose lowering technique was utilized adhering to the principles of ALARA. CT DOSE: 638.56 mGycm FINDINGS: No intra or extra-axial mass lesions are visualized. There is no CT evidence of acute cortical infarction. There is no evidence of midline shift. There is no acute hemorrhage. No calvarial fractures are visualized. There are patchy white matter hypodensities likely on a small vessel basis. There is an old right parietal lobe infarct. There is no evidence of pathologic ventricular dilatation. There is no evidence of acute sinusitis IMPRESSION: Old right parietal lobe infarct. No acute intracranial findings. Medication Reconciliation New Medications: Potassium Ext Rel (Klor-Con) 20 Meq Tabcr 20 MEQ PO DAILY for 30 Days, #30 TAB 3 Refills Continued Medications: Aspirin (Aspirin Low Dose) 81 Mg Tab 81 MG PO QAM Atorvastatin (Lipitor) 80 Mg Tab 80 MG PO QPM Carvedilol (Carvedilol) 25 Mg Tab 25 MG PO AMHS Cefdinir (Omnicef) 300 Mg Cap 300 MG PO DAILY for 5 Days, #5 CAP Cyanocobalamin (Cyanocobalamin) 1,000 Mcg/Ml Inj 1000 MCG INJ MONTHLY Ergocalciferol (Vitamin D2) Unknown Strength Tab 12.5 MG PO MONTHLY Furosemide (Lasix) 80 Mg Tab 80 MG PO QAM, TAB Gabapentin (Neurontin) 300 Mg Cap 3 TAB PO TID for 30 Days, #270 CAP Hydralazine Hcl (Apresoline) 50 Mg Tab 50 MG PO TID, TAB Insulin Aspart (Novolog) 100 Units/Ml Inj Unknown Dose SC TIDM TOTAL 50-55 UNITS, SLIDING SCALE. Insulin Glargine (Lantus) 100 Unit/Ml Inj 28 UNITS SC HS, VIAL Isosorbide Mononitrate Ext Rel (Imdur Ext Rel) 30 Mg Ertab 30 MG PO QAM, TAB Nitroglycerin (Nitrostat) 0.4 Mg Tab 0.4 MG UT PRN PRN for CHEST PAIN, BTL Tamsulosin Hcl (Flomax) 0.4 Mg Cap 0.4 MG PO QAM for 30 Days, #30 CAP Ticagrelor (Brilinta) 90 Mg Tab 90 MG PO AMHS Discontinued Medications: Potassium Chloride (Micro-K Ext Rel) 10 Meq Capcr 10 MEQ PO QAM, 0 Refills Discharge Exam Ms. Bowman reports she feels improved today. She states her breathing is much better. She denies chest pain, lightheadedness, nausea or vomiting. She has no new concerns. Review of Systems: Constitutional: No fever, No chills Respiratory: No cough, No shortness of breath Cardiovascular: + edema, No chest pain Abdomen: No pain, No nausea, No vomiting, No diarrhea Genitourinary - Female: No dysuria Physical Exam: General Appearance: WD/WN, no apparent distress Respiratory/Chest: lungs clear, normal breath sounds, no respiratory distress, no accessory muscle use Cardiovascular: regular rate, rhythm, + systolic murmur Abdomen / GI: non tender, soft Extremities: no calf tenderness, + pedal edema Neurologic/Psychiatric: alert, normal mood/affect, oriented x 3 Hospital Course Ms. Bowman is a 73 year old female who presented one day after discharge for sepsis and UTI with shortness of breath and signs of volume overload. Since the patient was discharged home, she grew hypoxic and chest x-ray revealed bilateral effusions. Acute hypoxic respiratory failure secondary to acute on chronic diastolic CHF - likely caused by volume overload secondary to fluid resuscitation in the setting of recent infection w/sepsis. Lasix was also held for a couple of days on prior admission due to EMMETT. - improved. Pt was on 2L of oxygen during her admission, but able to be weaned off on discharge - treated w/40mg IV Lasix (equivalent to home dose of 80mg PO) - continue home dose of 80mg PO lasix daily and increase potassium supplementation from 10 mEq to 20 mEq daily - negative 590mL since admission - ECHO repeated -> awaiting read Anemia - hx of anemia, generally around 10-11 - Hgb 8.8 today w/a normal MCV - no evidence of bleeding on history/exam - recheck Hgb in 1-2 days to ensure it remains stable, f/u w/Dr. Paredes tomorrow in clinic Elevated troponin - Chronic, not elevated more than prior levels - no chest pain reported Diarrhea - brief, resolved, c.diff negative - continue probiotics - may have been secondary to antibiotic use History of urinary tract infection - Complete course of antibiotics - Cefdinir 300 mg daily for 1 more day to complete UTI treatment course Resident Physician Supervision Note: I interviewed and examined the patient. Discussed with Dr. Peterson and agree with findings and plan as documented in the note. Any exceptions or clarifications are listed here: None Documented By: David Bryant feeling better wants to go home vitals noted nad breathing unlabored lungs clear but difficult exam acute on chronic diastolic CHF -now euvolemic, on room air -stable for home Total Time Spent: Greater than 30 minutes This includes examination of the patient, discharge planning, medication reconciliation, and communication with other providers. Discharge Instructions Please refer to the electronic Patient Visit Report (Discharge Instructions) for additional information. Additional Copies To Elfego Meraz M.D.; Kary Paredes M.D. Resident Tracking Resident Involvement: Resident Care Provided Care Provided: Adult Hospital Medicine
--- NOTE | 2018-04-30 15:12 | ECHOCARDIOGRAM REPORT ---
*NOTICE TO RECEIVING [employer] This information is strictly Confidential and protected under [place] law. [place] law prohibits you from making any further disclosure of this information unless further disclosure is expressly permitted by the written consent of the person to whom it pertains or is authorized by law. A general authorization for the release of medical or other information is not sufficient for this purpose. Hospital accepts no responsibility if the information is made available to any other person, INCLUDING THE PATIENT. Interpretation Summary * Name: ADELAIDA GRIMES Study Date: 04/27/2018 11:17 AM BP: 147/70 mmHg * Patient Location: [facility]\S\N283\S\2 HR: 65 * : 1945 (M/d/yyyy) Gender: Female Height: 62 in * Age: 73 yrs Ethnicity: [place] Weight: 242 lb * Ordering Physician: Kary Paredes * Referring Physician: No Doctor, Assigned * Performed By: Ricardo Stratton RCS * * Reason For Study: CHF * BSA: 2.1 m2 * -- Conclusions -- * Left ventricular systolic function is normal. * No regional wall motion abnormalities noted. * Ejection Fraction = 55-60%. * There is moderate concentric left ventricular hypertrophy. * Moderate aortic stenosis by 2D imaging, moderate to severe by transvalvular gradients. * Trivial to mild aortic insufficiency. * There is mild mitral regurgitation. Procedure Details * A complete two-dimensional transthoracic echocardiogram was performed (2D, M-mode, Doppler and color flow Doppler). * There were technical limitations due to patient'spoor positioning * Patient supine or sitting for imagining. Patient refused Definity. * The study was technically difficult. Left Ventricle * The left ventricle is normal in size. * There is moderate concentric left ventricular hypertrophy. * Left ventricular systolic function is normal. * Ejection Fraction = 55-60%. * No regional wall motion abnormalities noted. Right Ventricle * The right ventricle is not well visualized. * The right ventricular systolic function is normal as assessed by tricuspid annular plane systolic excursion (TAPSE) (normal >1.5 cm). Atria * The left atrium is mildly dilated. * Right atrium not well visualized. * There is no evidence of atrial septal defect, but resolution does not allow assessment for a patent foramen ovale. Mitral Valve * The mitral valve is not well visualized. * No significant mitral valve stenosis. * There is mild mitral regurgitation. Tricuspid Valve * The tricuspid valve is not well visualized, but is grossly normal. * There is no tricuspid stenosis. * There is mild tricuspid regurgitation. Aortic Valve * The aortic valve is not well visualized. * Moderate aortic stenosis by 2D imaging, moderate to severe by transvalvular gradients. * Trivial to mild aortic insufficiency. Pulmonic Valve * The pulmonary valve is not well seen, but the Doppler examination is normal without significant regurgitation or stenosis. Great Vessels * The aortic root is normal size. * The pulmonary is not well visualized. Pericardium/Pleural * There is no pericardial effusion. Great Vessels * Dilated inferior vena cava with reduced collapsability with sniff indicates an elevated right atrial pressure of 15 mmHg Left Ventricular Diastolic Function * Diastolic dysfunction, Grade II (pseudonormalization pattern). MMode 2D Measurements and Calculations IVSd 1.2 cm IVSs 1.3 cm LVIDd 4.7 cm LVIDs 3.7 cm LVPWd 0.97 cm LVPWs 1.4 cm IVS/LVPW 1.3 FS 22.6 % EDV(Teich) 103.7 ml ESV(Teich) 56.6 ml EF(Teich) 45.4 % EDV(cubed) 105.5 ml ESV(cubed) 49.0 ml EF(cubed) 53.6 % % IVS thick 5.1 % % LVPW thick 40.4 % LV mass(C)d 189.6 grams LV mass(C)dI 91.5 grams/m\S\2 LV mass(C)s 169.5 grams LV mass(C)sI 81.8 grams/m\S\2 SV(Teich) 47.1 ml SI(Teich) 22.7 ml/m\S\2 SV(cubed) 56.6 ml SI(cubed) 27.3 ml/m\S\2 Ao root diam 3.2 cm Ao root area 7.9 cm\S\2 ACS 0.89 cm LA dimension 4.4 cm asc Aorta Diam 2.6 cm LA/Ao 1.4 LVOT diam 1.9 cm LVOT area 2.8 cm\S\2 EDV(MOD-sp4) 85.7 ml ESV(MOD-sp4) 37.0 ml EF(MOD-sp4) 56.8 % EDV(MOD-sp2) 89.3 ml ESV(MOD-sp2) 47.0 ml EF(MOD-sp2) 47.4 % SV(MOD-sp4) 48.7 ml SI(MOD-sp4) 23.5 ml/m\S\2 SV(MOD-sp2) 42.3 ml SI(MOD-sp2) 20.4 ml/m\S\2 Doppler Measurements and Calculations MV E max melyssa 155.5 cm/sec MV A max melyssa 72.0 cm/sec MV E/A 2.2 MV P1/2t max melyssa 159.3 cm/sec MV P1/2t 102.4 msec MVA(P1/2t) 2.1 cm\S\2 MV dec slope 455.7 cm/sec\S\2 MV dec time 0.20 sec Ao V2 max 422.5 cm/sec Ao max PG 71.4 mmHg Ao max PG (full) 65.5 mmHg Ao V2 mean 287.1 cm/sec Ao mean PG 38.0 mmHg Ao mean PG (full) 35.0 mmHg Ao V2 VTI 103.7 cm LUIS(I,A) 0.81 cm\S\2 LUIS(I,D) 0.81 cm\S\2 LUIS(V,A) 0.81 cm\S\2 LUIS(V,D) 0.81 cm\S\2 LV V1 max PG 5.9 mmHg LV V1 mean PG 3.0 mmHg LV V1 max 121.3 cm/sec LV V1 mean 80.5 cm/sec LV V1 VTI 29.8 cm SV(Ao) 822.4 ml SI(Ao) 396.8 ml/m\S\2 SV(LVOT) 83.7 ml SI(LVOT) 40.4 ml/m\S\2 PA V2 max 125.7 cm/sec PA max PG 6.3 mmHg TR max melyssa 270.1 cm/sec
[2018-05-01] MEDS ORDERED: ERGOCALCIFEROL 50,000 INTER.UNIT CAP PO SCH (09:00)
== END 2018-04-28 12:25 | disposition home or self-care (01) | DRG 291 ==
LOC: C.EDB 10:06 → C.MED 16:03 → ENRESERV 17:18
PROVIDERS: ADMIT Family Medicine; ATTEND Family Medicine
DX: I13.0 Hypertensive heart and chronic kidney disease with heart failure and stage 1 through stage 4 chronic kidney disease, or unspecified chronic kidney disease (principal); I50.33 Acute on chronic diastolic (congestive) heart failure; J96.01 Acute respiratory failure with hypoxia; N39.0 Urinary tract infection, site not specified; K52.1 Toxic gastroenteritis and colitis; T36.95XA Adverse effect of unspecified systemic antibiotic, initial encounter; R79.89 Other specified abnormal findings of blood chemistry; I25.10 Atherosclerotic heart disease of native coronary artery without angina pectoris; E11.22 Type 2 diabetes mellitus with diabetic chronic kidney disease; N18.3 Chronic kidney disease, stage 3 (moderate); E11.40 Type 2 diabetes mellitus with diabetic neuropathy, unspecified; G35 Multiple sclerosis; E78.5 Hyperlipidemia, unspecified; R33.9 Retention of urine, unspecified; D64.9 Anemia, unspecified; I25.2 Old myocardial infarction; Z99.3 Dependence on wheelchair; Z96.0 Presence of urogenital implants; Z86.73 Personal history of transient ischemic attack (TIA), and cerebral infarction without residual deficits; Z79.82 Long term (current) use of aspirin; Z79.4 Long term (current) use of insulin; Z79.899 Other long term (current) drug therapy; Z88.2 Allergy status to sulfonamides; Z88.8 Allergy status to other drugs, medicaments and biological substances

== ENCOUNTER 2018-05-08 04:18 | Inpatient (IN) | payer OTHER, BC ==
[2018-05-08] VITALS (8 sets, daily range): BP systolic 92–155; BP diastolic 41–68; PULSE 68–78; TEMP 36.7–37.6; O2SAT 91–99; Ht 157.5 cm; Wt 107.5 kg
[~2018-05-08] VITALS: Ht 157.5 cm; Wt 107.5 kg
[~2018-05-08 04:18] MED LIST changes: -CEFD1CAP14 PO; +POTA-639 PO; -POTA10CA28 PO
[2018-05-08] MEDS ORDERED: SODIUM CHLORIDE 0.9% 500ML 500 ML IV STA (04:23)
--- NOTE | 2018-05-08 04:33 | EMERGENCY ROOM VISIT NOTE ---
History First contact with patient: 04:23 Chief Complaint: ALTERED MENTAL STATUS Stated Complaint: ALTERED MENTAL STATUS History of Present Illness The patient is a 73 year old female who presents to the Emergency Room for evaluation of fevers. Patient with MS and recently dealing with several bouts of UTIs. Over last 48 hours worsening weakness, fatigue, tiredness. Family noted temps of 102. She has had EMS called out twice now in last 8 hours for worsening symptoms, initially she refused transfer but given worsening she agreed to come in this morning. She notes feeling tired. Denies headache, cp, sob, abdominal pain, rashes, pain or other complaints. Tylenol yesterday with improvement in fever. Nothing makes better nor worse. She had CHF exacerbation last month following episode of sepsis due to UTI (le sensitive pseudomonas). She is currently off her antibiotics after treatment with Cefdinir. Review of Systems See HPI for pertinent positives & negatives. A total of 10 systems reviewed and were otherwise negative. Past Medical/Surgical History Medical Problems: (1) EMMETT (acute kidney injury) (2) DM (diabetes mellitus) (3) Elevated serum creatinine (4) Elevated troponin (5) Encephalopathy (6) Heart attack (7) History of CVA (cerebrovascular accident) (8) HTN (hypertension) (9) Lethargy (10) MS (multiple sclerosis) (11) Pneumonia (12) URI (upper respiratory infection) Family History Cancer Diabetes mellitus Heart disease Hypertension Social History Smoking Status: Never Smoker Alcohol Use: none Drug Use: none Marital Status: Housing Status: lives with family Occupation Status: disabled Current/Historical Medications Scheduled Aspirin (Aspirin Low Dose), 81 MG PO QAM Atorvastatin (Lipitor), 80 MG PO QPM Carvedilol (Carvedilol), 25 MG PO AMHS Ergocalciferol (Vitamin D2), 1.25 MG PO MONTHLY Furosemide (Lasix), 80 MG PO QAM Gabapentin (Neurontin), 900 MG PO TID Hydralazine Hcl (Apresoline), 50 MG PO TID Insulin Aspart (Novolog), 80 UNITS SC TIDM Insulin Glargine (Lantus), 28 UNITS SC HS Isosorbide Mononitrate Ext Rel (Imdur Ext Rel), 30 MG PO QAM Potassium Ext Rel (Klor-Con), 20 MEQ PO QAM Tamsulosin Hcl (Flomax), 0.4 MG PO QAM Ticagrelor (Brilinta), 90 MG PO AMHS Scheduled PRN Nitroglycerin (Nitrostat), 0.4 MG UT PRN PRN for CHEST PAIN Physical Exam Vital Signs Date Time Temp Pulse Resp B/P (MAP) Pulse Ox O2 Delivery O2 Flow Rate FiO2 05/08/18 07:48 78 22 129/73 99 Nasal Cannula 3.0 05/08/18 06:35 77 22 129/73 99 Nasal Cannula 2.0 05/08/18 05:05 79 24 153/58 99 Nasal Cannula 3.0 05/08/18 04:47 78 05/08/18 04:33 38.1 05/08/18 04:22 38.1 75 20 180/124 98 Nasal Cannula 2.0 Physical Exam GENERAL: Patient is chronically unwell appearing and tired but in no acute distress. EYES: No scleral icterus, unremarkable pupils. ENT: Mucous membranes moist, no nasal congestion. NECK: No masses appreciated, no meningismus, trachea is midline. RESPIRATORY: No dyspnea. Clear to auscultation and equal bilaterally. No wheeze , no rhonchi. CARDIOVASCULAR: Regular rate and rhythm. Systolic murmur. No rubs, gallops appreciated. GASTROINTESTINAL: Abdomen soft, nontender, no peritonitis. Bowel sounds positive. No masses appreciated. BACK: No midline tenderness, no CVA tenderness EXTREMITIES: Bilateral 4+ edema with erythema right lower leg, patient states this is chronic. Pulses intact all 4. NEUROLOGIC: Global weakness with no movement of legs. Alert and oriented x 3 SKIN: Erythema right ornelas, no jaundice, no diaphoresis. Medical Decision & Procedures Laboratory Results Test 05/08/18 04:30 05/08/18 05:16 05/08/18 05:25 Urine Color YELLOW Urine Appearance CLEAR (CLEAR) Urine pH 7.5 (4.5-7.5) Urine Specific [place] 1.012 (1.000-1.030) Urine Protein NEG (NEG) Urine Glucose (UA) NEG (NEG) Urine Ketones NEG (NEG) Urine Occult Blood NEG (NEG) Urine Nitrite NEG (NEG) Urine Bilirubin NEG (NEG) Urine Urobilinogen NEG (NEG) Urine Leukocyte Esterase NEG (NEG) Urine WBC (Auto) 1-5 /hpf (0-5) Urine RBC (Auto) 0-4 /hpf (0-4) Urine Hyaline Casts (Auto) 1-5 /lpf (0-5) Urine Epithelial Cells (Auto) 10-20 /lpf (0-5) Urine Bacteria (Auto) NEG (NEG) Urine Pathogenic Casts /lpf (0) Prothrombin Time 11.3 SECONDS (9.0-12.0) Prothromb Time International Ratio 1.1 (0.9-1.1) Magnesium Level 2.3 mg/dl (1.8-2.4) Direct Bilirubin 0.3 mg/dl (0-0.2) Total Creatine Kinase 96 U/L (26-192) Creatine Kinase MB < 1.0 ng/ml (0.5-3.6) Creatine Kinase MB Ratio (0-3.0) C-Reactive Protein 8.52 mg/dl (0-0.29) Pro-B-Type Natriuretic Peptide 4579 pg/ml (0-900) Bedside Lactic Acid Venous 2.35 mmol/L (0.90-1.70) Medications Administered Medications (Trade) Dose Ordered Sig/Lisa Route Start Time Stop Time Status Last Admin Dose Admin Sodium Chloride 500 ml @ 999 mls/hr Q31M STAT IV 05/08/18 04:23 05/08/18 04:53 DC 05/08/18 05:25 999 MLS/HR Piperacillin Sod/ Tazobactam Sod (Zosyn Iv) 4.5 gm NOW STAT IV 05/08/18 04:48 05/08/18 04:49 DC 05/08/18 05:30 4.5 GM Vancomycin HCl 2000 mg/Sodium Chloride 540 ml @ 200 mls/hr ONE STAT IV 05/08/18 06:10 05/08/18 08:51 DC 05/08/18 06:50 200 MLS/HR Acetaminophen (Tylenol Tab) 650 mg Q4H PRN PO 05/08/18 08:15 06/07/18 08:14 05/09/18 11:30 650 MG Medical Decision Differential: Sepsis, Infectious (UTI/Pneumonia/Meningitis/etc), Metabolic/ Electrolyte Abnormality, Cardiac, Dehydration, Anemia, Hepatic, Endocrine, Toxicologic, Neurologic, amongst other pathologies entertained. 73 yr old female with debilitating MS along with DMII, CVA, CAD, HTN, DLP, CKD arrives for evaluation of worsening fatigue and fever. She is unwell appearing at baseline and clearly worse now. Empirically given IV zosyn with PMH pseudomonas UTI from 2 weeks ago. Right anterior ornelas erythematous and may be cellulitis thus given Vanco as well with recent hospitalizations. She has CXR with congestion but with her elevated WBC and lactic acid elevation I feel small fluid bolus at minimum necessary. She denies chest pain and BNP of 5000 is a bit lower than her previous. Bili 1.4 which is mildly up from previous but her lfts are normal and she has no TTP over her abdomen at current. She is septic but BPs remain stable as do pulse. O2s a bit low but this appears to be typical from her previous admissions when she gets sick. No reported falls nor head injuries and given findings I feel that CT head not indicated at current time. Poor IV access but receiving IV antibiotics and I think placing central line would be excessive at this current moment. She will clearly need to come in for further treatment/evaluation. Impression Primary Impression: Sepsis Additional Impression: Cellulitis of right leg without foot Departure Information Referrals Francois Nova, II (PCP) Patient Instructions [facility] Problem Qualifiers
[2018-05-08] MEDS ORDERED: POTA-639 PO (04:45)
[2018-05-08] MEDS ORDERED: TAMS0.4C38 PO (04:45)
[2018-05-08] MEDS ORDERED: GABA-113 PO (04:45)
[2018-05-08] MEDS ORDERED: PIPERACILLIN/TAZOBACTAM 4.5 GM/100ML D5W IV STA (04:48)
[2018-05-08 05:45] LABS: INR 1.1 (0.9-1.1)
[2018-05-08 06:01] LABS: ALBUMIN 3.2 gm/dl (3.4-5.0); ALKALINE PHOSPHATASE 93 U/L (45-117); ALT/SGPT 25 U/L (12-78); AST/SGOT 20 U/L (15-37); BLOOD UREA NITROGEN 29 mg/dl (7-18); CALCIUM 9.3 mg/dl (8.5-10.1); CARBON DIOXIDE 25 mmol/L (21-32); CKMB < 1.0 ng/ml (0.5-3.6); CREATININE 1.99 mg/dl (0.60-1.20); GLUCOSE 165 mg/dl (70-99); SODIUM 133 mmol/L (136-145); TOTAL PROTEIN 7.8 gm/dl (6.4-8.2)
[2018-05-08 06:06] LABS: HEMATOCRIT 33.2 % (37-47); HEMOGLOBIN 10.5 g/dL (12.0-16.0); MEAN CELL VOLUME 90.2 fL (80-100); MEAN CORPUSCULAR HEMOGLOBIN 28.5 pg (25-34); MEAN CORPUSCULAR HGB CONC 31.6 g/dl (32-36); MEAN PLATELET VOLUME 10.7 fL (7.4-10.4); PLATELET COUNT 346 K/uL (130-400); RED CELL DISTRIBUTION WIDTH CV 16.6 % (11.5-14.5); RED CELL DISTRIBUTION WIDTH SD 54.5 fL (36.4-46.3); WHITE BLOOD COUNT 29.86 K/uL (4.8-10.8)
[2018-05-08] MEDS ORDERED: VANCOMYCIN IV 2,000 MG in SODIUM CHLORIDE 0.9% 500ML 500 ML IV STA (06:10)
[2018-05-08] MEDS ORDERED: VANCOMYCIN CONSULT ACTIVE PRN ×2 (06:15→08:30)
[2018-05-08 06:27] LABS: BASO % 0.1 %; BASO ABS # 0.03 K/uL (0-0.2); IG# 0.12 K/uL (0.00-0.02); LYMPH % 2.5 %; LYMPH ABS # 0.76 K/uL (1.2-3.4); NEUT ABS # 28.05 K/uL (1.4-6.5)
--- NOTE | 2018-05-08 07:09 | DIAGNOSTIC IMAGING REPORT ---
SINGLE VIEW CHEST CLINICAL HISTORY: Fever. Change in mental status. FINDINGS: An AP, portable, upright chest radiograph is compared to study dated 04/26/2018 and correlated with chest CT dated 02/26/2018. The examination is significantly degraded by portable technique and patient rotation. The heart is enlarged. There is pulmonary vascular congestion with evidence of mild interstitial edema. No airspace consolidation or large pleural effusion is identified. No pneumothorax is seen. The skeletal structures are osteopenic. The bony thorax is grossly intact. IMPRESSION: 1. Cardiomegaly with evidence of congestive failure and mild interstitial edema. 2. No airspace consolidation or large pleural effusion is identified Electronically signed by: Bakari Castellanos M.D. 05/08/2018 7:08 AM Dictated Date/Time: 05/08/2018 7:07 AM
[2018-05-08] MEDS ORDERED: ALUMINUM/MAGNESIUM/SIMETH (MAALOX MAX) 30 ML UDC PO PRN (08:15)
[2018-05-08] MEDS ORDERED: ZOLPIDEM TARTRATE 5 MG TAB PO PRN (08:15)
[2018-05-08] MEDS ORDERED: POLYETHYLENE (MIRALAX) 17 GM PACK PO PRN (08:15)
[2018-05-08] MEDS ORDERED: MAGNESIUM HYDROXIDE SUSP 30 ML UDC PO PRN (08:15)
[2018-05-08] MEDS ORDERED: ONDANSETRON INJ 2 MG/ML 2 ML VIAL IV PRN (08:15)
[2018-05-08] MEDS ORDERED: PIPERACILL/TAZOBAC CONSULT ACTIVE PRN (08:30)
[2018-05-08] MEDS ORDERED: NITROGLYCERIN 0.4 MG SL PER TAB CHARGE UT PRN (08:30)
[2018-05-08] MEDS ORDERED: VANCOMYCIN IV 1,000 MG in SODIUM CHLORIDE 0.9% 250ML 250 ML IV SCH (09:00)
--- NOTE | 2018-05-08 09:08 | History and Physical ---
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 History is provided by who is present at bedside. Per starting around 2pm patient was complaining of chills. Family measured a TMax of 101.8F. Around 4pm mental status was starting to alter. Pt declined throughout the night. EMS was called which pt refused. Pt was eventually brought in for being completely altered. Pt was complaining of Right leg pain. Pt recently finished a course of Abx from his last discharge for pneumonia. denies that the patient has any respiratory symptoms, only complaint is fevers, chills and right leg pain. Pt received fluids, Vanco and Zosyn in the ER. She will be admitted for septic encephalopathy. PMHX: 2 recent admits <1 month ago, one for a UTI with a WBC count of 25,000 and one for Acute on chronic CHF ROS: unable to obtain from patient due to AMS Past Medical/Surgical History 1) UTI (undergoing treatment) 2) Chronic troponin elevation 3) Hyperlipidemia 4) Hypertension 5) CAD 6) Urinary Retention 7) Type 2 DM 8) Neuropathy 9) MS 10) CKD Family History Cancer Diabetes mellitus Heart disease Hypertension Social History Smoking Status: Never Smoker Drug Use: none Marital Status: Housing status: lives with family Occupational Status: disabled Immunizations History of Influenza Vaccine: Unknown History of Tetanus Vaccine?: Unknown History of Pneumococcal: Unknown History of Hepatitis B Vaccine: Unknown Allergies Coded Allergies: Clopidogrel (Verified Allergy, Intermediate, RASH, 05/08/18) Sulfa Antibiotics (Verified Allergy, Intermediate, RASH, 05/08/18) Home Medications Scheduled Aspirin (Aspirin Low Dose), 81 MG PO QAM Atorvastatin (Lipitor), 80 MG PO QPM Carvedilol (Carvedilol), 25 MG PO AMHS Ergocalciferol (Vitamin D2), 1.25 MG PO MONTHLY Furosemide (Lasix), 80 MG PO QAM Gabapentin (Neurontin), 900 MG PO TID Hydralazine Hcl (Apresoline), 50 MG PO TID Insulin Aspart (Novolog), 80 UNITS SC TIDM Insulin Glargine (Lantus), 28 UNITS SC HS Isosorbide Mononitrate Ext Rel (Imdur Ext Rel), 30 MG PO QAM Potassium Ext Rel (Klor-Con), 20 MEQ PO QAM Tamsulosin Hcl (Flomax), 0.4 MG PO QAM Ticagrelor (Brilinta), 90 MG PO AMHS Scheduled PRN Nitroglycerin (Nitrostat), 0.4 MG UT PRN PRN for CHEST PAIN Physical Exam Vital Signs Date Time Temp Pulse Resp B/P (MAP) Pulse Ox O2 Delivery O2 Flow Rate FiO2 05/08/18 08:22 99 Nasal Cannula 3.0 05/08/18 07:48 78 22 129/73 99 Nasal Cannula 3.0 05/08/18 06:35 77 22 129/73 99 Nasal Cannula 2.0 05/08/18 05:05 79 24 153/58 99 Nasal Cannula 3.0 05/08/18 04:47 78 05/08/18 04:33 38.1 05/08/18 04:22 38.1 75 20 180/124 98 Nasal Cannula 2.0 General Appearance: WD/WN, + obese Head: normocephalic, atraumatic Eyes: normal inspection, PERRL, EOMI ENT: normal ENT inspection Neck: supple, no adenopathy Respiratory/Chest: chest non-tender, lungs clear, normal breath sounds, no respiratory distress, no accessory muscle use Cardiovascular: regular rate, rhythm, no edema, no gallop, no JVD, normal peripheral pulses, + pertinent finding (severe systolic murmur) Abdomen/GI: normal bowel sounds, non tender, soft, no organomegaly, no pulsatile mass Back: normal inspection, no CVA tenderness, no muscle spasm, normal range of motion Extremities/Musculoskelatal: normal inspection, no calf tenderness, no pedal edema, + pertinent finding (unable to assess ROM because pt doesn't follow commands) Neurologic/Psych: 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 Toes inspected bilaterally, no evidence of diabetic ulcerations. LE also do not show any significant evidence of vascular disease.) Diagnostics Laboratory Results Results Past 24 Hours Test 05/08/18 04:30 05/08/18 05:16 05/08/18 05:25 Range/Units Urine Color YELLOW Urine Appearance CLEAR CLEAR Urine pH 7.5 4.5-7.5 Urine Specific [place] 1.012 1.000-1.030 Urine Protein NEG NEG Urine Glucose (UA) NEG NEG Urine Ketones NEG NEG Urine Occult Blood NEG NEG Urine Nitrite NEG NEG Urine Bilirubin NEG NEG Urine Urobilinogen NEG NEG Urine Leukocyte Esterase NEG NEG Urine WBC (Auto) 1-5 0-5 /hpf Urine RBC (Auto) 0-4 0-4 /hpf Urine Hyaline Casts (Auto) 1-5 0-5 /lpf Urine Epithelial Cells (Auto) 10-20 0-5 /lpf Urine Bacteria (Auto) NEG NEG Urine Pathogenic Casts 0 /lpf White Blood Count 29.86 4.8-10.8 K/uL Red Blood Count 3.68 4.2-5.4 M/uL Hemoglobin 10.5 12.0-16.0 g/dL Hematocrit 33.2 37-47 % Mean Corpuscular Volume 90.2 80-100 fL Mean Corpuscular Hemoglobin 28.5 25-34 pg Mean Corpuscular Hemoglobin Concent 31.6 32-36 g/dl Platelet Count 346 130-400 K/uL Mean Platelet Volume 10.7 7.4-10.4 fL Neutrophils (%) (Auto) 94.0 % Lymphocytes (%) (Auto) 2.5 % Monocytes (%) (Auto) 3.0 % Eosinophils (%) (Auto) 0.0 % Basophils (%) (Auto) 0.1 % Neutrophils # (Auto) 28.05 1.4-6.5 K/uL Lymphocytes # (Auto) 0.76 1.2-3.4 K/uL Monocytes # (Auto) 0.90 0.11-0.59 K/uL Eosinophils # (Auto) 0.00 0-0.5 K/uL Basophils # (Auto) 0.03 0-0.2 K/uL RDW Standard Deviation 54.5 36.4-46.3 fL RDW Coefficient of Variation 16.6 11.5-14.5 % Immature Granulocyte % (Auto) 0.4 % Immature Granulocyte # (Auto) 0.12 0.00-0.02 K/uL Prothrombin Time 11.3 9.0-12.0 SECONDS Prothromb Time International Ratio 1.1 0.9-1.1 Sodium Level 133 136-145 mmol/L Potassium Level 5.0 3.5-5.1 mmol/L Chloride Level 98 98-107 mmol/L Carbon Dioxide Level 25 21-32 mmol/L Anion Gap 10.0 3-11 mmol/L Blood Urea Nitrogen 29 7-18 mg/dl Creatinine 1.99 0.60-1.20 mg/dl Est Creatinine Clear Calc Drug Dose 29.4 ml/min Estimated GFR () 28.4 Estimated GFR (Non- 24.5 BUN/Creatinine Ratio 14.5 10-20 Random Glucose 165 70-99 mg/dl Calcium Level 9.3 8.5-10.1 mg/dl Magnesium Level 2.3 1.8-2.4 mg/dl Total Bilirubin 1.4 0.2-1 mg/dl Direct Bilirubin 0.3 0-0.2 mg/dl Aspartate Amino Transf (AST/SGOT) 20 15-37 U/L Alanine Aminotransferase (ALT/SGPT) 25 12-78 U/L Alkaline Phosphatase 93 45-117 U/L Total Creatine Kinase 96 26-192 U/L Creatine Kinase MB < 1.0 0.5-3.6 ng/ml Creatine Kinase MB Ratio 0-3.0 Troponin I 0.034 0-0.045 ng/ml C-Reactive Protein 8.52 0-0.29 mg/dl Pro-B-Type Natriuretic Peptide 4579 0-900 pg/ml Total Protein 7.8 6.4-8.2 gm/dl Albumin 3.2 3.4-5.0 gm/dl Bedside Lactic Acid Venous 2.35 0.90-1.70 mmol/L Microbiology Results 05/08/18 Blood Culture, Received Pending 05/08/18 Blood Culture, Received Pending Diagnostic Radiology ECHOCARDIOGRAM FROM LAST ADMISSION - MARCH 2018 * Left ventricular systolic function is normal. * No regional wall motion abnormalities noted. * Ejection Fraction = 55-60%. * There is moderate concentric left ventricular hypertrophy. * Moderate aortic stenosis by 2D imaging, moderate to severe by transvalvular gradients. * Trivial to mild aortic insufficiency. * There is mild mitral regurgitation. X-RAY SINGLE VIEW CHEST CLINICAL HISTORY: Fever. Change in mental status. FINDINGS: An AP, portable, upright chest radiograph is compared to study dated 04/26/2018 and correlated with chest CT dated 02/26/2018. The examination is significantly degraded by portable technique and patient rotation. The heart is enlarged. There is pulmonary vascular congestion with evidence of mild interstitial edema. No airspace consolidation or large pleural effusion is identified. No pneumothorax is seen. The skeletal structures are osteopenic. The bony thorax is grossly intact. IMPRESSION: 1. Cardiomegaly with evidence of congestive failure and mild interstitial edema. 2. No airspace consolidation or large pleural effusion is identified Impression Assessment and Plan 73F with a PMHx of MS (primary progressive), CVA (2016) w residual left sided deficits, PA ( 2013 ,2017), HTN, HLD, DM on insulin and CKD stage 3, presents with AMS starting at 4pm. Being admitted for Encephalitis 2/2 to Pulmonary vs Cellulitis. Vanc + Zosyn. Blood cultures pending. Lactate elevated on admission. Encephalopathy 2/2 to Sepsis from cellulitis or pulmonary vs DVT Gradual onset. Per pt's baseline is fully alert but with left sided motor deficits, she is in a wheelchair normally and does not ambulate or bath herself. Lactate Elevated, will trend. Vanc + Zosyn. Follow up Blood Cultures. Because of gradual onset, CVA less likely, however if AMS persists we can get an MRI brain. RLE Cellulitis Per chart review has chronic RLE pain. Per her RLE has never been so red before. Abx as above. Will get Doppler RLE to rule out DVT c/w Gabapentin for RLE pain. New Oxygen Requirement, new CHF exacerbation? Per chart review recent admission and discharge for acute on chronic diastolic CHF. She required 2L last admission one week ago and [place] [address], now it's 5000, her lowest is 3000, so she may be at baseline. Recent echo shows preserved EF. X-ray shows cardiomegaly, no infectious process, no resp complaints. Abx as above. ?PE, D-Dimer at this point may not be relevant - if RLE doppler positive we can scan for PE Likely obesity hypoventilation in setting of sepsis. Will also need IVF for EMMETT, will keep a close eye on weights, do not want to put the patient into CHF. EMMETT in the setting of CKD stage 3 NSS at 80mls/hr + PO diet. Hyponatremia IVF as above Had a recent echocardiogram, good EF, will hold off on repeating. DM2 Continue home insulin regimen. H/o CVA c/w ASA & Brilinta 90 MG PO AMHS Chronic Diastolic CHF w preserved EF Change PO 80mg Lasix to IV Lasix 40mg daily (unsure if patient can take PO) Will add on a 20mg IV Lasix one time dose this evening. c/w Carvedilol Monitor Is & Os HTN / HLD c/w Hydralazine 50mg TID & Lipitor CAD c/w Imdur 30mg PO QAM ?c/w Flomax 0.4mg QAM DVT Proph: Hep SQ Diet: Heart Healthy, DM2 Diet + IVF as above Dispo: Admit, Tele, lives w , appears to have good support at home. FULL CODE Resident Physician Supervision Note: I interviewed and examined the patient. Discussed with Dr. Mauricio and agree with findings and plan as documented in the note. Any exceptions or clarifications are listed here: None Documented By: David rByant not acting right, more somnolent - but was more awake when i came then she was this AM vitals noted nad breathing unlaboerd. mild erythema RLE ornelas, tender. and R3 both note that this is less than even earlier encephalopathy - appears septic - most likely related to RLE cellulitis - abx as above RLE cellulitis - mild appearance now, but both and R3 note it was worse even just a little bit ago - ?quick response. vigilance for other sources of ssepsis, but seems most likely supportive care otherwise as above Advanced Directives Existing Living Will: No Existing Power of Rn Charge: No Resuscitation Status VTE Prophylaxis Will order VTE Prophylaxis: Yes Resident Involvement: Resident Care Provided Care Provided: Adult Hospital Medicine
[2018-05-08] MEDS: SODIUM CHLORIDE 0.9% 1000ML 1,000 ML IV SCH ×2 (09:39→21:51)
[2018-05-08] MEDS: ASPIRIN 81 MG ECTAB PO SCH (09:40)
[2018-05-08] MEDS: HEPARIN SOD 5000 UNIT/0.5 ML CARP SQ SCH ×2 (09:41→21:51)
[2018-05-08] MEDS ORDERED: GLUCOSE 40% GEL 15 GM TUBE PO PRN (09:45)
[2018-05-08] MEDS ORDERED: DEXTROSE 50% 50 ML SYR IV PRN (09:45)
[2018-05-08] MEDS ORDERED: GLUCOSE 10 TABS/TUBE PO PRN (09:45)
[2018-05-08] MEDS ORDERED: GLUCAGON FOR INJ 1 MG VIAL IM PRN (09:45)
[2018-05-08] MEDS ORDERED: CARBOHYDRATES FOR HYPOGLYCEMIA PO PRN (09:45)
[2018-05-08] MEDS ORDERED: FUROSEMIDE INJ 40 MG in SYRINGE 0 ML IV ONE (10:00)
[2018-05-08] MEDS: TICAGRELOR 90 MG TAB PO SCH ×2 (10:12→21:39)
[2018-05-08] MEDS: CARVEDILOL 25 MG TAB PO SCH ×2 (10:13→21:40)
[2018-05-08] MEDS: TAMSULOSIN HCL 0.4 MG CAP PO SCH (10:13)
[2018-05-08] MEDS: GABAPENTIN 300 MG CAP PO SCH ×3 (10:13→21:39)
[2018-05-08] MEDS: ISOSORBIDE MONONITRATE 30 MG TABCR PO SCH (10:14)
[2018-05-08] MEDS: POTASSIUM CHLORIDE 20 MEQ TABCR PO SCH (10:14)
[2018-05-08] MEDS: PIPERACILL/TAZOBAC IV 4.5 GM in D5W 100 ML IV SCH ×2 (10:22→18:19)
[2018-05-08] MEDS: ACETAMINOPHEN 325 MG TAB PO PRN (10:43)
[2018-05-08] MEDS ORDERED: INSULIN ASPART 100 UNITS/ML 3 ML PEN SC SCH (11:30)
[2018-05-08] MEDS: INSULIN ASPART 100 UNITS/ML 3 ML PEN SC SCH ×3 (11:57→21:49)
[2018-05-08] MEDS: LACTOBACILLUS ACIDOPHILUS (FLORANEX) TAB PO SCH ×2 (12:23→17:01)
--- NOTE | 2018-05-08 13:50 | Pharmacy Progress Note ---
Pharmacy Abx Initial Consult Date of Service May 08, 2018. Pharmacy Dosing Scope Date of Consult: 05/08/18 Consultation requested by: Dr. Mauricio Pharmacy is consulted to initiate Zosyn and Vancomycin IV dosing therapy, order appropriate labs and adjust drug dose/frequency. Subjective The patient is a 73 year old female admitted on May 08, 2018 at 08:17. Objective Height (Feet): 5 Height (Inches): 2.00 Weight (Kilograms): 106.900 Vital Signs (Past 12Hrs) Vital Signs Past 12 Hours Date Time Temp Pulse Resp B/P (MAP) Pulse Ox O2 Delivery O2 Flow Rate FiO2 05/08/18 12:23 36.9 68 17 92/41 (58) 94 Room Air 05/08/18 12:13 96 Room Air 05/08/18 12:00 70 05/08/18 08:52 77 05/08/18 08:44 77 149/69 99 05/08/18 08:22 99 Nasal Cannula 3.0 05/08/18 07:48 78 22 129/73 99 Nasal Cannula 3.0 05/08/18 06:35 77 22 129/73 99 Nasal Cannula 2.0 05/08/18 05:05 79 24 153/58 99 Nasal Cannula 3.0 05/08/18 04:47 78 05/08/18 04:33 38.1 05/08/18 04:22 38.1 75 20 180/124 98 Nasal Cannula 2.0 Lab Results (24Hrs) Laboratory Tests (24 Hours) Test 05/08/18 05:16 05/08/18 10:46 C-Reactive Protein 8.52 mg/dl (0-0.29) H White Blood Count 29.86 K/uL (4.8-10.8) H Red Blood Count 3.68 M/uL (4.2-5.4) L Hemoglobin 10.5 g/dL (12.0-16.0) L Hematocrit 33.2 % (37-47) L Mean Corpuscular Volume 90.2 fL (80-100) Mean Corpuscular Hemoglobin 28.5 pg (25-34) Mean Corpuscular Hemoglobin Concent 31.6 g/dl (32-36) L Platelet Count 346 K/uL (130-400) Mean Platelet Volume 10.7 fL (7.4-10.4) H Neutrophils (%) (Auto) 94.0 % Lymphocytes (%) (Auto) 2.5 % Monocytes (%) (Auto) 3.0 % Eosinophils (%) (Auto) 0.0 % Basophils (%) (Auto) 0.1 % Neutrophils # (Auto) 28.05 K/uL (1.4-6.5) H Lymphocytes # (Auto) 0.76 K/uL (1.2-3.4) L Monocytes # (Auto) 0.90 K/uL (0.11-0.59) H Eosinophils # (Auto) 0.00 K/uL (0-0.5) Basophils # (Auto) 0.03 K/uL (0-0.2) Total Creatine Kinase 96 U/L (26-192) Lactic Acid Level 1.2 mmol/L (0.4-2.0) Micro Results Date/Time Source Procedure Growth Status 05/08/18 05:09 Blood Blood Culture Pending Received 05/08/18 05:00 Blood Blood Culture Pending Received Risk Factors for Resistance * Hospitalization for 48 hours or more within the past 90 days * Antimicrobial use within the last 90 days: Cefdinir Assessment & Plan Assessment 73 year old female presenting with fevers, weakness, fatigue and altered mental status. Patient also complains of right leg pain and her leg is red. Rule out DVT. She had a CHF exacerbation last month following an episode of sepsis due to UTI (le sensitive pseudomonas). She was treated with Cefdinir. Blood cultures are currently pending. Plan Vancomycin and Zosyn for treatment of Cellulitis Vancomycin IV * Loading dose: 2000 mg (18.7 mg/kg) * Maintenance dose: 1000 mg IV (9.5 mg/kg) every 24 hours * Estimated Pharmacokinetics: ke=0.029, t1/2=24 hours * Goal trough level for Cellulitis : ~15 mcg/mL * Random level ordered for 05/09/18 with AM labs * A less than traditional dose has been selected due to likelihood of drug accumulation in obese patient. Piperacillin/tazobactam * 4.5 g bolus administered over 30 minutes, then 4.5 g IV extended infusion every 8 hours for CrCl greater than 20 mL/min * Aggressive dosing selected due to BMI 35 or more (Patient has BMI of 43.1) Pharmacy will continue to follow and will adjust dose/frequency as necessary. Thank you.
--- NOTE | 2018-05-08 13:53 | DIAGNOSTIC IMAGING REPORT ---
ULTRASOUND RIGHT LOWER EXTREMITY VENOUS CLINICAL HISTORY: Right leg pain and erythema. COMPARISON STUDY: Right lower extremity venous ultrasound dated 07/17/2011. TECHNIQUE: Real-time, grayscale, and color Doppler sonography of the deep veins of the right lower extremity was performed from the inguinal crease to the calf. Compression and augmentation were utilized. FINDINGS: There is no sonographic evidence of deep venous thrombosis identified in the right lower extremity. The common femoral, superficial femoral, and popliteal veins are patent and normally compressible. The greater saphenous vein and the profunda femoris vein at the junction with the common femoral vein are clear. The visualized calf veins are patent. IMPRESSION: There is no sonographic evidence of deep venous thrombosis identified in the right lower extremity. Electronically signed by: Bakari Castellanos M.D. 05/08/2018 1:52 PM Dictated Date/Time: 05/08/2018 1:52 PM
[2018-05-08] MEDS ORDERED: PIPERACILL/TAZOBAC IV 3.375 GM in DEXTROSE 5% 100ML 100 ML IV SCH (14:00)
[2018-05-08] MEDS: OXYCODONE/ACETAMINOPHEN 5-325 TAB PO PRN ×2 (14:17→23:46)
[2018-05-08] MEDS: MoRPHine SULFATE 4 MG/ML 1 ML CARP\\VIAL IV PRN (14:23)
[2018-05-08] MEDS ORDERED: FUROSEMIDE INJ 20 MG in SYRINGE 0 ML IV ONE (15:00)
[2018-05-08] MEDS: BOOST GLUCOSE CONTROL VANILLA PO SCH (17:01)
[2018-05-08] MEDS: ATORVASTATIN 40 MG TAB PO SCH (21:38)
[2018-05-08] MEDS: INSULIN GLARGINE SOLOSTAR 100 UNITS/ML 3 ML PEN SC SCH (21:50)
[2018-05-09] VITALS (9 sets, daily range): BP systolic 115–151; BP diastolic 50–81; PULSE 57–70; TEMP 36.7–37.7; O2SAT 93–94
[2018-05-09] MEDS: PIPERACILL/TAZOBAC IV 4.5 GM in D5W 100 ML IV SCH (02:46)
[2018-05-09 05:43] LABS: HEMATOCRIT 25.4 % (37-47); HEMOGLOBIN 8.1 g/dL (12.0-16.0); MEAN CELL VOLUME 89.4 fL (80-100); MEAN CORPUSCULAR HEMOGLOBIN 28.5 pg (25-34); MEAN CORPUSCULAR HGB CONC 31.9 g/dl (32-36); MEAN PLATELET VOLUME 10.6 fL (7.4-10.4); PLATELET COUNT 234 K/uL (130-400); RED CELL DISTRIBUTION WIDTH CV 16.5 % (11.5-14.5); RED CELL DISTRIBUTION WIDTH SD 54.5 fL (36.4-46.3); WHITE BLOOD COUNT 14.73 K/uL (4.8-10.8)
[2018-05-09] MEDS ORDERED: VANCOMYCIN IV 1,000 MG in SODIUM CHLORIDE 0.9% 250ML 250 ML IV SCH (06:00)
[2018-05-09 06:01] LABS: BASO % 0.1 %; BASO ABS # 0.02 K/uL (0-0.2); EOS % 0.6 %; EOS ABS # 0.09 K/uL (0-0.5); IG# 0.05 K/uL (0.00-0.02); LYMPH % 7.7 %; LYMPH ABS # 1.14 K/uL (1.2-3.4); MONO % 5.6 %; MONO ABS # 0.83 K/uL (0.11-0.59); NEUT % 85.7 %
[2018-05-09 06:13] LABS: ALBUMIN 2.3 gm/dl (3.4-5.0); CALCIUM 8.3 mg/dl (8.5-10.1); CREATININE 1.97 mg/dl (0.60-1.20)
[2018-05-09] MEDS: BOOST GLUCOSE CONTROL VANILLA PO SCH ×3 (07:46→16:30)
[2018-05-09] MEDS: TAMSULOSIN HCL 0.4 MG CAP PO SCH (07:47)
[2018-05-09] MEDS: POTASSIUM CHLORIDE 20 MEQ TABCR PO SCH (07:47)
[2018-05-09] MEDS: LACTOBACILLUS ACIDOPHILUS (FLORANEX) TAB PO SCH ×3 (07:47→17:36)
[2018-05-09] MEDS: GABAPENTIN 300 MG CAP PO SCH ×3 (07:48→21:04)
[2018-05-09] MEDS: CARVEDILOL 25 MG TAB PO SCH ×2 (07:48→21:02)
[2018-05-09] MEDS: ISOSORBIDE MONONITRATE 30 MG TABCR PO SCH (07:48)
[2018-05-09] MEDS: ASPIRIN 81 MG ECTAB PO SCH (07:48)
[2018-05-09] MEDS: TICAGRELOR 90 MG TAB PO SCH ×2 (07:49→21:03)
[2018-05-09] MEDS: HEPARIN SOD 5000 UNIT/0.5 ML CARP SQ SCH ×2 (07:51→21:10)
[2018-05-09] MEDS: ACETAMINOPHEN 325 MG TAB PO PRN ×2 (07:51→11:30)
[2018-05-09] MEDS: INSULIN ASPART 100 UNITS/ML 3 ML PEN SC SCH ×4 (07:55→21:08)
--- NOTE | 2018-05-09 08:09 | Clinical Documentation Query ---
CLINICAL DOCUMENTATION QUERY 73 year old female who presents to the Emergency Room for evaluation of fevers. H&P states: New Oxygen Requirement, new CHF exacerbation? Per chart review recent admission and discharge for acute on chronic diastolic CHF. In your clinical opinion is this patient being managed for: ( x ) Possible Acute on chronic diastolic (preserved EF) CHF ( ) Not Agree ( ) Other explanation of clinical findings (No explanation is considered a No Response) ( ) Unable to determine ( ) Need to Discuss (Phone CDS or qliq) (No discussion is considered a No Response) The medical record reflects the following clinical findings, treatment, and risk factors. Clinical Indicators: As above. CXR shows Cardiomegaly with evidence of congestive failure and mild interstitial edema. Treatment: IV Lasix, telemetry, I/O's, daily weights, Risk Factors: Age, infection, hx of diastolic chf, Please clarify and document your clinical opinion in the progress notes and discharge summary. Terms such as "probable", "suspected", "likely", "questionable", "possible", or "still to be ruled out" are acceptable. IF IN AGREEMENT, YOU MUST DOCUMENT ABOVE DIAGNOSTIC STATEMENT IN DAILY PROGRESS NOTES AND DISCHARGE SUMMARY. This document is not part of the patient's record. Thank You, Fam Warner, RN [phone] & via [email or web address]
[2018-05-09] MEDS ORDERED: FUROSEMIDE INJ 40 MG in SYRINGE 0 ML IV SCH (09:00)
--- NOTE | 2018-05-09 09:04 | Family Medicine Progress Note ---
Progress Note Date of Service May 09, 2018. Subjective Pt evaluation today including: conversation w/ patient, physical exam, chart review, lab review The patient was seen and examined at bedside. Low grade temp of 37.4 overnight and into this morning - got Tylenol. Oxygen has been weaned off. Patient is resting comfortably in bed. Back of right heel hurts. Complaining of weakness. Doesn't want to go to rehab, only home on DC. present at bedside, has no input into going home or staying - wants to prevent readmission. Plan of care was described to the patient and all questions were answered. Constitutional: + fever (pt denies feeling febrile), No chills Respiratory: No cough, No sputum, No wheezing, No shortness of breath Cardiovascular: No chest pain Abdomen: No pain, No nausea, No vomiting, No diarrhea, No constipation Musculoskeletal: No joint pain Female : No dysuria Psychiatric: No depression symptoms Skin: + problem reported (improving RLE pain), No rash Objective Physical Exam General Appearance: WD/WN, no apparent distress Eyes: normal inspection, PERRL, EOMI ENT: normal ENT inspection Neck: supple, no adenopathy Respiratory/Chest: chest non-tender, lungs clear, normal breath sounds, no respiratory distress, no accessory muscle use Cardiovascular: regular rate, rhythm, no gallop, no JVD, + pertinent finding ( severe systolic murmur) Abdomen: normal bowel sounds, non tender, soft, no organomegaly Extremities: non-tender, + pertinent finding (unable to move LE to command - this is pt's baseline due to underlying medical condition.) Neurologic/Psychiatric: 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 Being admitted for Encephalitis 2/2 to Pulmonary vs Cellulitis. Vanc + Zosyn. Blood cultures pending. Lactate elevated on admission. Last temp was 4pm on 05/09/18 - would like to see 24 hours afebrile. Encephalopathy 2/2 to Sepsis from cellulitis or pulmonary vs DVT Gradual onset. Per pt's baseline is fully alert but with left sided motor deficits, she is in a wheelchair normally and does not ambulate or bathe herself. Lactate normalized on 2nd check. s/p Vanc + Zosyn, will switch to Doxycycline for MRSA coverage due to multiple previous healthcare visits. Blood Cultures. - No growth to date. Mental status slowly improving, just c/o weakness, motor exam is at baseline - unlikely CVA RLE Cellulitis - improving Per chart review has chronic RLE pain. Abx as above. Will get Doppler RLE to rule out DVT c/w Gabapentin for RLE pain. New Oxygen Requirement (Resolved) 2/2 possible acute on Chronic Diastolic CHF w preserved EF Per chart review recent admission and discharge for acute on chronic diastolic CHF. She required 2L last admission one week ago and was [place]aned[place] [address], now it's 5000, her lowest is 3000, so she may be at baseline. Recent echo shows preserved EF. X-ray shows cardiomegaly, possible congestive changes, no infectious process, no resp complaints. Abx as above. ?PE, D-Dimer at this point may not be relevant - if RLE doppler positive we can scan for PE Likely obesity hypoventilation in setting of sepsis. Will also need IVF for EMMETT, will keep a close eye on weights, do not want to put the patient into CHF. Resume home regimen of Lasix. (Given extra 20mg IV dose yesterday evening) Monitor Is & Os - pt up 500MLS. EMMETT in the setting of CKD stage 3 Creatinine is 1.97, baseline around 1.6. NSS at 80mls/hr + PO diet. Continue to monitor. Hyponatremia IVF as above Had a recent echocardiogram, good EF, will hold off on repeating. DM2 Continue home insulin regimen. H/o CVA c/w ASA & Brilinta 90 MG PO AMHS HTN / HLD c/w Hydralazine 50mg TID & Lipitor CAD c/w Imdur 30mg PO QAM ?c/w Flomax 0.4mg QAM DVT Proph: Hep SQ Diet: Heart Healthy, DM2 Diet + IVF as above Dispo: Med Surg, lives w , appears to have good support at home. FULL CODE Resident Physician Supervision Note: I interviewed and examined the patient. Discussed with Dr. Mauricio and agree with findings and plan as documented in the note. Any exceptions or clarifications are listed here: None Documented By: David Bryant tired but more like herself extensive discussions w pt and family. leg feeling better vitals noted nad breathing unlaboerd. mild erythema RLE ornelas imprvoing, now nontender. encephalopathy - appears septic - most likely related to RLE cellulitis - abx as above, improving. hopefully home tomorrow if does well on doxy RLE cellulitis - improving supportive care otherwise as above Resident Involvement: Resident Care Provided Care Provided: Adult [facility] Medicine
[2018-05-09] MEDS: SODIUM CHLORIDE 0.9% 1000ML 1,000 ML IV SCH (11:28)
[2018-05-09] MEDS: OXYCODONE/ACETAMINOPHEN 5-325 TAB PO PRN (13:42)
[2018-05-09] MEDS: DOXYCYCLINE HYCLATE 100 MG CAP PO SCH (21:03)
[2018-05-09] MEDS: ATORVASTATIN 40 MG TAB PO SCH (21:04)
[2018-05-09] MEDS: INSULIN GLARGINE SOLOSTAR 100 UNITS/ML 3 ML PEN SC SCH (21:09)
[2018-05-10] MEDS: SODIUM CHLORIDE 0.9% 1000ML 1,000 ML IV SCH ×2 (00:54→14:05)
[2018-05-10] MEDS: BOOST GLUCOSE CONTROL VANILLA PO SCH ×3 (05:45→17:46)
[2018-05-10 05:54] LABS: BASO % 0.4 %; BASO ABS # 0.04 K/uL (0-0.2); EOS % 2.8 %; EOS ABS # 0.26 K/uL (0-0.5); HEMATOCRIT 26.3 % (37-47); HEMOGLOBIN 8.4 g/dL (12.0-16.0); IG# 0.02 K/uL (0.00-0.02); LYMPH % 14.7 %; LYMPH ABS # 1.37 K/uL (1.2-3.4); MEAN CELL VOLUME 89.8 fL (80-100); MEAN CORPUSCULAR HEMOGLOBIN 28.7 pg (25-34); MEAN CORPUSCULAR HGB CONC 31.9 g/dl (32-36); MEAN PLATELET VOLUME 10.8 fL (7.4-10.4); MONO ABS # 0.65 K/uL (0.11-0.59); NEUT % 74.9 %; NEUT ABS # 6.95 K/uL (1.4-6.5); PLATELET COUNT 257 K/uL (130-400); RED CELL DISTRIBUTION WIDTH CV 16.6 % (11.5-14.5); RED CELL DISTRIBUTION WIDTH SD 54.3 fL (36.4-46.3); WHITE BLOOD COUNT 9.29 K/uL (4.8-10.8)
[2018-05-10 06:41] LABS: ALBUMIN 2.3 gm/dl (3.4-5.0); CALCIUM 8.9 mg/dl (8.5-10.1); CREATININE 1.73 mg/dl (0.60-1.20); POTASSIUM 3.7 mmol/L (3.5-5.1); TOTAL PROTEIN 6.2 gm/dl (6.4-8.2)
[2018-05-10 07:21] VITALS: BP 186/76; PULSE 59; TEMP 36.8; O2SAT 94
[2018-05-10] MEDS: POTASSIUM CHLORIDE 20 MEQ TABCR PO SCH (08:13)
[2018-05-10] MEDS: LACTOBACILLUS ACIDOPHILUS (FLORANEX) TAB PO SCH ×3 (08:14→17:47)
[2018-05-10] MEDS: TAMSULOSIN HCL 0.4 MG CAP PO SCH (08:15)
[2018-05-10] MEDS: DOXYCYCLINE HYCLATE 100 MG CAP PO SCH (08:15)
[2018-05-10] MEDS: CARVEDILOL 25 MG TAB PO SCH ×2 (08:16→21:05)
[2018-05-10] MEDS: TICAGRELOR 90 MG TAB PO SCH ×2 (08:17→20:00)
[2018-05-10] MEDS: ASPIRIN 81 MG ECTAB PO SCH (08:17)
[2018-05-10] MEDS: GABAPENTIN 300 MG CAP PO SCH ×3 (08:18→21:01)
[2018-05-10] MEDS: FUROSEMIDE 80 MG TAB PO SCH (08:19)
[2018-05-10] MEDS: ISOSORBIDE MONONITRATE 30 MG TABCR PO SCH (08:20)
[2018-05-10] MEDS: INSULIN ASPART 100 UNITS/ML 3 ML PEN SC SCH ×4 (08:25→21:07)
[2018-05-10] MEDS ORDERED: VANCOMYCIN CONSULT ACTIVE PRN (08:45)
[2018-05-10] MEDS ORDERED: VANCOMYCIN IV 1,000 MG in SODIUM CHLORIDE 0.9% 250ML 250 ML IV SCH ×2 (09:00→10:00)
[2018-05-10] MEDS: HEPARIN SOD 5000 UNIT/0.5 ML CARP SQ SCH ×2 (09:56→21:08)
--- NOTE | 2018-05-10 10:52 | INFECT. DISEASE CONSULTATION ---
DATE OF CONSULTATION: 05/10/2018 HISTORY OF PRESENT ILLNESS: This is a 73-year-old female who was admitted from the hospital when she developed shaking chills at home and fevers suddenly. Her is with her at the bedside and provides majority of the history. He states that he bathed her earlier in the day, and he did not notice any abnormalities of her skin, but when she arrived at the hospital, she had significant erythema of her right lower extremity. She denies any trauma to the area. Blood cultures were performed as part of her workup and are growing gram positive cocci, which are yet to be identified. Repeat blood cultures were drawn today and are pending. She has been on vancomycin and oral doxycycline since admission. She initially had a white blood cell count of 29,000, this has improved to 9000. Her creatinine is mildly elevated. UA was negative. Overall, she states she is feeling significantly better. She states her erythema has almost resolved. She has had no more shaking chills. She has had no more fevers with the exception of a T-max of 38.1 on admission to the hospital. She is eating well. She is tolerating antibiotics. She denies any chest pain, cough, shortness of breath, nausea, vomiting, diarrhea. Her remaining review of systems is unremarkable. PAST MEDICAL HISTORY: UTIs, hyperlipidemia, hypertension, coronary artery disease, urinary retention, type 2 diabetes, MS, CVA with left-sided deficit, history of [place], chronic kidney disease. PAST SURGICAL HISTORY: Unremarkable. FAMILY HISTORY: Noncontributory. SOCIAL HISTORY: Negative for tobacco use, alcohol use, or drug use. ALLERGIES: SHE HAS ALLERGIES TO SULFA AND PLAVIX. MEDICATIONS: Vancomycin, Lasix, Lipitor, Lantus, Percocet, morphine, Floranex, subQ heparin, aspirin, Coreg, Neurontin, hydralazine, Imdur, Flomax, Brilinta, Tylenol, Maalox, milk of magnesia, Ambien, Zofran, and MiraLax. PHYSICAL EXAMINATION: VITAL SIGNS: She is afebrile, pulse 59, respiratory rate 18, blood pressure 186/76, oxygen saturation is 94% on room air. GENERAL: She is awake, alert, and oriented x3. She is in no acute distress. HEENT: Mucous membranes are moist. Extraocular muscles are intact. CARDIOVASCULAR: Heart is regular. RESPIRATORY: Lungs are clear, with decreased breath sounds at the bases bilaterally. GASTROINTESTINAL: Abdomen is soft. EXTREMITIES: There is no lower extremity edema. Examination of the right lower extremity reveals minimal erythema at the lateral ankle with minimal warmth. There is no tenderness to palpation. Per patient and , this is much improved. LABORATORY DATA: CBC: Today, white blood cell count 9.2, hemoglobin 8.4, platelets 257. Chemistry panel: Sodium 140, potassium 3.7, chloride 105, bicarbonate 26, BUN 32, creatinine 1.7, glucose 109. UA is negative. Blood cultures are growing gram positive cocci from the 8th, repeats are pending. IMAGING: Lower extremity ultrasound is negative for DVT. ASSESSMENT AND PLAN: Gram positive sepsis from cellulitis, which is improving. She will continue on vancomycin pending additional culture data. An echocardiogram should be performed. Further antibiotic recommendations when cultures are final. She will need 2 weeks total of antibiotics if echo and repeat cultures are negative.
--- NOTE | 2018-05-10 11:49 | Progress Note ---
Progress Note Date of Service May 10, 2018. Progress Note ID Consult Dictated #[id number] A/P: 1. GPC sepsis 2 RLE Cellulitis 3. Leukocytosis - resolved -Continue vanco for now -Suggest echo -Will need 14 days from first negative culture if echo negative, follow cultures -thank you
--- NOTE | 2018-05-10 12:08 | Pharmacy Progress Note ---
Pharmacy Abx Dose Short Note Date of Service May 10, 2018. Assessment & Plan Assessment 73 year old female receiving Vancomycin for treatment of cellulitis and possible bacteremia Day # 3 of antimicrobial therapy. Plan Vancomycin * Patient was started on Vanco on 05/08/18 but was discontinued on 05/09/18. Due to positive blood cultures, the Vanco was restarted on 05/10/18. * Giving a one time dose of 1gm and checking a random level; will make adjustments accordingly. * Goal trough level for bacteremia : 15 to 20 mcg/mL * Random level ordered for: 05/11/18 with AM labs Pharmacy will continue to follow and will adjust dose/frequency as necessary. Thank you.
[2018-05-10 14:54] VITALS: BP 184/77; PULSE 69; TEMP 36.6; O2SAT 95
[2018-05-10] MEDS: OXYCODONE/ACETAMINOPHEN 5-325 TAB PO PRN (15:21)
--- NOTE | 2018-05-10 16:49 | Progress Note ---
Subjective Date of Service: May 10, 2018. Subjective Pt evaluation today including: conversation w/ patient, conversation w/ family , physical exam, chart review, lab review, conversation w/ direct sales consultant, review of inpatient medication list feeling better right leg feeling better mentally more herself. was hoping to go home today - then discussed (+) blood cultures - she and express understanding. input from ID greatly appreciated Problem List Medical Problems: (1) Acute myocardial infarction Status: Acute (2) Acute renal insufficiency Status: Acute (3) Acute respiratory failure with hypoxia Status: Acute (4) Cellulitis of right leg without foot Status: Acute (5) Chest pain Status: Acute (6) CHF exacerbation Status: Acute (7) Diverticulitis Status: Acute (8) Hypoglycemia Status: Acute (9) Pneumonia Status: Acute (10) Sepsis Status: Acute (11) Sepsis Status: Acute (12) UTI (urinary tract infection) Status: Acute (13) Volume overload Status: Acute Review of Systems all other ROS otherwise negative except for as above Objective Vital Signs Date Time Temp Pulse Resp B/P (MAP) Pulse Ox O2 Delivery O2 Flow Rate FiO2 05/10/18 14:54 36.6 69 18 184/77 (112) 95 Room Air 05/10/18 08:00 Room Air 05/10/18 07:21 36.8 59 18 186/76 (112) 94 Room Air 05/10/18 00:30 Room Air 05/09/18 23:42 36.8 60 18 129/79 (96) 94 Room Air Physical Exam General Appearance: no apparent distress Eyes: EOMI ENT: hearing grossly normal Neck: trachea midline Respiratory/Chest: no respiratory distress, no accessory muscle use Extremities: + pertinent finding (RLE almost no erythema - lower lateral ornelas very faint dull pink nontender not hot) Neurologic/Psychiatric: nursing care attendant II-XII nml as tested, alert, normal mood/affect Skin: normal color, warm/dry Laboratory Results Last 24 Hours Test 05/09/18 20:37 05/10/18 05:31 05/10/18 07:28 05/10/18 11:28 Bedside Glucose 174 mg/dl 109 mg/dl 116 mg/dl White Blood Count 9.29 K/uL Red Blood Count 2.93 M/uL Hemoglobin 8.4 g/dL Hematocrit 26.3 % Mean Corpuscular Volume 89.8 fL Mean Corpuscular Hemoglobin 28.7 pg Mean Corpuscular Hemoglobin Concent 31.9 g/dl Platelet Count 257 K/uL Mean Platelet Volume 10.8 fL Neutrophils (%) (Auto) 74.9 % Lymphocytes (%) (Auto) 14.7 % Monocytes (%) (Auto) 7.0 % Eosinophils (%) (Auto) 2.8 % Basophils (%) (Auto) 0.4 % Neutrophils # (Auto) 6.95 K/uL Lymphocytes # (Auto) 1.37 K/uL Monocytes # (Auto) 0.65 K/uL Eosinophils # (Auto) 0.26 K/uL Basophils # (Auto) 0.04 K/uL RDW Standard Deviation 54.3 fL RDW Coefficient of Variation 16.6 % Immature Granulocyte % (Auto) 0.2 % Immature Granulocyte # (Auto) 0.02 K/uL Red Blood Cell Morphology Unremarkable Sodium Level 140 mmol/L Potassium Level 3.7 mmol/L Chloride Level 105 mmol/L Carbon Dioxide Level 26 mmol/L Anion Gap 9.0 mmol/L Blood Urea Nitrogen 32 mg/dl Creatinine 1.73 mg/dl Est Creatinine Clear Calc Drug Dose 34.0 ml/min Estimated GFR () 33.6 Estimated GFR (Non- 29.0 BUN/Creatinine Ratio 18.6 Random Glucose 101 mg/dl Calcium Level 8.9 mg/dl Total Bilirubin 0.7 mg/dl Aspartate Amino Transf (AST/SGOT) 19 U/L Alanine Aminotransferase (ALT/SGPT) 17 U/L Alkaline Phosphatase 66 U/L Total Protein 6.2 gm/dl Albumin 2.3 gm/dl Globulin 3.9 gm/dl Albumin/Globulin Ratio 0.6 Assessment and Plan 73F with a PMHx of MS (primary progressive), CVA (2017) w residual left sided deficits, SC ( 2013 ,2017), HTN, HLD, DM on insulin and CKD stage 3, presents with AMS starting at 4pm. Being admitted for Encephalitis 2/2 to Pulmonary vs Cellulitis. Vanc + Zosyn. Blood cultures pending. Lactate elevated on admission. Encephalopathy 2/2 to Sepsis from cellulitis or pulmonary vs DVT -improved RLE Cellulitis -improved -had streamlined to doxy - but unfortunately in light of positive blood cultures , re-escalate to vanco until sensitivities are back. gram positive bacteremia -echo ordered, repeat blood cultures ordered, vanco until sensitivities on first blood cultures. ID assisting with final selection of abx contingent of course on sensitivities New Oxygen Requirement, new CHF exacerbation? -nonspecific and improved -does have hx of diastolic CHF, but this appears with hindsight to be chronic and compensated currently -continue to follow EMMETT in the setting of CKD stage 3 -has improved. continue to follow on vanco Hyponatremia -improved DM2 Continue home insulin regimen. sugars all reasonable H/o CVA c/w ASA & Brilinta 90 MG PO AMHS Chronic Diastolic CHF w preserved EF --stable, continue current care HTN / HLD c/w Hydralazine 50mg TID & Lipitor CAD c/w Imdur 30mg PO QAM ?c/w Flomax 0.4mg QAM DVT Proph: Hep SQ Diet: Heart Healthy, DM2 Diet + IVF as above dispo - home once situation with antibiotics further elucidated
[2018-05-10] MEDS ORDERED: DICLOFENAC SOD 1% GEL 100 GM TUBE EXT ONE (18:54)
[2018-05-10] MEDS: ATORVASTATIN 40 MG TAB PO SCH (21:02)
[2018-05-10] MEDS: INSULIN GLARGINE SOLOSTAR 100 UNITS/ML 3 ML PEN SC SCH (21:08)
[2018-05-10] MEDS: DICLOFENAC SOD 1% GEL 100 GM TUBE EXT SCH (21:35)
[2018-05-10 21:42] VITALS: BP 174/80
[2018-05-11] VITALS (7 sets, daily range): BP systolic 131–198; BP diastolic 68–81; PULSE 52–64; TEMP 36.7–37.4; O2SAT 92–96
[2018-05-11] MEDS: OXYCODONE/ACETAMINOPHEN 5-325 TAB PO PRN ×2 (02:36→12:13)
[2018-05-11] MEDS: SODIUM CHLORIDE 0.9% 1000ML 1,000 ML IV SCH (03:51)
[2018-05-11] MEDS: BOOST GLUCOSE CONTROL VANILLA PO SCH ×3 (05:05→16:30)
[2018-05-11] MEDS: MoRPHine SULFATE 4 MG/ML 1 ML CARP\\VIAL IV PRN (05:06)
[2018-05-11 05:54] LABS: BASO % 0.5 %; BASO ABS # 0.04 K/uL (0-0.2); EOS % 2.5 %; EOS ABS # 0.22 K/uL (0-0.5); HEMATOCRIT 27.6 % (37-47); HEMOGLOBIN 8.8 g/dL (12.0-16.0); IG# 0.03 K/uL (0.00-0.02); LYMPH % 11.8 %; LYMPH ABS # 1.04 K/uL (1.2-3.4); MEAN CELL VOLUME 88.7 fL (80-100); MEAN CORPUSCULAR HEMOGLOBIN 28.3 pg (25-34); MEAN CORPUSCULAR HGB CONC 31.9 g/dl (32-36); MEAN PLATELET VOLUME 10.9 fL (7.4-10.4); MONO % 7.3 %; MONO ABS # 0.65 K/uL (0.11-0.59); NEUT % 77.6 %; NEUT ABS # 6.87 K/uL (1.4-6.5); PLATELET COUNT 297 K/uL (130-400); RED CELL DISTRIBUTION WIDTH SD 51.8 fL (36.4-46.3); WHITE BLOOD COUNT 8.85 K/uL (4.8-10.8)
[2018-05-11 06:26] LABS: ALBUMIN 2.3 gm/dl (3.4-5.0); CALCIUM 9.1 mg/dl (8.5-10.1); CREATININE 1.42 mg/dl (0.60-1.20); POTASSIUM 3.6 mmol/L (3.5-5.1); TOTAL PROTEIN 6.4 gm/dl (6.4-8.2)
[2018-05-11] MEDS: ISOSORBIDE MONONITRATE 30 MG TABCR PO SCH (08:35)
[2018-05-11] MEDS: GABAPENTIN 300 MG CAP PO SCH ×3 (08:35→21:24)
[2018-05-11] MEDS: LACTOBACILLUS ACIDOPHILUS (FLORANEX) TAB PO SCH ×3 (08:36→17:00)
[2018-05-11] MEDS: DICLOFENAC SOD 1% GEL 100 GM TUBE EXT SCH ×4 (08:36→21:28)
[2018-05-11] MEDS: FUROSEMIDE 80 MG TAB PO SCH (08:36)
[2018-05-11] MEDS: CARVEDILOL 25 MG TAB PO SCH ×2 (08:37→20:00)
[2018-05-11] MEDS: TAMSULOSIN HCL 0.4 MG CAP PO SCH (08:37)
[2018-05-11] MEDS: ASPIRIN 81 MG ECTAB PO SCH (08:38)
[2018-05-11] MEDS: POTASSIUM CHLORIDE 20 MEQ TABCR PO SCH (08:38)
[2018-05-11] MEDS: TICAGRELOR 90 MG TAB PO SCH ×2 (08:38→21:27)
--- NOTE | 2018-05-11 08:43 | Progress Note ---
Subjective Date of Service: May 11, 2018. Subjective cultures with mainspring former brace end 2/2 repeat pending. wbc improved tolerating abx. afebrile. Problem List Medical Problems: (1) Acute myocardial infarction Status: Acute (2) Acute renal insufficiency Status: Acute (3) Acute respiratory failure with hypoxia Status: Acute (4) Cellulitis of right leg without foot Status: Acute (5) Chest pain Status: Acute (6) CHF exacerbation Status: Acute (7) Diverticulitis Status: Acute (8) Hypoglycemia Status: Acute (9) Pneumonia Status: Acute (10) Sepsis Status: Acute (11) Sepsis Status: Acute (12) UTI (urinary tract infection) Status: Acute (13) Volume overload Status: Acute Objective Vital Signs Date Time Temp Pulse Resp B/P (MAP) Pulse Ox O2 Delivery O2 Flow Rate FiO2 05/11/18 07:54 37.1 64 23 193/81 (118) 93 Room Air 05/11/18 00:30 Room Air 05/11/18 00:11 36.8 62 16 157/80 (105) 95 Room Air 05/10/18 21:42 174/80 (111) 05/10/18 16:00 Room Air 05/10/18 14:54 36.6 69 18 184/77 (112) 95 Room Air Laboratory Results Item Value Date Time Blood Culture - Preliminary Resulted 05/08/18 0509 Blood Gram Positive Cocci Blood Culture - Preliminary Resulted 05/08/18 0500 Blood Coag Neg Staphylococcus Last 24 Hours Test 05/10/18 11:28 05/10/18 16:30 05/10/18 19:51 05/11/18 05:23 Bedside Glucose 116 mg/dl 143 mg/dl 221 mg/dl White Blood Count 8.85 K/uL Red Blood Count 3.11 M/uL Hemoglobin 8.8 g/dL Hematocrit 27.6 % Mean Corpuscular Volume 88.7 fL Mean Corpuscular Hemoglobin 28.3 pg Mean Corpuscular Hemoglobin Concent 31.9 g/dl Platelet Count 297 K/uL Mean Platelet Volume 10.9 fL Neutrophils (%) (Auto) 77.6 % Lymphocytes (%) (Auto) 11.8 % Monocytes (%) (Auto) 7.3 % Eosinophils (%) (Auto) 2.5 % Basophils (%) (Auto) 0.5 % Neutrophils # (Auto) 6.87 K/uL Lymphocytes # (Auto) 1.04 K/uL Monocytes # (Auto) 0.65 K/uL Eosinophils # (Auto) 0.22 K/uL Basophils # (Auto) 0.04 K/uL RDW Standard Deviation 51.8 fL RDW Coefficient of Variation 16.0 % Immature Granulocyte % (Auto) 0.3 % Immature Granulocyte # (Auto) 0.03 K/uL Hypochromasia PRESENT Anisocytosis PRESENT Sodium Level 138 mmol/L Potassium Level 3.6 mmol/L Chloride Level 104 mmol/L Carbon Dioxide Level 26 mmol/L Anion Gap 9.0 mmol/L Blood Urea Nitrogen 29 mg/dl Creatinine 1.42 mg/dl Est Creatinine Clear Calc Drug Dose 41.5 ml/min Estimated GFR () 42.7 Estimated GFR (Non- 36.8 BUN/Creatinine Ratio 20.6 Random Glucose 161 mg/dl Calcium Level 9.1 mg/dl Total Bilirubin 0.8 mg/dl Aspartate Amino Transf (AST/SGOT) 18 U/L Alanine Aminotransferase (ALT/SGPT) 18 U/L Alkaline Phosphatase 66 U/L Total Protein 6.4 gm/dl Albumin 2.3 gm/dl Globulin 4.1 gm/dl Albumin/Globulin Ratio 0.6 Random Vancomycin Level 21.0 mcg/ml Test 05/11/18 08:09 Bedside Glucose 175 mg/dl Assessment and Plan (1) Sepsis Assessment & Plan: continue IV abx, follow repeat cultures. if negative could complete 2 weeks po abx. (2) Cellulitis of right leg without foot
[2018-05-11] MEDS: INSULIN ASPART 100 UNITS/ML 3 ML PEN SC SCH ×4 (08:44→21:37)
[2018-05-11] MEDS: HEPARIN SOD 5000 UNIT/0.5 ML CARP SQ SCH ×2 (08:52→21:38)
--- NOTE | 2018-05-11 09:02 | Pharmacy Progress Note ---
Pharmacy Abx Dose Progress Nt Date of Service May 11, 2018. Pharmacy Dosing Scope The patient is currently receiving the following antimicrobial agents per Pharmacy consult: Vancomycin 1000 mg IV every 24 hours Objective Height (Feet): 5 Height (Inches): 2.00 Weight (Kilograms): 106.900 (BMI 43.1) Vital Signs (Past 12Hrs) Vital Signs Past 12 Hours Date Time Temp Pulse Resp B/P (MAP) Pulse Ox O2 Delivery O2 Flow Rate FiO2 05/11/18 07:54 37.1 64 23 193/81 (118) 93 Room Air 05/11/18 00:30 Room Air 05/11/18 00:11 36.8 62 16 157/80 (105) 95 Room Air 05/10/18 21:42 174/80 (111) Lab Results (24Hrs) Laboratory Tests (24 Hours) Test 05/11/18 05:23 White Blood Count 8.85 K/uL (4.8-10.8) Red Blood Count 3.11 M/uL (4.2-5.4) L Hemoglobin 8.8 g/dL (12.0-16.0) L Hematocrit 27.6 % (37-47) L Mean Corpuscular Volume 88.7 fL (80-100) Mean Corpuscular Hemoglobin 28.3 pg (25-34) Mean Corpuscular Hemoglobin Concent 31.9 g/dl (32-36) L Platelet Count 297 K/uL (130-400) Mean Platelet Volume 10.9 fL (7.4-10.4) H Neutrophils (%) (Auto) 77.6 % Lymphocytes (%) (Auto) 11.8 % Monocytes (%) (Auto) 7.3 % Eosinophils (%) (Auto) 2.5 % Basophils (%) (Auto) 0.5 % Neutrophils # (Auto) 6.87 K/uL (1.4-6.5) H Lymphocytes # (Auto) 1.04 K/uL (1.2-3.4) L Monocytes # (Auto) 0.65 K/uL (0.11-0.59) H Eosinophils # (Auto) 0.22 K/uL (0-0.5) Basophils # (Auto) 0.04 K/uL (0-0.2) Item Value Date Time Creatinine 1.42 mg/dl H # 8/11/18 0523 Est Creatinine Clear Calc Drug Dose 41.5 ml/min 05/11/18522 Micro Results Date/Time Source Procedure Growth Status 05/10/18 09:00 Blood Blood Culture Pending Received 05/10/18 08:50 Blood Blood Culture Pending Received 05/08/18 05:09 Blood Blood Culture - Preliminary Coag Neg Staphylococcus Resulted 05/08/18 05:00 Blood Blood Culture - Preliminary Coag Neg Staphylococcus Resulted Risk Factors for Resistance * Hospitalization for 48 hours or more within the past 90 days * Antimicrobial use within the last 90 days Cefdinir Assessment & Plan Assessment 73 year old female receiving Vancomcyin for treatment of bacteremia Day # 2 of antimicrobial therapy Item Value Date Time Random Vancomycin Level 21.0 mcg/ml 05/11/18522 * Renal function has improved from admission. CrCl 29.4 (05/08); Currently 41.5. * Initial blood cultures grew gram positive cocci. Additional blood cultures have been drawn and are pending. * ID is consulted and will continue to make follow patient. Plan Vancomycin IV * Estimated Pkinetic parameters: Vd 0.54 L/kg; Sonny ~0.039 hr-1; T1/2 17.8 hr; CrCl 41.5 * Random level of 21.0 mcg/mL. Appears to be supratherpeutic but this is a 20 hr level. * Begin 1000 mg IV every 24 hours * Goal trough level for bacteremia : 15 to 20 mcg/mL * Trough or random level ordered for: 05/13/18 * Less than traditional dosing interval selected due to likelihood of drug accumulation in obese patient/CKD. Pharmacy will continue to follow and will adjust dose/frequency as necessary. Thank you.
[2018-05-11] MEDS ORDERED: VANCOMYCIN IV 1,000 MG in SODIUM CHLORIDE 0.9% 250ML 250 ML IV SCH (10:00)
--- NOTE | 2018-05-11 15:09 | ECHOCARDIOGRAM REPORT ---
*NOTICE TO RECEIVING [employer] This information is strictly Confidential and protected under [place] law. [place] law prohibits you from making any further disclosure of this information unless further disclosure is expressly permitted by the written consent of the person to whom it pertains or is authorized by law. A general authorization for the release of medical or other information is not sufficient for this purpose. Hospital accepts no responsibility if the information is made available to any other person, INCLUDING THE PATIENT. Interpretation Summary * Name: ADELAIDA GRIMES Study Date: 05/11/2018 01:40 PM BP: 184/77 mmHg * Patient Location: .[id number]\S\E402\S\1 HR: 69 * : 1945 (M/d/yyyy) Gender: Female Height: 62 in * Age: 73 yrs Ethnicity: CA Weight: 238 lb * Ordering Physician: David Bryant * Performed By: Tami Williamson RDCS * * Reason For Study: FOLLOW-UP- R/O ENDOCARDITIS * BSA: 2.1 m2 * There is no evidence of a mass or vegetation. This does not rule out endocarditis. * -- Conclusions -- * Limited study to evaluate cardiac valves * Left ventricular systolic function is normal. * There is moderate mitral annular calcification. Procedure Details * The study was technically limited. * The study was technically difficult. * There were technical limitations due to patient'sbody habitus Left Ventricle * There is moderate concentric left ventricular hypertrophy. * Ejection Fraction = 60-65%. * Left ventricular systolic function is normal. Mitral Valve * There is moderate mitral annular calcification. * Significant mitral regurgitation is absent. Tricuspid Valve * The tricuspid valve is not well visualized, but is grossly normal. Aortic Valve * Aortic valve appears calcified * There is no significant aortic regurgitation. Pulmonic Valve * The pulmonic valve is not well seen, but is grossly normal. Pericardium/Pleural * There is no pericardial effusion. MMode 2D Measurements and Calculations IVSd 2.1 cm IVSs 2.5 cm LVIDd 4.3 cm LVIDs 2.8 cm LVPWd 1.7 cm LVPWs 1.7 cm IVS/LVPW 1.2 FS 34.9 % EDV(Teich) 83.5 ml ESV(Teich) 29.6 ml EF(Teich) 64.5 % EDV(cubed) 80.0 ml ESV(cubed) 22.0 ml EF(cubed) 72.5 % % IVS thick 17.6 % % LVPW thick -1.40 % LV mass(C)d 386.5 grams LV mass(C)dI 187.8 grams/m\S\2 LV mass(C)s 268.1 grams LV mass(C)sI 130.2 grams/m\S\2 SV(Teich) 53.8 ml SI(Teich) 26.2 ml/m\S\2 SV(cubed) 58.0 ml SI(cubed) 28.2 ml/m\S\2 LA dimension 4.0 cm LVOT diam 1.4 cm LVOT area 1.6 cm\S\2
--- NOTE | 2018-05-11 15:49 | Progress Note ---
Subjective Date of Service: May 11, 2018. Subjective Pt evaluation today including: conversation w/ patient, conversation w/ family , physical exam, chart review, lab review, review of studies, conversation w/ medical cost consultant, review of inpatient medication list Doing fair, conversational, right lower extremity mild red and warmer, which has significant better, Problem List Medical Problems: (1) Acute myocardial infarction Status: Acute (2) Acute renal insufficiency Status: Acute (3) Acute respiratory failure with hypoxia Status: Acute (4) Cellulitis of right leg without foot Status: Acute (5) Chest pain Status: Acute (6) CHF exacerbation Status: Acute (7) Diverticulitis Status: Acute (8) Hypoglycemia Status: Acute (9) Pneumonia Status: Acute (10) Sepsis Status: Acute (11) Sepsis Status: Acute (12) UTI (urinary tract infection) Status: Acute (13) Volume overload Status: Acute Review of Systems Constitutional: + weakness, + fatigue, No fever, No chills, No sweats, No weight loss, No problem reported Eyes: No worsening of vision, No eye pain, No redness, No discharge, No diplopia ENT: No hearing loss, No unusual epistaxis, No nasal symptoms, No sore throat, No tinnitus, No dental problems, No trouble swallowing Respiratory: No cough, No sputum, No wheezing, No shortness of breath, No dyspnea on exertion, No dyspnea at rest, No hemoptysis Cardiac: No chest pain, No orthopnea, No PND, No edema, No claudication, No palpitations Abdomen: No pain, No nausea, No vomiting, No diarrhea, No constipation Musculoskeletal: No joint pain, No muscle pain, No swelling, No calf pain Female : No dysuria, No urinary frequency, No hematuria, No incontinence, No abnormal vaginal bleeding, No vaginal discharge Neurologic: + paralysis (From the multiple sclerosis which has been years,), No memory loss, No weakness, No numbness/tingling, No vertigo, No balance problems Psychiatric: No depression symptoms, No anhedonism, No anxiety, No insomnia, No substance abuse Heme: No abnormal bleeding/bruising, No clotting problems, No swollen lymph nodes, No night sweats Endo: No fatigue, No excessive thirst, No excessive urination Skin: No rash, No itch, No new/changing skin lesions, No color change, No bleeding Objective Vital Signs Date Time Temp Pulse Resp B/P (MAP) Pulse Ox O2 Delivery O2 Flow Rate FiO2 05/11/18 15:27 36.7 52 20 149/69 (95) 96 Room Air 05/11/18 12:02 37.4 61 22 198/73 (114) 92 Room Air 05/11/18 08:30 93 Room Air 05/11/18 07:54 37.1 64 23 193/81 (118) 93 Room Air 05/11/18 00:30 Room Air 05/11/18 00:11 36.8 62 16 157/80 (105) 95 Room Air 05/10/18 21:42 174/80 (111) 05/10/18 16:00 Room Air Physical Exam General Appearance: WD/WN, no apparent distress, + obese, + pertinent finding ( Awake alert orientated, obesity,) Eyes: normal inspection, PERRL, EOMI, sclerae normal ENT: normal ENT inspection, hearing grossly normal, pharynx normal Neck: supple, no adenopathy, thyroid normal, no JVD, no carotid bruits, trachea midline Respiratory/Chest: chest non-tender, normal breath sounds, no respiratory distress, no accessory muscle use, + decreased breath sounds Cardiovascular: regular rate, rhythm, no edema, no gallop, no JVD, no murmur Abdomen: normal bowel sounds, non tender, soft, no organomegaly, no pulsatile mass Extremities: normal range of motion, non-tender, normal inspection, no pedal edema, no calf tenderness, normal capillary refill, pelvis stable Neurologic/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: 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, no motor/sensory deficits, alert, normal mood/affect, oriented x 3 Skin: warm/dry, + pertinent finding (Right lower extremitylight skin rash, minimal warmth compared to underside,) Lymphatic: no adenopathy Laboratory Results Last 24 Hours Test 05/10/18 16:30 05/10/18 19:51 05/11/18 05:23 05/11/18 08:09 Bedside Glucose 143 mg/dl 221 mg/dl 175 mg/dl White Blood Count 8.85 K/uL Red Blood Count 3.11 M/uL Hemoglobin 8.8 g/dL Hematocrit 27.6 % Mean Corpuscular Volume 88.7 fL Mean Corpuscular Hemoglobin 28.3 pg Mean Corpuscular Hemoglobin Concent 31.9 g/dl Platelet Count 297 K/uL Mean Platelet Volume 10.9 fL Neutrophils (%) (Auto) 77.6 % Lymphocytes (%) (Auto) 11.8 % Monocytes (%) (Auto) 7.3 % Eosinophils (%) (Auto) 2.5 % Basophils (%) (Auto) 0.5 % Neutrophils # (Auto) 6.87 K/uL Lymphocytes # (Auto) 1.04 K/uL Monocytes # (Auto) 0.65 K/uL Eosinophils # (Auto) 0.22 K/uL Basophils # (Auto) 0.04 K/uL RDW Standard Deviation 51.8 fL RDW Coefficient of Variation 16.0 % Immature Granulocyte % (Auto) 0.3 % Immature Granulocyte # (Auto) 0.03 K/uL Hypochromasia PRESENT Anisocytosis PRESENT Sodium Level 138 mmol/L Potassium Level 3.6 mmol/L Chloride Level 104 mmol/L Carbon Dioxide Level 26 mmol/L Anion Gap 9.0 mmol/L Blood Urea Nitrogen 29 mg/dl Creatinine 1.42 mg/dl Est Creatinine Clear Calc Drug Dose 41.5 ml/min Estimated GFR () 42.7 Estimated GFR (Non- 36.8 BUN/Creatinine Ratio 20.6 Random Glucose 161 mg/dl Calcium Level 9.1 mg/dl Total Bilirubin 0.8 mg/dl Aspartate Amino Transf (AST/SGOT) 18 U/L Alanine Aminotransferase (ALT/SGPT) 18 U/L Alkaline Phosphatase 66 U/L Total Protein 6.4 gm/dl Albumin 2.3 gm/dl Globulin 4.1 gm/dl Albumin/Globulin Ratio 0.6 Random Vancomycin Level 21.0 mcg/ml Test 05/11/18 12:04 Bedside Glucose 188 mg/dl Assessment and Plan 73F with a PMHx of MS (primary progressive), 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 Being admitted for Encephalitis 2/2 to Pulmonary vs Cellulitis. Vanc + Zosyn. Blood cultures pending. Lactate elevated on admission. Encephalopathy 2/2 to Sepsis from cellulitis : Resolving, RLE Cellulitis, continue improving coag neg staph bacteremia. 2 out of 2 tube, repeat blood culture sent yesterday , per infectious disease if repeat blood cultures are negative will have oral doxycycline for 2 week from the day of negative echo ordered, per report * Limited study to evaluate cardiac valves * Left ventricular systolic function is normal. * There is moderate mitral annular calcification. 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
[2018-05-11] MEDS: ATORVASTATIN 40 MG TAB PO SCH (21:25)
[2018-05-11] MEDS: INSULIN GLARGINE SOLOSTAR 100 UNITS/ML 3 ML PEN SC SCH (21:38)
[2018-05-12] MEDS: BOOST GLUCOSE CONTROL VANILLA PO SCH (05:13)
[2018-05-12 07:08] LABS: BASO ABS # 0.09 K/uL (0-0.2); EOS % 3.3 %; EOS ABS # 0.29 K/uL (0-0.5); HEMATOCRIT 28.2 % (37-47); IG# 0.09 K/uL (0.00-0.02); LYMPH % 17.1 %; LYMPH ABS # 1.48 K/uL (1.2-3.4); MEAN CELL VOLUME 88.7 fL (80-100); MEAN CORPUSCULAR HEMOGLOBIN 28.3 pg (25-34); MEAN CORPUSCULAR HGB CONC 31.9 g/dl (32-36); MEAN PLATELET VOLUME 10.7 fL (7.4-10.4); MONO % 10.4 %; NEUT % 67.2 %; NEUT ABS # 5.81 K/uL (1.4-6.5); PLATELET COUNT 300 K/uL (130-400); RED CELL DISTRIBUTION WIDTH CV 16.1 % (11.5-14.5); RED CELL DISTRIBUTION WIDTH SD 52.2 fL (36.4-46.3); WHITE BLOOD COUNT 8.66 K/uL (4.8-10.8)
[2018-05-12 07:33] LABS: CALCIUM 9.1 mg/dl (8.5-10.1); CREATININE 1.51 mg/dl (0.60-1.20); POTASSIUM 4.5 mmol/L (3.5-5.1)
[2018-05-12] MEDS ORDERED: APR50 PO (07:46)
[2018-05-12] MEDS ORDERED: LCTX PO (07:46)
[2018-05-12] MEDS ORDERED: NUTR-7 PO (07:46)
--- NOTE | 2018-05-12 07:47 | Discharge Instructions ---
Discharge Instructions Date of Service May 12, 2018. Admission Reason for Admission: Cellulitis Of R Leg W/O Foot, Sepsis, Encephalopat Discharge Discharge Diagnosis / Problem: RLE Cellulitis Discharge Goals Goal(s): Decrease discomfort, Improve function, Increase independence, Improve disease control, Improve nutritional status, Learn about illness, Diagnostic testing, Therapeutic intervention, Prevent Disease Progression, Specific goals Activity Recommendations Activity Limitations: resume your previous activity . Instructions / Follow-Up Instructions / Follow-Up you have Encephalopathy 2/2 to Sepsis from cellulitis : Resolved you have RLE Cellulitis improving you have coag neg staph bacteremia, you need oral doxycycline for 2 week you have accelerated hypertension, I increased Hydralazine to 75mg oral 3 times a day you have acute kidney injury you need to have BMP, mag checked in the follow up visit with pcp in 4-5 days - you need to follow up with your primary care physician - take medication as instructed, never overdose or any misuse, or take with alcohol, because misuse of medicine may cause organ damage or , call me , or your primary care physician if have questions of discharge medicaitons. - call your primary care physician, or go to local emergency room if has any fever/chill, chest pain, shortness of breathing, nausea/vomiting/abdominal pain , facial droop/slurry speech/local weakness, or if has any questions. - fall precaution - diet as instructed Current Hospital Diet Patient's current hospital diet: Diabetes Type 2 Diet, AHA Diet (Heart Healthy) Discharge Diet Recommended Diet: Diabetes Type 2 Diet Pending Studies Studies pending at discharge: no Laboratory Results Hemoglobin A1c Test 02/26/18 07:04 Range/Units Estimated Average Glucose 134 mg/dl Hemoglobin A1c 6.3 H 4.5-5.6 % Medical Emergencies . Who to Call and When: Medical Emergencies: If at any time you feel your situation is an emergency, please call 911 immediately. . Non-Emergent Contact Non-Emergency issues call your: Primary Care Provider . . "Provider Documentation" section prepared by Archie Choi. .
[2018-05-12] MEDS ORDERED: DOXYCYCLINE HYCLATE 100 MG CAP PO SCH (08:00)
[2018-05-12 08:07] VITALS: BP 149/78; PULSE 61; TEMP 36.8; O2SAT 94
[2018-05-12 08:30] VITALS: O2SAT 94
[2018-05-12] MEDS: GABAPENTIN 300 MG CAP PO SCH (08:47)
[2018-05-12] MEDS: LACTOBACILLUS ACIDOPHILUS (FLORANEX) TAB PO SCH (08:47)
[2018-05-12] MEDS: FUROSEMIDE 80 MG TAB PO SCH (08:47)
[2018-05-12] MEDS: DICLOFENAC SOD 1% GEL 100 GM TUBE EXT SCH (08:48)
[2018-05-12] MEDS: TICAGRELOR 90 MG TAB PO SCH (08:48)
[2018-05-12] MEDS: CARVEDILOL 25 MG TAB PO SCH (08:49)
[2018-05-12] MEDS: ASPIRIN 81 MG ECTAB PO SCH (08:51)
[2018-05-12] MEDS: TAMSULOSIN HCL 0.4 MG CAP PO SCH (08:51)
[2018-05-12] MEDS: POTASSIUM CHLORIDE 20 MEQ TABCR PO SCH (08:51)
[2018-05-12] MEDS: ISOSORBIDE MONONITRATE 30 MG TABCR PO SCH (08:55)
[2018-05-12] MEDS: INSULIN ASPART 100 UNITS/ML 3 ML PEN SC SCH (08:59)
[2018-05-12] MEDS ORDERED: VLTG EXT (09:05)
[2018-05-12] MEDS ORDERED: DXY100 PO (09:05)
[2018-05-12] MEDS: HEPARIN SOD 5000 UNIT/0.5 ML CARP SQ SCH (09:30)
[2018-05-12 09:59] VITALS: BP 149/78; PULSE 61; TEMP 36.8; O2SAT 94
[2018-05-12] MEDS: OXYCODONE/ACETAMINOPHEN 5-325 TAB PO PRN (10:40)
--- NOTE | 2018-05-12 15:02 | Discharge Summary ---
Discharge Summary Date of Service May 12, 2018. Discharge Summary Admission Date: May 08, 2018 at 08:17 Discharge Date: May 12, 2018 Discharge Disposition: Home Principal Diagnosis: Encephalopathy 2/2 to Sepsis from cellulitis Problems/Secondary Diagnoses: RLE Cellulitis improving coag neg staph bacteremia, accelerated hypertension, acute kidney injury Immunizations: Have You Had Influenza Vaccine: Unknown History of Tetanus Vaccine?: Unknown History of Pneumococcal: Unknown History of Hepatitis B Vaccine: Unknown Consultations: NoInfectious disease Medication Reconciliation New Medications: Diclofenac Sod (Voltaren) 100 Appln/100 Gm Gel 1 APPLN EXT QID for 7 Days, #1 Doxycycline Hyclate (Doxycycline Hyclate) 100 Mg Cap 100 MG PO BID for 14 Days, CAP Hydralazine HCl (Hydralazine HCl) 50 Mg Tab 75 MG PO TID for 30 Days, TAB Lactobacillus Acidophilus (Floranex) 1 Tab Tab 4 TAB PO TIDM for 14 Days, TAB Nutritional Supplements (Boost) 1 Liq Liq 1 CAN PO AC for 30 Days Continued Medications: Aspirin (Aspirin Low Dose) 81 Mg Tab 81 MG PO QAM Atorvastatin (Lipitor) 80 Mg Tab 80 MG PO QPM Carvedilol (Carvedilol) 25 Mg Tab 25 MG PO AMHS Ergocalciferol (Vitamin D2) Unknown Strength Tab 1.25 MG PO MONTHLY Furosemide (Lasix) 80 Mg Tab 80 MG PO QAM, TAB Gabapentin (Neurontin) 300 Mg Cap 900 MG PO TID, CAP Insulin Aspart (Novolog) 100 Units/Ml Inj 80 UNITS SC TIDM Insulin Glargine (Lantus) 100 Unit/Ml Inj 28 UNITS SC HS, VIAL Isosorbide Mononitrate Ext Rel (Imdur Ext Rel) 30 Mg Ertab 30 MG PO QAM, TAB Nitroglycerin (Nitrostat) 0.4 Mg Tab 0.4 MG UT PRN PRN for CHEST PAIN, BTL Potassium Ext Rel (Klor-Con) 20 Meq Tabcr 20 MEQ PO QAM, TAB Tamsulosin Hcl (Flomax) 0.4 Mg Cap 0.4 MG PO QAM, CAP Ticagrelor (Brilinta) 90 Mg Tab 90 MG PO AMHS Discontinued Medications: Hydralazine Hcl (Apresoline) 50 Mg Tab 50 MG PO TID, TAB Discharge Exam Feeling okay, eating drinking, no complaint, ready to go home, Review of Systems: Constitutional: + weakness, + fatigue, No fever, No chills, No sweats, No weight loss, No problem reported Eyes: No worsening of vision, No eye pain, No redness, No discharge, No diplopia, No problem reported ENT: No hearing loss, No unusual epistaxis, No nasal symptoms, No sore throat, No tinnitus, No dental problems, No trouble swallowing, No problem reported Respiratory: No cough, No sputum, No wheezing, No shortness of breath, No dyspnea on exertion, No dyspnea at rest, No hemoptysis, No problem reported Cardiovascular: No chest pain, No orthopnea, No PND, No edema, No claudication, No palpitations, No problem reported Abdomen: + problem reported (Pierre catheter in place,), No pain, No nausea, No vomiting, No diarrhea, No constipation, No GI bleeding Musculoskeletal: No joint pain, No muscle pain, No swelling, No calf pain, No problem reported Genitourinary - Female: No dysuria, No urinary frequency, No urinary urgency , No urinary incontinence, No urinary retention, No hematuria, No dysmenorrhea, No menorrhagia, No metrorrhagia, No rash, No vaginal bleeding, No vaginal discharge, No vaginal itching, No vulvodynia, No , No problem reported Neurologic: No memory loss, No paralysis, No weakness, No numbness/tingling , No vertigo, No balance problems, No problem reported Psychiatric: No depression symptoms, No anhedonism, No anxiety, No insomnia , No substance abuse, No problem reported Endocrine: No fatigue, No excessive thirst, No excessive urination, No problem reported Integumentary: No rash, No itch, No new/changing skin lesions, No color change, No bleeding, No problem reported Physical Exam: General Appearance: WD/WN, no apparent distress, + obese Eyes: normal inspection, PERRL ENT: normal ENT inspection, hearing grossly normal, TMs normal Neck: supple, no adenopathy, thyroid normal Respiratory/Chest: chest non-tender, no respiratory distress, no accessory muscle use, + decreased breath sounds Cardiovascular: regular rate, rhythm, no edema, no gallop, no JVD, no murmur Abdomen / GI: normal bowel sounds, non tender, soft, no organomegaly, no pulsatile mass Extremities: normal inspection, no calf tenderness, normal capillary refill , no pedal edema, normal range of motion, + swelling (Trace pedal edema) 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 Being admitted for Encephalitis 2/2 to Pulmonary vs Cellulitis. Vanc + Zosyn. Blood cultures pending. Lactate elevated on admission. Encephalopathy 2/2 to Sepsis from cellulitis : Resolving, RLE Cellulitis, continue improving coag neg staph bacteremia. 2 out of 2 tube, repeat blood culture sent yesterday , per infectious disease if repeat blood cultures are negative will have oral doxycycline for 2 week from the day of negative echo ordered, per report * Limited study to evaluate cardiac valves * Left ventricular systolic function is normal. * There is moderate mitral annular calcification. 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, patient came from home, has been taking all her DVT Proph: Hep SQ Diet: Heart Healthy, DM2 Diet + IVF as above switch over to oral doxycycline for totally 14 days after repeat blood cultures negative, Discussed with patient and her , answered all questions Instructions / Follow-Up you have Encephalopathy 2/2 to Sepsis from cellulitis : Resolved you have RLE Cellulitis improving you have coag neg staph bacteremia, you need oral doxycycline for 2 week you have accelerated hypertension, I increased Hydralazine to 75mg oral 3 times a day you have acute kidney injury you need to have BMP, mag checked in the follow up visit with pcp in 4-5 days - you need to follow up with your primary care physician - take medication as instructed, never overdose or any misuse, or take with alcohol, because misuse of medicine may cause organ damage or , call me , or your primary care physician if have questions of discharge medicaitons. - call your primary care physician, or go to local emergency room if has any fever/chill, chest pain, shortness of breathing, nausea/vomiting/abdominal pain , facial droop/slurry speech/local weakness, or if has any questions. - fall precaution - diet as instructed Total Time Spent: Greater than 30 minutes This includes examination of the patient, discharge planning, medication reconciliation, and communication with other providers. Discharge Instructions Please refer to the electronic Patient Visit Report (Discharge Instructions) for additional information. Additional Copies To Francois Nova II MD
[2018-05-13] MEDS ORDERED: VANCOMYCIN TROUGH ONE (09:30)
== END 2018-05-12 11:45 | disposition home or self-care (01) | DRG 871 ==
LOC: EDBD 04:18 → C.EDA 04:20 → C.2E 08:17 → ENRESERV 08:37 → C.4E 05-09 10:59
PROVIDERS: ADMIT Family Medicine; ATTEND Hospitalist
DX: A41.1 Sepsis due to other specified staphylococcus (principal); G93.49 Other encephalopathy; L03.115 Cellulitis of right lower limb; N17.9 Acute kidney failure, unspecified; E87.1 Hypo-osmolality and hyponatremia; I13.0 Hypertensive heart and chronic kidney disease with heart failure and stage 1 through stage 4 chronic kidney disease, or unspecified chronic kidney disease; I50.32 Chronic diastolic (congestive) heart failure; E11.22 Type 2 diabetes mellitus with diabetic chronic kidney disease; N18.3 Chronic kidney disease, stage 3 (moderate); G35 Multiple sclerosis; E11.40 Type 2 diabetes mellitus with diabetic neuropathy, unspecified; E78.5 Hyperlipidemia, unspecified; I25.10 Atherosclerotic heart disease of native coronary artery without angina pectoris; Z79.4 Long term (current) use of insulin; Z79.82 Long term (current) use of aspirin; Z79.899 Other long term (current) drug therapy; Z88.2 Allergy status to sulfonamides; Z99.3 Dependence on wheelchair

== ENCOUNTER → 2018-05-22 | Outpatient (CLI) | payer OTHER, BC ==
[~2018-05-22] MED LIST changes: +APR50 PO; -CYNI1000 INJ; +DXY100 PO; -HYDR-4717 PO; +LCTX PO; +NUTR-7 PO; +VLTG EXT
[2018-05-22 15:37] LABS: MEAN CELL VOLUME 90.4 fL (80-100); MEAN CORPUSCULAR HEMOGLOBIN 28.2 pg (25-34); MEAN CORPUSCULAR HGB CONC 31.3 g/dl (32-36); MEAN PLATELET VOLUME 10.6 fL (7.4-10.4); PLATELET COUNT 316 K/uL (130-400); RED CELL DISTRIBUTION WIDTH CV 17.2 % (11.5-14.5); RED CELL DISTRIBUTION WIDTH SD 56.9 fL (36.4-46.3); WHITE BLOOD COUNT 7.92 K/uL (4.8-10.8)
[2018-05-22 15:53] LABS: ALBUMIN 3.2 gm/dl (3.4-5.0); BLOOD UREA NITROGEN 37 mg/dl (7-18); CALCIUM 10.1 mg/dl (8.5-10.1); CARBON DIOXIDE 27 mmol/L (21-32); CREATININE 1.87 mg/dl (0.60-1.20); GLUCOSE 178 mg/dl (70-99); PHOSPHORUS 3.5 mg/dl (2.5-4.9); POTASSIUM 3.7 mmol/L (3.5-5.1); SODIUM 142 mmol/L (136-145)
== END | disposition home or self-care (01) ==
LOC: C.LAB1850 14:27
PROVIDERS: ATTEND Internal Medicine Nephrology
DX: E21.3 Hyperparathyroidism, unspecified (principal); G35 Multiple sclerosis; N18.3 Chronic kidney disease, stage 3 (moderate); D64.9 Anemia, unspecified; I12.9 Hypertensive chronic kidney disease with stage 1 through stage 4 chronic kidney disease, or unspecified chronic kidney disease; E55.9 Vitamin D deficiency, unspecified; R60.9 Edema, unspecified

== ENCOUNTER 2019-03-07 05:49 | Inpatient (IN) ==
[2019-03-07] MEDS ORDERED: HYDROmorphone INJ 0.5 MG/0.5 ML SYR IV STA (06:06)
[2019-03-07] MEDS ORDERED: ONDANSETRON INJ 2 MG/ML 2 ML VIAL IV STA (06:15)
[2019-03-07 06:38] LABS: Basophils # (auto) 0.06 K/uL (0-0.2); Basophils % (auto) 0.6 %; Eosinophils # (auto) 0.26 K/uL (0-0.5); Eosinophils % (auto) 2.6 %; Hematocrit (blood only) 31.2 % (37-47); Hemoglobin 9.5 g/dL (12.0-16.0); Immature Granulocytes # (auto) 0.03 K/uL (0.00-0.02); Immature Granulocytes % (auto) 0.3 %; Lymphocytes # (auto) 0.71 K/uL (1.2-3.4); Lymphocytes % (auto) 7.1 %; Mean Corpuscular Hgb Conc 30.4 g/dL (32-36); Mean Corpuscular Volume 89.4 fL (80-100); Monocytes # (auto) 0.83 K/uL (0.11-0.59); Monocytes % (auto) 8.2 %; Neutrophils # (auto) 8.18 K/uL (1.4-6.5); Neutrophils % (auto) 81.2 %; Nucleated RBC # (auto) 0.03 K/uL (0-0); Nucleated RBC % (auto) 0.3 %; Platelet Count 290 K/uL (130-400); RDW Coefficient of Variation 20.8 % (11.5-14.5); RDW Standard Deviation 65.7 fL (36.4-46.3); Red Blood Count 3.49 M/uL (4.2-5.4); White Blood Count 10.07 K/uL (4.8-10.8)
--- NOTE | 2019-03-07 06:47 | XRay Report ---
XR chest 1V portable CLINICAL HISTORY: Shortness of breath. COMPARISON STUDY: Chest radiograph July 02, 2018. FINDINGS: A right internal jugular dual lumen catheter is in place. There is no pneumothorax. There a re suspected trace bilateral pleural effusions. Interlobular septal thickening suggests mild pulmonar y edema. Basilar opacities present. There may also be right basilar opacity. Cardiomegaly is unchange d. IMPRESSION: 1. Mild interstitial pulmonary edema. 2. Bibasilar opacities, greater on the left. These may reflect pneumonia or atelectasis. Radiographic follow-up is recommended. Electronically signed by: Feliciano Rowland M.D. 03/07/2019 6:45 AM
[2019-03-07 06:54] LABS: Alanine Aminotransferase 16 U/L (12-78); Albumin Level 2.6 gm/dl (3.4-5.0); Aspartate Aminotransferase 12 U/L (15-37); BUN Creatinine Ratio 20.7 (10-20); Blood Urea Nitrogen 48 mg/dl (7-18); Carbon Dioxide 33 mmol/L (21-32); Chloride 105 mmol/L (98-107); Est GFR (African American) 23.4; Est GFR (Non-African American) 20.2; Glucose 137 mg/dl (70-99); Potassium 4.8 mmol/L (3.5-5.1); Sodium 144 mmol/L (136-145)
[2019-03-07 07:01] LABS: Albumin Globulin Ratio 0.7 (0.9-2); Alkaline Phosphatase 119 U/L (45-117); Bilirubin,Total 0.4 mg/dl (0.2-1); Globulin 3.9 gm/dl (2.5-4.0); Total Protein 6.5 gm/dl (6.4-8.2); Troponin I 0.059 ng/ml (0-0.045)
[2019-03-07] MEDS ORDERED: HydrALAZINE HCL 20 MG/ML VIAL IV STA (07:03)
[2019-03-07 07:09] LABS: Anisocytosis Present
--- NOTE | 2019-03-07 07:31 | Emergency Department Note ---
Entered by Britta Angel acting as a scribe for History of Present Illness General Chief complaint: Back Injury/Pain Stated complaint: BACK PAIN Time Seen by Provider: 03/07/19 05:50 Source: patient History of Present Illness Provider complaint: back pain Onset (ago): hour(s) 4 Location: back Pain Consistency: + constant Current Pain Intensity: 8 Relieved By: + medication (Tramadol) Exacerbated By: + none Associated symptoms: + denies other symptoms, + shortness of breath (intermittently) and + other (Pain in abdomen and leg) The patient is a 74 y/o female who presents to the emergency department for evaluation of constant back pain that began this morning. The patient stated that she was just released from [facility] at 4pm for treatment of osteomyelitis but the pain today has become worse at an 8/10. Once home the patient notes Tramadol helps relieve the pain for a period of time. Her last dose was at 2:30am according to the . Her notes she has been experiencing pain all night in the abdomen, buttocks, and legs and is generally uncomfortable and unable to relax with intermittent shortness of breath. They note that the patient is receiving pain medication and the antibiotic ceftriaxone regularly. Home Medications Home Medications Medication Instructions Recorded Confirmed Type aspirin [Aspirin Low Dose] 81 mg PO QAM 07/02/18 03/07/19 History atorvastatin 80 mg PO PM 07/02/18 03/07/19 History carvedilol 25 mg PO BID 07/02/18 03/07/19 History ergocalciferol (vitamin D2) 50,000 unit PO MONTHLY 07/02/18 03/07/19 History gabapentin 1,200 mg PO QAM 07/02/18 03/07/19 History insulin glargine 28 units SUBCUT HS 07/02/18 03/07/19 History isosorbide mononitrate 30 mg PO QAM 07/02/18 03/07/19 History nitroglycerin 1 tab SUBLINGUAL Q5M PRN 07/02/18 03/07/19 History potassium chloride 20 meq PO QAM 07/02/18 03/07/19 History tamsulosin 0.4 mg PO QAM 07/02/18 03/07/19 History ticagrelor 90 mg PO BID 07/02/18 03/07/19 History insulin aspart U-100 80 unit SUBCUT TID 12/05/18 03/07/19 History tramadol 50 - 100 mg PO Q4H PRN 02/14/19 03/07/19 History L.acidoph-B.lactis-B.longum 1 cap PO DAILY 03/07/19 03/07/19 History [Florajen3] ceftriaxone 2 g IV DAILY 03/07/19 03/07/19 History docusate sodium [Colace] 100 mg PO BID PRN 03/07/19 03/07/19 History furosemide 40 mg PO BID 03/07/19 03/07/19 History melatonin 5 mg PO HS 03/07/19 03/07/19 History ondansetron HCl 4 mg PO TID PRN 03/07/19 03/07/19 History polyethylene glycol 3350 [Miralax] 17 g PO DAILY PRN 03/07/19 03/07/19 History spironolactone 25 mg PO QAM 03/07/19 03/07/19 History Allergies Allergy/AdvReac Type Severity Reaction Status Date / Time clopidogrel Allergy Intermediate RASH Verified 03/07/19 07:04 Sulfa (Sulfonamide Allergy Intermediate RASH Verified 03/07/19 07:04 Antibiotics) Past Med/Surg History Medical History Chronic diastolic CHF (congestive heart failure) Chronic paraplegia Morbid obesity DM (diabetes mellitus) (Chronic) History of CVA (cerebrovascular accident) 1995 HTN (hypertension) (Chronic) MS (multiple sclerosis) (Chronic) sees Dr. Murphy in [place]; primary progressive disease CAD (coronary artery disease) (Chronic) History of myocardial infarction (Chronic) first [place] 2013; 2nd [place] in 2017; s/p stent in 2013 EMMETT (acute kidney injury) (Resolved) Chronic kidney disease, stage III (moderate) Surgical History Cataract extraction status Family History Father , in his 70s CKD (chronic kidney disease) Stroke Mother , age 70 Brain tumor Other Family history non-contributory Social History Preferred Language: [place] Communication Ability: Effective Beliefs That Will Affect Care: None marital status: Current Living Situation: Spouse Current Living Situation Comment: lives with in [place]; they have 3 children 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 and A total of 10 systems reviewed and were otherwise negative Physical Exam Vital Signs Vital Signs - 24 hr 03/07/19 05:50 03/07/19 06:10 Temperature 36.6 C Temperature Source Oral Sepsis Recent Fever Within 48 Hours No Sepsis New/Unexplained Change in Mental Status No Sepsis Action Taken by Nursing No Action Required Pulse Rate 51 L Respiratory Rate 12 Respiratory Effort / Characteristics Non-Labored Spontaneous Respiratory Depth Normal Respiratory Pattern Regular Blood Pressure 196/134 H Blood Pressure Mean 154 Pulse Oximetry 89 L 100 Oxygen Delivery Method Room Air Nasal Cannula Oxygen Flow Rate 4 General: Morbidly obese female. Appears uncomfortable. HEENT: Head - normocephalic and atraumatic Pupils are equal, round, and reactive to light. Extraocular eye muscles are intact, and sclera are anicteric. Nose - moist nasal mucosa without discharge. Mouth - Mouth is dry and lips are cracked. Oropharynx is nonerythematous and there is no tonsillar exudate or edema noted. Neck: Supple; no JVD, nuchal rigidity, cervical lymphadenopathy. Heart: Regular rate and rhythm. There is a normal S1 and S2 with a 4/6 systolic ejection mummer. No clicks, or gallops appreciated. Lungs: Clear to auscultation bilaterally with no wheezes, rales, or rhonchi. Abdomen: Soft, completely nontender, nondistended, with good bowel sounds. There are no palpable pulsatile masses or hepatosplenomegaly. There is no guarding, rigidity, or rebound noted. Extremities: No evidence of cyanosis, clubbing, or edema. There are easily palpable peripheral pulses. Skin: warm and dry with good turgor and no rashes. Buttocks: Small area of skin breakdown on sacrum. Course 0555: The patient was evaluated in room B09. A complete history and physical exam was performed. Laboratory studies were drawn as above. 0605: I reviewed the paperwork from [facility] for the patient. 0606: Ordered Dilaudid 0.5 mg IV for the back pain. 0615: Ordered Zofran 4 mg IV. 0700: I checked on the patient and updated her on her results. 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 The patient states that her back pain is much improved. Patient was noted to be significantly hypertensive with blood pressures at 240/140 0703: Ordered hydralazine HCL 10mg IV. 0716: I spoke [place] [facility] [place]. She will evaluate for further management. Administered Medications Discontinued Medications Hydralazine HCl (Hydralazine Hcl) 10 mg IV NOW STA Stop: 03/07/19 07:04 Last Admin: 03/07/19 07:11 Dose: 10 mg Documented by: [id number] Hydromorphone HCl (Dilaudid) 0.5 mg IV NOW STA Stop: 03/07/19 06:07 Last Admin: 03/07/19 06:22 Dose: 0.5 mg Documented by: [id number] Ondansetron HCl (Zofran) 4 mg IV NOW STA Stop: 03/07/19 06:16 Last Admin: 03/07/19 06:22 Dose: 4 mg Documented by: [id number] Medical Decision Making Differential Diagnosis Differential diagnosis: Exacerbation of chronic back pain, CHF, Pneumonia. Medical Records Attestation: I reviewed the patient's medical records. Home Medications Current Medication List: was personally reviewed by me Laboratory Data Attestation: I reviewed the patient's lab results. Result diagrams: 03/07/19 06:24 03/07/19 06:24 Lab Results 03/07/19 03/07/19 Range/Units 06:24 06:24 WBC 10.07 (4.8-10.8) K/uL RBC 3.49 L (4.2-5.4) M/uL Hgb 9.5 L (12.0-16.0) g/dL Hct 31.2 L (37-47) % MCV 89.4 (80-100) fL MCH 27.2 (25-34) pg MCHC 30.4 L (32-36) g/dL RDW Std Deviation 65.7 H (36.4-46.3) fL RDW Coeff of Valeria 20.8 H (11.5-14.5) % Plt Count 290 (130-400) K/uL MPV 11.0 H (7.4-10.4) fL Immature Gran % (Auto) 0.3 % Neut % (Auto) 81.2 % Lymph % (Auto) 7.1 % [place] % (Auto) 8.2 % Eos % (Auto) 2.6 % Baso % (Auto) 0.6 % Immature Gran # (Auto) 0.03 H (0.00-0.02) K/uL Neut # (Auto) 8.18 H (1.4-6.5) K/uL Lymph # (Auto) 0.71 L (1.2-3.4) K/uL [place] # (Auto) 0.83 H (0.11-0.59) K/uL Eos # (Auto) 0.26 (0-0.5) K/uL Baso # (Auto) 0.06 (0-0.2) K/uL Absolute Nucleated RBC 0.03 H (0-0) K/uL Nucleated RBC % (auto) 0.3 % Anisocytosis Present Sodium 144 (136-145) mmol/L Potassium 4.8 (3.5-5.1) mmol/L Chloride 105 (98-107) mmol/L Carbon Dioxide 33 H (21-32) mmol/L Anion Gap 6.0 (3-11) BUN 48 H (7-18) mg/dl Creatinine 2.32 H (0.6-1.2) mg/dl Est Cr Clr Drug Dosing Not Reportable Est GFR ( Amer) 23.4 Est GFR (Non-Af Amer) 20.2 BUN/Creatinine Ratio 20.7 H (10-20) Glucose 137 H (70-99) mg/dl Calcium 10.0 (8.5-10.1) mg/dl Total Bilirubin 0.4 (0.2-1) mg/dl AST 12 L (15-37) U/L ALT 16 (12-78) U/L Alkaline Phosphatase 119 H (45-117) U/L Troponin I 0.059 H* (0-0.045) ng/ml Total Protein 6.5 (6.4-8.2) gm/dl Albumin 2.6 L (3.4-5.0) gm/dl Globulin 3.9 (2.5-4.0) gm/dl Albumin/Globulin Ratio 0.7 L (0.9-2) Imaging Data Radiologist's Impression: Radiology results as stated below per my review and the radiologist's interpretation: XR chest 1V portable CLINICAL HISTORY: Shortness of breath. COMPARISON STUDY: Chest radiograph July 02, 2018. FINDINGS: A right internal jugular dual lumen catheter is in place. There is no pneumothorax. There are suspected trace bilateral pleural effusions. Interlobu lar septal thickening suggests mild pulmonary edema. Basilar opacities present. There may also be right basilar opacity. Cardiomegaly is unchanged. IMPRESSION: 1. Mild interstitial pulmonary edema. 2. Bibasilar opacities, greater on the left. These may reflect pneumonia or atelectasis. Radiographic follow-up is recommended. Electronically signed by: Feliciano Rowland M.D. 03/07/2019 6:45 AM ECG Data Attestation: I personally reviewed and interpreted this ECG as follows: Indication: other (pain ) Rate (beats per minute): 67 Rhythm: normal sinus Findings: + T-wave inversion (laterally); no ectopy Comparison ECG Date: from (07/20/18) Change: the following changes noted (lateral t-wave inversion. ) Blood Pressure Blood Pressure Findings: Elevated blood pressure Blood Pressure Disposition: further management by hospitalist DURAN Narrative The patient is a 74 y/o female who presents to the emergency department for evaluation of constant back pain that began this morning. 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 The patient was discharged home on oral tramadol for pain and IV Rocephin that was to be administered by her . The patient had severe pain overnight that was unbearable for her. The patient's describes her as being slightly agitated. She also describes some shortness of breath and increasing anxiety. On laboratory testing, the patient's creatinine has increased to 2.3. Her blood pressure is extremely high. The patient was given a dose of IV hydralazine which has brought the blood pressure down. She is somewhat anemic. The patient is also having episodes of bradycardia with heart rate as low as 30. She does seem to be mentating normally. I am unsure if the patient's would be able to care for her at home by himself even with the help of home nursing agency. The patient has a history of progressive MS and paraplegia. She is no longer able to hold herself upright in the seated position. She does have a small bedsore on her sacrum. She is comfortable at the time of admission. I discussed the case with the [facility] Hospitalist and they will evaluate for further management. Impression & Plan HTN (hypertension), Renal insufficiency, Intractable back pain Discharge Plan Visit Data Chief Complaint: Back Injury/Pain Stated Complaint: BACK PAIN ED Provider: Anahy Gomez Discharge Problem: HTN (hypertension), Renal insufficiency, Intractable back pain Patient Disposition: Being Evaluated by Hospitalist Forms Stand Alone Forms: My [facility] Prescriptions Prescriptions: No Action atorvastatin 80 mg tablet 80 mg PO PM RF: 0 carvedilol 25 mg tablet 25 mg PO BID RF: 0 gabapentin 600 mg tablet 1,200 mg PO QAM RF: 0 isosorbide mononitrate 30 mg tablet extended release 24 hr 30 mg PO QAM RF: 0 aspirin [Aspirin Low Dose] 81 mg Tablet,Delayed Release (Dr/Ec) 81 mg PO QAM RF: 0 potassium chloride 20 mEq tablet,ER particles/crystals 20 meq PO QAM RF: 0 tamsulosin 0.4 mg capsule 0.4 mg PO QAM RF: 0 nitroglycerin 0.4 mg tablet, sublingual 1 tab Sublingual Q5M PRN (Reason: Chest Pain) RF: 0 ergocalciferol (vitamin D2) 50,000 unit capsule 50,000 unit PO MONTHLY RF: 0 insulin glargine 100 unit/mL (3 mL) insulin pen 28 units subcut HS RF: 0 ticagrelor 90 mg tablet 90 mg PO BID RF: 0 tramadol 50 mg tablet 50 - 100 mg PO Q4H PRN (Reason: Pain) RF: 0 insulin aspart U-100 100 unit/mL Insulin Pen 80 unit SUBCUT TID RF: 0 spironolactone 25 mg tablet 25 mg PO QAM RF: 0 melatonin 5 mg Tablet 5 mg PO HS RF: 0 furosemide 40 mg tablet 40 mg PO BID RF: 0 ceftriaxone 2 gram Recon Soln 2 g IV DAILY RF: 0 docusate sodium [Colace] 100 mg Capsule 100 mg PO BID PRN (Reason: Constipation) RF: 0 polyethylene glycol 3350 [Miralax] 17 gram/dose Powder 17 g PO DAILY PRN (Reason: Constipation) RF: 0 Florajen3 460 mg (7.5-6- 1.5 bill. cell) Capsule 1 cap PO DAILY RF: 0 ondansetron HCl 4 mg Tablet 4 mg PO TID PRN (Reason: Nausea) RF: 0 Referrals Referrals: Kary Paredes MD [Primary Care Provider] - Discharge Problem: HTN (hypertension) Qualifiers: Hypertension type: unspecified Qualified Code(s): I10 - Essential (primary) hypertension The scribe's documentation has been prepared under my direction and personally reviewed by me in its entirety. I confirm that the note above accurately reflects all work, treatment, procedures, and medical decision making performed by me.
[2019-03-07] MEDS ORDERED: GLUCAGON FOR INJ 1 MG VIAL SQ PRN (09:38)
[2019-03-07] MEDS ORDERED: DOCUSATE SODIUM 100 MG CAP PO PRN (09:38)
[2019-03-07] MEDS ORDERED: CARBOHYDRATES FOR HYPOGLYCEMIA PO PRN (09:38)
[2019-03-07] MEDS ORDERED: GLUCOSE 10 TABS/TUBE PO PRN (09:38)
[2019-03-07] MEDS ORDERED: NON-FORMULARY MEDICATION (Ceftriaxone 2 GM) IV SCH (09:38)
[2019-03-07] MEDS ORDERED: DEXTROSE 50% 50 ML SYRINGE IV PRN (09:38)
[2019-03-07] MEDS ORDERED: GLUCOSE 40% GEL 15 GM TUBE PO PRN (09:38)
[2019-03-07] MEDS ORDERED: ACETAMINOPHEN 325 MG TAB PO PRN (09:38)
[2019-03-07] MEDS ORDERED: POLYETHYLENE (MIRALAX) 17 GM PACK PO PRN (09:38)
[2019-03-07] MEDS ORDERED: TRAMADOL HCL 50 MG TABLET PO PRN (09:38)
--- NOTE | 2019-03-07 10:00 | History & Physical Report ---
Date of Service March 07, 2019 Assessment & Plan (1) Intractable back pain: - Likely multifactorial related to acute on chronic osteomyelitis, subdural abscess, paraplegia in setting of MS. - Discharged to home from [facility] on 03/06/19; presented for admission overnight. - Tylenol prn mild pain, Tramadol prn moderate pain and Dilaudid IV prn severe pain. - XR of spine is pending; orthopedics consulted to evaluate for acute etiology. - Continue home Gabapentin 1,200 mg daily with close monitoring of renal function. - IV abx as noted below for treatment of osteomyelitis. (2) Vertebral osteomyelitis: - Discharged from [facility] on 03/06/19; will continue Ceftriaxone 2 gm IV daily. - Ortho spine consulted as inpatient. - XR of spine is pending completion. (3) Subdural abscess: - Treated at [facility]; no surgical intervention performed there -Continue Ceftriaxone IV daily. (4) HTN (hypertension): - BP has been very uncontrolled since presenting to the ER; received Hydralazine IV with minimal improvement. - Continue home Coreg and Imdur as prescribed. - Holding home Spironolactone and Lasix due to ARF. - Hydralazine dose was recently decreased to 25 mg TID at [facility]; will increase back to 75 mg TID. - Labetalol 5 mg IV x 1 dose following transfer to PCU. - Cardiology consulted. (5) Acute renal failure: - Creatinine increased to 2.32; baseline ~1.3-1.7. - U/a, urine sodium and creatinine to calculate FENa are pending. - Hold IV fluids in setting of pulm edema on CXR. - Holding home Lasix and Spironolactone; caution with Gabapentin and Tramadol for pain. - Repeat labs at 16:00 then monitor qAM. (6) CKD (chronic kidney disease), stage III: - Previously with stage III CKD; GFR is more consistent with stage IV at this point in setting of ARF. - Renally dose all meds. - Follows with Dr. Meraz from nephrology. (7) Acute respiratory failure with hypoxia: - Has been requiring 3-4L via NC during this admission -- may be related to pulm edema vs. infection. - CXR showed mild pulm edema and bibasilar opacities concerning for atelectasis, less likely PNA. - Currently receiving Ceftriaxone daily; consider addition of MRSA and atypical coverage if necessary. - Cardiology consulted for evaluation. (8) Chronic diastolic CHF (congestive heart failure): - Most recent TTE completed at [facility] showed EF 60%, no wall motion abnormalities and trivial aortic regurg with some degree of aortic stenosis. - CXR with mild pulm edema. - Holding home Lasix in setting of ARF; continue Coreg as prescribed. - Monitor net I/O's and daily weights. (9) Elevated troponin: - Trop was elevated at admission, appears close to her baseline. - Will trend q6hr; no acute cardiac symptoms present. (10) Acute anemia: - Hemoglobin ~9-11 at baseline; may be related to anemia of chronic disease. - Trend qAM. (11) DM (diabetes mellitus): - Hemoglobin A1C was 6.4 in Nov 2018. - Continue basal/bolus insulin. - Pharmacy consulted for glycemic management as pt. requires large doses of insulin at home. (12) History of CVA (cerebrovascular accident): - Occurred in 1995. - Continue statin, aspirin, Brilinta as prescribed. (13) MS (multiple sclerosis): - With paraplegia. - Monitored by neurologist in [place]. (14) Chronic paraplegia: - Very poor ambulatory function at home -- can use right arm, otherwise requires assistance of with wheelchair. - PT/OT ordered - she refused LTACH and SNF at [facility]; will need placement following this admission due to poor overall function. - Case management following. (15) Coronary artery disease: - H/o DC in 2013; follows with Dr. Palomo. - Continue statin, aspirin, Coreg, Imdur, Brilinta as prescribed. - Cardiology consulted as inpt due to acute hypoxia. (16) Morbid obesity: - BMI 40 -- encourage weight loss. (17) DVT prophylaxis: - SCDs; Heparin 5,000 units subq 12hr. Dispo: PCU for PT/OT, evaluation and treatment of ARF and HTN management. History of Present Illness Chief Complaint: Back Pain Primary Care Provider: Kary Paredes MD Mrs. Bowman is a 74 year old female with complex past medical history, including DM, CVA, HTN, aortic stenosis, MS, CKD, CAD, H/o DC, Chronic Paraplegia, Chronic Diastolic HF and recent osteomyelitis of the thoracic spine with subdural abscess who presented with increased back pain and SOB. Pt. was recently admitted to [facility] for thoracic osteomyelitis and an subdural abscess; pt. was not a surgical candidate, therefore she has been octavio renea with Ceftriaxone 2 gm IV daily. Pt. was discharged to home on 03/06/19 -- LTACH vs. SNF placement discussed with the patient and her but she refused both options. A prescription for Tramadol was provided at discharge. Pt. developed increased back pain at home last evening, no relief provided with Tramadol. Pain is intermittent, rated as a 6/10. Had radiation of pain to both legs extending to her knees. Denies urinary incontinence or stool incontinence, saddle anesthesia. Pt. also complained of SOB at rest -- is stable on room air at home but has been requiring 3-4L via NC during this admission. Denies chest pain, increased LE edema, URI symptoms, headache, vomiting, abdominal pain, constipation or diarrhea, dysuria or hematuria. BP was 231/109 in the ER -- received Hydralazine 10 mg IV with improvement, 185/101. Hydralazine dose was recently decreased from 75 TID to 25 TID at [facility] and Spironolactone 25 mg q48hr was added to anti-hypertensive regimen. Renal function elevated above baseline. CXR showed mild pulmonary edema. Troponin was also elevated, will trend q6hr. Pt. will be admitted to PCU for cardiac monitoring with hypertension management & PT/OT evaluation. Allergies Allergy/AdvReac Type Severity Reaction Status Date / Time clopidogrel Allergy Intermediate RASH Verified 03/07/19 07:04 Sulfa (Sulfonamide Allergy Intermediate RASH Verified 03/07/19 07:04 Antibiotics) Home Medications Home Medications Medication Instructions Recorded Confirmed Type aspirin [Aspirin Low Dose] 81 mg PO QAM 07/02/18 03/07/19 History atorvastatin 80 mg PO PM 07/02/18 03/07/19 History carvedilol 25 mg PO BID 07/02/18 03/07/19 History ergocalciferol (vitamin D2) 50,000 unit PO MONTHLY 07/02/18 03/07/19 History gabapentin 1,200 mg PO QAM 07/02/18 03/07/19 History insulin glargine 28 units SUBCUT HS 07/02/18 03/07/19 History isosorbide mononitrate 30 mg PO QAM 07/02/18 03/07/19 History nitroglycerin 1 tab SUBLINGUAL Q5M PRN 07/02/18 03/07/19 History potassium chloride 20 meq PO QAM 07/02/18 03/07/19 History tamsulosin 0.4 mg PO QAM 07/02/18 03/07/19 History ticagrelor 90 mg PO BID 07/02/18 03/07/19 History insulin aspart U-100 0 unit SUBCUT TID 12/05/18 03/07/19 History tramadol 50 - 100 mg PO Q4H PRN 02/14/19 03/07/19 History L.acidoph-B.lactis-B.longum 1 cap PO DAILY 03/07/19 03/07/19 History [Florajen3] ceftriaxone 2 g IV DAILY 03/07/19 03/07/19 History docusate sodium [Colace] 100 mg PO BID PRN 03/07/19 03/07/19 History furosemide 40 mg PO BID 03/07/19 03/07/19 History melatonin 5 mg PO HS 03/07/19 03/07/19 History ondansetron HCl 4 mg PO TID PRN 03/07/19 03/07/19 History polyethylene glycol 3350 [Miralax] 17 g PO DAILY PRN 03/07/19 03/07/19 History spironolactone 25 mg PO QAM 03/07/19 03/07/19 History Past Med/Surg History Medical History Chronic diastolic CHF (congestive heart failure) Chronic paraplegia Morbid obesity DM (diabetes mellitus) (Chronic) History of CVA (cerebrovascular accident) 1995 HTN (hypertension) (Chronic) MS (multiple sclerosis) (Chronic) sees Dr. Murphy in [place]; primary progressive disease Aortic stenosis CAD (coronary artery disease) (Chronic) History of myocardial infarction (Chronic) first DC 2013; 2nd DC in 2017; s/p stent in 2013 EMMETT (acute kidney injury) (Resolved) Chronic kidney disease, stage III (moderate) Surgical History Cataract extraction status Family History Father , in his 70s CKD (chronic kidney disease) Stroke Mother , age 70 Brain tumor Other Family history non-contributory Social History Preferred Language: Citizen Of [place] Communication Ability: Effective Safety Instruction Police Officer Required: No Beliefs That Will Affect Care: None marital status: Current Living Situation: Spouse 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 Safe at Home: Yes Safety Concerns: Feels Safe At This Time Smoking Status: Never smoker Hx Alcohol Use: No Hx Substance Use: No Review of Systems Review of Systems: All systems reviewed & are unremarkable except as noted in HPI & below Constitutional: + fatigue and + weakness; no fever, no chills, no body aches and no anorexia Ear, Nose, Mouth, Throat: no nasal congestion, no nasal discharge and no sore throat Respiratory: + dyspnea and + dyspnea on exertion; no cough and no wheezing Cardiovascular: no chest pain, no palpitations, no lightheadedness, no syncope and no edema Gastrointestinal: no abdominal pain, no nausea, no vomiting, no constipation and no diarrhea/loose stools Genitourinary: no dysuria and no difficulty urinating Musculoskeletal: + back pain; no joint pain and no swelling Integumentary: no non-healing lesions Neurologic: + paralysis Allergy / Immunological: no rash Physical Exam Physical Exam: General: Resting comfortably in no apparent distress HEENT: NC/AT; PERRLA with EOMI; [place] conjunctiva, MMM. No erythema of posterior pharynx Neck: Supple and nontender Cardiac: +2/6 systolic murmur; regular rate and rhythm Lungs: on 3L via NC; CTA bilaterally Abdomen: Bowel normoactive X 4; Nontender to palpation Rectal: Deferred : Deferred Extremities: Warm. +1 bilat LE chronic edema. Neuro: No focal weakness; 0/5 muscle strength in LUE and bilat LE in setting of paraplegia. Skin: No rash Results & Data Vital Signs (Past 12 Hours) Vital Signs Temp Pulse Pulse Resp BP BP Pulse Ox 03/07/19 07:38 70 18 231/109 H 100 03/07/19 06:10 100 03/07/19 05:50 36.6 C 51 L 12 196/134 H 89 L Laboratory Results 03/07/19 03/07/19 03/07/19 Range/Units 09:49 06:24 06:24 WBC 10.07 (4.8-10.8) K/uL RBC 3.49 L (4.2-5.4) M/uL Hgb 9.5 L (12.0-16.0) g/dL Hct 31.2 L (37-47) % MCV 89.4 (80-100) fL MCH 27.2 (25-34) pg MCHC 30.4 L (32-36) g/dL RDW Std Deviation 65.7 H (36.4-46.3) fL RDW Coeff of Valeria 20.8 H (11.5-14.5) % Plt Count 290 (130-400) K/uL MPV 11.0 H (7.4-10.4) fL Immature Gran % (Auto) 0.3 % Neut % (Auto) 81.2 % Lymph % (Auto) 7.1 % [facility] % (Auto) 8.2 % Eos % (Auto) 2.6 % Baso % (Auto) 0.6 % Immature Gran # (Auto) 0.03 H (0.00-0.02) K/uL Neut # (Auto) 8.18 H (1.4-6.5) K/uL Lymph # (Auto) 0.71 L (1.2-3.4) K/uL [facility] # (Auto) 0.83 H (0.11-0.59) K/uL Eos # (Auto) 0.26 (0-0.5) K/uL Baso # (Auto) 0.06 (0-0.2) K/uL Absolute Nucleated RBC 0.03 H (0-0) K/uL Nucleated RBC % (auto) 0.3 % Anisocytosis Present Sodium 144 (136-145) mmol/L Potassium 4.8 (3.5-5.1) mmol/L Chloride 105 (98-107) mmol/L Carbon Dioxide 33 H (21-32) mmol/L Anion Gap 6.0 (3-11) BUN 48 H (7-18) mg/dl Creatinine 2.32 H (0.6-1.2) mg/dl Est Cr Clr Drug Dosing Not Reportable Est GFR ( Amer) 23.4 Est GFR (Non-Af Amer) 20.2 BUN/Creatinine Ratio 20.7 H (10-20) Glucose 137 H (70-99) mg/dl POC Glucose 159 H (70-99) Calcium 10.0 (8.5-10.1) mg/dl Total Bilirubin 0.4 (0.2-1) mg/dl AST 12 L (15-37) U/L ALT 16 (12-78) U/L Alkaline Phosphatase 119 H (45-117) U/L Troponin I 0.059 H* (0-0.045) ng/ml Total Protein 6.5 (6.4-8.2) gm/dl Albumin 2.6 L (3.4-5.0) gm/dl Globulin 3.9 (2.5-4.0) gm/dl Albumin/Globulin Ratio 0.7 L (0.9-2) Supervising Physician Co-Signing Physician Notes SHERIF Supervision Note: I personally saw and examined the patient. I verified all fishman points and agree with SHERIF Bai with the following exceptions and/or additions: Patient is a 74-year-old female with complex medical history as noted above, who presented within a few hours after being discharged from [facility] for a prolonged stay for osteomyelitis and discitis of the thoracic spine with thoracic subdural abscess. She had a 2-1/2-hour litter ride home and when she got home, tried taking tramadol but had a lot of pain. Family reports she was also extremely panicked and anxious with being back home again and not been able to do her transfers like she usually could. She was also having shortness of breath. Her renal function was noted to be with a creatinine of 2.29 on the day of discharge as per cardiology's review of the [place] medical record. The family seems surprised by this number, but is not sure what it was prior to that. There apparently was great difficulty with diuresing her in the setting of chronic kidney disease in her hospital stay there. She is not having any bowel or bladder issues, she is chronically paraplegic. Her pain is just worse in the lower right back into the right hip than it was previously She is agreeable to starting treatment for severe anxiety as well. Blood pressure is severely elevated consistent with hypertensive emergency on admission with end organ damage with elevated troponin and acute diastolic CHF Vitals reviewed Gen: AAOx3, NAD, morbidly obese HEENT: Anicteric sclerae, EOMI CV: RRR no mgr nl S1S2 Pulm: Decreased lung sounds at the bases, otherwise clear Abd: +BS soft NT ND no masses or hernias Ext: 1+ pitting edema lower extremity's bilaterally-family reports this is improved from previous, 2+ DP pulses Skin: No rashes, warm/dry Neuro: Flaccid strength in lower extremities, flaccid in the left upper extremity All laboratory values and radiology images reviewed personally by me ECG with nonspecific T wave changes in lateral leads, inferior infarct, unchanged from previous 74-year-old female with complex medical history and actively being treated for thoracic spinal osteomyelitis/discitis and subdural abscess with conservative management with IV antibiotics, here with hypertensive emergency, elevated troponin, acute hypoxic respiratory failure, likely acute on chronic diastolic CHF, and severe lower back pain -Increase tramadol to 100 mg every 6 hours for pain -Hold off on diuresis at this time due to renal failure, actually holding p.o. diuretics as well -Watch volume status -Appreciate cardiology consultation -Continue supplemental O2 as needed -Trend troponin -Continue IV antibiotics and consult orthopedic spine surgery as well as infectious disease to ensure nothing further needs to be done for this condition -Request all records from [facility] from recent hospitalization -Add on Zoloft 25 mg daily and titrate upwards in a few days to 50 mg daily for severe generalized anxiety, and BuSpar 10 mill grams p.o. twice daily as needed acute anxiety (1) DM (diabetes mellitus) Diabetes mellitus complication status: without complication Diabetes mellitus long-term insulin use: with long-term use Diabetes mellitus type: type 2 Q ualified Code(s): E11.9 - Type 2 diabetes mellitus without complications; Z79.4 - USP (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 (2) HTN (hypertension) Hypertension type: unspecified Qualified Code(s): I10 - Essential (primary) hypertension
[2019-03-07] MEDS ORDERED: PHARMACY GLYCEMIC MGMT CONSULT PRN (10:12)
--- NOTE | 2019-03-07 10:15 | Cardiology Consultation ---
Date of Consultation March 07, 2019 Assessment & Plan (1) Chronic diastolic CHF (congestive heart failure): 2. Coronary artery disease s/p POBA to acute marginal 11/2017 and PCI RPLB 2013. 3. Aortic valve stenosis 4. Hypertension 5. Dyslipidemia 6. CKD 7. Osteomyelitis Patient was recently [place] [facility] [place] for Osteomyelitis L3-L4, and she is currently being treated with IV antibiotic therapy for a total of 6 weeks. During admission, she developed acute hypoxic respiratory failure secondary to pulmonary edema and fluid overload. She was aggressively diuresed with IV Lasix with improvement, however, she also developed EMMETT on CKD. Her creatinine upon discharge yesterday was 2.29 (baseline 1.3-1.5). She then presented to the ED this morning with significant back pain. She was hypertensive on arrival with a BP of 231/109 mmHg. Creatinine today is 2.32 and BUN 48. CXR showed mild interstitial pulmonary edema and bibasilar opacities, L>R. Given the patients elevated BUN/creatinine, she actually appears hypovolemic and would therefore not recommend diuresis at this time. Agree with holding PO diuretic therapy, and would continue to monitor her renal function closely. It would also be prudent to get the patient's Tank Car Loader involved given patients EMMETT. Monitor I's&O's closely. Her troponin is mildly elevated at 0.059, and it appears as though her troponin is chronically elevated at baseline. She denies angina, and ECG shows no acute ischemic changes. Would continue to trend her enzymes to ensure they are not rising, but otherwise, would no pursue ischemic evaluation at this time. Patient does have known aortic stenosis, which was previously reported to be m ild. She underwent an echo at [facility] during her recent admission. The numbers were measured to be severe, however, the valve itself appeared to open on parasternal views. The valve can be further assessed at some point in the future, potentially with a ARIK. Work-up for her valve can be completed in the outpatient setting. Otherwise, continue aggressive treatment for her hypertension. Supervising Physician Co-Signing Physician Notes Patient seen and examined, case reviewed with Radha. Agree with the evaluation recommendations as above. History of Present Illness Reason for Consultation: CHF Requesting Physician: Sultana Acosta PA-C History of Present Illness Mrs. Bowman is a 74-year-old female with a past medical history significant for coronary artery disease S/P PCI RPLB 2013 and POBA acute marginal 11/2017, diastolic CHF, frequent PVCs, mild aortic stenosis, type 2 diabetes, hypertension, dyslipidemia, hx of CVA, multiple sclerosis, peripheral vascular disease, and lymphedema who presented to the ED earlier today with increased back pain. The patient was admitted [place] [facility] [place] 02/14/19 - 03/06/19 with osteomyelitis of L3- L4. She was treated with IV ceftriaxone with plans to have a total of 6 weeks of the antibiotic therapy. During admission, she reportedly became acutely hypoxic, felt to be secondary to pulmonary edema and fluid overload. She was aggressively diuresed with IV Lasix and was transitioned to her usual PO Lasix 40 mg BID. She was also started on spironolactone. She had fluctuating renal function during ad mission related to diuresis requiring IV fluids. Her creatinine upon discharge yesterday was 2.29. Patient states that she arrived home around 4 pm yesterday. She developed a significant back pain at home and was therefore brought to the ED this morning. She reports that she has also been noting intermittent shortness of breath over the last few days. The shortness of breath occurs at rest, especially with talking. She is wheelchair bound given her multiple sclerosis. She chronically sleeps with the head of her bed elevated. She states that she did have a significant amount of lower extremity edema while admitted to [facility], but it greatly improved with diuresis. She does not note any significant edema currently. She is unsure what her weights have been. She denies chest pain or other anginal type symptoms. She denies abnormal bleeding such as melena, hematochezia, or hematuria. She denies cerebrovascular symptoms. She admits to continued low back pain. As noted in HPI. All other ROS are reviewed and otherwise negative at this time. Allergies Allergy/AdvReac Type Severity Reaction Status Date / Time clopidogrel Allergy Intermediate RASH Verified 03/07/19 07:04 Sulfa (Sulfonamide Allergy Intermediate RASH Verified 03/07/19 07:04 Antibiotics) Home Medications Home Medications Medication Instructions Recorded Confirmed Type aspirin [Aspirin Low Dose] 81 mg PO QAM 07/02/18 03/07/19 History atorvastatin 80 mg PO PM 07/02/18 03/07/19 History carvedilol 25 mg PO BID 07/02/18 03/07/19 History ergocalciferol (vitamin D2) 50,000 unit PO MONTHLY 07/02/18 03/07/19 History gabapentin 1,200 mg PO QAM 07/02/18 03/07/19 History insulin glargine 28 units SUBCUT HS 07/02/18 03/07/19 History isosorbide mononitrate 30 mg PO QAM 07/02/18 03/07/19 History nitroglycerin 1 tab SUBLINGUAL Q5M PRN 07/02/18 03/07/19 History potassium chloride 20 meq PO QAM 07/02/18 03/07/19 History tamsulosin 0.4 mg PO QAM 07/02/18 03/07/19 History ticagrelor 90 mg PO BID 07/02/18 03/07/19 History insulin aspart U-100 0 unit SUBCUT TID 12/05/18 03/07/19 History tramadol 50 - 100 mg PO Q4H PRN 02/14/19 03/07/19 History L.acidoph-B.lactis-B.longum 1 cap PO DAILY 03/07/19 03/07/19 History [Florajen3] ceftriaxone 2 g IV DAILY 03/07/19 03/07/19 History docusate sodium [Colace] 100 mg PO BID PRN 03/07/19 03/07/19 History furosemide 40 mg PO BID 03/07/19 03/07/19 History melatonin 5 mg PO HS 03/07/19 03/07/19 History ondansetron HCl 4 mg PO TID PRN 03/07/19 03/07/19 History polyethylene glycol 3350 [Miralax] 17 g PO DAILY PRN 03/07/19 03/07/19 History spironolactone 25 mg PO QAM 03/07/19 03/07/19 History Patient History Medical History Chronic diastolic CHF (congestive heart failure) Chronic paraplegia Morbid obesity DM (diabetes mellitus) (Chronic) History of CVA (cerebrovascular accident) 1995 HTN (hypertension) (Chronic) MS (multiple sclerosis) (Chronic) sees Dr. 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 Required: No Beliefs That Will Affect Care: None marital status: Current Living Situation: Sp[facility] current occupational status: retired 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 EOMs intact. Sclera anicteric. Face is symmetric. No perioral cyanosis. Mucous membranes moist. Neck: Supple, difficult to assess JVD Pulmonary: Normal respiratory effort, clear to auscultation bilaterally Cardiac: Regular rate and rhythm, normal S1 and S2, no gallops, no rubs, 2/6 crescendo basal systolic murmur Extremities: 1+ lower extremity edema to the knees and trace above knees. No clubbing or cyanosis. Pulses intact Abdomen: Obese. Normal bowel sounds, soft, non-tender, no abdominal mass palpated Skin: Normal skin color, turgor, and pigmentation, no rash, no skin lesions Neurological: Oriented to person, place, and time Results & Data Vital Signs (Past 12 Hours) Vital Signs Temp Pulse Pulse Resp BP BP Pulse Ox 03/07/19 10:03 36.4 C L 96 H 23 188/68 H 100 03/07/19 07:38 70 18 231/109 H 100 03/07/19 06:10 100 03/07/19 05:50 36.6 C 51 L 12 196/134 H 89 L Laboratory Results Laboratory Results WBC 10.07 K/uL (4.8-10.8) 03/07/19 06:24 RBC 3.49 M/uL (4.2-5.4) L 03/07/19 06:24 Hgb 9.5 g/dL (12.0-16.0) L 03/07/19 06:24 Hct 31.2 % (37-47) L 03/07/19 06:24 MCV 89.4 fL (80-100) 03/07/19 06:24 MCH 27.2 pg (25-34) 03/07/19 06:24 MCHC 30.4 g/dL (32-36) L 03/07/19 06:24 RDW Std Deviation 65.7 fL (36.4-46.3) H 03/07/19 06:24 RDW Coeff of Valeria 20.8 % (11.5-14.5) H 03/07/19 06:24 Plt Count 290 K/uL (130-400) 03/07/19 06:24 MPV 11.0 fL (7.4-10.4) H 03/07/19 06:24 Immature Gran % (Auto) 0.3 % 03/07/19 06:24 Neut % (Auto) 81.2 % 03/07/19 06:24 Lymph % (Auto) 7.1 % 03/07/19 06:24 [place] % (Auto) 8.2 % 03/07/19 06:24 Eos % (Auto) 2.6 % 03/07/19 06:24 Baso % (Auto) 0.6 % 03/07/19 06:24 Immature Gran # (Auto) 0.03 K/uL (0.00-0.02) H 03/07/19 06:24 Neut # (Auto) 8.18 K/uL (1.4-6.5) H 03/07/19 06:24 Lymph # (Auto) 0.71 K/uL (1.2-3.4) L 03/07/19 06:24 [place] # (Auto) 0.83 K/uL (0.11-0.59) H 03/07/19 06:24 Eos # (Auto) 0.26 K/uL (0-0.5) 03/07/19 06:24 Baso # (Auto) 0.06 K/uL (0-0.2) 03/07/19 06:24 Absolute Nucleated RBC 0.03 K/uL (0-0) H 03/07/19 06:24 Nucleated RBC % (auto) 0.3 % 03/07/19 06:24 Anisocytosis Present 03/07/19 06:24 Sodium 144 mmol/L (136-145) 03/07/19 06:24 Potassium 4.8 mmol/L (3.5-5.1) 03/07/19 06:24 Chloride 105 mmol/L (98-107) 03/07/19 06:24 Carbon Dioxide 33 mmol/L (21-32) H 03/07/19 06:24 Anion Gap 6.0 (3-11) 03/07/19 06:24 BUN 48 mg/dl (7-18) H 03/07/19 06:24 Creatinine 2.32 mg/dl (0.6-1.2) H 03/07/19 06:24 Est Cr Clr Drug Dosing Not Reportable 03/07/19 06:24 Est GFR ( Amer) 23.4 03/07/19 06:24 Est GFR (Non-Af Amer) 20.2 03/07/19 06:24 BUN/Creatinine Ratio 20.7 (10-20) H 03/07/19 06:24 Glucose 137 mg/dl (70-99) H 03/07/19 06:24 POC Glucose 159 (70-99) H 03/07/19 09:49 Calcium 10.0 mg/dl (8.5-10.1) 03/07/19 06:24 Total Bilirubin 0.4 mg/dl (0.2-1) 03/07/19 06:24 AST 12 U/L (15-37) L 03/07/19 06:24 ALT 16 U/L (12-78) 03/07/19 06:24 Alkaline Phosphatase 119 U/L (45-117) H 03/07/19 06:24 Troponin I 0.059 ng/ml (0-0.045) H* 03/07/19 06:24 Total Protein 6.5 gm/dl (6.4-8.2) 03/07/19 06:24 Albumin 2.6 gm/dl (3.4-5.0) L 03/07/19 06:24 Globulin 3.9 gm/dl (2.5-4.0) 03/07/19 06:24 Albumin/Globulin Ratio 0.7 (0.9-2) L 03/07/19 06:24 Urine Color Yellow 03/07/19 10:15 Urine Appearance Cloudy (Clear) A 03/07/19 10:15 Urine pH 5.0 (4.5-7.5) 03/07/19 10:15 Ur Specific [place] 1.017 (1.000-1.030) 03/07/19 10:15 Urine Protein 1+ (Negative) H 03/07/19 10:15 Urine Glucose (UA) Negative (Negative) 03/07/19 10:15 Urine Ketones Negative (Negative) 03/07/19 10:15 Urine Blood Trace (Negative) H 03/07/19 10:15 Urine Nitrite Negative (Negative) 03/07/19 10:15 Urine Bilirubin Negative (Negative) 03/07/19 10:15 Urine Urobilinogen Negative (Negative) 03/07/19 10:15 Ur Leukocyte Esterase 2+ (Negative) H 03/07/19 10:15 Urine WBC (Auto) 5-10 /hpf (0-5) H 03/07/19 10:15 Urine RBC (Auto) 0-4 /hpf (0-4) 03/07/19 10:15 U Epithel Cells (Auto) >30 /lpf (0-5) H 03/07/19 10:15 Urine Bacteria (Auto) Negative (Negative) 03/07/19 10:15 Ur Random Sodium Cancelled 03/07/19 10:15 Diagnostic Findings Chest x-ray: 1. Mild interstitial pulmonary edema. 2. Bibasilar opacities, greater on the left. These may reflect pneumonia or atelectasis. Radiographic follow-up is recommended. ECG: Normal sinus rhythm. Left axis deviation. Possible anterior [place]. Int erventricular conduction delay. [place]/21/19 (@ [facility] Normal LV size and systolic function. EF 60%. No wall motion abnormalities. No LVH. Aortic valve is calcified and there is some degree of stenosis with Vmax 4.2 m/s and DI of 0.3. The valve itself, though, appears to open on parasternal short axis. Cannot exclude supravalvular stenosis.
[2019-03-07] MEDS ORDERED: LABETALOL HCL IV 5 MG/ML 20ML IV STA (10:19)
--- NOTE | 2019-03-07 10:48 | Pharmacy Report ---
Glycemic Control Consultation - Date of Service March 07, 2019 - Scope Scope: Glycemic Pharmacist consulted for glycemic control and to write orders per [facility] inpatient glycemic control protocol - Objective Weight: 99.8 kg Accuchecks BSG (last 24hrs): 03/07/19 03/07/19 06:24 09:49 Glucose 137 H POC Glucose 159 H Laboratory Data (last 24hrs): 03/07/19 06:24 Potassium 4.8 Carbon Dioxide 33 H Anion Gap 6.0 Creatinine 2.32 H Est Cr Clr Drug Dosing Not Reportable - Recent Pertinent Medications Outpatient Anti-diabetic Regimen: * Insulin glargine 28 units SC HS * Insulin aspart SC TID as follows: * Correction factor 20 mg/dL/unit above BSG of 160 mg/dL * Carb ratio 3 g CHO/unit * Typical total daily dosage ~ 80 units * A1c = 6.4% on 11/22/18. Repeat on order for 03/08/19 Risk Factors for Insulin Resistance: * Infection: Osteomyelitis / epidural abscess on ceftriaxone * Diet: T2DM - Assessment & Plan Assessment & Plan: ASSESSMENT: * 74 yo F with T2DM admitted to [facility] on 03/07/19 for back pain. Patient recently discharged to home from [facility] on 03/06/19 for osteomyelitis/epidural abscess. * EMMETT noted - SCr elevated to 2.32 mg/dL, baseline SCr ~ 1.3 mg/dL. * Patient known to our glycemic service from admission ~ 1 year ago - inpatient stressors similar, outpatient regimen at that time similar, A1c similar. Will use that admission's data to guide this admission's glycemic regimen. Of note, patient's outpatient Lantus dose and CHO ratio are significantly more aggressive than patient's previous inpatient requirements PLAN FOR INPATIENT GLYCEMIC CONTROL: * Basal insulin: Lantus SC HS based on BSG * 10 units for BSG less than 180 mg/dL * 14 units for BSG 180 mg/dL or greater * Bolus insulin * NovoLog per scale ACHS or Q6hrs while NPO * Goal Range: Low 120 mg/dL - High 160 mg/dL * Correction Factor: 25 mg/dL/unit * Nutritional / Prandial insulin per carb ratio of 1 unit per 8 grams CHO consumed * Please note that the plan above was derived based on current level of insulin resistance and hospital stress. These recommendations are appropriate for inpatient admission only. Plan of care upon discharge will need to be reassessed to avoid potential outpatient hypo/hyperglycemia. Thank you.
[2019-03-07 10:51] LABS: Appearance Urine Cloudy (Clear); Bacteria Urine Automated Negative (Negative); Bilirubin Urine Negative (Negative); Blood Urine Trace (Negative); Color Urine Yellow; Epithelial Cell Urine Auto >30 /lpf (0-5); Glucose Urine UA Negative (Negative); Ketones Urine Negative (Negative); Leukocyte Esterase Urine 2+ (Negative); Nitrite Urine Negative (Negative); Protein Urine 1+ (Negative); RBC Urine Automated 0-4 /hpf (0-4); Specific Gravity Urine 1.017 (1.000-1.030); Urobilinogen Urine Negative (Negative)
[2019-03-07 11:04] LABS: Creatinine Urine Random 26.1 mg/dl
[2019-03-07] MEDS: INSULIN ASPART 100 UNITS/ML 3 ML PEN SC SCH ×3 (12:07→21:10)
[2019-03-07 12:11] LABS: INR 1.1 (0.9-1.1); Partial Thromboplastin Ratio 0.9; Partial Thromboplastin Time 23.6 Seconds (21.0-31.0); Prothrombin Time 11.4 Seconds (9.0-12.0)
--- NOTE | 2019-03-07 12:46 | XRay Report ---
LUMBAR SPINE 3 VIEWS CLINICAL HISTORY: Low back pain. History of discitis/osteomyelitis. FINDINGS: AP, lateral, and cone-down views of the lumbar spine are compared to study dated 04/25/2018 and correlated with lumbar spine MRI dated 02/14/2019. The skeletal structures are osteopenic. Again s een is erosive/destructive endplate change at L3-L4 consistent with the reported history of discitis/ osteomyelitis. No similar-appearing findings are seen at the remaining lumbar levels. Vertebral body height is maintained throughout the lumbar spine. There is 8 mm of retrolisthesis at L3-L4. Alignment is otherwise preserved. Anterior and lateral marginal osteophytes are seen throughout. The transvers e and spinous processes are intact as imaged. There is marked disc space narrowing at L3-L4. Only mil d disc space narrowing is seen at the remaining lumbar levels. The visualized bony pelvis is intact a s imaged. There is advanced atherosclerotic calcification of the abdominal aorta. No bowel obstructio n is seen. IMPRESSION: 1. Changes of discitis/osteomyelitis are again seen at L3-L4. 2. No similar-appearing changes are identified at the remaining lumbar levels. 3. No acute fracture is seen. Vertebral body height and alignment are maintained. 4. Osteopenia and degenerative change as above. Dictated: 03/07/2019 12:36 PM Transcribed: 03/07/2019 12:46 PM [place] [id number] [email or web address] Electronically signed by: Bakari Castellanos M.D. 03/07/2019 1:11 PM
[2019-03-07] MEDS: LACTOBACILLUS ACIDOPHILUS (FLORANEX) TAB PO SCH (13:39)
[2019-03-07] MEDS: TICAGRELOR 90 MG TAB PO SCH ×2 (13:40→21:09)
[2019-03-07] MEDS: CARVEDILOL 25 MG TAB PO SCH ×2 (13:40→21:09)
[2019-03-07] MEDS: ASPIRIN 81 MG ECTAB PO SCH (13:41)
[2019-03-07] MEDS: ISOSORBIDE MONO EXTENDED REL 30 MG TABCR PO SCH (13:42)
[2019-03-07] MEDS: HydrALAZINE TAB 50 MG TAB PO SCH ×2 (13:42→21:09)
[2019-03-07] MEDS: GABAPENTIN 600 MG TAB PO SCH (13:42)
[2019-03-07] MEDS: cefTRIAXone SODIUM 2,000 MG in DEXTROSE 5% 50 ML IV SCH (14:03)
[2019-03-07] MEDS: HEPARIN SOD 5,000 UNIT/0.5 ML VIAL SQ SCH ×2 (16:05→21:09)
[2019-03-07 17:11] LABS: BUN Creatinine Ratio 20.8 (10-20); Calcium 9.3 mg/dl (8.5-10.1); Creatinine Clr Calc Pharmacy 24.9 ml/min; Est GFR (African American) 24.7; Est GFR (Non-African American) 21.3; Magnesium 2.1 mg/dl (1.8-2.4); Potassium 4.7 mmol/L (3.5-5.1)
[2019-03-07] MEDS ORDERED: SERTRALINE HCL 50 MG TABLET PO ONE (17:41)
[2019-03-07] MEDS: ATORVASTATIN 40 MG TAB PO SCH (21:09)
[2019-03-07] MEDS: INSULIN GLARGINE SOLOSTAR 100 UNITS/ML 3 ML PEN SC SCH (21:10)
[2019-03-08 07:34] LABS: Hemoglobin 8.5 g/dL (12.0-16.0); Mean Corpuscular Hgb Conc 30.4 g/dL (32-36); Mean Corpuscular Volume 89.5 fL (80-100); Mean Platelet Volume 11.1 fL (7.4-10.4); Platelet Count 265 K/uL (130-400); RDW Coefficient of Variation 20.6 % (11.5-14.5); RDW Standard Deviation 65.7 fL (36.4-46.3); Red Blood Count 3.13 M/uL (4.2-5.4); White Blood Count 8.16 K/uL (4.8-10.8)
[2019-03-08] MEDS: TRAMADOL HCL 50 MG TABLET PO PRN ×2 (07:48→23:54)
[2019-03-08] MEDS: GABAPENTIN 600 MG TAB PO SCH (07:53)
[2019-03-08] MEDS: ASPIRIN 81 MG ECTAB PO SCH (07:54)
[2019-03-08] MEDS: LACTOBACILLUS ACIDOPHILUS (FLORANEX) TAB PO SCH (07:54)
[2019-03-08] MEDS: ISOSORBIDE MONO EXTENDED REL 30 MG TABCR PO SCH (07:54)
[2019-03-08] MEDS: SERTRALINE HCL 50 MG TABLET PO SCH (07:55)
[2019-03-08] MEDS: CARVEDILOL 25 MG TAB PO SCH ×2 (07:55→21:26)
[2019-03-08] MEDS: TICAGRELOR 90 MG TAB PO SCH ×2 (07:56→21:25)
[2019-03-08] MEDS: HydrALAZINE TAB 50 MG TAB PO SCH ×3 (07:57→21:25)
[2019-03-08] MEDS: HEPARIN SOD 5,000 UNIT/0.5 ML VIAL SQ SCH ×2 (07:58→21:28)
[2019-03-08] MEDS: INSULIN ASPART 100 UNITS/ML 3 ML PEN SC SCH ×4 (08:00→21:30)
[2019-03-08 08:08] LABS: Albumin Level 2.3 gm/dl (3.4-5.0); BUN Creatinine Ratio 21.7 (10-20); Calcium 9.4 mg/dl (8.5-10.1); Creatinine Clr Calc Pharmacy 25.7 ml/min; Est GFR (African American) 25.7; Est GFR (Non-African American) 22.1; Potassium 4.7 mmol/L (3.5-5.1)
[2019-03-08 08:27] LABS: Albumin Globulin Ratio 0.7 (0.9-2); Bilirubin,Total 0.4 mg/dl (0.2-1); Globulin 3.5 gm/dl (2.5-4.0); Total Protein 5.8 gm/dl (6.4-8.2); Troponin I 0.072 ng/ml (0-0.045)
--- NOTE | 2019-03-08 08:58 | Orthopedic Consultation ---
Date of Consultation March 08, 2019 Assessment & Plan (1) Intractable back pain: Updated x-rays lumbar spine demonstrate discitis at the L3-4 level however I do not appreciate collapse across the disc space. There appears to be growth of bone across the disc space which would be expected with prolonged discitis. It will eventually go on to autofusion which would be desirable. I emphasized the patient and her that her right leg symptoms could very well be neural irritation at the site of the infection. It does seem however her pain is related more to prolonged transport and uncomfortable positioning and worsening condition of her infection. Again there is nothing operative at this time in light of her medical history. Follow-up as needed. Present on Admission?: Yes History of Present Illness Reason for Consultation: Back pain Attending Physician: Avni Spain, DO History of Present Illness This is a 74-year-old female that presents to the hospital with acute back pain. She does have known osteomyelitis discitis affecting the L3-4 levels. She been managed in [facility] for almost a month on IV antibiotics. They felt that she was too high risk for any surgical intervention at that time. Appears upon transfer home from [place] to [place] approximately 2-1/[address] she had a marked decline in status with worsening back pain requiring admission to the hospital. She does describe intermittent pain along the right anterior thigh in a classic L3 pattern. During our discussion this morning she is relatively comfortable and certainly improved from her presentation. Allergies Allergy/AdvReac Type Severity Reaction Status Date / Time clopidogrel Allergy Intermediate RASH Verified 03/07/19 07:04 Sulfa (Sulfonamide Allergy Intermediate RASH Verified 03/07/19 07:04 Antibiotics) Home Medications Home Medications Medication Instructions Recorded Confirmed Type aspirin [Aspirin Low Dose] 81 mg PO QAM 07/02/18 03/07/19 History atorvastatin 80 mg PO PM 07/02/18 03/07/19 History carvedilol 25 mg PO BID 07/02/18 03/07/19 History ergocalciferol (vitamin D2) 50,000 unit PO MONTHLY 07/02/18 03/07/19 History gabapentin 1,200 mg PO QAM 07/02/18 03/07/19 History insulin glargine 28 units SUBCUT HS 07/02/18 03/07/19 History isosorbide mononitrate 30 mg PO QAM 07/02/18 03/07/19 History nitroglycerin 1 tab SUBLINGUAL Q5M PRN 07/02/18 03/07/19 History potassium chloride 20 meq PO QAM 07/02/18 03/07/19 History tamsulosin 0.4 mg PO QAM 07/02/18 03/07/19 History ticagrelor 90 mg PO BID 07/02/18 03/07/19 History insulin aspart U-100 0 unit SUBCUT TID 12/05/18 03/07/19 History tramadol 50 - 100 mg PO Q4H PRN 02/14/19 03/07/19 History L.acidoph-B.lactis-B.longum 1 cap PO DAILY 03/07/19 03/07/19 History [Florajen3] ceftriaxone 2 g IV DAILY 03/07/19 03/07/19 History docusate sodium [Colace] 100 mg PO BID PRN 03/07/19 03/07/19 History furosemide 40 mg PO BID 03/07/19 03/07/19 History melatonin 5 mg PO HS 03/07/19 03/07/19 History ondansetron HCl 4 mg PO TID PRN 03/07/19 03/07/19 History polyethylene glycol 3350 [Miralax] 17 g PO DAILY PRN 03/07/19 03/07/19 History spironolactone 25 mg PO QAM 03/07/19 03/07/19 History Patient History Medical History Chronic diastolic CHF (congestive heart failure) Chronic paraplegia Morbid obesity DM (diabetes mellitus) (Chronic) History of CVA (cerebrovascular accident) 1995 HTN (hypertension) (Chronic) MS (multiple sclerosis) (Chronic) sees Dr. Murphy in [place]; primary progressive disease Aortic stenosis CAD (coronary artery disease) (Chronic) History of myocardial infarction (Chronic) first [place] 2013; 2nd [place] in 2018; s/p stent in 2013 EMMETT (acute kidney injury) (Resolved) Chronic kidney disease, stage III (moderate) Surgical History Cataract extraction status Family History Father , in his 70s CKD (chronic kidney disease) Stroke Mother , age 70 Brain tumor Other Family history non-contributory Social History Preferred Language: Romansh Communication Ability: Effective Hide Sorter Required: No Beliefs That Will Affect Care: None marital status: Current Living Situation: Sp[facility] current occupational status: retired 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 Her is at the bedside. She appears comfortable. She does have paralysis to the lower extremities. Does not transfer out of bed and has not done so for several weeks. Results & Data Vital Signs (Past 12 Hours) Vital Signs Temp Pulse Pulse Resp BP Pulse Ox 03/08/19 07:52 36.8 C 64 18 143/84 H 98 03/08/19 00:00 55 L 03/07/19 23:15 36.5 C 64 18 129/92 98
[2019-03-08 09:58] LABS: Estimated Average Glucose 128 mg/dl; Hemoglobin A1C 6.1 % (4.5-5.6)
[2019-03-08] MEDS: HYDROmorphone INJ 0.5 MG/0.5 ML SYR IV PRN (11:11)
[2019-03-08] MEDS: cefTRIAXone SODIUM 2,000 MG in DEXTROSE 5% 50 ML IV SCH (12:50)
--- NOTE | 2019-03-08 13:14 | Hospitalist Progress Note ---
Date of Service March 08, 2019 Assessment & Plan (1) Intractable back pain: - Likely multifactorial related to acute on chronic osteomyelitis, subdural abscess, paraplegia in setting of MS. - Discharged to home from [facility] on 03/06/19; presented for admission the following day. - Tylenol, Tramadol and Dilaudid prn pain. - XR of spine with no acute changes; orthopedics consulted, appreciate input. - Continue home Gabapentin 1,200 mg daily as prescribed. - IV abx as noted below for treatment of osteomyelitis. (2) Vertebral osteomyelitis: - Discharged from [facility] on 03/06/19; continue Ceftriaxone 2 gm IV daily. - Ortho spine consulted, appreciate input. XR was negative for acute changes. (3) Subdural abscess: - Treated at [facility]; was not a surgical candidate. - Continue Ceftriaxone IV daily. (4) HTN (hypertension): - BP was uncontrolled in the ER, now improved with Labetalol 5 mg IV. - Continue home Coreg and Imdur as prescribed. - Holding home Spironolactone and Lasix due to EMMETT. - Hydralazine dose was recently decreased to 25 mg TID at [facility]; now increased back to 75 mg TID. (5) Acute renal failure: - Creatinine peaked at 2.3, now trending down; baseline ~1.3-1.7. - U/a +cast cells (?ATN); FENa indicated post obstructive state. - May be related to urinary retention (salvador placed overnight with improvement) vs. pre-renal related to dehydration. - Holding IV fluids in setting of pulm edema on CXR. - Holding home Lasix and Spironolactone. - Monitor renal function twice daily. (6) CKD (chronic kidney disease), stage III: - Previously with stage III CKD; GFR is more consistent with stage IV at this point in setting of ARF. - Renally dose all meds. - Follows with Dr. Meraz from nephrology - consider inpatient consult. (7) Acute respiratory failure with hypoxia: - O2 requirements now improved to 2L via NC -- hypoxia related to pulm edema vs. infection. - CXR showed mild pulm edema and bibasilar opacities concerning for atelectasis, less likely PNA. - Receiving Ceftriaxone daily; consider addition of MRSA and atypical coverage if necessary. - Cardiology consulted, agrees with holding diuresis in setting of hypovolemia. (8) Chronic diastolic CHF (congestive heart failure): - Most recent TTE completed at [facility] showed EF 60%, no wall motion abnormalities and trivial aortic regurg with some degree of aortic stenosis. - CXR with mild pulm edema. - Holding home Lasix in setting of ARF; continue Coreg as prescribed. - Monitor net I/O's and daily weights. (9) Elevated troponin: - Trop was elevated at admission, appears close to her baseline. - Trended q6hr, no acute elevation; no acute cardiac symptoms are present. - Cardiology consulted, appreciate input. (10) Acute anemia: - Hemoglobin ~9-11 at baseline; may be related to anemia of chronic disease. - Hgb trending down, was 8.5 -- monitor levels qAM. (11) DM (diabetes mellitus): - Hemoglobin A1C was 6.4 in Nov 2018. - Continue basal/bolus insulin. - Pharmacy consulted for glycemic management. (12) History of CVA (cerebrovascular accident): - Occurred in 1995. - Continue statin, aspirin, Brilinta as prescribed. (13) MS (multiple sclerosis): - With paraplegia. - Monitored by neurologist in [place]. (14) Chronic paraplegia: - Very poor ambulatory function at home -- can use right arm, otherwise requires assistance of with wheelchair. - PT/OT ordered - she refused LTACH and SNF at [facility]; consider placement following this admission due to poor overall function. - Case management following. (15) Coronary artery disease: - H/o UT in 2013; follows with Dr. Palomo. - Continue statin, aspirin, Coreg, Imdur, Brilinta as prescribed. - Cardiology consulted, appreciate input. (16) Morbid obesity: - BMI 40 -- encourage weight loss. (17) DVT prophylaxis: - SCDs; Heparin 5,000 units subq 12hr. Dispo: PCU for pain control and management of ARF. Discharge planning is unclear -- d/c to home vs [employer] placement. Case management is following. Subjective Pt. is doing well -- back pain is well controlled with Tramadol prn. Salvador was placed overnight due to low urine output, bladder scan showed retention. Requiring 2L via NC -- will attempt to wean over next 24 hours if possible. Renal function is slowly improving. PT/OT ordered -- pt. lives at home with her , has been her primary caregiver for many years. Review of Systems Review of Systems: All systems reviewed & are unremarkable except as noted in HPI & below Constitutional: + fatigue and + weakness; no fever and no chills Respiratory: no cough, no dyspnea, no dyspnea on exertion and no wheezing Cardiovascular: no chest pain, no palpitations and no edema Gastrointestinal: no abdominal pain, no nausea and no constipation Genitourinary: + difficulty urinating Musculoskeletal: + back pain; no joint pain Integumentary: no non-healing lesions Allergy / Immunological: no rash Physical Exam Physical Exam: General: Resting comfortably HEENT: NC/AT; PERRLA with EOMI; Vazquez conjunctiva, MMM. Neck: Supple and nontender Cardiac: +2/6 systolic murmur; regular rate and rhythm Lungs: on 2L via NC; CTA Abdomen: Bowel normoactive X 4; Nontender to palpation Extremities: +1 bilat LE chronic edema. Neuro: No focal weakness; 0/5 muscle strength in LUE and bilat LE in setting of paraplegia. Skin: No rash Results & Data Vital Signs (Past 12 Hours) Vital Signs Temp Pulse Pulse Resp BP Pulse Ox 03/08/19 11:45 36.4 C L 58 L 18 137/52 L 94 03/08/19 07:52 36.8 C 64 18 143/84 H 98 Laboratory Results 03/08/19 03/08/19 03/08/19 Range/Units 11:42 07:20 07:20 WBC (4.8-10.8) K/uL RBC (4.2-5.4) M/uL Hgb (12.0-16.0) g/dL Hct (37-47) % MCV (80-100) fL MCH (25-34) pg MCHC (32-36) g/dL RDW Std Deviation (36.4-46.3) fL RDW Coeff of Valeria (11.5-14.5) % Plt Count (130-400) K/uL MPV (7.4-10.4) fL Sodium 146 H (136-145) mmol/L Potassium 4.7 (3.5-5.1) mmol/L Chloride 107 (98-107) mmol/L Carbon Dioxide 37 H (21-32) mmol/L Anion Gap 2.0 L (3-11) BUN 47 H (7-18) mg/dl Creatinine 2.15 H (0.6-1.2) mg/dl Est Cr Clr Drug Dosing 25.7 ml/min Est GFR ( Amer) 25.7 Est GFR (Non-Af Amer) 22.1 BUN/Creatinine Ratio 21.7 H (10-20) Glucose 100 H (70-99) mg/dl POC Glucose 142 H (70-99) Estimat Average Glucose 128 mg/dl Hemoglobin A1c 6.1 H (4.5-5.6) % Calcium 9.4 (8.5-10.1) mg/dl Magnesium 2.0 (1.8-2.4) mg/dl Total Bilirubin 0.4 (0.2-1) mg/dl AST 11 L (15-37) U/L ALT 14 (12-78) U/L Alkaline Phosphatase 102 (45-117) U/L Troponin I 0.072 H* (0-0.045) ng/ml Total Protein 5.8 L (6.4-8.2) gm/dl Albumin 2.3 L (3.4-5.0) gm/dl Globulin 3.5 (2.5-4.0) gm/dl Albumin/Globulin Ratio 0.7 L (0.9-2) 03/08/19 03/08/19 03/07/19 Range/Units 07:20 07:19 20:44 WBC 8.16 (4.8-10.8) K/uL RBC 3.13 L (4.2-5.4) M/uL Hgb 8.5 L (12.0-16.0) g/dL Hct 28.0 L (37-47) % MCV 89.5 (80-100) fL MCH 27.2 (25-34) pg MCHC 30.4 L (32-36) g/dL RDW Std Deviation 65.7 H (36.4-46.3) fL RDW Coeff of Valeria 20.6 H (11.5-14.5) % Plt Count 265 (130-400) K/uL MPV 11.1 H (7.4-10.4) fL Sodium (136-145) mmol/L Potassium (3.5-5.1) mmol/L Chloride (98-107) mmol/L Carbon Dioxide (21-32) mmol/L Anion Gap (3-11) BUN (7-18) mg/dl Creatinine (0.6-1.2) mg/dl Est Cr Clr Drug Dosing ml/min Est GFR ( Amer) Est GFR (Non-Af Amer) BUN/Creatinine Ratio (10-20) Glucose (70-99) mg/dl POC Glucose 107 H 154 H (70-99) Estimat Average Glucose mg/dl Hemoglobin A1c (4.5-5.6) % Calcium (8.5-10.1) mg/dl Magnesium (1.8-2.4) mg/dl Total Bilirubin (0.2-1) mg/dl AST (15-37) U/L ALT (12-78) U/L Alkaline Phosphatase (45-117) U/L Troponin I (0-0.045) ng/ml Total Protein (6.4-8.2) gm/dl Albumin (3.4-5.0) gm/dl Globulin (2.5-4.0) gm/dl Albumin/Globulin Ratio (0.9-2) 03/07/19 03/07/19 03/07/19 Range/Units 16:45 16:45 16:14 WBC (4.8-10.8) K/uL RBC (4.2-5.4) M/uL Hgb (12.0-16.0) g/dL Hct (37-47) % MCV (80-100) fL MCH (25-34) pg MCHC (32-36) g/dL RDW Std Deviation (36.4-46.3) fL RDW Coeff of Valeria (11.5-14.5) % Plt Count (130-400) K/uL MPV (7.4-10.4) fL Sodium 143 (136-145) mmol/L Potassium 4.7 (3.5-5.1) mmol/L Chloride 105 (98-107) mmol/L Carbon Dioxide 35 H (21-32) mmol/L Anion Gap 3.0 (3-11) BUN 46 H (7-18) mg/dl Creatinine 2.22 H (0.6-1.2) mg/dl Est Cr Clr Drug Dosing 24.9 ml/min Est GFR ( Amer) 24.7 Est GFR (Non-Af Amer) 21.3 BUN/Creatinine Ratio 20.8 H (10-20) Glucose 123 H (70-99) mg/dl POC Glucose 132 H (70-99) Estimat Average Glucose mg/dl Hemoglobin A1c (4.5-5.6) % Calcium 9.3 (8.5-10.1) mg/dl Magnesium 2.1 (1.8-2.4) mg/dl Total Bilirubin (0.2-1) mg/dl AST (15-37) U/L ALT (12-78) U/L Alkaline Phosphatase (45-117) U/L Troponin I 0.067 H* (0-0.045) ng/ml Total Protein (6.4-8.2) gm/dl Albumin (3.4-5.0) gm/dl Globulin (2.5-4.0) gm/dl Albumin/Globulin Ratio (0.9-2) (1) DM (diabetes mellitus) Diabetes mellitus complication status: without complication Diabetes mellitus [employer] insulin use: with [employer] use Diabetes mellitus type: type 2 Qualified Code(s): E11.9 - Type 2 diabetes mellitus without complications; Z79.4 - FDC (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 (2) HTN (hypertension) Hypertension type: unspecified Qualified Code(s): I10 - Essential (primary) hypertension
[2019-03-08 16:18] LABS: BUN Creatinine Ratio 21.2 (10-20); Calcium 9.2 mg/dl (8.5-10.1); Creatinine Clr Calc Pharmacy 25.7 ml/min; Est GFR (African American) 25.7; Est GFR (Non-African American) 22.1; Potassium 4.5 mmol/L (3.5-5.1)
[2019-03-08 16:34] LABS: Troponin I 0.065 ng/ml (0-0.045)
[2019-03-08] MEDS: ATORVASTATIN 40 MG TAB PO SCH (21:27)
[2019-03-08] MEDS: INSULIN GLARGINE SOLOSTAR 100 UNITS/ML 3 ML PEN SC SCH (21:30)
[2019-03-09 07:07] LABS: Hematocrit (blood only) 27.9 % (37-47); Hemoglobin 8.4 g/dL (12.0-16.0); Mean Corpuscular Hgb Conc 30.1 g/dL (32-36); Mean Corpuscular Volume 89.7 fL (80-100); Mean Platelet Volume 11.2 fL (7.4-10.4); Platelet Count 262 K/uL (130-400); RDW Coefficient of Variation 20.8 % (11.5-14.5); RDW Standard Deviation 67.2 fL (36.4-46.3); Red Blood Count 3.11 M/uL (4.2-5.4); White Blood Count 8.13 K/uL (4.8-10.8)
--- NOTE | 2019-03-09 07:15 | Infectious Disease Consult ---
Date of Consultation March 09, 2019 Assessment & Plan (1) Subdural abscess: continue abx as planned per [facility] ID, does not appear that she has had any + cultures to guide therapy, may ultimately require surgery if no improvement. (2) Vertebral osteomyelitis: History of Present Illness Attending Physician: Avni Spain DO pt admitted due to ongoing back pain. recent MRI 02/14 concerning for discitis/osteo, was sent to [facility]. I spoke with ID at [facility] during her hospital stay, she did not have previous + blood cultures, did not undergo surgery while at [facility] and did have negative cultures there as well. She was d/c on CTX, unknown duration, d/c on 03/06, admitted to [facility] on 03/07 due to pain. wbc nml. ESR >90 afebrile since admission, no cultures done this admission. CXR negative. no repeat MRI done, but spine x ray c/w osteo L3/L4. Pain is better today, well controlled. she is tolerating ctx. she denies f/c. no abd pain, no n/v/d. no cp, sob, cough. other than back pain she is feeling well. Allergies Allergy/AdvReac Type Severity Reaction Status Date / Time clopidogrel Allergy Intermediate RASH Verified 03/07/19 07:04 Sulfa (Sulfonamide Allergy Intermediate RASH Verified 03/07/19 07:04 Antibiotics) Home Medications Home Medications Medication Instructions Recorded Confirmed Type aspirin [Aspirin Low Dose] 81 mg PO QAM 07/02/18 03/07/19 History atorvastatin 80 mg PO PM 07/02/18 03/07/19 History carvedilol 25 mg PO BID 07/02/18 03/07/19 History ergocalciferol (vitamin D2) 50,000 unit PO MONTHLY 07/02/18 03/07/19 History gabapentin 1,200 mg PO QAM 07/02/18 03/07/19 History insulin glargine 28 units SUBCUT HS 07/02/18 03/07/19 History isosorbide mononitrate 30 mg PO QAM 07/02/18 03/07/19 History nitroglycerin 1 tab SUBLINGUAL Q5M PRN 07/02/18 03/07/19 History potassium chloride 20 meq PO QAM 07/02/18 03/07/19 History tamsulosin 0.4 mg PO QAM 07/02/18 03/07/19 History ticagrelor 90 mg PO BID 07/02/18 03/07/19 History insulin aspart U-100 0 unit SUBCUT TID 12/05/18 03/07/19 History tramadol 50 - 100 mg PO Q4H PRN 02/14/19 03/07/19 History L.acidoph-B.lactis-B.longum 1 cap PO DAILY 03/07/19 03/07/19 History [Florajen3] ceftriaxone 2 g IV DAILY 03/07/19 03/07/19 History docusate sodium [Colace] 100 mg PO BID PRN 03/07/19 03/07/19 History furosemide 40 mg PO BID 03/07/19 03/07/19 History melatonin 5 mg PO HS 03/07/19 03/07/19 History ondansetron HCl 4 mg PO TID PRN 03/07/19 03/07/19 History polyethylene glycol 3350 [Miralax] 17 g PO DAILY PRN 03/07/19 03/07/19 History spironolactone 25 mg PO QAM 03/07/19 03/07/19 History Patient History Medical History Chronic diastolic CHF (congestive heart failure) Chronic paraplegia Morbid obesity DM (diabetes mellitus) (Chronic) History of CVA (cerebrovascular accident) 1995 HTN (hypertension) (Chronic) MS (multiple sclerosis) (Chronic) sees Dr. Murphy in [place]; primary progressive disease Aortic stenosis CAD (coronary artery disease) (Chronic) History of myocardial infarction (Chronic) first VT 2013; 2nd VT in 2017; s/p stent in 2013 EMMETT (acute kidney injury) (Resolved) Chronic kidney disease, stage III (moderate) Surgical History Cataract extraction status Family History Father , in his 70s CKD (chronic kidney disease) Stroke Mother , age 70 Brain tumor Other Family history non-contributory Social History Preferred Language: [place] Communication Ability: Effective Automobile Body Worker Required: No Beliefs That Will Affect Care: None marital status: Current Living Situation: Sp[facility]19 current occupational status: retired 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 Information 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 Safe at Home: Yes Safety Concerns: Feels Safe At This Time Smoking Status: Never smoker Hx Alcohol Use: No Hx Substance Use: No Review of Systems Review of Systems: All systems reviewed & are unremarkable except as noted in HPI & below Physical Exam Constitutional: WD/WN, vitals as above Eyes: PERRL, conjunctivae normal, anicteric sclerae ENMT: external ear and nose normal, oropharynx normal Neck: normal visual inspection Respiratory: normal respiratory effort, lungs clear to auscultation Cardiovascular: RRR, no murmur, no edema Gastrointestinal (Abdomen): normal bowel sounds, soft, nontender, no hepatosplenomegaly Musculoskeletal: no cyanosis or clubbing, extremities motor strength 5/5 Skin: no rashes, warm and dry Psychiatric: A+Ox3, euthymic affect Results & Data Vital Signs (Past 12 Hours) Vital Signs Temp Pulse Pulse Pulse Resp BP Pulse Ox 03/09/19 03:58 36.7 C 65 18 155/53 H 97 03/08/19 23:50 59 L 03/08/19 23:02 37.0 C 60 18 114/40 L 96 03/08/19 19:48 37.0 C 65 19 164/73 H 99
[2019-03-09] MEDS: TRAMADOL HCL 50 MG TABLET PO PRN (07:34)
[2019-03-09] MEDS: GABAPENTIN 600 MG TAB PO SCH (07:38)
[2019-03-09] MEDS: ISOSORBIDE MONO EXTENDED REL 30 MG TABCR PO SCH (07:39)
[2019-03-09] MEDS: ASPIRIN 81 MG ECTAB PO SCH (07:39)
[2019-03-09] MEDS: LACTOBACILLUS ACIDOPHILUS (FLORANEX) TAB PO SCH (07:39)
[2019-03-09] MEDS: CARVEDILOL 25 MG TAB PO SCH ×2 (07:41→20:48)
[2019-03-09] MEDS: SERTRALINE HCL 50 MG TABLET PO SCH (07:41)
[2019-03-09] MEDS: HydrALAZINE TAB 50 MG TAB PO SCH ×3 (07:41→20:49)
[2019-03-09] MEDS: TICAGRELOR 90 MG TAB PO SCH ×2 (07:42→20:48)
[2019-03-09] MEDS: INSULIN ASPART 100 UNITS/ML 3 ML PEN SC SCH ×4 (07:52→21:40)
[2019-03-09] MEDS: HEPARIN SOD 5,000 UNIT/0.5 ML VIAL SQ SCH ×2 (07:53→20:48)
[2019-03-09 07:55] LABS: Albumin Level 2.4 gm/dl (3.4-5.0); Calcium 9.6 mg/dl (8.5-10.1); Creatinine Clr Calc Pharmacy 27.1 ml/min; Est GFR (African American) 27.2; Est GFR (Non-African American) 23.4; Magnesium 2.1 mg/dl (1.8-2.4); Potassium 4.5 mmol/L (3.5-5.1)
[2019-03-09 07:58] LABS: Albumin Globulin Ratio 0.7 (0.9-2); Bilirubin,Total 0.4 mg/dl (0.2-1); Globulin 3.4 gm/dl (2.5-4.0); Total Protein 5.8 gm/dl (6.4-8.2)
[2019-03-09] MEDS: HYDROmorphone INJ 0.5 MG/0.5 ML SYR IV PRN ×3 (09:07→19:49)
--- NOTE | 2019-03-09 09:48 | Pharmacy Report ---
Pharmacy Glycemic Short Note 2 - Date of Service March 09, 2019 - Glycemic Short BSG Results (Last 24 hours): 03/08/19 03/08/19 03/08/19 07:20 11:42 15:54 Glucose 100 H 124 H POC Glucose 142 H 03/08/19 03/08/19 03/09/19 16:35 20:30 06:45 Glucose 87 POC Glucose 115 H 98 03/09/19 07:10 Glucose POC Glucose 97 OUTPATIENT ANTIDIABETIC REGIMEN: * Insulin glargine 28 units SC HS * Insulin aspart SC TID as follows: * Correction factor 20 mg/dL/unit above BSG of 160 mg/dL * Carb ratio 3 g CHO/unit * Typical total daily dosage ~ 80 units * A1c = 6.4% on 11/22/18. Repeat on order for 03/08/19 ASSESSMENT: 03/09/19 * Blood sugars at goal, continue insulin as ordered. * ID recommends continue abx as planned per [facility] [place], does not appear that she has had any + cultures to guide therapy, may ultimately require surgery if no improvement. 03/07/19 * 74 yo F with T2DM admitted to [facility] on 03/07/19 for back pain. Patient recently discharged to home from [facility] on 03/06/19 for osteomyelitis/epidural abscess. * EMMETT noted - SCr elevated to 2.32 mg/dL, baseline SCr ~ 1.3 mg/dL. * Patient known to our glycemic service from admission ~ 1 year ago - inpatient stressors similar, outpatient regimen at that time similar, A1c similar. Will use that admission's data to guide this admission's glycemic regimen. Of note, patient's outpatient Lantus dose and CHO ratio are significantly more aggressive than patient's previous inpatient requirements PLAN FOR INPATIENT GLYCEMIC CONTROL: * Basal insulin: Lantus SC HS based on BSG * 10 units for BSG less than 180 mg/dL * 14 units for BSG 180 mg/dL or greater * Bolus insulin * NovoLog per scale ACHS or Q6hrs while NPO * Goal Range: Low 120 mg/dL - High 160 mg/dL * Correction Factor: 25 mg/dL/unit * Nutritional / Prandial insulin per carb ratio of 1 unit per 8 grams CHO consumed PLAN FOR DISCHARGE: * A1C 6.1% - continue regimen unless having hypoglycemia at home
[2019-03-09] MEDS: cefTRIAXone SODIUM 2,000 MG in DEXTROSE 5% 50 ML IV SCH (12:38)
--- NOTE | 2019-03-09 13:44 | Urology Consultation ---
Date of Consultation March 09, 2019 Assessment & Plan (1) Subdural abscess: (2) Vertebral osteomyelitis: (3) Retention of urine: Patient has chronic retention issues. Was discharged from [facility] 3 days ago without catheter. Likely chronic incomplete emptying due to multiple issues and exacerbated by illness. 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 Recommend maintaining catheter for now. Discussed intermittent catheter and patient and support did not think would be feasible. Discussed other options in past as well. ID and Spine Surg following. Other medical issues working up. Currently on abx. Will plan follow up as outpatient. History of Present Illness Attending Physician: Hellen Olguin MD History of Present Illness Known patient with complicated history and intermittent recurrent urinary retention. Multiple medical issues with poor mobility. 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 Intermittently causes issues. Patient also CHF and multiple medical issues. Had exacerbation of issues and admitted to ICU. Monitoring with Spine Surg, ID, Cardiology, and Hospitalist. patient currently feeling better. Still having issues with legs and back. Developed retention and catheter place. Tolerated well Good drainage. no major issue. No bleeding. had catheter removed during last hospitalization in [place] and told likely doesnt need. Allergies Allergy/AdvReac Type Severity Reaction Status Date / Time clopidogrel Allergy Intermediate RASH Verified 03/07/19 07:04 Sulfa (Sulfonamide Allergy Intermediate RASH Verified 03/07/19 07:04 Antibiotics) Home Medications Home Medications Medication Instructions Recorded Confirmed Type aspirin [Aspirin Low Dose] 81 mg PO QAM 07/02/18 03/07/19 History atorvastatin 80 mg PO PM 07/02/18 03/07/19 History carvedilol 25 mg PO BID 07/02/18 03/07/19 History ergocalciferol (vitamin D2) 50,000 unit PO MONTHLY 07/02/18 03/07/19 History gabapentin 1,200 mg PO QAM 07/02/18 03/07/19 History insulin glargine 28 units SUBCUT HS 07/02/18 03/07/19 History isosorbide mononitrate 30 mg PO QAM 07/02/18 03/07/19 History nitroglycerin 1 tab SUBLINGUAL Q5M PRN 07/02/18 03/07/19 History potassium chloride 20 meq PO QAM 07/02/18 03/07/19 History tamsulosin 0.4 mg PO QAM 07/02/18 03/07/19 History ticagrelor 90 mg PO BID 07/02/18 03/07/19 History insulin aspart U-100 0 unit SUBCUT TID 12/05/18 03/07/19 History tramadol 50 - 100 mg PO Q4H PRN 02/14/19 03/07/19 History L.acidoph-B.lactis-B.longum 1 cap PO DAILY 03/07/19 03/07/19 History [Florajen3] ceftriaxone 2 g IV DAILY 03/07/19 03/07/19 History docusate sodium [Colace] 100 mg PO BID PRN 03/07/19 03/07/19 History furosemide 40 mg PO BID 03/07/19 03/07/19 History melatonin 5 mg PO HS 03/07/19 03/07/19 History ondansetron HCl 4 mg PO TID PRN 03/07/19 03/07/19 History polyethylene glycol 3350 [Miralax] 17 g PO DAILY PRN 03/07/19 03/07/19 History spironolactone 25 mg PO QAM 03/07/19 03/07/19 History Patient History Medical History Chronic diastolic CHF (congestive heart failure) Chronic paraplegia Morbid obesity DM (diabetes mellitus) (Chronic) History of CVA (cerebrovascular accident) 1995 HTN (hypertension) (Chronic) MS (multiple sclerosis) (Chronic) sees Dr. Murphy in [place]; primary progressive disease Aortic stenosis CAD (coronary artery disease) (Chronic) History of myocardial infarction (Chronic) first AK 2013; 2nd AK in 2017; s/p stent in 2013 EMMETT (acute kidney injury) (Resolved) Chronic kidney disease, stage III (moderate) Surgical History Cataract extraction status Family History Father , in his 70s CKD (chronic kidney disease) Stroke Mother , age 70 Brain tumor Other Family history non-contributory Social History Preferred Language: Emir[place] Communication Ability: Effective Case Manager Specialist Required: No Beliefs That Will Affect Care: None marital status: Current Living Situation: Sp[facility] current occupational status: retired 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 Information 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 Safe at Home: Yes Safety Concerns: Feels Safe At This Time Smoking Status: Never smoker Hx Alcohol Use: No Hx Substance Use: No Review of Systems Review of Systems: All systems reviewed & are unremarkable except as noted in HPI & below Constitutional: + fatigue and + weakness; no fever and no chills Genitourinary: + difficulty urinating Musculoskeletal: + back pain; no joint pain Neurologic: + paralysis Physical Exam Constitutional: WD/WN, vitals as above Eyes: PERRL, conjunctivae normal, anicteric sclerae ENMT: external ear and nose normal, oropharynx normal Neck: normal visual inspection Respiratory: no respiratory distress and no labored breathing Cardiovascular: Rate/Rhythm: not tachycardic Gastrointestinal (Abdomen): normal bowel sounds, soft, nontender, no hepatosplenomegaly Musculoskeletal: Extremities: + limited ROM of extremities, + abnormal muscle tone and + lower leg abnormality Skin: no rashes, warm and dry Neurologic: CN's II-XI intact bilaterally and awake Speech / Cognition: normal speech Motor/Sensory: no tremor Psychiatric: A+Ox3, euthymic affect Genitourinary: Pierre draining clear yellow. Lymphatic: no lymphadenopathy Severe LE edema Results & Data Vital Signs (Past 12 Hours) Vital Signs Temp Pulse Pulse Resp BP Pulse Ox 03/09/19 11:41 159/55 H 03/09/19 11:38 37.2 C 64 19 180/62 H 98 03/09/19 07:40 60 03/09/19 07:13 36.7 C 65 16 159/51 H 97 03/09/19 03:58 36.7 C 65 18 155/53 H 97
[2019-03-09] MEDS ORDERED: TRAMADOL HCL 50 MG TABLET PO PRN (14:16)
[2019-03-09] MEDS ORDERED: OXYCODONE HCL IR 5 MG TAB (IMMEDIATE RELEASE) PO PRN (14:16)
--- NOTE | 2019-03-09 14:43 | Hospitalist Progress Note ---
Date of Service March 09, 2019 Assessment & Plan (1) Intractable back pain: - Likely multifactorial related to acute on chronic osteomyelitis, subdural abscess, paraplegia in setting of MS. - Discharged to home from [facility] on 03/06/19; presented for admission the following day. - Tylenol, Tramadol and Dilaudid IV for pain; will add Oxycodone 5 mg q6hr prn pain -- need to establish pain regimen for discharge, Tramadol has not been sufficient. - XR of spine with no acute changes; orthopedics consulted, appreciate input. - Continue home Gabapentin 600 mg daily (recently decreased from 1200 to 600 mg at [facility] [place]) - IV abx as noted below for treatment of osteomyelitis. (2) Vertebral osteomyelitis: - Discharged from [facility] [place] on 03/06/19; continue Ceftriaxone 2 gm IV daily. - Ortho spine consulted, appreciate input. XR was negative for acute changes. 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 - Continue Ceftriaxone IV daily. (4) Retention of urine: - Urology consulted, appreciate input. Salvador was placed on 03/07/19. - May be related to neurogenic component from infection of lower spine. - Will need to maintain salvador catheter; follow up with urology as outpatient. - Continue home Flomax as prescribed. (5) HTN (hypertension): - BP elevated at beginning of admission, now improving. - Continue home Coreg and Imdur as prescribed. - Holding home Spironolactone and Lasix due to EMMETT. - Hydralazine dose was recently decreased to 25 mg TID at [facility] [place]; now increased back to 75 mg TID. (6) Acute renal failure: - Creatinine peaked at 2.3, now trending down; baseline ~1.3-1.7. - U/a +cast cells (?ATN); FENa indicated post obstructive state. - May be related to urinary retention (salvador placed on 03/07, Cr now trending down) vs. pre-renal related to dehydration. - Holding IV fluids in setting of pulm edema. - Holding home Lasix and Spironolactone. - Monitor renal function daily. (7) CKD (chronic kidney disease), stage III: - Previously with stage III CKD; GFR is more consistent with stage IV at this point. - Renally dose all meds. - Follows with Dr. Meraz from nephrology. (8) Acute respiratory failure with hypoxia: - O2 requirements now improved to 2L via NC -- hypoxia related to pulm edema. - CXR showed mild pulm edema and bibasilar opacities concerning for atelectasis, less likely PNA. - Receiving Ceftriaxone daily for osteomyelitis. - Cardiology consulted, agreed with holding diuresis in setting of hypovolemia. - Consider overnight sleep study prior to discharge -- evidence of sleep apnea overnight, may require CPAP. (9) Chronic diastolic CHF (congestive heart failure): - Most recent TTE completed at [facility] [place] showed EF 60%, no wall motion abnormalities and trivial aortic regurg with some degree of aortic stenosis. - CXR with mild pulm edema on admission. - Holding home Lasix in setting of ARF -- monitor closely for fluid overload/weight gain; continue Coreg as prescribed. - Monitor net I/O's and daily weights - weight has been stable. (10) Elevated troponin: - Trop was elevated at admission, appears close to her baseline. - Trended q6hr, no acute elevation; no acute cardiac symptoms are present. - Cardiology consulted, appreciate input. (11) Acute anemia: - Hemoglobin ~9-11 at baseline; may be related to anemia of chronic disease. - Monitor qAM. (12) DM (diabetes mellitus): - Hemoglobin A1C was 6.4 in Nov 2018. - Continue basal/bolus insulin. - Pharmacy consulted for glycemic management. (13) History of CVA (cerebrovascular accident): - Occurred in 1995. - Continue statin, aspirin, Brilinta as prescribed. (14) MS (multiple sclerosis): - With paraplegia. - Monitored by neurologist in [place]. (15) Chronic paraplegia: - Very poor ambulatory function at home -- can use right arm, otherwise requires assistance of with wheelchair. - PT/OT ordered - she refused LTACH and SNF at [facility] [place]. - Case management following. - Discussed discharge planning with her and daughter -- they would like a referral to [facility] in [place], [place]. They are planning on moving to [facility] pending availability. (16) Coronary artery disease: - H/o ND in 2013; follows with Dr. Palomo. - Continue statin, aspirin, Coreg, Imdur, Brilinta as prescribed. - Cardiology consulted, appreciate input. (17) GI bleed: - 3-4 episodes of coffee ground emesis at [facility] on 02/17; Gastroccult was positive. - Monitor H/H closely. - PPI qAM. (18) Depression: - Started Zoloft 25 mg qAM during this admission. - Buspar 10 mg TID prn anxiety. (19) Morbid obesity: - BMI 40 -- encourage weight loss. (20) DVT prophylaxis: - SCDs; Heparin 5,000 units subq 12hr -- caution due to h/o upper GI bleed. Dispo: PCU for pain control and management of ARF. Discharge planning -- would like referral to [facility] in [place]. Discussed briefly with patient case coordinator. Please contact her or daughter regarding plan of care on 03/10/19. Supervising Physician Co-Signing Physician Notes [place] Supervision Note: I did not personally see or examine the patient today, but I verified all fishman points of SHERIF Bai's assessment and plan with the following exceptions/additions: None Subjective Pt. has pain in her right hip extending into the right leg. Received Tramadol with minimal improvement followed by Dilaudid IV -- had significant improvement with IV pain med. Pain is improved compared to her admission at [facility] but is still not well controlled enough for discharge to home. Plan to start PO Oxycodone and evaluate for improvement. Has salvador in place -- urology consulted. Will likely need salvador as outpatient and f/u with urology due to ?neurogenic bladder and compression on bladder from spine infection. Has been requiring 2L via NC -- episodes of apnea and bradycardia overnight. May require overnight study prior to discharge. Pt. will need to desat below 88% at rest to qualify for home oxygen. Review of Systems Review of Systems: All systems reviewed & are unremarkable except as noted in HPI & below Constitutional: + fatigue and + weakness; no fever, no chills and no anorexia Respiratory: + dyspnea; no cough, no dyspnea on exertion and no wheezing Cardiovascular: no chest pain, no palpitations and no edema Gastrointestinal: no abdominal pain, no nausea and no constipation Genitourinary: + difficulty urinating Musculoskeletal: + back pain, + radicular pain and + joint pain Integumentary: no non-healing lesions Allergy / Immunological: no rash Physical Exam Physical Exam: General: Resting comfortably HEENT: NC/AT; PERRLA with EOMI; [place] conjunctiva, MMM. Neck: Supple and nontender Cardiac: regular rate and rhythm Lungs: on 2L via NC; CTA Abdomen: Bowel normoactive X 4; Nontender to palpation Extremities: +1 bilat LE chronic edema. Neuro: No focal weakness; paraplegia in bilat LE and LUE. Skin: No rash Results & Data Vital Signs (Past 12 Hours) Vital Signs Temp Pulse Pulse Resp BP Pulse Ox 03/09/19 11:41 159/55 H 03/09/19 11:38 37.2 C 64 19 180/62 H 98 03/09/19 07:40 60 03/09/19 07:13 36.7 C 65 16 159/51 H 97 03/09/19 03:58 36.7 C 65 18 155/53 H 97 Laboratory Results 03/09/19 03/09/19 03/09/19 Range/Units 12:15 11:10 11:10 WBC (4.8-10.8) K/uL RBC (4.2-5.4) M/uL Hgb (12.0-16.0) g/dL Hct (37-47) % MCV (80-100) fL MCH (25-34) pg MCHC (32-36) g/dL RDW Std Deviation (36.4-46.3) fL RDW Coeff of Valeria (11.5-14.5) % Plt Count (130-400) K/uL MPV (7.4-10.4) fL Sodium (136-145) mmol/L Potassium (3.5-5.1) mmol/L Chloride (98-107) mmol/L Carbon Dioxide (21-32) mmol/L Anion Gap (3-11) BUN (7-18) mg/dl Creatinine (0.6-1.2) mg/dl Est Cr Clr Drug Dosing ml/min Est GFR ( Amer) Est GFR (Non-Af Amer) BUN/Creatinine Ratio (10-20) Glucose (70-99) mg/dl POC Glucose 131 H 115 H 65 L* (70-99) Calcium (8.5-10.1) mg/dl Magnesium (1.8-2.4) mg/dl Total Bilirubin (0.2-1) mg/dl AST (15-37) U/L ALT (12-78) U/L Alkaline Phosphatase (45-117) U/L Troponin I (0-0.045) ng/ml Total Protein (6.4-8.2) gm/dl Albumin (3.4-5.0) gm/dl Globulin (2.5-4.0) gm/dl Albumin/Globulin Ratio (0.9-2) 03/09/19 03/09/19 03/09/19 Range/Units 07:10 06:45 06:45 WBC 8.13 (4.8-10.8) K/uL RBC 3.11 L (4.2-5.4) M/uL Hgb 8.4 L (12.0-16.0) g/dL Hct 27.9 L (37-47) % MCV 89.7 (80-100) fL MCH 27.0 (25-34) pg MCHC 30.1 L (32-36) g/dL RDW Std Deviation 67.2 H (36.4-46.3) fL RDW Coeff of Valeria 20.8 H (11.5-14.5) % Plt Count 262 (130-400) K/uL MPV 11.2 H (7.4-10.4) fL Sodium 145 (136-145) mmol/L Potassium 4.5 (3.5-5.1) mmol/L Chloride 106 (98-107) mmol/L Carbon Dioxide 35 H (21-32) mmol/L Anion Gap 5.0 (3-11) BUN 45 H (7-18) mg/dl Creatinine 2.05 H (0.6-1.2) mg/dl Est Cr Clr Drug Dosing 27.1 ml/min Est GFR ( Amer) 27.2 Est GFR (Non-Af Amer) 23.4 BUN/Creatinine Ratio 22.0 H (10-20) Glucose 87 (70-99) mg/dl POC Glucose 97 (70-99) Calcium 9.6 (8.5-10.1) mg/dl Magnesium 2.1 (1.8-2.4) mg/dl Total Bilirubin 0.4 (0.2-1) mg/dl AST 13 L (15-37) U/L ALT 14 (12-78) U/L Alkaline Phosphatase 98 (45-117) U/L Troponin I (0-0.045) ng/ml Total Protein 5.8 L (6.4-8.2) gm/dl Albumin 2.4 L (3.4-5.0) gm/dl Globulin 3.4 (2.5-4.0) gm/dl Albumin/Globulin Ratio 0.7 L (0.9-2) 03/08/19 03/08/19 03/08/19 Range/Units 20:30 16:35 15:54 WBC (4.8-10.8) K/uL RBC (4.2-5.4) M/uL Hgb (12.0-16.0) g/dL Hct (37-47) % MCV (80-100) fL MCH (25-34) pg MCHC (32-36) g/dL RDW Std Deviation (36.4-46.3) fL RDW Coeff of Valeria (11.5-14.5) % Plt Count (130-400) K/uL MPV (7.4-10.4) fL Sodium (136-145) mmol/L Potassium (3.5-5.1) mmol/L Chloride (98-107) mmol/L Carbon Dioxide (21-32) mmol/L Anion Gap (3-11) BUN (7-18) mg/dl Creatinine (0.6-1.2) mg/dl Est Cr Clr Drug Dosing ml/min Est GFR ( Amer) Est GFR (Non-Af Amer) BUN/Creatinine Ratio (10-20) Glucose (70-99) mg/dl POC Glucose 98 115 H (70-99) Calcium (8.5-10.1) mg/dl Magnesium (1.8-2.4) mg/dl Total Bilirubin (0.2-1) mg/dl AST (15-37) U/L ALT (12-78) U/L Alkaline Phosphatase (45-117) U/L Troponin I Cancelled (0-0.045) ng/ml Total Protein (6.4-8.2) gm/dl Albumin (3.4-5.0) gm/dl Globulin (2.5-4.0) gm/dl Albumin/Globulin Ratio (0.9-2) 06/08/19 Range/Units 15:54 WBC (4.8-10.8) K/uL RBC (4.2-5.4) M/uL Hgb (12.0-16.0) g/dL Hct (37-47) % MCV (80-100) fL MCH (25-34) pg MCHC (32-36) g/dL RDW Std Deviation (36.4-46.3) fL RDW Coeff of Valeria (11.5-14.5) % Plt Count (130-400) K/uL MPV (7.4-10.4) fL Sodium 142 (136-145) mmol/L Potassium 4.5 (3.5-5.1) mmol/L Chloride 105 (98-107) mmol/L Carbon Dioxide 34 H (21-32) mmol/L Anion Gap 3.0 (3-11) BUN 46 H (7-18) mg/dl Creatinine 2.15 H (0.6-1.2) mg/dl Est Cr Clr Drug Dosing 25.7 ml/min Est GFR ( Amer) 25.7 Est GFR (Non-Af Amer) 22.1 BUN/Creatinine Ratio 21.2 H (10-20) Glucose 124 H (70-99) mg/dl POC Glucose (70-99) Calcium 9.2 (8.5-10.1) mg/dl Magnesium (1.8-2.4) mg/dl Total Bilirubin (0.2-1) mg/dl AST (15-37) U/L ALT (12-78) U/L Alkaline Phosphatase (45-117) U/L Troponin I 0.065 H* (0-0.045) ng/ml Total Protein (6.4-8.2) gm/dl Albumin (3.4-5.0) gm/dl Globulin (2.5-4.0) gm/dl Albumin/Globulin Ratio (0.9-2) (1) DM (diabetes mellitus) Diabetes mellitus complication status: without complication Diabetes mellitus care home insulin use: with care home use Diabetes mellitus type: type 2 Qualified Code(s): E11.9 - Type 2 diabetes mellitus without complications; 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
[2019-03-09] MEDS: ATORVASTATIN 40 MG TAB PO SCH (20:47)
[2019-03-09] MEDS: TAMSULOSIN HCL 0.4 MG CAP PO SCH (20:49)
[2019-03-09] MEDS: INSULIN GLARGINE SOLOSTAR 100 UNITS/ML 3 ML PEN SC SCH (20:51)
[2019-03-10] MEDS: HYDROmorphone INJ 0.5 MG/0.5 ML SYR IV PRN ×4 (04:09→22:21)
[2019-03-10] MEDS ORDERED: ONDANSETRON INJ 2 MG/ML 2 ML VIAL IV STA (04:22)
[2019-03-10] MEDS: TRAMADOL HCL 50 MG TABLET PO PRN (04:43)
[2019-03-10 05:55] LABS: Hematocrit (blood only) 27.9 % (37-47); Hemoglobin 8.5 g/dL (12.0-16.0); Mean Corpuscular Hgb Conc 30.5 g/dL (32-36); Mean Corpuscular Volume 89.1 fL (80-100); Mean Platelet Volume 11.2 fL (7.4-10.4); Platelet Count 254 K/uL (130-400); RDW Coefficient of Variation 20.5 % (11.5-14.5); RDW Standard Deviation 65.6 fL (36.4-46.3); Red Blood Count 3.13 M/uL (4.2-5.4); White Blood Count 8.34 K/uL (4.8-10.8)
[2019-03-10 06:17] LABS: Calcium 9.3 mg/dl (8.5-10.1); Est GFR (Non-African American) 25.9; Potassium 4.7 mmol/L (3.5-5.1)
[2019-03-10] MEDS: LACTOBACILLUS ACIDOPHILUS (FLORANEX) TAB PO SCH (08:11)
[2019-03-10] MEDS: SERTRALINE HCL 50 MG TABLET PO SCH (08:11)
[2019-03-10] MEDS: GABAPENTIN 600 MG TAB PO SCH (08:11)
[2019-03-10] MEDS: HydrALAZINE TAB 50 MG TAB PO SCH ×3 (08:11→21:29)
[2019-03-10] MEDS: TICAGRELOR 90 MG TAB PO SCH ×2 (08:11→21:28)
[2019-03-10] MEDS: CARVEDILOL 25 MG TAB PO SCH ×2 (08:12→21:29)
[2019-03-10] MEDS: INSULIN ASPART 100 UNITS/ML 3 ML PEN SC SCH ×4 (08:12→21:26)
[2019-03-10] MEDS: HEPARIN SOD 5,000 UNIT/0.5 ML VIAL SQ SCH ×2 (08:12→21:27)
[2019-03-10] MEDS: ISOSORBIDE MONO EXTENDED REL 30 MG TABCR PO SCH (08:14)
[2019-03-10] MEDS: PANTOprazole 40 MG TAB PO SCH (08:14)
[2019-03-10] MEDS: ASPIRIN 81 MG ECTAB PO SCH (08:14)
--- NOTE | 2019-03-10 10:05 | Urology Progress Note ---
Date of Service March 10, 2019 Assessment & Plan (1) Retention of urine: 74yo F with extensive PMHx including DM, CVA, HTN, CHF, CKD, multiple sclerosis with paraplegia, known to us for hx of incomplete emptying and UTIs, established with Dr. Bonner. Salvador catheter placed on 03/07 by ED for incomplete emptying. Continue abx per ID. Recommend continue salvador catheter, and flomax for this admission. Creatinine beginning to slowly improve with maximal drainage. We will arrange for outpatient follow-up to discuss termite technician management of NGB with incomplete emptying, salvador vs CIC. Please reconsult us with additional concerns, questions or changes in patient status. Thank you for allowing us to participate in the acute care of Ms. Bowman. Subjective 74yo F with extensive PMHx including DM, CVA, HTN, CHF, CKD, multiple sclerosis with paraplegia, known to us for hx of incomplete emptying and UTIs, established with Dr. Bonner. Recently discharged from [facility] on , 03/07/18 for osteomyelitis of throacci spine with subdural abscess, presented back to ED with increased back pain and shortness of breath. She was without salvador catheter at that time. She was found to be in urinary retention in ED, salvador catheter placed on 03/07 in ED. Blood pressure and Creatinine elevated at this time. Most recent renal imaging, CT abd/pelvis 12/16 - no stones, no hydro. Sleeping upon evaluation today, easily arousable. at bedside. She is tolerating catheter well, denies any flank pain, bladder spasms or suprapubic pain, however she is chronically paraplegic as well. Salvador draining clear yellow. UA appears contaminated, however with +2 leuks, +1 protein, no bacteria, no nitrites. UC&S not performed, pt on long course of rocephin for osteo. Review of Systems Review of Systems: All systems reviewed & are unremarkable except as noted in HPI & below Physical Exam Physical Exam: A&Ox3 RRR abd soft, obese, nontender Salvador draining clear yellow mild soft bilateral LE edema Results & Data Vital Signs (Past 12 Hours) Vital Signs Temp Pulse Pulse Resp BP Pulse Ox 03/10/19 07:52 36.6 C 58 L 15 152/55 H 98 03/10/19 03:22 37.0 C 63 19 148/62 H 98 03/09/19 23:29 36.9 C 61 19 128/59 L 98
[2019-03-10] MEDS ORDERED: HYDROmorphone INJ 0.5 MG/0.5 ML SYR IV STA (12:10)
--- NOTE | 2019-03-10 12:25 | Hospitalist Progress Note ---
Date of Service March 10, 2019 Assessment & Plan (1) Intractable back pain: - Likely multifactorial related to acute on chronic osteomyelitis, subdural abscess, paraplegia in setting of MS. - Discharged to home from [facility] on 03/06/19; presented for admission the following day. - XR of spine with no acute changes; orthopedics consulted, appreciate input. - Continue home Gabapentin 600 mg daily (recently decreased from 1200 to 600 mg at [facility]) - IV abx as noted below for treatment of osteomyelitis. - Presently on Tylenol, tramadol, oxycodone, and Dilaudid IV for pain -> Still with a lot of pain, but also lethargy. Consult palliative care. (2) Vertebral osteomyelitis: - Discharged from [facility] on 03/06/19; continue ceftriaxone 2 gm IV daily. - Ortho spine consulted, appreciate input. XR was negative for acute changes. - Per ortho spine on 03/08, no surgical intervention warranted at this time. (3) Subdural abscess: - Treated at [facility]; was not a surgical candidate. - Continue ceftriaxone IV daily. (4) Retention of urine: - Urology consulted, appreciate input. Pierre was placed on 03/07/19. - May be related to neurogenic component from infection of lower spine. - Will need to maintain Pierre catheter; follow up with urology as outpatient. - Continue home Flomax as prescribed. (5) HTN (hypertension): - BP elevated at beginning of admission, now improving. - Continue home Coreg and Imdur as prescribed. - Holding home spironolactone and Lasix due to EMMETT. - Hydralazine dose was recently decreased to 25 mg TID at [facility]; now increased back to 75 mg TID. (6) Acute renal failure: - Creatinine peaked at 2.3, now trending down; baseline ~1.3-1.7. - U/a +cast cells (?ATN); FENa indicated post-obstructive state. - May be related to urinary retention (Pierre placed on 03/07, Cr now trending down) vs. pre-renal related to dehydration. - Holding IV fluids in setting of pulm edema. - Holding home Lasix and Spironolactone. - Monitor renal function daily. (7) CKD (chronic kidney disease), stage III: - Previously with stage III CKD; GFR is more consistent with stage IV at this point. - Renally dose all meds. - Follows with Dr. Meraz from nephrology. (8) Acute respiratory failure with hypoxia: - O2 requirements now improved to 2L via NC -- hypoxia related to pulm edema. - CXR showed mild pulm edema and bibasilar opacities concerning for atelectasis, less likely PNA. - Receiving Ceftriaxone daily for osteomyelitis. - Cardiology consulted, agreed with holding diuresis in setting of hypovolemia. (9) Chronic diastolic CHF (congestive heart failure): - Most recent TTE completed at [facility] showed EF 60%, no wall motion abnormalities and trivial aortic regurg with some degree of aortic stenosis. - CXR with mild pulm edema on admission. - Holding home Lasix in setting of ARF -- monitor closely for fluid overload/weight gain; continue Coreg as prescribed. - Monitor net I/O's and daily weights - weight has been stable. (10) Acute anemia: - Hemoglobin ~9-11 at baseline; may be related to anemia of chronic disease. - Monitor qAM. (11) DM (diabetes mellitus): - Hemoglobin A1C was 6.4% in Nov 2018. - Continue basal/bolus insulin. - Pharmacy consulted for glycemic management. (12) History of CVA (cerebrovascular accident): - Occurred in 1995. - Continue statin, aspirin, Brilinta as prescribed. (13) MS (multiple sclerosis): - With paraplegia. - Monitored by neurologist in [place]. (14) Chronic paraplegia: - Very poor ambulatory function at home -- can use right arm, otherwise requires assistance of with wheelchair. - PT/OT ordered - Referral to [facility] in [place], [place]. (15) Coronary artery disease: - H/o AR in 2013; follows with Dr. Palomo. - Continue statin, aspirin, Coreg, Imdur, Brilinta as prescribed. - Cardiology consulted, appreciate input. (16) GI bleed: - 3-4 episodes of coffee ground emesis at [facility] on 02/17; Gastroccult was positive. - Monitor H/H closely. - PPI qAM. (17) Depression: - Started Zoloft 25 mg qAM during this admission. - Buspar 10 mg TID prn anxiety. (18) DVT prophylaxis: - SCDs; Heparin 5,000 units subq 12hr -- caution due to h/o upper GI bleed. Subjective In a lot of pain at present. Review of Systems Review of Systems: All systems reviewed & are unremarkable except as noted in HPI & below Physical Exam Constitutional: WD/WN, vitals as above + obese and + in distress Eyes: EOM intact bilaterally; no conjunctival abnormality ENMT: external ear and nose normal, oropharynx normal Neck: trachea midline, no thyromegaly normal visual inspection Respiratory: normal respiratory effort, lungs clear to auscultation no respiratory distress Cardiovascular: RRR, no murmur, no edema Heart Sounds: + murmur (Systolic ejection murmur) Gastrointestinal (Abdomen): Inspection/Auscultation: abdomen normal to inspection; abdomen not distended Musculoskeletal: no cyanosis or clubbing, extremities motor strength 5/5 Skin: no rashes, warm and dry Neurologic: moves all extremities and awake Psychiatric: Orientation: alert, oriented to person and cooperative Results & Data Vital Signs (Past 12 Hours) Vital Signs Temp Pulse Pulse Resp BP Pulse Ox 03/10/19 11:53 36.4 C L 52 L 19 144/76 H 99 03/10/19 07:52 36.6 C 58 L 15 152/55 H 98 03/10/19 03:22 37.0 C 63 19 148/62 H 98 (1) HTN (hypertension) Hypertension type: unspecified Qualified Code(s): I10 - Essential (primary) hypertension (2) DM (diabetes mellitus) Diabetes mellitus type: type 2 Diabetes mellitus certified veterinary technician insulin use: with certified veterinary technician use Diabetes mellitus complication status: without complication Qualified Code(s): E11.9 - Type 2 diabetes mellitus without complications; Z79.4 - linux admin engineer (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
[2019-03-10] MEDS: cefTRIAXone SODIUM 2,000 MG in DEXTROSE 5% 50 ML IV SCH (12:34)
--- NOTE | 2019-03-10 15:13 | Palliative Care Consultation ---
Date of Consultation March 10, 2019 Assessment & Plan (1) Intractable back pain: Patient seen and examined in room 204-family at bedside including patient's . Patient is a 74-year-old female with a medical history of MS with paraplegia, urinary retention, hypertension, CKD stage III, diastolic heart disease, diabetes, history of CVA and, CAD/[place] in, depression and obesity who diagnosed with osteomyelitis in June of last year. Patient was on IV antibiotics through July-was discharged home on p.o. antibiotics. Patient did well until this past December when pain recurred and she was again found to have osteomyelitis with a subdural abscess. Patient was admitted to [facility] on 02/14-and treated with IV antibiotics-she was discharged on home IV antibiotics on 03/06. reports patient had increased pain and was not able to transfer to her wheelchair as was her usual habit. Patient presented to [facility] emergency room on 03/07 due to increased pain. At home patient was taking tramadol 100 mg every 4 hours as needed for the pain. On admission patient was found to have a creatinine of 2.32, her prior baseline was 1.7. Creatinine today has improved to 1.89. Patient also with elevated blood pressure-some of this may be due to pain. Patient is currently receiving IV Dilaudid at 0.5 mg for pain-she required 4 doses in 24 hours which is approximately 40 mg of morphine oral equivalent. She is also received tramadol x2 and oxycodone 5 mg x 1. This is been her pain meds requirement when at rest-patient has not been out of bed. Patient has been reported excruciating pain when patient was placed in a [place] lift to try and get her to sit on the side of the bed. Discussed options with both the family and attending physician-given her increased somnolence on the IV Dilaudid -would start with a fentanyl patch at 12 mcg and titrate as needed. Would also recommend increasing her tramadol dose to 100 mg but would suggest a every 6 hour as needed dosing. Will need to follow along and see what her pain med requirements are when patient becomes more mobile. -Back pain-patient is requiring approximately 40 mg of morphine oral equivalent to control pain at rest-would start with a fentanyl patch at 12 mcg. Continue IV Dilaudid as needed, would increase current tramadol to 100 mg every 6 hours as needed and monitor renal function closely. Expect to need to titrate her fentanyl patch if effective. Due to patient's obesity-she may not absorb fentanyl well. -Osteomyelitis/discitissubdural abscess-patient on IV Rocephin-she is not a surgical candidate -Acute renal failure-acute on chronic kidney disease-may have been due to to her prior dosing of tramadol 100 mg every 4 hours as needed-improving, continue to follow creatinine closely -Paraplegia-due to MS-patient spends most of her day in a motorized scooter prior to her admission in January. Will continue to follow and assist with pain management and support patient and family during this hospitalization. (2) Lumbar discitis: (3) Subdural abscess: (4) Vertebral osteomyelitis: (5) Acute renal failure: (6) Chronic paraplegia: History of Present Illness Reason for Consultation: Assist with pain management Requesting Physician: Dr. Naga Keller Attending Physician: Naga Keller MD History of Present Illness Patient seen and examined in room 204-family at bedside including patient's . Patient is a 74-year-old female with a medical history of MS with paraplegia, urinary retention, hypertension, CKD stage III, diastolic heart disease, diabetes, history of CVA and, CAD/[place] in, depression and obesity who diagnosed with osteomyelitis in June of last year. Patient was on IV antibiotics through July-was discharged home on p.o. antibiotics. Patient did well until this past December when pain recurred and she was again found to have osteomyelitis with a subdural abscess. Patient was admitted to [facility] on 02/14-and treated with IV antibiotics-she was discharged on home IV antibiotics on 03/06. reports patient had increased pain and was not able to transfer to her wheelchair as was her usual habit. Patient presented to [facility] emergency room on 03/07 due to increased pain. At home patient was taking tramadol 100 mg every 4 hours as needed for the pain. On admission patient was found to have a creatinine of 2.32, her prior baseline was 1.7. Creatinine today has improved to 1.89. Patient also with elevated blood pressure-some of this may be due to pain. Pain: Location: low back Duration-since the end of December Characteristic: Sharp Precipitating factors-movement, some pain at rest Alleviating factors-rest, pain medication Pain interferes with her prior usual activities Patient is currently receiving IV Dilaudid at 0.5 mg for pain-she required 4 doses in 24 hours which is approximately 40 mg of morphine oral equivalent. She is also received tramadol x2 and oxycodone 5 mg x 1. This is been her pain meds requirement when at rest-patient has not been out of bed. Patient has been reported excruciating pain when patient was placed in a [place] lift to try and get her to sit on the side of the bed. Discussed options with both the family and attending physician-given her increased somnolence on the IV Dilaudid -would start with a fentanyl patch at 12 mcg and titrate as needed. Would also recommend increasing her tramadol dose to 100 mg but would suggest a every 6 hour as needed dosing. Will need to follow along and see what her pain med requirements are when patient becomes more mobile. Patient is alert and oriented x4 and able to participate in medical decision making as well as make her own decisions. does contribute to medical decision making. Patient has 3 children-1 lives locally, one lives in [facility], and 1 lives in [place]. Allergies Allergy/AdvReac Type Severity Reaction Status Date / Time clopidogrel Allergy Intermediate RASH Verified 03/07/19 07:04 Sulfa (Sulfonamide Allergy Intermediate RASH Verified 03/07/19 07:04 Antibiotics) Home Medications Home Medications Medication Instructions Recorded Confirmed Type aspirin [Aspirin Low Dose] 81 mg PO QAM 07/02/18 03/07/19 History atorvastatin 80 mg PO PM 07/02/18 03/07/19 History carvedilol 25 mg PO BID 07/02/18 03/07/19 History ergocalciferol (vitamin D2) 50,000 unit PO MONTHLY 07/02/18 03/07/19 History gabapentin 1,200 mg PO QAM 07/02/18 03/07/19 History insulin glargine 28 units SUBCUT HS 07/02/18 03/07/19 History isosorbide mononitrate 30 mg PO QAM 07/02/18 03/07/19 History nitroglycerin 1 tab SUBLINGUAL Q5M PRN 07/02/18 03/07/19 History potassium chloride 20 meq PO QAM 07/02/18 03/07/19 History tamsulosin 0.4 mg PO QAM 07/02/18 03/07/19 History ticagrelor 90 mg PO BID 07/02/18 03/07/19 History insulin aspart U-100 0 unit SUBCUT TID 12/05/18 03/07/19 History tramadol 50 - 100 mg PO Q4H PRN 02/14/19 03/07/19 History L.acidoph-B.lactis-B.longum 1 cap PO DAILY 03/07/19 03/07/19 History [Florajen3] ceftriaxone 2 g IV DAILY 03/07/19 03/07/19 History docusate sodium [Colace] 100 mg PO BID PRN 03/07/19 03/07/19 History furosemide 40 mg PO BID 03/07/19 03/07/19 History melatonin 5 mg PO HS 03/07/19 03/07/19 History ondansetron HCl 4 mg PO TID PRN 03/07/19 03/07/19 History polyethylene glycol 3350 [Miralax] 17 g PO DAILY PRN 03/07/19 03/07/19 History spironolactone 25 mg PO QAM 03/07/19 03/07/19 History Patient History Medical History Chronic diastolic CHF (congestive heart failure) Chronic paraplegia Morbid obesity DM (diabetes mellitus) (Chronic) History of CVA (cerebrovascular accident) 1995 HTN (hypertension) (Chronic) MS (multiple sclerosis) (Chronic) sees Dr. Murphy in [place]; primary progressive disease Aortic stenosis CAD (coronary artery disease) (Chronic) History of myocardial infarction (Chronic) first OK 2013; 2nd OK in 2017; s/p stent in 2013 EMMETT (acute kidney injury) (Resolved) Chronic kidney disease, stage III (moderate) Surgical History Cataract extraction status Family History Father , in his 70s CKD (chronic kidney disease) Stroke Mother , age 70 Brain tumor Other Family history non-contributory Social History Preferred Language: Uzbek Communication Ability: Effective Crabber Required: No Beliefs That Will Affect Care: None marital status: Current Living Situation: Sp[facility]19 current occupational status: retired Other Information 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 Eyes: no problem reported Ear, Nose, Mouth, Throat: no problem reported Respiratory: Hypoxia-requiring O2 at 2 L Cardiovascular: no chest pain Gastrointestinal: no constipation Genitourinary: Urinary retention-on Flomax Musculoskeletal: Paraplegia due to MS Neurologic: Somnolent, otherwise alert and oriented x4 Psychiatric: Depression-on Zoloft Physical Exam Physical Exam: PE: No acute distress, dozed off several times during visit HEENT: EOMI, hearing within normal limits Respiratory: Unlabored, on O2 at 2 L CV: Regular rate, appears well perfused Abdomen: Soft, nontender, obese Extremities: Warm to touch Neuro: Alert and oriented x4 Psych: Appropriate mood Results & Data Vital Signs (Past 12 Hours) Vital Signs Temp Pulse Pulse Resp BP Pulse Ox 03/10/19 11:53 97.5 F L 52 L 19 144/76 H 99 03/10/19 07:52 97.9 F 58 L 15 152/55 H 98 03/10/19 03:22 98.6 F 63 19 148/62 H 98 Time Spent Attending Total time spent 55 minutes with greater than 50% of the time spent at bedside evaluating patient's pain level as well as developing a plan of care. Collaborated with attending physician
[2019-03-10] MEDS ORDERED: fentaNYL 12 MCG/HR TDSY TD SCH (20:00)
[2019-03-10] MEDS: INSULIN GLARGINE SOLOSTAR 100 UNITS/ML 3 ML PEN SC SCH (21:27)
[2019-03-10] MEDS: ATORVASTATIN 40 MG TAB PO SCH (21:28)
[2019-03-10] MEDS: TAMSULOSIN HCL 0.4 MG CAP PO SCH (21:28)
[2019-03-11] MEDS: CHECK FENTANYL PATCH PLACEMENT SCH ×3 (02:40→18:09)
[2019-03-11 05:49] LABS: Hematocrit (blood only) 28.1 % (37-47); Hemoglobin 8.4 g/dL (12.0-16.0); Mean Corpuscular Hgb Conc 29.9 g/dL (32-36); Mean Corpuscular Volume 89.8 fL (80-100); Mean Platelet Volume 11.2 fL (7.4-10.4); Platelet Count 240 K/uL (130-400); RDW Coefficient of Variation 20.3 % (11.5-14.5); Red Blood Count 3.13 M/uL (4.2-5.4); White Blood Count 7.85 K/uL (4.8-10.8)
[2019-03-11 06:22] LABS: BUN Creatinine Ratio 24.1 (10-20); Calcium 9.4 mg/dl (8.5-10.1); Creatinine Clr Calc Pharmacy 31.1 ml/min; Est GFR (African American) 32.7; Est GFR (Non-African American) 28.2; Magnesium 2.1 mg/dl (1.8-2.4); Potassium 4.8 mmol/L (3.5-5.1)
[2019-03-11] MEDS: HYDROmorphone INJ 0.5 MG/0.5 ML SYR IV PRN ×2 (07:29→13:46)
[2019-03-11] MEDS: ASPIRIN 81 MG ECTAB PO SCH (07:32)
[2019-03-11] MEDS: HydrALAZINE TAB 50 MG TAB PO SCH ×3 (07:32→20:47)
[2019-03-11] MEDS: ISOSORBIDE MONO EXTENDED REL 30 MG TABCR PO SCH (07:32)
[2019-03-11] MEDS: HEPARIN SOD 5,000 UNIT/0.5 ML VIAL SQ SCH ×2 (07:32→20:48)
[2019-03-11] MEDS: TICAGRELOR 90 MG TAB PO SCH ×2 (07:33→20:47)
[2019-03-11] MEDS: SERTRALINE HCL 50 MG TABLET PO SCH (07:33)
[2019-03-11] MEDS: LACTOBACILLUS ACIDOPHILUS (FLORANEX) TAB PO SCH (07:33)
[2019-03-11] MEDS: PANTOprazole 40 MG TAB PO SCH (07:33)
[2019-03-11] MEDS: CARVEDILOL 25 MG TAB PO SCH ×2 (07:33→20:47)
[2019-03-11] MEDS: GABAPENTIN 600 MG TAB PO SCH (07:33)
[2019-03-11] MEDS: INSULIN ASPART 100 UNITS/ML 3 ML PEN SC SCH ×4 (07:43→21:52)
[2019-03-11] MEDS: OXYCODONE HCL IR 5 MG TAB (IMMEDIATE RELEASE) PO PRN ×2 (09:56→21:47)
[2019-03-11] MEDS: cefTRIAXone SODIUM 2,000 MG in DEXTROSE 5% 50 ML IV SCH (12:15)
--- NOTE | 2019-03-11 12:20 | Hospitalist Progress Note ---
Date of Service March 11, 2019 Assessment & Plan (1) Intractable back pain: - Likely multifactorial related to acute on chronic osteomyelitis, subdural abscess, paraplegia in setting of MS. - Discharged to home from [facility] on 03/06/19; presented for admission the following day. - XR of spine with no acute changes; orthopedics consulted, appreciate input. - Continue home gabapentin 600 mg daily [place] 1200 [place] 600 [place] [facility] - IV abx as noted below for treatment of osteomyelitis. - Presently on Tylenol, tramadol, oxycodone, and Dilaudid IV for pain - Consulted palliative care on 03/10 - Added fentanyl patch (12mcg) and increased tramadol on 03/10 -> Still with pain, though she appears comfortable on exam. (2) Vertebral osteomyelitis: - [place] [facility] [place]; continue ceftriaxone 2 gm IV daily. - Ortho spine consulted, appreciate input. XR was negative for acute changes. - Per ortho spine on 03/08, no surgical intervention warranted at this time. (3) Subdural abscess: - Tre[place] [facility] [place]; was not a surgical candidate. - Continue ceftriaxone IV daily. (4) Retention of urine: - Urology consulted, appreciate input. Pierre was placed on 03/07/19. - May be related to neurogenic component from infection of lower spine. - Will need to maintain Pierre catheter; follow up with urology as outpatient. - Continue home Flomax as prescribed. (5) HTN (hypertension): - BP elevated at beginning of admission, now improving. - Continue home Coreg and Imdur as prescribed. - Holding home spironolactone and Lasix due to EMMETT. - Hydralazine dose was recently decreased to 25 mg TID [place] [facility] [place]; now increased back to 75 mg TID. (6) Acute renal failure: - Creatinine peaked at 2.3, now trending down; baseline ~1.3-1.7. - U/a +cast cells (?ATN); FENa indicated post-obstructive state. - May be related to urinary retention (Pierre placed on 03/07, Cr now trending down) vs. pre-renal related to dehydration. - Holding IV fluids in setting of pulm edema. - Holding home Lasix and Spironolactone. - Monitor renal function daily. (7) CKD (chronic kidney disease), stage III: - Previously with stage III CKD; GFR is more consistent with stage IV at this point. - Renally dose all meds. - Follows with Dr. Meraz from nephrology. (8) Acute respiratory failure with hypoxia: - O2 requirements now improved to 2L via NC -- hypoxia related to pulm ed an. - CXR showed mild pulm edema and bibasilar opacities concerning for atelectasis, less likely PNA. - Receiving Ceftriaxone daily for osteomyelitis. - Cardiology consulted, agreed with holding diuresis in setting of hypovolemia. (9) Chronic diastolic CHF (congestive heart failure): - Most recent T[place] [facility] [place] showed EF 60%, no wall motion abn ormalities and trivial aortic regurg with some degree of aortic stenosis. - CXR with mild pulm edema on admission. - Holding home Lasix in setting of ARF -- monitor closely for fluid overload/weight gain; continue Coreg as prescribed. - Monitor net I/O's and daily weights - weight has been stable. (10) Acute anemia: - Hemoglobin ~9-11 at baseline; may be related to anemia of chronic disease. - Monitor qAM. (11) DM (diabetes mellitus): - Hemoglobin A1C was 6.4% in Nov 2018. - Continue basal/bolus insulin. - Pharmacy consulted for glycemic management. (12) History of CVA (cerebrovascular accident): - Occurred in 1995. - Continue statin, aspirin, Brilinta as prescribed. (13) MS (multiple sclerosis): - With paraplegia. - Monitored by neurologist in [place]. (14) Chronic paraplegia: - Very poor ambulatory function at home -- can use right arm, otherwise requires assistance of with wheelchair. - PT/OT ordered - Referral to [facility] in [place], [place]. (15) Coronary artery disease: - H/o ME in 2013; follows with Dr. Palomo. - Continue statin, aspirin, Coreg, Imdur, Brilinta as prescribed. - Cardiology consulted, appreciate input. (16) GI bleed: - 3-4 episodes of coffee ground emesis [place] [facility]; Gastroccult was positive. - Monitor H/H closely. - PPI qAM. (17) Depression: - Started Zoloft 25 mg qAM during this admission. - Buspar 10 mg TID prn anxiety. (18) DVT prophylaxis: - SCDs; Heparin 5,000 units subq 12hr -- caution due to h/o upper GI bleed. Subjective Still in pain. Review of Systems Review of Systems: All systems reviewed & are unremarkable except as noted in HPI & below Physical Exam Constitutional: WD/WN, vitals as above + obese and + in distress Eyes: EOM intact bilaterally; no conjunctival abnormality ENMT: external ear and nose normal, oropharynx normal Neck: trachea midline, no thyromegaly normal visual inspection Respiratory: normal respiratory effort, lungs clear to auscultation no respiratory distress Cardiovascular: RRR, no murmur, no edema Heart Sounds: + murmur (Systolic ejection murmur) Gastrointestinal (Abdomen): Inspection/Auscultation: abdomen normal to inspection; abdomen not distended Musculoskeletal: no cyanosis or clubbing, extremities motor strength 5/5 Skin: no rashes, warm and dry Neurologic: moves all extremities and awake Psychiatric: Orientation: alert, oriented to person and cooperative Results & Data Vital Signs (Past 12 Hours) Vital Signs Temp Pulse Resp BP Pulse Ox 03/11/19 11:42 67 22 134/51 L 98 03/11/19 07:00 37.4 C 69 15 152/102 H 99 03/11/19 03:48 37.3 C 60 18 143/67 H 98 (1) HTN (hypertension) Hypertension type: unspecified Qualified Code(s): I10 - Essential (primary) hypertension (2) DM (diabetes mellitus) Diabetes mellitus type: type 2 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
--- NOTE | 2019-03-11 12:21 | Pharmacy Report ---
Pharmacy Glycemic Short Note 2 - Date of Service March 11, 2019 - Glycemic Short BSG Results (Last 24 hours): 03/10/19 03/10/19 03/11/19 16:30 20:32 05:31 Glucose 118 H POC Glucose 167 H 165 H 03/11/19 03/11/19 07:40 11:40 Glucose POC Glucose 123 H 148 H OUTPATIENT ANTIDIABETIC REGIMEN: * Insulin glargine 28 units SC HS * Insulin aspart SC TID as follows: * Correction factor 20 mg/dL/unit above BSG of 160 mg/dL * Carb ratio 3 g CHO/unit * Typical total daily dosage ~ 80 units * A1c = 6.4% on 11/22/18. Repeat on order for 03/08/19 ASSESSMENT: 03/11/19 * BSGs slightly above goal range but adequate (139-167), will adjust goal range slightly but continue current lantus, carb ratio/correction factor * SCr continuing to trend down 03/09/19 * Blood sugars at goal, continue insulin as ordered. * ID recommends continue abx as planned [place] [facility] [place], does not appear that she has had any + cultures to guide therapy, may ultimately require surgery if no improvement. 03/07/19 * 74 yo F with T2DM admitted to [facility] on 03/07/19 for back pain. Patient recently discharged to home from [facility] on 03/06/19 for osteomyelitis/epidural abscess. * EMMETT noted - SCr elevated to 2.32 mg/dL, baseline SCr ~ 1.3 mg/dL. * Patient known to our glycemic service from admission ~ 1 year ago - inpatient stressors similar, outpatient regimen at that time similar, A1c similar. Will use that admission's data to guide this admission's glycemic regimen. Of note, patient's outpatient Lantus dose and CHO ratio are significantly more aggressive than patient's previous inpatient requirements PLAN FOR INPATIENT GLYCEMIC CONTROL: * Basal insulin: Lantus SC HS based on BSG * 10 units for BSG less than 180 mg/dL * 14 units for BSG 180 mg/dL or greater * Bolus insulin * NovoLog per scale ACHS or Q6hrs while NPO * Goal Range: Low 120 mg/dL - High 160 mg/dL * Correction Factor: 25 mg/dL/unit * Nutritional / Prandial insulin per carb ratio of 1 unit per 8 grams CHO consumed PLAN FOR DISCHARGE: * A1C 6.1% - continue regimen unless having hypoglycemia at home
--- NOTE | 2019-03-11 16:06 | Palliative Care Progress Note ---
Date of Service March 11, 2019 Assessment & Plan (1) Intractable back pain: Patient seen and examined in room 204-family at bedside including patient's . Patient is a 74-year-old female with a medical history of MS with paraplegia, urinary retention, hypertension, CKD stage III, diastolic heart disease, diabetes, history of CVA and, CAD/[place] in, depression and obesity who diagnosed with osteomyelitis in June of last year. Patient was on IV antibiotics through July-was discharged home on p.o. antibiotics. Patient did well until this past December when pain recurred and she was again found to have osteomyelitis with a subdural abscess. Patient was admitted to [facility] on 02/14-and treated with IV antibiotics-she was discharged on home IV antibiotics on 03/06. reports patient had increased pain and was not able to transfer to her wheelchair as was her usual habit. Patient presented to [facility] emergency room on 03/07 due to increased pain. At home patient was taking tramadol 100 mg every 4 hours as needed for the pain. On admission ken redd was found to have a creatinine of 2.32, her prior baseline was 1.7. Creatinine today has improved to 1.76. Patient was started on a fentanyl patch at 12 mcg and is currently receiving IV Dilaudid at 0.5 mg for pain-she required 2 doses in the past 10 hours. She is also received no prn tramadol and oxycodone 10 mg x 1in the past 2 hours. Discussed with both the patient and her giving time for the fentanyl to become effective as well as the patient will [place] attention to any effects from the fentanyl patch on her pain-especially with turning and repositioning. Will need to follow along and see what her pain med requirements are when patient becomes more mobile. -Back pain-patient is requiring approximately 40 mg of morphine oral equivalent to control pain at rest-would started a fentanyl patch at 12 mcg. Continue IV Dilaudid as needed, increased tramadol to 100 mg every 6 hours as needed and monitor renal function closely, continue PRN oxycodone at 10 mg. Expect to need to titrate her fentanyl patch if effective. Due to patient's obesity-she may not absorb fentanyl well. -Osteomyelitis/discitissubdural abscess-patient on IV Rocephin-she is not a surgical candidate -Acute renal failure-acute on chronic kidney disease-may have been due to to her prior dosing of tramadol 100 mg every 4 hours as needed-improving, continue to follow creatinine closely -Paraplegia-due to MS-patient spends most of her day in a motorized scooter prior to her admission in January. Will continue to follow and assist with pain management and support patient and family during this hospitalization. (2) Vertebral osteomyelitis: (3) Acute renal failure: (4) Chronic paraplegia: Subjective Patient seen and examined in room 204, at bedside. Patient more alert today on exam. Patient just started on fentanyl patch-no increased drowsiness, still receiving PRN Dilaudid-required 2 doses in the past 10 hours. Patient not able to determine if the fentanyl patch is starting to kick in or helping at all-as patient to pay attention when she is being turned and moved and let me know approximately what percentage improvement in pain control she has. Expect to need to increase her fentanyl patch dose-will titrate over the next several days. Review of Systems Review of Systems: Patient denies fever, chills, chest pain, increased shortness of breath, or abdominal pain. Physical Exam Physical Exam: PE: No acute distress, more alert, did not doze off during entire visit HEENT: EOMI, hearing within normal limits Respiratory: Unlabored, clear breath sounds CV: Regular rate, no edema Abdomen: Soft, nontender Extremities: Well perfused Neuro: Alert, no new focal deficits Results & Data Vital Signs (Past 12 Hours) Vital Signs Temp Pulse Resp BP Pulse Ox 03/11/19 15:20 98.4 F 69 15 139/50 L 99 03/11/19 11:42 67 22 134/51 L 98 03/11/19 07:00 99.3 F 69 15 152/102 H 99 Time Spent Attending Total time spent 35 minutes with greater than 50% of the time spent at bedside assessing patient's current pain level as well as PRN pain med use. Discussed expected results from starting fentanyl patch with patient and
[2019-03-11] MEDS: ATORVASTATIN 40 MG TAB PO SCH (20:47)
[2019-03-11] MEDS: TAMSULOSIN HCL 0.4 MG CAP PO SCH (20:47)
[2019-03-11] MEDS: INSULIN GLARGINE SOLOSTAR 100 UNITS/ML 3 ML PEN SC SCH (21:51)
[2019-03-12] MEDS: CHECK FENTANYL PATCH PLACEMENT SCH ×3 (00:15→16:00)
[2019-03-12] MEDS: OXYCODONE HCL IR 5 MG TAB (IMMEDIATE RELEASE) PO PRN ×2 (05:44→14:24)
[2019-03-12 07:05] LABS: BUN Creatinine Ratio 23.7 (10-20); Calcium 9.6 mg/dl (8.5-10.1); Creatinine Clr Calc Pharmacy 31.8 ml/min; Est GFR (African American) 33.1; Est GFR (Non-African American) 28.6; Magnesium 2.1 mg/dl (1.8-2.4); Potassium 4.8 mmol/L (3.5-5.1)
[2019-03-12] MEDS: INSULIN ASPART 100 UNITS/ML 3 ML PEN SC SCH ×4 (08:22→21:01)
[2019-03-12] MEDS: ASPIRIN 81 MG ECTAB PO SCH (08:24)
[2019-03-12] MEDS: HEPARIN SOD 5,000 UNIT/0.5 ML VIAL SQ SCH ×2 (08:24→21:01)
[2019-03-12] MEDS: SERTRALINE HCL 50 MG TABLET PO SCH (08:24)
[2019-03-12] MEDS: LACTOBACILLUS ACIDOPHILUS (FLORANEX) TAB PO SCH (08:25)
[2019-03-12] MEDS: GABAPENTIN 600 MG TAB PO SCH (08:25)
[2019-03-12] MEDS: PANTOprazole 40 MG TAB PO SCH (08:25)
[2019-03-12] MEDS: HydrALAZINE TAB 50 MG TAB PO SCH ×3 (08:25→21:00)
[2019-03-12] MEDS: ISOSORBIDE MONO EXTENDED REL 30 MG TABCR PO SCH (08:25)
[2019-03-12] MEDS: CARVEDILOL 25 MG TAB PO SCH ×2 (08:25→21:00)
[2019-03-12] MEDS: TICAGRELOR 90 MG TAB PO SCH ×2 (08:25→21:00)
[2019-03-12] MEDS: TRAMADOL HCL 50 MG TABLET PO PRN (12:21)
[2019-03-12] MEDS: cefTRIAXone SODIUM 2,000 MG in DEXTROSE 5% 50 ML IV SCH (12:22)
--- NOTE | 2019-03-12 14:17 | Hospitalist Progress Note ---
Date of Service March 12, 2019 Assessment & Plan (1) Intractable back pain: - Likely multifactorial related to acute on chronic osteomyelitis, subdural abscess, paraplegia in setting of MS. - Discharged to home from [facility] on 03/06/19; presented for admission the following day. - XR of spine with no acute changes; orthopedics consulted, appreciate input. - Continue home gabapentin 600 mg daily (recently decreased from 1200 to 600 mg at [facility] - IV abx as noted below for treatment of osteomyelitis. - Presently on Tylenol, tramadol, oxycodone, and Dilaudid IV for pain - Consulted palliative care on 03/10 - Added fentanyl patch (12mcg) and increased tramadol on 03/10 -> Pain improving. Will increase movement today and see how pain changes. (2) Vertebral osteomyelitis: - Discharged from [facility] [place] 03/06/19; continue ceftriaxone 2 gm IV daily. - Ortho spine consulted, appreciate input. XR was negative for acute changes. - Per ortho spine on 03/08, no surgical intervention warranted at this time. (3) Subdural abscess: - Treated at [facility]; was not a surgical candidate. - Continue ceftriaxone IV daily. (4) Retention of urine: - Urology consulted, appreciate input. Pierre was placed on 03/07/19. - May be related to neurogenic component from infection of lower spine. - Will need to maintain Pierre catheter; follow up with urology as outpatient. - Continue home Flomax as prescribed. (5) HTN (hypertension): - BP elevated at beginning of admission, now improving. - Continue home Coreg and Imdur as prescribed. - Holding home spironolactone and Lasix due to EMMETT. - Hydralazine dose was recently decreased to 25 mg TID at [facility]; now increased back to 75 mg TID. (6) Acute renal failure: - Creatinine peaked at 2.3, now trending down; baseline ~1.3-1.7. - U/a +cast cells (?ATN); FENa indicated post-obstructive state. - May be related to urinary retention (Pierre placed on 03/07, Cr now trending down) vs. pre-renal related to dehydration. - Holding IV fluids in setting of pulm edema. - Holding home Lasix and Spironolactone. - Monitor renal function daily. (7) CKD (chronic kidney disease), stage III: - Previously with stage III CKD; GFR is more consistent with stage IV at this point. - Renally dose all meds. - Follows with Dr. Meraz from nephrology. (8) Acute respiratory failure with hypoxia: - O2 requirements now improved to 2L via NC -- hypoxia related to pulm edema. - CXR showed mild pulm edema and bibasilar opacities concerning for atelectasis, less likely PNA. - Receiving Ceftriaxone daily for osteomyelitis. - Cardiology consulted, agreed with holding diuresis in setting of hypovolemia. (9) Chronic diastolic CHF (congestive heart failure): - Most recent TTE completed at [facility] showed EF 60%, no wall motion abnormalities and trivial aortic regurg with some degree of aortic stenosis. - CXR with mild pulm edema on admission. - Holding home Lasix in setting of ARF -- monitor closely for fluid ov erload/weight gain; continue Coreg as prescribed. - Monitor net I/O's and daily weights - weight has been stable. (10) Acute anemia: - Hemoglobin ~9-11 at baseline; may be related to anemia of chronic disease. - Monitor qAM. (11) DM (diabetes mellitus): - Hemoglobin A1C was 6.4% in Nov 2018. - Continue basal/bolus insulin. - Pharmacy consulted for glycemic management. (12) History of CVA (cerebrovascular accident): - Occurred in 1995. - Continue statin, aspirin, Brilinta as prescribed. (13) MS (multiple sclerosis): - With paraplegia. - Monitored by neurologist in [place]. (14) Chronic paraplegia: - Very poor ambulatory function at home -- can use right arm, otherwise requires assistance of with wheelchair. - PT/OT ordered - Referral to [facility] in [place], [place]. (15) Coronary artery disease: - H/o [place] in 2013; follows with Dr. Palomo. - Continue statin, aspirin, Coreg, Imdur, Brilinta as prescribed. - Cardiology consulted, appreciate input. (16) GI bleed: - 3-4 episodes of coffee ground emesis at [facility] on 02/17; Gastroccult was positive. - Monitor H/H closely. - PPI qAM. (17) Depression: - Started Zoloft 25 mg qAM during this admission. - Buspar 10 mg TID prn anxiety. (18) DVT prophylaxis: - SCDs; Heparin 5,000 units subq 12hr -- caution due to h/o upper GI bleed. Subjective Mood improved today. No pain without any movement. Would like to start increasing mobility. Review of Systems Review of Systems: All systems reviewed & are unremarkable except as noted in HPI & below Physical Exam Constitutional: WD/WN, vitals as above + obese and + in distress Eyes: EOM intact bilaterally; no conjunctival abnormality ENMT: external ear and nose normal, oropharynx normal Neck: trachea midline, no thyromegaly normal visual inspection Respiratory: normal respiratory effort, lungs clear to auscultation no respiratory distress Cardiovascular: RRR, no murmur, no edema Heart Sounds: + murmur (Systolic ejection murmur) Gastrointestinal (Abdomen): Inspection/Auscultation: abdomen normal to inspection; abdomen not distended Musculoskeletal: no cyanosis or clubbing, extremities motor strength 5/5 Skin: no rashes, warm and dry Neurologic: moves all extremities and awake Psychiatric: Orientation: alert, oriented to person and cooperative Results & Data Vital Signs (Past 12 Hours) Vital Signs Temp Pulse Resp BP Pulse Ox 03/12/19 11:05 37.0 C 61 16 125/43 L 98 03/12/19 07:01 36.6 C 56 L 7 L 139/45 L 98 03/12/19 03:08 36.8 C 64 18 133/46 L 97 (1) HTN (hypertension) Hypertension type: unspecified Qualified Code(s): I10 - Essential (primary) hypertension (2) DM (diabetes mellitus) Diabetes mellitus type: type 2 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
--- NOTE | 2019-03-12 16:09 | Palliative Care Progress Note ---
Date of Service March 12, 2019 Assessment & Plan (1) Intractable back pain: Patient seen and examined in room 204-family at bedside including patient's and daughter. Patient is a 74-year-old female with a medical history of MS with paraplegia, urinary retention, hypertension, CKD stage III, diastolic heart disease, diabetes, history of CVA and, CAD/AZ in, depression and obesity who diagnosed with osteomyelitis in June of last year. Patient was on IV antibiotics through July-was discharged home on p.o. antibiotics. Patient did well until this past December when pain recurred and she was again found to have osteomyelitis with a subdural abscess. Patient was admitted to [facility] on 02/14-and treated with IV antibiotics-she was discharged on home IV antibiotics on 03/06. reports patient had increased pain and was not able to transfer to her wheelchair as was her usual habit. Patient presented to [facility] emergency room on 03/07 due to increased pain. At home patient was taking tramadol 100 mg every 4 hours as needed for the pain. On admission patient was found to have a creatinine of 2.32, her prior baseline was 1.7. Creatinine today has improved to 1.74. Patient was started on a fentanyl patch at 12 mcg and is currently receiving IV Dilaudid at 0.5 mg for pain-she required 1 dose in the past 24 hours. She is also received one prn tramadol and oxycodone 10 mg x 2 in the past 24 hours. Discussed with both the patient and her increasing the fentanyl patch to 25 mcg and monitor for sedation as well as improved pain control when patient is turned and repositioned. Will need to follow along and see what her pain med requirements are when patient becomes more mobile. -Back pain-pain at rest as well as pain with movement improved with fentanyl patch-not yet edited acceptable level-would recommend increasing her fentanyl patch to 25 mcg -Osteomyelitis/discitissubdural abscess-patient on IV Rocephin-she is not a surgical candidate -Acute renal failure-acute on chronic kidney disease-may have been due to to her prior dosing of tramadol 100 mg every 4 hours as needed-improving, continue to follow creatinine closely -Paraplegia-due to MS-patient spends most of her day in a motorized scooter prior to her admission in January. Will continue to follow and assist with pain management and support patient and family during this hospitalization. (2) Vertebral osteomyelitis: (3) Acute renal failure: (4) Chronic paraplegia: Subjective Patient seen and examined in room 204, patient's daughter and at bedside. Both patient and family report that pain control at rest has improved- she required 1 PRN Dilaudid, 1 PRN tramadol, and 2 PRN oxygen in the past 24 hours. states she is having less pain at rest. Return to room for second visit to assess patient's level of pain after repositioning-pain was better controlled on repositioning-however patient had significant pain afterwards. Collaborated with attending physician-would recommend increasing her fentanyl patch to 25 mcg and monitor for sedation as well as pain control Review of Systems Review of Systems: Patient denies fever, chills, chest pain, increased shortness of breath, or abdominal pain Physical Exam Physical Exam: PE: Patient awake alert, not somnolent HEENT: EOMI, hearing within normal limits Respiratory: Unlabored, good air movement, on O2 at 2 L CV: Regular rate Abdomen: Soft, nontender, obese Neuro: Alert and oriented x4 Results & Data Vital Signs (Past 12 Hours) Vital Signs Temp Pulse Resp BP Pulse Ox 03/12/19 15:31 97.9 F 59 L 18 125/61 99 03/12/19 11:05 98.6 F 61 16 125/43 L 98 03/12/19 07:01 97.9 F 56 L 7 L 139/45 L 98 Time Spent Attending Total time spent 45 minutes on 2 separate visits assessing patient's pain control at rest as well as with movement-discussed plan of care with patient and family
[2019-03-12] MEDS: ATORVASTATIN 40 MG TAB PO SCH (21:00)
[2019-03-12] MEDS: TAMSULOSIN HCL 0.4 MG CAP PO SCH (21:00)
[2019-03-12] MEDS: INSULIN GLARGINE SOLOSTAR 100 UNITS/ML 3 ML PEN SC SCH (21:01)
[2019-03-13] MEDS: CHECK FENTANYL PATCH PLACEMENT SCH ×4 (02:34→22:02)
[2019-03-13 05:33] LABS: BUN Creatinine Ratio 24.4 (10-20); Calcium 9.2 mg/dl (8.5-10.1); Creatinine Clr Calc Pharmacy 33.4 ml/min; Est GFR (African American) 35.9; Est GFR (Non-African American) 30.9; Potassium 4.9 mmol/L (3.5-5.1)
[2019-03-13] MEDS: LACTOBACILLUS ACIDOPHILUS (FLORANEX) TAB PO SCH (08:06)
[2019-03-13] MEDS: ISOSORBIDE MONO EXTENDED REL 30 MG TABCR PO SCH (08:06)
[2019-03-13] MEDS: TICAGRELOR 90 MG TAB PO SCH ×2 (08:06→20:12)
[2019-03-13] MEDS: PANTOprazole 40 MG TAB PO SCH (08:06)
[2019-03-13] MEDS: GABAPENTIN 600 MG TAB PO SCH (08:07)
[2019-03-13] MEDS: SERTRALINE HCL 50 MG TABLET PO SCH (08:07)
[2019-03-13] MEDS: CARVEDILOL 25 MG TAB PO SCH ×2 (08:07→20:12)
[2019-03-13] MEDS: ASPIRIN 81 MG ECTAB PO SCH (08:07)
[2019-03-13] MEDS: HydrALAZINE TAB 50 MG TAB PO SCH ×3 (08:07→20:12)
[2019-03-13] MEDS: HEPARIN SOD 5,000 UNIT/0.5 ML VIAL SQ SCH ×2 (08:08→20:14)
[2019-03-13] MEDS: INSULIN ASPART 100 UNITS/ML 3 ML PEN SC SCH ×4 (08:08→20:15)
[2019-03-13] MEDS: OXYCODONE HCL IR 5 MG TAB (IMMEDIATE RELEASE) PO PRN (09:20)
[2019-03-13] MEDS ORDERED: fentaNYL 25 MCG/HR TDSY TD SCH (10:30)
--- NOTE | 2019-03-13 11:42 | Pharmacy Report ---
Pharmacy Glycemic Short Note 2 - Date of Service March 13, 2019 - Glycemic Short BSG Results (Last 24 hours): 03/12/19 03/12/19 03/12/19 11:02 16:25 20:41 Glucose POC Glucose 179 H 179 H 157 H 03/13/19 03/13/19 04:44 07:31 Glucose 127 H POC Glucose 144 H OUTPATIENT ANTIDIABETIC REGIMEN: * Insulin glargine 28 units SC HS * Insulin aspart SC TID as follows: * Correction factor 20 mg/dL/unit above BSG of 160 mg/dL * Carb ratio 3 g CHO/unit * Typical total daily dosage ~ 80 units * A1c = 6.4% on 11/22/18. Repeat on order for 03/08/19 ASSESSMENT: 03/13/19: * BSGs continue to be adequate although slightly above goal range. Novolog carb coverage and correction factor were mildly tightened. If post prandials continue to remain elevated, will tighten correction factor even further. Goal range was also lowered. Patient is eating, but intake is low (~15 g crabs per meal). Will continue lantus coverage, but add an option to increase to 12 units nightly if BSG > 160. 03/11/19 * BSGs slightly above goal range but adequate (139-167), will adjust goal range slightly but continue current lantus, carb ratio/correction factor * SCr continuing to trend down 03/09/19 * Blood sugars at goal, continue insulin as ordered. * ID recommends continue abx as planned per [facility] ID, does not appear that she has had any + cultures to guide therapy, may ultimately require surgery if no improvement. 03/07/19 * 74 yo F with T2DM admitted to [facility] on 03/07/19 for back pain. Patient recently discharged to home from [facility] on 03/06/19 for osteomyelitis/epidural abscess. * EMMETT noted - SCr elevated to 2.32 mg/dL, baseline SCr ~ 1.3 mg/dL. * Patient known to our glycemic service from admission ~ 1 year ago - inpatient stressors similar, outpatient regimen at that time similar, A1c similar. Will use that admission's data to guide this admission's glycemic regimen. Of note, patient's outpatient Lantus dose and CHO ratio are significantly more aggressive than patient's previous inpatient requirements PLAN FOR INPATIENT GLYCEMIC CONTROL: * Basal insulin: Lantus SC HS based on BSG * 10 units for BSG less than 160 mg/dL * 12 units for BSG 160 mg/dL or greater * Bolus insulin * NovoLog per scale ACHS or Q6hrs while NPO * Goal Range: Low 110 mg/dL - High 140 mg/dL * Correction Factor: 20 mg/dL/unit * Nutritional / Prandial insulin per carb ratio of 1 unit per 7 grams CHO consumed PLAN FOR DISCHARGE: * A1C 6.1% - continue regimen unless having hypoglycemia at home
[2019-03-13] MEDS: cefTRIAXone SODIUM 2,000 MG in DEXTROSE 5% 50 ML IV SCH (13:07)
[2019-03-13] MEDS: ONDANSETRON INJ 2 MG/ML 2 ML VIAL IV PRN (13:19)
--- NOTE | 2019-03-13 13:59 | Hospitalist Progress Note ---
Date of Service March 13, 2019 Assessment & Plan (1) Intractable back pain: - Likely multifactorial related to acute on chronic osteomyelitis, subdural abscess, paraplegia in setting of MS. - Discharged to home from [facility] on 03/06/19; presented for admission the following day. - XR of spine with no acute changes; orthopedics consulted, appreciate input. - Continue home gabapentin 600 mg daily (recently decreased from 1200 to 600 mg at [facility]) - IV abx as noted below for treatment of osteomyelitis. - Presently on Tylenol, tramadol, oxycodone, and Dilaudid IV for pain - Consulted palliative care on 03/10 - Added fentanyl patch (12mcg) and increased tramadol on 03/10 -> Pain improving. Increased fentynl to 25 mcg and will sit today. Tomorrow into her walker and possibly discharge. (2) Vertebral osteomyelitis: - Discharged from [facility] on 03/06/19; continue ceftriaxone 2 gm IV daily. - Ortho spine consulted, appreciate input. XR was negative for acute changes. - Per ortho spine on 03/08, no surgical intervention warranted at this time. (3) Subdural abscess: - Treated at [facility]; was not a surgical candidate. - Continue ceftriaxone 2g IV daily. - Tentative end date of abx is 04/04. That is 6 weeks from initiation. Will need [facility] follow up to ensure treatment response before stopping her abx. (4) Retention of urine: - Urology consulted, appreciate input. Pierre was placed on 03/07/19. - May be related to neurogenic component from infection of lower spine. - Will need to maintain Pierre catheter; follow up with urology as outpatient. - Continue home Flomax as prescribed. (5) HTN (hypertension): - BP elevated at beginning of admission, now improving. - Continue home Coreg and Imdur as prescribed. - Holding home spironolactone and Lasix due to EMMETT. - Hydralazine dose was recently decreased to 25 mg TID at [facility]; now increased back to 75 mg TID. (6) Acute renal failure: - Creatinine peaked at 2.3, now trending down; baseline ~1.3-1.7. - U/a +cast cells (?ATN); FENa indicated post-obstructive state. - May be related to urinary retention (Pierre placed on 03/07, Cr now trending down) vs. pre-renal related to dehydration. - Holding IV fluids in setting of pulm edema. - Holding home Lasix and Spironolactone. - Monitor renal function daily. (7) CKD (chronic kidney disease), stage III: - Previously with stage III CKD; GFR is more consistent with stage IV at this point. - Renally dose all meds. - Follows with Dr. Meraz from nephrology. (8) Acute respiratory failure with hypoxia: - O2 requirements now improved to 2L via NC -- hypoxia related to pulm edema. - CXR showed mild pulm edema and bibasilar opacities concerning for atelectasis, less likely PNA. - Cardiology consulted, agreed with holding diuresis in setting of hypovolemia. (9) Chronic diastolic CHF (congestive heart failure): - Most recent TTE completed at [facility] showed EF 60%, no wall motion abnormalities and trivial aortic regurg with some degree of aortic stenosis. - CXR with mild pulm edema on admission. - Holding home Lasix in setting of ARF -- monitor closely for fluid overload/weight gain; continue Coreg as prescribed. - Monitor net I/O's and daily weights - weight has been stable. (10) Acute anemia: - Hemoglobin ~9-11 at baseline; may be related to anemia of chronic diseas e. - Monitor qAM. (11) DM (diabetes mellitus): - Hemoglobin A1C was 6.4% in Nov 2018. - Continue basal/bolus insulin. - Pharmacy consulted for glycemic management. (12) History of CVA (cerebrovascular accident): - Occurred in 1995. - Continue statin, aspirin, Brilinta as prescribed. (13) MS (multiple sclerosis): - With paraplegia. - Monitored by neurologist in [place]. (14) Chronic paraplegia: - Very poor ambulatory function at home -- can use right arm, otherwise requires assistance of with wheelchair. - PT/OT ordered - Referral to [facility] in [place], [place]. (15) Coronary artery disease: - H/o [place] in 2013; follows with Dr. Palomo. - Continue statin, aspirin, Coreg, Imdur, Brilinta as prescribed. - Cardiology consulted, appreciate input. (16) GI bleed: - 3-4 episodes of coffee ground emesis at [facility] on 02/17; Gastroccult was positive. - Monitor H/H closely. - PPI qAM. (17) Depression: - Started Zoloft 25 mg qAM during this admission. - Buspar 10 mg TID prn anxiety. (18) DVT prophylaxis: - SCDs; Heparin 5,000 units subq 12hr -- caution due to h/o upper GI bleed. Subjective Feeling well this morning. Would like to try to sit up. Review of Systems Review of Systems: All systems reviewed & are unremarkable except as noted in HPI & below Physical Exam Constitutional: WD/WN, vitals as above + obese; not in distress Eyes: EOM intact bilaterally; no conjunctival abnormality ENMT: external ear and nose normal, oropharynx normal Neck: trachea midline, no thyromegaly normal visual inspection Respiratory: normal respiratory effort, lungs clear to auscultation no respiratory distress Cardiovascular: RRR, no murmur, no edema Heart Sounds: + murmur (Systolic ejection murmur) Gastrointestinal (Abdomen): Inspection/Auscultation: abdomen normal to inspection; abdomen not distended Musculoskeletal: no cyanosis or clubbing, extremities motor strength 5/5 Skin: no rashes, warm and dry Neurologic: moves all extremities and awake Psychiatric: Orientation: alert, oriented to person and cooperative Results & Data Vital Signs (Past 12 Hours) Vital Signs Temp Pulse Pulse Resp BP Pulse Ox 03/13/19 11:45 36.8 C 60 14 150/54 H 99 03/13/19 07:27 37.1 C 72 18 153/59 H 99 03/13/19 03:33 37.0 C 59 L 17 128/50 L 99 PG Care Time/CCT Total # of Minutes Spent Total Time Spent with Patient: Total time spent is greater than 50% in coordination of care (as documented) at patient's floor/unit and/or counseling patient: (1) HTN (hypertension) Hypertension type: unspecified Qualified Code(s): I10 - Essential (primary) hypertension (2) DM (diabetes mellitus) Diabetes mellitus type: type 2 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
[2019-03-13] MEDS: ATORVASTATIN 40 MG TAB PO SCH (20:12)
[2019-03-13] MEDS: TAMSULOSIN HCL 0.4 MG CAP PO SCH (20:12)
[2019-03-13] MEDS: INSULIN GLARGINE SOLOSTAR 100 UNITS/ML 3 ML PEN SC SCH (20:14)
[2019-03-14] MEDS: TRAMADOL HCL 50 MG TABLET PO PRN ×2 (07:23→21:16)
[2019-03-14] MEDS: SERTRALINE HCL 50 MG TABLET PO SCH (08:52)
[2019-03-14] MEDS: CARVEDILOL 25 MG TAB PO SCH ×2 (08:53→22:01)
[2019-03-14] MEDS: GABAPENTIN 600 MG TAB PO SCH (08:53)
[2019-03-14] MEDS: TICAGRELOR 90 MG TAB PO SCH ×2 (08:53→22:02)
[2019-03-14] MEDS: LACTOBACILLUS ACIDOPHILUS (FLORANEX) TAB PO SCH (08:53)
[2019-03-14] MEDS: ISOSORBIDE MONO EXTENDED REL 30 MG TABCR PO SCH (08:53)
[2019-03-14] MEDS: HydrALAZINE TAB 50 MG TAB PO SCH ×3 (08:53→22:01)
[2019-03-14] MEDS: CHECK FENTANYL PATCH PLACEMENT SCH ×3 (08:54→23:33)
[2019-03-14] MEDS: INSULIN ASPART 100 UNITS/ML 3 ML PEN SC SCH ×4 (08:54→22:04)
[2019-03-14] MEDS: HEPARIN SOD 5,000 UNIT/0.5 ML VIAL SQ SCH ×2 (08:55→22:02)
[2019-03-14] MEDS: ASPIRIN 81 MG ECTAB PO SCH (09:55)
[2019-03-14] MEDS: ASPIRIN 81 MG CHEW PO SCH (12:03)
[2019-03-14] MEDS: cefTRIAXone SODIUM 2,000 MG in DEXTROSE 5% 50 ML IV SCH (12:03)
--- NOTE | 2019-03-14 12:40 | Hospitalist Progress Note ---
Date of Service March 14, 2019 Assessment & Plan (1) Intractable back pain: - Likely multifactorial related to acute on chronic osteomyelitis, subdural abscess, paraplegia in setting of MS. - Discharged to home from [facility] on 03/06/19; presented for admission the following day. - XR of spine with no acute changes; orthopedics consulted, appreciate input. - Continue home gabapentin 600 mg daily (recently decreased from 1200 to 600 mg at [facility]) - IV abx as noted below for treatment of osteomyelitis. - Presently on Tylenol, tramadol, oxycodone, and Dilaudid IV for pain - Consulted palliative care on 03/10 - Added fentanyl patch (12mcg) and increased tramadol on 03/10 -> Pain improving. Increased fentanyl to 25 mcg on 03/13. Improving ability to move and change position. (2) Vertebral osteomyelitis: - Discharged from [facility] on 03/06/19; continue ceftriaxone 2 gm IV daily. - Ortho spine consulted, appreciate input. XR was negative for acute changes. - Per ortho spine on 03/08, no surgical intervention warranted at this time. (3) Subdural abscess: - Treated at [facility]; was not a surgical candidate. - Continue ceftriaxone 2g IV daily. - Tentative end date of abx is 04/04. That is 6 weeks from initiation as far as our review of the records shows. Will need [place] follow up to ensure treatment response before stopping her abx. (4) Retention of urine: - Urology consulted, appreciate input. Pierre was placed on 03/07/19. - May be related to neurogenic component from infection of lower spine. - Will need to maintain Pierre catheter; follow up with urology as outpatient. - Continue home Flomax as prescribed. (5) HTN (hypertension): - BP elevated at beginning of admission, now improving. - Continue home Coreg and Imdur as prescribed. - Holding home spironolactone and Lasix due to EMMETT. - Hydralazine dose was recently decreased to 25 mg TID at [facility]; now increased back to 75 mg TID. (6) Acute renal failure: - Creatinine peaked at 2.3, now trending down; baseline ~1.3-1.7. - U/a +cast cells (?ATN); FENa indicated post-obstructive state. - May be related to urinary retention (Pierre placed on 03/07, Cr now trending down) vs. pre-renal related to dehydration. - Holding IV fluids in setting of pulm edema. - Holding home Lasix and spironolactone. - Monitor renal function daily. (7) CKD (chronic kidney disease), stage III: - Previously with stage III CKD; GFR is more consistent with stage IV at this point. - Renally dose all meds. - Follows with Dr. Meraz from nephrology. (8) Acute respiratory failure with hypoxia: - O2 requirements now improved to 2L via NC -- hypoxia-related to pulm edema. - CXR showed mild pulm edema and bibasilar opacities concerning for atelectasis, less likely PNA. - Cardiology consulted, agreed with holding diuresis in setting of hypovolemia. - As of 03/14, weight is down, O2 demand is low/stable. Still feel she is euvolemic. Still holding Lasix & spironolactone. Probably some component of IV fluids at [place] and diet. - Will monitor I&Os and weight (9) Chronic diastolic CHF (congestive heart failure): - Most recent TTE completed at [facility] showed EF 60%, no wall motion abnormalities, and trivial aortic regurg with some degree of aortic stenosis. - CXR with mild pulm edema on admission. - Holding home Lasix in setting of ARF -- monitor closely for fluid overlo ad/weight gain; continue Coreg as prescribed. - Monitor net I/O's and daily weights - weight has been stable (see above). (10) Acute anemia: - Hemoglobin ~9-11 at baseline; may be related to anemia of chronic disease. - Monitor hgb periodically (11) DM (diabetes mellitus): - Hemoglobin A1C was 6.4% in Nov 2018. - Continue basal/bolus insulin. - Pharmacy consulted for glycemic management. (12) History of CVA (cerebrovascular accident): - Occurred in 1995. - Continue statin, aspirin, Brilinta as prescribed. (13) MS (multiple sclerosis): - With paraplegia. - Monitored by neurologist in [place]. (14) Chronic paraplegia: - Very poor ambulatory function at home -- can use right arm, otherwise requires assistance of with wheelchair. - PT/OT ordered - Referral to [facility] in [place], [place]. (15) Coronary artery disease: - H/o [place] in 2013; follows with Dr. Palomo. - Continue statin, aspirin, Coreg, Imdur, Brilinta as prescribed. - Cardiology consulted, appreciate input. (16) GI bleed: - 3-4 episodes of coffee ground emesis at [facility] on 02/17; Gastroccult was positive. - Monitor H/H - PPI qAM. (17) Depression: - Started Zoloft 25 mg qAM during this admission. - Buspar 10 mg TID prn anxiety. (18) DVT prophylaxis: - SCDs; Heparin 5,000 units subq 12hr -- caution due to h/o upper GI bleed. Subjective Sitting up this morning for a few minutes caused the pain to get to 7/10. Was able to sit for awhile, and now in reclining position. Review of Systems Review of Systems: All systems reviewed & are unremarkable except as noted in HPI & below Physical Exam Constitutional: WD/WN, vitals as above + obese; not in distress Eyes: EOM intact bilaterally; no conjunctival abnormality ENMT: external ear and nose normal, oropharynx normal Neck: trachea midline, no thyromegaly normal visual inspection Respiratory: normal respiratory effort, lungs clear to auscultation no respiratory distress Cardiovascular: RRR, no murmur, no edema Heart Sounds: + murmur (Systolic ejection murmur) Gastrointestinal (Abdomen): Inspection/Auscultation: abdomen normal to inspection; abdomen not distended Musculoskeletal: Head/Neck/Chest: normocephalic and head atraumatic Skin: no rashes, warm and dry Neurologic: + focal motor deficit and awake; not confused Psychiatric: Orientation: alert, oriented to person and cooperative Results & Data Vital Signs (Past 12 Hours) Vital Signs Temp Pulse Resp BP Pulse Ox 03/14/19 10:39 37.1 C 59 L 16 113/40 L 98 03/14/19 07:05 37.2 C 70 19 148/63 H 98 03/14/19 03:30 37.0 C 66 18 142/64 H 98 PG Care Time/CCT Total # of Minutes Spent Total Time Spent with Patient: Total time spent is greater than 50% in coordination of care (as documented) at patient's floor/unit and/or counseling patient: (1) HTN (hypertension) Hypertension type: unspecified Qualified Code(s): I10 - Essential (primary) hypertension (2) DM (diabetes mellitus) Diabetes mellitus type: type 2 Diabetes mellitus termination clerk insulin use: with termination clerk use Diabetes mellitus complication status: without complication Qualified Code(s): E11.9 - Type 2 diabetes mellitus without complications; Z79.4 - MCC (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
[2019-03-14] MEDS ORDERED: FUROSEMIDE 40 MG/4 ML VIAL IV STA (14:19)
[2019-03-14] MEDS ORDERED: FUROSEMIDE 40 MG in SYRINGE 0 ML IV ONE (14:30)
--- NOTE | 2019-03-14 16:26 | Palliative Care Progress Note ---
Date of Service March 14, 2019 Assessment & Plan (1) Intractable back pain: Patient seen and examined in room 204-family at bedside including patient's and daughter. Patient is a 74-year-old female with a medical history of MS with paraplegia, urinary retention, hypertension, CKD stage III, diastolic heart disease, diabetes, history of CVA and, CAD/IA in, depression and obesity who diagnosed with osteomyelitis in June of last year. Patient was on IV antibiotics through July-was discharged home on p.o. antibiotics. Patient did well until this past December when pain recurred and she was again found to have osteomyelitis with a subdural abscess. Patient was admitted to [facility] on 02/14-and treated with IV antibiotics-she was discharged on home IV antibiotics on 03/06. reports patient had increased pain and was not able to transfer to her wheelchair as was her usual habit. Patient [facility] emergency room on 03/07 due to increased pain. At home patient was taking tramadol 100 mg every 4 hours as needed for the pain. On admission patient was found to have a creatinine of 2.32, her prior baseline was 1.7. Creatinine today has improved to 1.63. Patient was started on a fentanyl patch at 25 mcg-placed on 03/13 at 1113. Patient has required only 1 PRN tramadol in the past 24 hours. Pain control improving Discussed with both the patient, and daughter -goal of pain management is to control the pain so patient can be more upright and transfer to wheelchair. -Back pain-pain at rest as well as pain with movement improved with fentanyl patch-only requiring 1 PRN tramadol in the past 24 hours -Osteomyelitis/discitissubdural abscess-patient on IV Rocephin-she is not a surgical candidate -Acute renal failure-acute on chronic kidney disease-may have been due to to her prior dosing of tramadol 100 mg every 4 hours as needed-improving, continue to follow creatinine closely, tramadol no PRN every 6 hours -Paraplegia-due to MS-patient spends most of her day in a motorized scooter prior to her admission in January. Goal is to be able to tolerate sitting in her wheelchair. Plan is for patient and to move to facility where she can be cared for at a skilled level and can be nearby. Will continue to follow and assist with pain management and support patient and family during this hospitalization. (2) Vertebral osteomyelitis: (3) Acute renal failure: (4) Chronic paraplegia: Subjective Patient seen and examined in room 204-patient's and daughter at bedside. Patient had higher dose fentanyl patch placed on 613 at 1113-patient has required only 1 PRN tramadol in the past 24 hours. Patient is also tolerating bed placed in a more upright and also in a chair position. Patient states when she is placed on her right side pain is much better, continues to have severe pain when rotated back on her back and on her left side. Patient without increased sedation on increase fentanyl patch. Discussed with patient and family goal of pain management-to have her pain controlled so she can return to her prior level of functioning. Patient was able to sit in her motorized wheelchair during the daytime. Review of Systems Review of Systems: Patient denies fever, chills, chest pain, increased shortness of breath, or abdominal pain. Patient's back and bilateral leg pain is improving. Physical Exam Physical Exam: PE: NAD HEENT: EOMI, hearing within normal limits Respirations: Unlabored CV: Regular rate Abdomen: Not distended, obese, soft Neuro: No new deficits, bilateral paralysis due to MS Psych: Brighter, more alert, smiling during visit. Results & Data Vital Signs (Past 12 Hours) Vital Signs Temp Pulse Resp BP Pulse Ox 03/14/19 15:06 98.8 F 62 16 140/52 L 97 03/14/19 10:39 98.8 F 59 L 16 113/40 L 98 03/14/19 07:05 99.0 F 70 19 148/63 H 98 Time Spent Attending Total time spent 35 minutes with greater than 50% of the time spent at bedside assessing patient's current pain level as well discussing goals of pain management with patient and family
[2019-03-14] MEDS: OXYCODONE HCL IR 5 MG TAB (IMMEDIATE RELEASE) PO PRN (19:43)
[2019-03-14] MEDS: ONDANSETRON INJ 2 MG/ML 2 ML VIAL IV PRN (21:35)
[2019-03-14] MEDS: ATORVASTATIN 40 MG TAB PO SCH (22:01)
[2019-03-14] MEDS: TAMSULOSIN HCL 0.4 MG CAP PO SCH (22:01)
[2019-03-14] MEDS: INSULIN GLARGINE SOLOSTAR 100 UNITS/ML 3 ML PEN SC SCH (22:02)
[2019-03-14] MEDS ORDERED: PROMETHAZINE HCL 6.25 MG in SODIUM CHLORIDE 0.9% 50 ML IV STA (22:24)
[2019-03-15] MEDS: INSULIN ASPART 100 UNITS/ML 3 ML PEN SC SCH ×4 (08:49→21:27)
[2019-03-15] MEDS: GABAPENTIN 600 MG TAB PO SCH (08:49)
[2019-03-15] MEDS: CHECK FENTANYL PATCH PLACEMENT SCH ×2 (08:49→15:42)
[2019-03-15] MEDS: ISOSORBIDE MONO EXTENDED REL 30 MG TABCR PO SCH (08:49)
[2019-03-15] MEDS: ASPIRIN 81 MG CHEW PO SCH (08:50)
[2019-03-15] MEDS: LACTOBACILLUS ACIDOPHILUS (FLORANEX) TAB PO SCH (08:50)
[2019-03-15] MEDS: TICAGRELOR 90 MG TAB PO SCH ×2 (08:50→21:26)
[2019-03-15] MEDS: HEPARIN SOD 5,000 UNIT/0.5 ML VIAL SQ SCH ×2 (08:50→21:26)
[2019-03-15] MEDS: CARVEDILOL 25 MG TAB PO SCH ×2 (08:50→21:24)
[2019-03-15] MEDS: HydrALAZINE TAB 50 MG TAB PO SCH ×3 (08:51→21:23)
[2019-03-15] MEDS: SERTRALINE HCL 50 MG TABLET PO SCH (08:51)
[2019-03-15] MEDS: TRAMADOL HCL 50 MG TABLET PO PRN (10:33)
--- NOTE | 2019-03-15 11:51 | Pharmacy Report ---
Glycemic Control Progress Note - Date of Service March 15, 2019 - Scope Glycemic Pharmacist consulted for glycemic control to write orders per [facility] inpatient glycemic control protocol. - Objective Accuchecks BSG(last 24 hours):: 03/14/19 03/14/19 03/15/19 16:27 20:35 07:18 POC Glucose 155 H 146 H 135 H 03/15/19 11:14 POC Glucose 170 H HbA1c:: Hemoglobin A1c 6.1 % (4.5-5.6) H 03/08/19 07:20 - Recent Pertinent Medications The patient is currently receiving: * Basal insulin: Lantus 10 units every 24 hours * Correctional Insulin: Novolog Correction per scale ACHS Goal Range: Low 110 mg/dL - High 140 mg/dL Correction Factor: 20 mg/dL/unit * Prandial insulin: Per carb ratio of 1 unit per 7 grams CHO consumed - Outpatient Anti-Diabetic Meds Lantus 28 units HS plus insulin CF = 20/ CR =3 - Assessment & Plan ASSESSMENT: * See progress note from 03/07/19 for more background info, in short: * Pt receiving SQ basal bolus insulin regimen for hyperglycemia secondary to baseline DM (outpatient regimen on hold). * Patient is currently receiving an average of 24 units of insulin per day * 10 units of basal insulin * 14 units of prandial/correctional insulin * BSGs ranging 132 - 161 mg/dl over the past 24hrs * Changes needed to insulin regimen: * AM Fasting BSG = 170 mg/dl. This is slightly above goal range for patient based on inpatient targets and co-morbidities --- this is the highest fasting blood sugar in recent days. Will not make adjustments at this point until I see a trend of rising fasting blood sugars. An extra 2 units available in Lantus dose if blood sugar still elevated tonight. * Post-prandial BSGs are in range therefore no changes needed to CF/CR. * Total daily dose = 25 units. PLAN FOR INPATIENT GLYCEMIC CONTROL: * Continuing Lantus 10 or 12 units SQ HS * Continuing correction factor of 20 mg/dl/unit * Continuing carb ratio of 1 unit per 7 grams CHO consumed * Continuing goal range to Low 110 mg/dL - High 140 mg/dL * Please note that the plan above was derived based on current level of insulin resistance and hospital stress. These recommendations are appropriate for inpatient admission only. Plan of care upon discharge will need to be reassessed to avoid potential outpatient hypo/hyperglycemia. Thank you.
[2019-03-15] MEDS: cefTRIAXone SODIUM 2,000 MG in DEXTROSE 5% 50 ML IV SCH (11:52)
[2019-03-15] MEDS: OXYCODONE HCL IR 5 MG TAB (IMMEDIATE RELEASE) PO PRN (11:52)
--- NOTE | 2019-03-15 13:46 | Hospitalist Progress Note ---
Date of Service March 15, 2019 Assessment & Plan (1) Intractable back pain: - Likely multifactorial related to acute on chronic osteomyelitis, subdural abscess, paraplegia in setting of MS. - Discharged to home from [facility] on 03/06/19; presented for admission the following day. - XR of spine with no acute changes; orthopedics consulted, appreciate input. - Continue home gabapentin 600 mg daily (recently decreased from 1200 to 600 mg at [facility]) - IV abx as noted below for treatment of osteomyelitis. - Presently on Tylenol, tramadol, oxycodone, and Dilaudid IV for pain - Consulted palliative care on 03/10 - Added fentanyl patch (12mcg) and increased tramadol on 03/10 -> Pain improving. Increased fentanyl to 25 mcg on 03/13, then 38.5 mcg on 03/15. Improving ability to move and change position. - Hopeful discharge tomorrow. (2) Vertebral osteomyelitis: - Discharged from [facility] on 03/06/19; continue ceftriaxone 2 gm IV daily. - Ortho spine consulted, appreciate input. XR was negative for acute changes. - Per ortho spine on 03/08, no surgical intervention warranted at this time. (3) Subdural abscess: - Treated at [facility]; was not a surgical candidate. - Continue ceftriaxone 2g IV daily. - Tentative end date of abx is 04/04. That is 6 weeks from initiation as far as our review of the records shows. Will need [place] follow up to ensure treatment response before stopping her abx. (4) Retention of urine: - Urology consulted, appreciate input. Pierre was placed on 03/07/19. - May be related to neurogenic component from infection of lower spine. - Will need to maintain Pierre catheter; follow up with urology as outpatient. - Continue home Flomax as prescribed. (5) HTN (hypertension): - BP elevated at beginning of admission, now improving. - Continue home Coreg and Imdur as prescribed. - Holding home spironolactone and Lasix due to EMMETT. - Hydralazine dose was recently decreased to 25 mg TID at [facility]; now increased back to 75 mg TID. (6) Acute renal failure: - Creatinine peaked at 2.3, now trending down; baseline ~1.3-1.7. - U/a +cast cells (?ATN); FENa indicated post-obstructive state. - May be related to urinary retention (Pierre placed on 03/07, Cr now trending down) vs. pre-renal related to dehydration. - Holding IV fluids in setting of pulm edema. - Holding home Lasix and spironolactone. - Monitor renal function daily. (7) CKD (chronic kidney disease), stage III: - Previously with stage III CKD; GFR is more consistent with stage IV at this point. - Renally dose all meds. - Follows with Dr. Meraz from nephrology. (8) Acute respiratory failure with hypoxia: - O2 requirements now improved to 2L via NC -- hypoxia-related to pulm edema. - CXR showed mild pulm edema and bibasilar opacities concerning for atelectasis, less likely PNA. - Cardiology consulted, agreed with holding diuresis in setting of hypovolemia. - As of 03/14, weight is down, O2 demand is low/stable. Still feel she is euvolemic. Still holding Lasix & spironolactone. Probably some component of IV fluids at [place] and diet. - Will monitor I&Os and weight (9) Chronic diastolic CHF (congestive heart failure): - Most recent TTE completed at [facility] showed EF 60%, no wall motion abnormalities, and trivial aortic regurg with some degree of aortic stenosis. - CXR with mild pulm edema on admission. - Holding home Lasix in setting of ARF -- monitor closely for fluid overload/weight gain; continue Coreg as prescribed. - Monitor net I/O's and daily weights - weight has been stable (see above). (10) Acute anemia: - Hemoglobin ~9-11 at baseline; may be related to anemia of chronic disease. - Monitor hgb periodically (11) DM (diabetes mellitus): - Hemoglobin A1C was 6.4% in Nov 2018. - Continue basal/bolus insulin. - Pharmacy consulted for glycemic management. (12) History of CVA (cerebrovascular accident): - Occurred in 1995. - Continue statin, aspirin, Brilinta as prescribed. (13) MS (multiple sclerosis): - With paraplegia. - Monitored by neurologist in [place]. (14) Chronic paraplegia: - Very poor ambulatory function at home -- can use right arm, otherwise requires assistance of with wheelchair. - PT/OT ordered - Referral to [facility] in [place], [place]. (15) Coronary artery disease: - H/o [place] in 2014; follows with Dr. Palomo. - Continue statin, aspirin, Coreg, Imdur, Brilinta as prescribed. - Cardiology consulted, appreciate input. (16) GI bleed: - 3-4 episodes of coffee ground emesis at [facility] on 02/17; Gastroccult was positive. - Monitor H/H - PPI qAM. (17) Depression: - Started Zoloft 25 mg qAM during this admission. - Buspar 10 mg TID prn anxiety. (18) DVT prophylaxis: - SCDs; Heparin 5,000 units subq 12hr -- caution due to h/o upper GI bleed. Subjective Still with pain, but better. Review of Systems Review of Systems: All systems reviewed & are unremarkable except as noted in HPI & below Physical Exam Constitutional: WD/WN, vitals as above + obese; not in distress Eyes: EOM intact bilaterally; no conjunctival abnormality ENMT: external ear and nose normal, oropharynx normal Neck: trachea midline, no thyromegaly normal visual inspection Respiratory: normal respiratory effort, lungs clear to auscultation no respiratory distress Cardiovascular: RRR, no murmur, no edema Heart Sounds: + murmur (Systolic ejection murmur) Gastrointestinal (Abdomen): Inspection/Auscultation: abdomen normal to inspection; abdomen not distended Musculoskeletal: no cyanosis or clubbing, extremities motor strength 5/5 Head/Neck/Chest: normocephalic and head atraumatic Skin: no rashes, warm and dry Neurologic: + focal motor deficit and awake; not confused Psychiatric: Orientation: alert, oriented to person and cooperative Results & Data Vital Signs (Past 12 Hours) Vital Signs Temp Pulse Pulse Resp BP Pulse Ox 03/15/19 10:45 37.0 C 55 L 21 127/52 L 97 03/15/19 08:00 61 03/15/19 07:20 37.1 C 70 19 149/64 H 98 03/15/19 03:45 37.1 C 70 18 141/63 H 96 PG Care Time/CCT Total # of Minutes Spent Total Time Spent with Patient: Total time spent is greater than 50% in coordination of care (as documented) at patient's floor/unit and/or counseling patient: (1) DM (diabetes mellitus) Diabetes mellitus complication status: without complication Diabetes mellitus senior care insulin use: with senior care use Diabetes mellitus type: type 2 Qualified Code(s): E11.9 - Type 2 diabetes mellitus without complications; Z79.4 - watermaster (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 (2) HTN (hypertension) Hypertension type: unspecified Qualified Code(s): I10 - Essential (primary) hypertension
[2019-03-15] MEDS ORDERED: fentaNYL 12 MCG/HR TDSY TD SCH (15:00)
[2019-03-15] MEDS ORDERED: fentaNYL 25 MCG/HR TDSY TD SCH (15:00)
[2019-03-15] MEDS: TAMSULOSIN HCL 0.4 MG CAP PO SCH (21:25)
[2019-03-15] MEDS: INSULIN GLARGINE SOLOSTAR 100 UNITS/ML 3 ML PEN SC SCH (21:26)
[2019-03-15] MEDS: ATORVASTATIN 40 MG TAB PO SCH (21:28)
[2019-03-16] MEDS: CHECK FENTANYL PATCH PLACEMENT SCH ×4 (00:09→23:11)
[2019-03-16] MEDS: TRAMADOL HCL 50 MG TABLET PO PRN (08:09)
[2019-03-16] MEDS: INSULIN ASPART 100 UNITS/ML 3 ML PEN SC SCH ×4 (08:11→20:24)
[2019-03-16] MEDS: HEPARIN SOD 5,000 UNIT/0.5 ML VIAL SQ SCH ×2 (08:13→21:08)
[2019-03-16] MEDS: SERTRALINE HCL 50 MG TABLET PO SCH (08:14)
[2019-03-16] MEDS: GABAPENTIN 600 MG TAB PO SCH (08:15)
[2019-03-16] MEDS: HydrALAZINE TAB 50 MG TAB PO SCH ×3 (08:15→21:08)
[2019-03-16] MEDS: CARVEDILOL 25 MG TAB PO SCH ×2 (08:16→21:08)
[2019-03-16] MEDS: ASPIRIN 81 MG CHEW PO SCH (08:16)
[2019-03-16] MEDS: LACTOBACILLUS ACIDOPHILUS (FLORANEX) TAB PO SCH (08:17)
[2019-03-16] MEDS: TICAGRELOR 90 MG TAB PO SCH ×2 (08:17→21:08)
[2019-03-16] MEDS: ISOSORBIDE MONO EXTENDED REL 30 MG TABCR PO SCH (08:17)
[2019-03-16] MEDS: OXYCODONE HCL IR 5 MG TAB (IMMEDIATE RELEASE) PO PRN (10:41)
[2019-03-16] MEDS: cefTRIAXone SODIUM 2,000 MG in DEXTROSE 5% 50 ML IV SCH (11:43)
--- NOTE | 2019-03-16 12:02 | Hospitalist Progress Note ---
Date of Service March 16, 2019 Assessment & Plan (1) Intractable back pain: - Likely multifactorial related to acute on chronic osteomyelitis, subdural abscess, paraplegia in setting of MS. - Discharged to home from [facility] on 03/06/19; presented for admission the following day. - XR of spine with no acute changes; orthopedics consulted, appreciate input. - Continue home gabapentin 600 mg daily ([place] 1200 [place] 600 [place] [facility] [place] - IV abx as noted below for treatment of osteomyelitis. - Presently on Tylenol, tramadol, oxycodone, and Dilaudid IV for pain - Consulted palliative care on 03/10 - Added fentanyl patch (12mcg) and increased tramadol on 03/10 -> Pain improving. Increased fentanyl to 25 mcg on 03/13, then 37.5 mcg on 03/15. Improving ability to move and change position. On 03/15, she was able to get into a chair. Dispo: Have palliative see one more time in the AM, then discharge to [place]. (2) Vertebral osteomyelitis: - [place] [facility] [place]; continue ceftriaxone 2 gm IV daily. Planned end date is 04/04. - Ortho spine consulted, appreciate input. XR was negative for acute changes. - Per ortho spine on 03/08, no surgical intervention warranted. - Follow up with [facility] prior to finishing her antibiotic course. (3) Subdural abscess: - Tre[place] [facility] [place]; was not a surgical candidate. - Continue ceftriaxone 2g IV daily. - Tentative end date of abx is 04/04. That is 6 weeks from initiation as far as our review of the records shows. Will need [place] follow up to ensure treatment response before stopping her abx. (4) Retention of urine: - Urology consulted, appreciate input. Pierre was placed on 03/07/19. - May be related to neurogenic component from infection of lower spine. - Will need to maintain Pierre catheter; follow up with urology as outpatient. - Continue home Flomax as prescribed. (5) HTN (hypertension): - BP elevated at beginning of admission, now improving. - Continue home Coreg and Imdur as prescribed. - Holding home spironolactone and Lasix due to EMMETT. - Hydralazine dose was recently decreased to 25 mg TID at [facility] [place]; now increased back to 75 mg TID. - Overall BP control has been good. On discharge, would resume her maintenance dose of Lasix (possibly at 40mg daily instead of BID), but otherwise leave spironolactone off. (6) Acute renal failure: - Creatinine peaked at 2.3, now trending down; baseline ~1.3-1.7. - Likely related to urinary retention (Pierre placed on 03/07, Cr now trending down) vs. pre-renal related to dehydration. - Holding home Lasix and spironolactone. - Monitor renal function daily. (7) CKD (chronic kidney disease), stage III: - Previously with stage III CKD; GFR is more consistent with stage IV at this point. - Renally dose all meds. - Follows with Dr. Meraz from nephrology. (8) Acute respiratory failure with hypoxia: - O2 requirements now improved to 2L via NC -- hypoxia-related to pulm edema. - CXR showed mild pulm edema and bibasilar opacities concerning for atelectasis, less likely PNA. - Cardiology consulted, agreed with holding diuresis in setting of hypovolemia. - As of 03/14, weight is down, O2 demand is low/stable. Still feel she is euvolemic. Still holding standing Lasix & spironolactone. Probably some component of IV fluids at [place] and diet. - Will monitor I&Os and weight - Given occasional Lasix IV doses here. - Can restart home Lasix on discharge (or possibly daily instead of BID). (9) Chronic diastolic CHF (congestive heart failure): - Most recent TTE [place] [facility] [place] showed EF 60%, no wall motion abnormalities, and trivial aortic regurg with some degree of aortic stenosis. - CXR with mild pulm edema on admission. - Initially held home Lasix in setting of ARF - monitor closely for fluid overload/weight gain; continue Coreg as prescribed. - Monitor net I/O's and daily weights - weight has been stable (see above). (10) Acute anemia: - Hemoglobin ~9-11 at baseline; may be related to anemia of chronic disease. - Monitor hgb periodically (11) DM (diabetes mellitus): - Hemoglobin A1C was 6.4% in Nov 2018. - Continue basal/bolus insulin. - Pharmacy consulted for glycemic management. (12) History of CVA (cerebrovascular accident): - Occurred in 1995. - Continue statin, aspirin, Brilinta as prescribed. (13) MS (multiple sclerosis): - With paraplegia. - Monitored by neurologist in [place]. (14) Chronic paraplegia: - Very poor ambulatory function at home -- can use right arm, otherwise requires assistance of with wheelchair. - PT/OT ordered - Referral to [facility] in [place], [place]. (15) Coronary artery disease: - H/o MN in 2013; follows with Dr. Palomo. - Continue statin, aspirin, Coreg, Imdur, Brilinta as prescribed. - Cardiology consulted, appreciate input. (16) GI bleed: - 3-4 episodes of coffee ground emesis [place] [facility] [place]; Gastroccult was positive. - Hgb stable this admission. - PPI qAM. (17) Depression: - Started Zoloft 25 mg qAM during this admission. - Buspar 10 mg TID prn anxiety. (18) DVT prophylaxis: - SCDs; Heparin 5,000 units subq 12hr -- caution due to h/o upper GI bleed. Subjective Feeling better, but slightly more lethargic on the increased fentanyl patch. Ready to try to sit in a chair. Review of Systems Review of Systems: All systems reviewed & are unremarkable except as noted in HPI & below Physical Exam Constitutional: WD/WN, vitals as above + obese; not in distress Eyes: EOM intact bilaterally; no conjunctival abnormality ENMT: external ear and nose normal, oropharynx normal Neck: trachea midline, no thyromegaly normal visual inspection Respiratory: normal respiratory effort, lungs clear to auscultation no respiratory distress Cardiovascular: RRR, no murmur, no edema Heart Sounds: + murmur (Systolic ejection murmur) Gastrointestinal (Abdomen): Inspection/Auscultation: abdomen normal to inspection; abdomen not distended Musculoskeletal: no cyanosis or clubbing, extremities motor strength 5/5 Head/Neck/Chest: normocephalic and head atraumatic Skin: no rashes, warm and dry Neurologic: + focal motor deficit and awake; not confused Psychiatric: Orientation: alert, oriented to person and cooperative Results & Data Vital Signs (Past 12 Hours) Vital Signs Temp Pulse Pulse Resp BP Pulse Ox 03/16/19 11:20 36.5 C 61 14 111/69 94 06/16/19 09:00 57 L 03/16/19 08:04 36.6 C 71 22 138/52 L 100 03/16/19 04:09 37.0 C 58 L 19 133/62 100 PG Care Time/CCT Total # of Minutes Spent Total Time Spent with Patient: Total time spent is greater than 50% in coordination of care (as documented) at patient's floor/unit and/or counseling patient: (1) HTN (hypertension) Hypertension type: unspecified Qualified Code(s): I10 - Essential (primary) hypertension (2) DM (diabetes mellitus) Diabetes mellitus type: type 2 Diabetes mellitus custodial insulin use: with custodial use Diabetes mellitus complication status: without complication Qualified Code(s): E11.9 - Type 2 diabetes mellitus without complications; Z79.4 - penitentiary (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
--- NOTE | 2019-03-16 14:09 | Pharmacy Report ---
Glycemic Control Progress Note - Date of Service March 16, 2019 - Scope Glycemic Pharmacist consulted for glycemic control to write orders per [facility] inpatient glycemic control protocol. - Objective Accuchecks BSG(last 24 hours):: 03/15/19 03/15/19 03/16/19 16:27 20:09 07:14 POC Glucose 152 H 178 H 139 H 03/16/19 11:22 POC Glucose 166 H HbA1c:: Hemoglobin A1c 6.1 % (4.5-5.6) H 03/08/19 07:20 - Recent Pertinent Medications The patient is currently receiving: * Basal insulin: Lantus 12 units every 24 hours * Correctional Insulin: Novolog Correction per scale ACHS Goal Range: Low 110 mg/dL - High 140 mg/dL Correction Factor: 20 mg/dL/unit * Prandial insulin: Per carb ratio of 1 unit per 7 grams CHO consumed - Outpatient Anti-Diabetic Meds Lantus 28 units HS plus Novolog 18/12 - Assessment & Plan ASSESSMENT: * See progress note from 03/07/19 for more background info, in short: * Pt receiving SQ basal bolus insulin regimen for hyperglycemia secondary to baseline DM (outpatient regimen on hold) and Rocephin for a bone infection. * Patient is currently receiving an average of 28 units of insulin per day * 12 units of basal insulin * 16 units of prandial/correctional insulin * BSGs ranging 135 - 178 mg/dl over the past 24hrs * Changes needed to insulin regimen: * AM Fasting BSG = 139 mg/dl. This is in goal range for patient based on inpatient targets and co-morbidities. Will increase basal doses available to 12 or 14 units based upon blood sugar. Goal to achieve fasting closer to 120 mg/dL. * Post-prandial BSGs were slightly elevated. Tighten CF/CR/ * Total daily dose = close to 30 units. PLAN FOR INPATIENT GLYCEMIC CONTROL: * INCREASING Lantus to 12-14 units SQ HS * TIGHTENING correction factor to 18 mg/dl/unit * TIGHTENING carb ratio to 1 unit per 6 grams CHO consumed * Continuing goal range Low 110 mg/dL - High 140 mg/dL RECOMMENDATIONS FOR DISCHARGE: * Blood sugar appears to be very well controlled as an outpatient - if not too well controlled. Recommend talking with patient to see if she has hypoglycemia at home. If she doesn't it is okay to continue. If she does then recommend reducing doses. * Please note that the plan above was derived based on current level of insulin resistance and hospital stress. These recommendations are appropriate for inpatient admission only. Plan of care upon discharge will need to be reassessed to avoid potential outpatient hypo/hyperglycemia. Thank you.
[2019-03-16] MEDS: INSULIN GLARGINE SOLOSTAR 100 UNITS/ML 3 ML PEN SC SCH (21:08)
[2019-03-16] MEDS: TAMSULOSIN HCL 0.4 MG CAP PO SCH (21:08)
[2019-03-16] MEDS: ATORVASTATIN 40 MG TAB PO SCH (21:09)
[2019-03-16] MEDS: ONDANSETRON INJ 2 MG/ML 2 ML VIAL IV PRN (21:55)
[2019-03-17 06:07] LABS: Hematocrit (blood only) 26.2 % (37-47); Hemoglobin 7.8 g/dL (12.0-16.0); Mean Corpuscular Hgb Conc 29.8 g/dL (32-36); Mean Platelet Volume 11.6 fL (7.4-10.4); Platelet Count 193 K/uL (130-400); RDW Coefficient of Variation 19.7 % (11.5-14.5); RDW Standard Deviation 65.2 fL (36.4-46.3); Red Blood Count 2.88 M/uL (4.2-5.4); White Blood Count 6.87 K/uL (4.8-10.8)
[2019-03-17 06:39] LABS: BUN Creatinine Ratio 27.8 (10-20); Calcium 9.6 mg/dl (8.5-10.1); Est GFR (African American) 45.8; Est GFR (Non-African American) 39.6; Magnesium 2.1 mg/dl (1.8-2.4); Phosphorus 3.2 mg/dl (2.5-4.9); Potassium 4.8 mmol/L (3.5-5.1)
[2019-03-17] MEDS: CHECK FENTANYL PATCH PLACEMENT SCH (07:34)
[2019-03-17] MEDS: TICAGRELOR 90 MG TAB PO SCH (07:35)
[2019-03-17] MEDS: LACTOBACILLUS ACIDOPHILUS (FLORANEX) TAB PO SCH (07:35)
[2019-03-17] MEDS: GABAPENTIN 600 MG TAB PO SCH (07:35)
[2019-03-17] MEDS: ASPIRIN 81 MG CHEW PO SCH (07:35)
[2019-03-17] MEDS: CARVEDILOL 25 MG TAB PO SCH (07:36)
[2019-03-17] MEDS: ISOSORBIDE MONO EXTENDED REL 30 MG TABCR PO SCH (07:36)
[2019-03-17] MEDS: HydrALAZINE TAB 50 MG TAB PO SCH ×2 (07:36→12:26)
[2019-03-17] MEDS: SERTRALINE HCL 50 MG TABLET PO SCH (07:36)
[2019-03-17] MEDS: HEPARIN SOD 5,000 UNIT/0.5 ML VIAL SQ SCH (07:37)
[2019-03-17] MEDS: OXYCODONE HCL IR 5 MG TAB (IMMEDIATE RELEASE) PO PRN ×2 (07:49→12:25)
[2019-03-17] MEDS: INSULIN ASPART 100 UNITS/ML 3 ML PEN SC SCH ×2 (08:04→12:03)
[2019-03-17 08:53] LABS: Ferritin 44.3 ng/ml (8-388)
[2019-03-17] MEDS ORDERED: FUROSEMIDE 40 MG TAB PO SCH (09:00)
[2019-03-17] MEDS ORDERED: IRON DEXTRAN COMPLEX 25 MG in SYRINGE 0 ML IV ONE (10:00)
[2019-03-17] MEDS ORDERED: IRON DEXTRAN COMPLEX 75 MG in SYRINGE 0 ML IV ONE ×2 (10:01→11:00)
--- NOTE | 2019-03-17 10:48 | Palliative Care Progress Note ---
Date of Service March 17, 2019 Assessment & Plan (1) Palliative care encounter: Patient seen and examined in room 204-family at bedside including patient's and daughter. Patient is a 74-year-old female with a medical history of MS with paraplegia, urinary retention, hypertension, CKD stage III, diastolic heart disease, diabetes, history of CVA and, CAD/NC in, depression and obesity who diagnosed with osteomyelitis in June of last year. Patient was on IV antibiotics through July-was discharged home on p.o. antibiotics. Patient did well until this past December when pain recurred and she was again found to have osteomyelitis with a subdural abscess. Patient was admitted to [facility] on 02/14-and treated with IV antibiotics-she was discharged on home IV antibiotics on 03/06. reports patient had increased pain and was not able to transfer to her wheelchair as was her usual habit. Patient presented to [facility] emergency room on 03/07 due to increased pain. At home patient was taking tramadol 100 mg every 4 hours as needed for the pain. On admission patient was found to have a creatinine of 2.32, her prior baseline was 1.7. Creatinine today has improved to 1.63. Palliative care following for pain management. -Patient denies acute pain, says overall she feels more comfortable. -Fentanyl patch was increased to 37mcg on 03/15 @ 1500. -24 chart review she has received Tramadol 1 dose (03/16 0800) and Roxicodone 2 doses (1 dose 03/16 1041 and 1 dose 03/17 0749). All PRN dosing was given about 30 minutes prior to turns or transfers. -Patient stated she was OOB to chair yesterday for 2.5 hours without any pain. -Patient stated she knows that her pain will never be a zero out of ten. -Patient expressed that her goal of pain management is to control the pain so patient can be more upright and transfer to wheelchair. -Osteomyelitis/discitissubdural abscess-patient on IV Rocephin-she is not a surgical candidate -Acute renal failure-acute on chronic kidney disease-may have been due to to her prior dosing of tramadol 100 mg every 4 hours as needed-improving, continue to follow creatinine closely, tramadol no PRN every 6 hours -Paraplegia-due to MS-patient spends most of her day in a motorized scooter prior to her admission in January. Goal is to be able to tolerate sitting in her wheelchair. -Plan is for patient and to move to facility where she can be cared for at a skilled level and can be nearby. -Patient to be discharged this afternoon around 1500 for transition to [facility]. -Palliative Care services comfortable with patient pain control/regimen and supports transfer to SNF. Would suggest pre-medicating for breakthrough 30 minutes prior to transport arrival to assist with transition and anticipated discomfort for transportation. -Please contact palliative care for any additional needs. -PPS: 40% (2) Coronary artery disease: (3) CKD (chronic kidney disease), stage III: (4) Vertebral osteomyelitis: (5) Intractable back pain: (6) Lumbar discitis: Subjective Patient seen and examined in room 204, at bedside. Patient alert during exam. Patient denies acute pain, says overall she feels more comfortable. Patient stated she was OOB to chair yesterday for 2.5 hours without any pain. Patient stated she knows that her pain will never be a zero out of ten. Please see A/P for further details. Review of Systems Review of Systems: All systems reviewed & are unremarkable except as noted in HPI & below patient denies WOODSON, dizziness, visual changes, SOB, appetite changes. Patient reports pain in her back. Results & Data Vital Signs (Past 12 Hours) Vital Signs Temp Pulse Resp BP Pulse Ox 03/17/19 06:52 36.6 C 68 16 132/54 L 98 03/17/19 03:25 36.9 C 61 16 127/69 98 03/16/19 23:40 37.0 C 60 16 127/54 L 99 Time Spent Midlevel Total time spent 35 minutes with > 50% of that time spent assessing patient, discussing symptom/pain management and discussing with IDT.
[2019-03-17] MEDS: cefTRIAXone SODIUM 2,000 MG in DEXTROSE 5% 50 ML IV SCH (11:20)
--- NOTE | 2019-03-17 14:05 | Discharge Summary ---
Date of Service March 17, 2019 Admission HPI Per Admitting Provider Mrs. 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 Pt. was recently admitted to [facility] for thoracic osteomyelitis and an subdural abscess; pt. was not a surgical candidate, therefore she has been treated with Ceftriaxone 2 gm IV daily. Pt. was discharged to home on 03/06/19 -- LTACH vs. SNF placement discussed with the patient and her but she refused both options. A prescription for Tramadol was provided at discharge. Pt. developed increased back pain at home last evening, no relief provided with Tramadol. Pain is intermittent, rated as a 6/10. Had radiation of pain to both legs extending to her knees. Denies urinary incontinence or stool incontinence, saddle anesthesia. Pt. also complained of SOB at rest -- is stable on room air at home but has been requiring 3-4L via NC during this admission. Denies chest pain, increased LE edema, URI symptoms, headache, vomiting, abdominal pain, constipation or diarrhea, dysuria or hematuria. BP was 231/109 in the ER -- received Hydralazine 10 mg IV with improvement, 185/101. Hydralazine dose was recently decreased from 75 TID to 25 TID at [facility] and Spironolactone 25 mg q48hr was added to anti-hypertensive regimen. Renal function elevated above baseline. CXR showed mild pulmonary edema. Troponin was also elevated, will trend q6hr. Pt. will be admitted to PCU for cardiac monitoring with hypertension management & PT/OT evaluation. Admission Exam Per Admitting Provider General: Resting comfortably in no apparent distress HEENT: NC/AT; PERRLA with EOMI; [place] conjunctiva, MMM. No erythema of posterior pharynx Neck: Supple and nontender Cardiac: +2/6 systolic murmur; regular rate and rhythm Lungs: on 3L via NC; CTA bilaterally Abdomen: Bowel normoactive X 4; Nontender to palpation Rectal: Deferred : Deferred Extremities: Warm. +1 bilat LE chronic edema. Neuro: No focal weakness; 0/5 muscle strength in LUE and bilat LE in setting of paraplegia. Skin: No rash Principal Diagnosis Intractable Back Pain/Vertebral Osteomyelitis Discharge Exam General: Resting comfortably in no apparent distress HEENT: NC/AT; PERRLA with EOMI; [place] conjunctiva, MMM. No erythema of posterior pharynx Neck: Supple and nontender Cardiac: RRR w/o murmurs, gallops or rubs Lungs: on 2L via NC; CTA bilaterally Abdomen: Bowel normoactive X 4; Nontender to palpation Extremities: Warm. No edema present Neuro: No focal weakness Skin: No rash Discharge Data Allergies Allergy/AdvReac Type Severity Reaction Status Date / Time clopidogrel Allergy Intermediate RASH Verified 03/07/19 07:04 Sulfa (Sulfonamide Allergy Intermediate RASH Verified 03/07/19 07:04 Antibiotics) Consultations 03/07/19 09:38 Consult Cardiology Routine Consult Case Management - Discharge Planning Routine Consult Orthopedic Surgery Routine 03/07/19 17:41 Consult Health Information Management Routine Consult Infectious Diseases Routine 03/09/19 09:06 Consult Urology Routine 03/10/19 12:10 Consult Palliative Care Routine Hospital Course (1) Intractable back pain: Likely multifactorial related to acute on chronic osteomyelitis, subdural abscess, paraplegia in setting of MS. Discharged to home from [facility] on 03/06/19; presented for admission the following day. XR of spine with no acute changes; orthopedics consulted, appreciate input. Continued home gabapentin 600 mg daily (recently decreased from 1200 to 600 mg at [facility]) IV abx as noted below for treatment of osteomyelitis. Tramadol, Tylenol and Dilaudid IV for pain control. Fentanyl patch was added, eventually increased to 37.5 mcg with significant improvement in pain control. Pt. was using prn oxycodone less frequently. Palliative also consulted for pain management, appreciate input. Stable for discharge to [facility] on 03/17/19. (2) Vertebral osteomyelitis: Discharged from [facility] on 03/06/19; continue ceftriaxone 2 gm IV daily, end date: 04/04/19. Ortho spine consulted, appreciate input. XR was negative for acute changes. Per ortho spine on 03/08, no surgical intervention warranted. Will need f/u with [facility] [facility] in 2 weeks. (3) Subdural abscess: Treated at [facility]; was not a surgical candidate. Continued Ceftriaxone 2g IV daily. Tentative end date of abx is 04/04. That is 6 weeks from initiation as far as our review of the records shows. Will need Pat follow up to ensure treatment response before stopping her abx. (4) Retention of urine: Urology consulted, appreciate input. Salvador was placed on 03/07/19. May be related to neurogenic component from infection of lower spine. Will need to maintain Salvador catheter; follow up with urology as outpatient. Continued home Flomax as prescribed. (5) HTN (hypertension): BP elevated at beginning of admission, now WNL. Continued home Coreg and Imdur as prescribed. Held home Spironolactone and Lasix -- will resume Lasix 40 mg daily at discharge due to weight gain/O2 requirements. Did receive intermittent doses of Lasix IV during this admission. Hydralazine dose was recently decreased to 25 mg TID at [facility]; now increased back to 75 mg TID. (6) Acute renal failure: Creatinine peaked at 2.3; baseline ~1.3-1.7. Was likely related to urinary retention (Salvador placed on 03/07, Cr now trending down) vs. pre-renal related to dehydration. Resume home Lasix at discharge, d/c Spironolactone. (7) CKD (chronic kidney disease), stage III: Previously with stage III CKD; GFR is more consistent with stage IV at this point. Renally dose all meds. Follows with Dr. Meraz from nephrology. (8) Acute respiratory failure with hypoxia: Required 2L via NC during this admission, previously on room air. Could not wean O2 requirements. CXR showed mild pulm edema and bibasilar opacities concerning for atelectasis, less likely PNA. Cardiology consulted, acppeciate input. Monitored daily weights and I/Os -- weight was slightly increased overall above baseline. Will resume home Lasix at discharge and attempt to wean O2 at [facility]. (9) Chronic diastolic CHF (congestive heart failure): Most recent TTE completed at [facility] showed EF 60%, no wall motion abnormalities, and trivial aortic regurg with some degree of aortic stenosis. CXR with mild pulm edema on admission. Initially held home Lasix in setting of ARF , will resume at discharge. Continued Coreg. (10) Acute anemia: Hemoglobin ~9-11 at baseline; may be related to anemia of chronic disease. Hgb trended down, was 7.8 on day of discharge. Iron studies c/w iron deficiency anemia and anemia of chronic disease. Received IV Iron on 03/17; started ferrous sulfate 325 mg daily on discharge. Does have h/o upper GI bleed - caution in setting of Brilinta/ASA therapy. (11) DM (diabetes mellitus): Hemoglobin A1C was 6.4% in Nov 2018. Continued basal/bolus insulin. Pharmacy consulted for glycemic management. (12) History of CVA (cerebrovascular accident): Occurred in 1995. Continued statin, aspirin, Brilinta as prescribed. (13) MS (multiple sclerosis): With paraplegia. Monitored by neurologist in [place]. (14) Chronic paraplegia: Very poor ambulatory function at home -- can use right arm, otherwise requires assistance of with wheelchair. Will be discharged to [facility]. (15) Coronary artery disease: H/o MD in 2013; follows with Dr. Palomo. Continued statin, aspirin, Coreg, Imdur, Brilinta as prescribed. Cardiology consulted, appreciate input. (16) GI bleed: 3-4 episodes of coffee ground emesis at [facility] on 02/17; Gastroccult was positive. PPI BID. Hgb slightly decreased on discharge, will need outpt monitoring. (17) Depression: Started Zoloft 25 mg qAM during this admission. Buspar 10 mg TID prn anxiety. (18) DVT prophylaxis: SCDs; Heparin 5,000 units subq 12hr. Stable for discharge to [facility] on 03/17/19. Total Time Total Time Spent Total Time Spent (In Minutes): >30 minutes Total Time Includes: Examination of the Patient, Discharge Planning, Medication Reconciliation, Communication With Other Providers and Other Discharge Plan Discharge Items Patient Disposition: Transfer [facility] Reason For Visit: HYPERTENSION,BACK PAIN Discharge Diagnosis: Intractable Back Pain, Vertebral Osteomyelitis Condition: Fair Discharge Goals: Decrease discomfort, Improve disease control, Improve function, Increase independence, Improve nutritional status and Prevent disease Activity: As commented below Activity Comment: per PT/OT recs. Exercise/Sports: Gradually increase as tolerated Non-emergency contact: Primary Care Provider Call non-emergency contact if: you have any medication questions, your symptoms worsen, your pain is not controlled, your pain is worsening, your pain is unusual for you, your pain is concerning for you and you have a fever Follow-up/Referrals: Kary Paredes MD [Primary Care Provider] - Diet: Carb Consistent or DM2 and Low Sodium (2gm) Diet Texture: Dental soft (bite-sized) Addtl Provider Instructions: 1. Intractable Back Pain in setting of paraplegia/vertebral osteomyelitis * Please continue Fentanyl 37.5 mcg patch q3days as prescribed. * Please continue Tramadol 100 mg q6hr and Oxycodone 5 mg every 4 hours as needed for breakthrough pain. 2. Vertebral Osteomyelitis * Continue Ceftriaxone 2 gm IV daily -- end date: April 04, 2019. * Pt. will need to follow up with [facility] prior to completion of IV abx. 3. Urinary Retention * Continue to maintain salvador catheter due to retention/concern for neurogenic bladder. * Continue home Flomax as prescribed. * Please schedule a follow up with urology in 2-3 weeks. 4. Hypertension * Continue home Coreg, Imdur, Hydralazine as prescribed. * Please resume home Lasix 40 mg daily with close monitoring of renal function/volume status. 5. Hypoxia * Continue to use 2L via nasal cannula -- attempt to wean oxygen if tolerating. * Hypoxia may be related to pulmonary edema vs. other cause. 6. Acute Anemia * Baseline hemoglobin is ~9-11; her hemoglobin during this admission has been ~8-9. * Hemoglobin level was 7.8 on day of admission; recommend repeat labs in 3-4 days to monitor hgb levels. * Pt. does have h/o GI bleed at [facility]; monitor for repeat bleed, including coffee ground emesis. * Iron studies were consistent with iron deficiency anemia and anemia of chronic disease; she received IV iron 100 mg on day of discharge. * Continue ferrous sulfate 325 mg 1-2 times daily. 7. Please schedule a follow up with her PCP in 1-2 weeks. Prescriptions: New gabapentin 600 mg Tablet 600 mg PO QAM 30 Days Qty: 30 RF: 0 tramadol 50 mg tablet 100 mg PO Q6H PRN (Reason: moderate pain) 10 Days Qty: 30 RF: 0 ferrous sulfate 325 mg (65 mg iron) tablet 325 mg PO DAILY Qty: 1 RF: 0 pantoprazole [Protonix] 40 mg tablet,delayed release (DR/EC) 40 mg PO BID 10 Days Qty: 20 RF: 0 Continued atorvastatin 80 mg tablet 80 mg PO PM RF: 0 carvedilol 25 mg tablet 25 mg PO BID RF: 0 isosorbide mononitrate 30 mg tablet extended release 24 hr 30 mg PO QAM RF: 0 aspirin [Aspirin Low Dose] 81 mg Tablet,Delayed Release (Dr/Ec) 81 mg PO QAM RF: 0 potassium chloride 20 mEq tablet,ER particles/crystals 20 meq PO QAM RF: 0 tamsulosin 0.4 mg capsule 0.4 mg PO QAM RF: 0 nitroglycerin 0.4 mg tablet, sublingual 1 tab Sublingual Q5M PRN (Reason: Chest Pain) RF: 0 ergocalciferol (vitamin D2) 50,000 unit capsule 50,000 unit PO MONTHLY RF: 0 insulin glargine 100 unit/mL (3 mL) insulin pen 28 units subcut HS RF: 0 ticagrelor 90 mg tablet 90 mg PO BID RF: 0 insulin aspart U-100 100 unit/mL Insulin Pen SUBCUT TID RF: 0 melatonin 5 mg Tablet 5 mg PO HS RF: 0 docusate sodium [Colace] 100 mg Capsule 100 mg PO BID PRN (Reason: Constipation) RF: 0 polyethylene glycol 3350 [Miralax] 17 gram/dose Powder 17 g PO DAILY PRN (Reason: Constipation) RF: 0 Florajen3 460 mg (7.5-6- 1.5 bill. cell) Capsule 1 cap PO DAILY RF: 0 ondansetron HCl 4 mg Tablet 4 mg PO TID PRN (Reason: Nausea) RF: 0 ceftriaxone 2 gram Recon Soln 2 g IV DAILY Qty: 1 RF: 0 Discontinued gabapentin 600 mg tablet 1,200 mg PO QAM RF: 0 tramadol 50 mg tablet 50 - 100 mg PO Q4H PRN (Reason: Pain) RF: 0 spironolactone 25 mg tablet 25 mg PO QAM RF: 0 furosemide 40 mg tablet 40 mg PO BID RF: 0 Stand-Alone Forms: [facility] Discharge Orders: Discharge Order (Routine); Ordered 03/17/19 Ordered By: Sultana Bai Skilled Items Patient informed of condition?: Yes DNR: Yes Discharge Level of Care: Skilled Communicable Disease: No Discharge Prognosis: Improving Admission Data Admit Date/Time: 03/07/19 07:59 Attending Provider: Neil Kincaid Admit Provider: Hellen Olguin Primary Care Provider: Kary Paredes Other Providers: Yuliana Schmitt ; Johny Enriquez ; Temo Jimenez ; Elfego Bonner II ; Zelda Garcia Service: Telemetry Other Interventions: Discharge Summary Assessment (RN) Last Done: 03/17/19 13:19 Pending Studies at Discharge: No DC Date/Time DO NOT enter until pt leaves facility: 03/17/19 15:40 Supervising Physician Co-Signing Physician Notes Attending Discharge Note & Attestation - Pt seen/examined, chart reviewed, care plan d/w SHERIF Bai. I agree w/ the fishman components of her documentation. Very complex 74yo female with MS with resulting acquired paraplegia, morbid obesity, and recently diagnosed lumbar diskitis/abscess who presented with intractable back pain due to her infection. Ultimately needed institution of fentanyl patch to control her pain. Also needed placement of salvador due to urinary retention. Noted to have O2 requirement during her stay - was apparently placed on O2 during her stay at [facility] and it was unable to be weaned off. Consider Obesity-hypoventilation syndrome, QUENTIN, pulmonary HTN as potential causes for her O2 requirement. She was maintained on her daily rocephin for her lumbar diskitis and will complete her course as previously detailed while at [facility]. She was agreeable to SNF placement at [facility] and will transfer to [facility] for this in [place]. Discharge exam - gen - NAD, obese mouth - no thrush heart - RRR, s1 s2 lungs - modestly decreased BS bases, CTA b/l otherwise abd - soft NT ext - mild edema, pulses 2+ b/l neuro -paraplegia of legs skin - central line right upper chest clean Neil Kincaid MD
[2019-03-17] MEDS: TRAMADOL HCL 50 MG TABLET PO PRN (14:55)
== END 2019-03-17 15:40 | DRG 539 ==
LOC: ED 05:49 → 2E 07:59 → SUATTDRO 07:59 → 2E 08:43
DX: F32.9 Major depressive disorder, single episode, unspecified; E66.01 Morbid (severe) obesity due to excess calories; M54.9 Dorsalgia, unspecified; I50.33 Acute on chronic diastolic (congestive) heart failure; M46.20 Osteomyelitis of vertebra, site unspecified; Z86.73 Personal history of transient ischemic attack (TIA), and cerebral infarction without residual deficits; Z51.5 Encounter for palliative care; D64.9 Anemia, unspecified; R33.9 Retention of urine, unspecified; E11.22 Type 2 diabetes mellitus with diabetic chronic kidney disease; Z79.4 Long term (current) use of insulin; K92.2 Gastrointestinal hemorrhage, unspecified; G35 Multiple sclerosis; I25.10 Atherosclerotic heart disease of native coronary artery without angina pectoris; G82.20 Paraplegia, unspecified; Z79.82 Long term (current) use of aspirin; J96.01 Acute respiratory failure with hypoxia; I13.0 Hypertensive heart and chronic kidney disease with heart failure and stage 1 through stage 4 chronic kidney disease, or unspecified chronic kidney disease; N17.9 Acute kidney failure, unspecified; Z88.2 Allergy status to sulfonamides; N18.3 Chronic kidney disease, stage 3 (moderate); G06.2 Extradural and subdural abscess, unspecified